=== PATIENT | male | born 1960 | race Caucasian/White ===

== ENCOUNTER 2023-01-23 08:47 | Outpatient (OUT) | payer MEDICARE, SELFPAY ==
--- NOTE | 2023-01-23 09:07 | MR_ITS ---
The [address] [address] Patient Name: VALERIE CRUM MRN: [id number] date: 1960 Sex: M Assigned Patient Location: LAB Current Patient Location: LAB Accession/Order Number: [id number] Exam Date: 01/23/2023 09:37 Report Date: 01/23/2023 18:21 At the request of: NON-STAFF PHYSICIAN Procedure: MR thoracic spine wo/w con MR cervical spine wo/w con, MR thoracic spine wo/w con, 01/23/2023 9:37 AM EDT INDICATION: Multiple Sclerosis G35 COMPARISON: This study was compared to the prior MRI of cervical and thoracic spine dated 01/27/2021 TECHNIQUE: Multiplanar, multisequential MRI images of cervical spine and thoracic were obtained without and with contrast. FINDINGS: There is increased physiologic cervical lordosis. The vertebral heights are preserved. Given technical differences, there is stable T2 prolongation focus within the left hemicord of C4-C5 (image 6 series 6001). No other signal abnormality within the spinal cord is noted. No abnormal enhancing lesion is noted. At the level of C3-C4, there is moderate bilateral neuroforaminal narrowing and no canal stenosis. At the level of C4-C5, there is mild left neuroforaminal narrowing and no canal stenosis. At the level of C5-C6, there is mild left neuroforaminal narrowing and no canal stenosis. At the level of C6-C7, there is mild left neuroforaminal narrowing and no canal stenosis. Thoracic spine: The conus medullaris ends level of L1. No signal abnormality within the spinal cord intraosseous spine is noted. No abnormal enhancing lesion is noted. There is no significant neuroforaminal narrowing or canal stenosis. MR/MR thoracic spine wo/w con IMPRESSION: Stable known MS plaque in the cervical spinal cord in compared to the prior study. No definite new or active lesion is noted. No evidence of demyelinating process in the thoracic spine. Electronically authenticated by: BRANDY MORRISON Date: 01/23/2023 18:21
--- NOTE | 2023-01-23 09:07 | MR_ITS ---
The [address] [address] Patient Name: VALERIE CRUM MRN: [id number] date: 1960 Sex: M Assigned Patient Location: LAB Current Patient Location: LAB Accession/Order Number: [id number] Exam Date: 01/23/2023 09:37 Report Date: 01/23/2023 18:21 At the request of: NON-STAFF PHYSICIAN Procedure: MR cervical spine wo/w con MR cervical spine wo/w con, MR thoracic spine wo/w con, 01/23/2023 9:37 AM EDT INDICATION: Multiple Sclerosis G35 COMPARISON: This study was compared to the prior MRI of cervical and thoracic spine dated 01/27/2021 TECHNIQUE: Multiplanar, multisequential MRI images of cervical spine and thoracic were obtained without and with contrast. FINDINGS: There is increased physiologic cervical lordosis. The vertebral heights are preserved. Given technical differences, there is stable T2 prolongation focus within the left hemicord of C4-C5 (image 6 series 6001). No other signal abnormality within the spinal cord is noted. No abnormal enhancing lesion is noted. At the level of C3-C4, there is moderate bilateral neuroforaminal narrowing and no canal stenosis. At the level of C4-C5, there is mild left neuroforaminal narrowing and no canal stenosis. At the level of C5-C6, there is mild left neuroforaminal narrowing and no canal stenosis. At the level of C6-C7, there is mild left neuroforaminal narrowing and no canal stenosis. Thoracic spine: The conus medullaris ends level of L1. No signal abnormality within the spinal cord intraosseous spine is noted. No abnormal enhancing lesion is noted. There is no significant neuroforaminal narrowing or canal stenosis. MR/MR cervical spine wo/w con IMPRESSION: Stable known MS plaque in the cervical spinal cord in compared to the prior study. No definite new or active lesion is noted. No evidence of demyelinating process in the thoracic spine. Electronically authenticated by: BRANDY MORRISON Date: 01/23/2023 18:21
[2023-01-23 09:12] LABS: Estimated GFR (African America >60 (>=60); Estimated GFR (Non-African Ame >60 (>=60)
== END 2023-01-23 08:48 | disposition home or self-care (01) ==
PROVIDERS: PCP Family Medicine
DX: G35 Multiple sclerosis (principal)
CPT/HCPCS: 36415; 72156; 72157; 82565; 84520; A9575

== ENCOUNTER 2023-04-21 07:45 | Emergency (ER) | payer MEDICARE, MEDICAID, SELFPAY ==
[2023-04-21 07:49] VITALS: BP 140/84; PULSE 109; RESP 20; TEMP 36.6; O2SAT 93; BMI 22.8
--- NOTE | 2023-04-21 08:02 | XR_ITS ---
The [address] [address] Patient Name: VALERIE CRUM MRN: [id number] date: 1960 Sex: M Assigned Patient Location: ER Current Patient Location: ER Accession/Order Number: [id number] Exam Date: 04/21/2023 08:22 Report Date: 04/21/2023 08:52 At the request of: LAZARO HUTCHINSON Procedure: XR knee RT 4V EXAM: XR knee RT 4V HISTORY: right knee pain COMPARISON: None. TECHNIQUE: 4 views of the right knee. FINDINGS: No acute fracture or dislocation. No significant joint effusion. Minimal degenerative change. Soft tissues are grossly unremarkable. XR/XR knee RT 4V IMPRESSION: No acute osseous abnormality. Electronically authenticated by: SIMONE LLAMAS Date: 04/21/2023 08:52
--- NOTE | 2023-04-21 08:03 | ED.GENADUL1 ---
HPI - General Adult General Chief complaint: Extremity Injury, Lower Stated complaint: LOWER EXTREMITY PAIN R SIDE Time Seen by Provider: 04/21/23 07:50 Source: patient Mode of arrival: Wheelchair History of Present Illness HPI narrative: right knee pain without injury. Pain localized to the right knee joint with some pain behind the knee. No systemic symptoms such as fever or vomiting. He told us that the right knee sometimes gives out . Pain is non-radiating and worse when the patient is weight-bearing and ambulating. Nothing taken for the pain, which began a few days ago and has slowly worsened. PMHx - Multiple Sclerosis. Related Data Home Medications Medication Instructions Recorded Confirmed alendronate 70 mg tablet 70 mg PO DAILY 04/21/23 04/21/23 amitriptyline 100 mg tablet 100 mg PO DAILY 04/21/23 04/21/23 aripiprazole 15 mg tablet 15 mg PO DAILY 04/21/23 04/21/23 cyproheptadine 4 mg tablet 4 mg PO Q12H 04/21/23 04/21/23 escitalopram oxalate 10 mg tablet 10 mg PO DAILY 04/21/23 04/21/23 fluticasone fur. 100 mcg-umeclid 1 inh inhalation Q24H 04/21/23 04/21/23 62.5 mcg-vilant 25 mcg inhalat.powder (Trelegy Ellipta) gabapentin 600 mg tablet 600 mg PO Q8H 04/21/23 04/21/23 levothyroxine 200 mcg tablet 200 mcg PO DAILY 04/21/23 04/21/23 mirtazapine 45 mg tablet 45 mg PO DAILY 04/21/23 04/21/23 Previous Rx's Medication Instructions Recorded nabumetone 750 mg tablet 750 mg PO BID PRN pain #14 tabs 04/21/23 Allergies Allergy/AdvReac Type Severity Reaction Status Date / Time glatiramer (copolymer 1) Allergy Severe Verified 04/21/23 07:57 Penicillins Allergy Severe Verified 04/21/23 08:02 Exam Narrative Exam Narrative: Nurses notes and vital signs reviewed and patient is not hypoxic. afebrile General: Well-appearing and in no apparent distress. Skin: Warm, dry, no pallor noted. No rash. Cardiovascular: Tachycardia. Respiratory: No accessory muscle use or respiratory distress. Musculoskeletal: Only area of knee tender to palpation is the infrapatellar tendon. Right knee with normal ROM. Remainder of right LE unremarkable - no calf or popliteal tenderness, no lower extremity edema/swelling. Stable right knee - no laxity. Negative anterior and posterior drawer. No pain with valgus or varus maneuvers. No erythema, warmth or swelling noted to the right knee. Neurological: A&O x4. No cranial nerve dysfunction observed. No truncal ataxia. Moves all extremities. Sensation intact. Psychiatric: Cooperative and interactive. Normal mood and affect. Constitutional Vital Signs, click to edit/add: Last Vital Signs Temp 98 F 04/21/23 07:49 Pulse 109 H 04/21/23 07:49 Resp 20 04/21/23 07:49 BP 140/84 04/21/23 07:49 Pulse Ox 93 L 04/21/23 07:49 O2 Del Method Room Air 04/21/23 07:49 Course Vital Signs Vital signs: Vital Signs Temperature 98 F 04/21/23 07:49 Pulse Rate 109 H 04/21/23 07:49 Respiratory Rate 20 04/21/23 07:49 Blood Pressure 140/84 04/21/23 07:49 Pulse Oximetry 93 L 04/21/23 07:49 Oxygen Delivery Method Room Air 04/21/23 07:49 Temperature 98 F 04/21/23 07:49 Pulse Rate 109 H 04/21/23 07:49 Respiratory Rate 20 04/21/23 07:49 Blood Pressure 140/84 04/21/23 07:49 Pulse Oximetry 93 L 04/21/23 07:49 Oxygen Delivery Method Room Air 04/21/23 07:49 Medical Decision Making [facility] Narrative Medical decision making narrative: xrays right knee obtained. Blood drawn for testing, including d-dimer, esr, crp, uric acid, cbc w diff. Sed rate and CRp were elevated but d-dimer, uric acid and cbc were normal. X-rays did not show any osseous abnormality, just some degenerate changes. Patient informed of results. Given IM Toradol and IM Solumedrol in the ED and discharged home with rpescription for Relafen to take at home. PCP follow up recommended. Lab Data Lab results reviewed: Yes I reviewed the patient's lab results Labs: Lab Results 04/21/23 Range/Units 08:17 WBC 7.7 (4.0-11.0) 10^3/uL RBC 4.77 (4.70-6.10) 10^6/uL Hgb 15.5 (14.0-18.0) g/dL Hct 47.3 (42.0-54.0) % MCV 99.2 H (80.0-94.0) fL MCH 32.5 (25.9-34.0) pg MCHC 32.8 (29.9-35.2) g/dL RDW 13.4 (11.0-15.0) % Plt Count 295 (150-450) 10^3/uL MPV 8.8 L (9.5-13.5) fL Neut % (Auto) 65.7 (43.0-75.0) % Lymph % (Auto) 16.2 L (20.5-60.0) % Cameron % (Auto) 10.6 (1.7-12.0) % Eos % (Auto) 4.4 (0.9-7.0) % Baso % (Auto) 1.8 (0.2-2.0) % Neut # (Auto) 5.0 (1.4-6.5) 10^3/uL Lymph # (Auto) 1.2 (1.2-3.8) 10^3/uL Cameron # (Auto) 0.8 (0.3-0.8) 10^3/uL Eos # (Auto) 0.3 (0.0-0.7) 10^3/uL Baso # (Auto) 0.1 (0.0-0.1) 10^3/uL Abs Immat Gran (auto) 0.10 H (0.00-0.03) 10^3/uL Imm/Tot Granulo (auto) 1.3 H (0.0-0.5) % ESR 45 H (<=20) mm/hr D-Dimer 0.49 (<=0.59) mg/L FEU Uric Acid 3.5 (3.5-7.2) mg/dL C-Reactive Protein 0.88 H (<=0.50) mg/dL Imaging Data xr knee: Radiologist's impression: Patient Name: VALERIE CRUM MRN: [id number] date: 1960 Sex: M Assigned Patient Location: ER Current Patient Location: ER Accession/Order Number: [id number] Exam Date: 04/21/2023 08:22 Report Date: 04/21/2023 08:52 At the request of: LAZARO HUTCHINSON Procedure: XR knee RT 4V EXAM: XR knee RT 4V HISTORY: right knee pain COMPARISON: None. TECHNIQUE: 4 views of the right knee. FINDINGS: No acute fracture or dislocation. No significant joint effusion. Minimal degenerative change. Soft tissues are grossly unremarkable. IMPRESSION: No acute osseous abnormality. Electronically authenticated by: SIMONE LLAMAS Date: 04/21/2023 08:52 Discharge Plan Discharge Chief Complaint: Extremity Injury, Lower Clinical Impression: Acute knee pain Patient Disposition: Home, Self-Care Time of Disposition Decision: 09:00 Prescriptions / Home Meds: New nabumetone 750 mg tablet 750 mg PO BID PRN (Reason: pain) Qty: 14 0RF No Action gabapentin 600 mg tablet 600 mg PO Q8H alendronate 70 mg tablet 70 mg PO DAILY cyproheptadine 4 mg tablet 4 mg PO Q12H mirtazapine 45 mg tablet 45 mg PO DAILY levothyroxine 200 mcg tablet 200 mcg PO DAILY amitriptyline 100 mg tablet 100 mg PO DAILY escitalopram oxalate 10 mg tablet 10 mg PO DAILY aripiprazole 15 mg tablet 15 mg PO DAILY Trelegy Ellipta 100-62.5-25 mcg blister with device 1 inh INHALATION Q24H Instructions: Knee Pain (ED) Stand Alone Forms: Portal Instructions Referrals: ROMÁN CHANG [Primary Care Provider] - 1 week
[2023-04-21 08:25] LABS: Basophils Absolute Auto 0.1 10^3/uL (0.0-0.1); Basophils Percent Auto 1.8 % (0.2-2.0); Eosinophils Absolute Auto 0.3 10^3/uL (0.0-0.7); Eosinophils Percent Auto 4.4 % (0.9-7.0); Hematocrit 47.3 % (42.0-54.0); Hemoglobin 15.5 g/dL (14.0-18.0); Immature Granulocytes Pct Auto 1.3 % (0.0-0.5); Lymphocytes Absolute Auto 1.2 10^3/uL (1.2-3.8); Lymphocytes Percent Auto 16.2 % (20.5-60.0); Mean Corpuscular HGB Conc 32.8 g/dL (29.9-35.2); Mean Corpuscular Hemoglobin 32.5 pg (25.9-34.0); Mean Corpuscular Volume 99.2 fL (80.0-94.0); Mean Platelet Volume 8.8 fL (9.5-13.5); Monocytes Absolute Auto 0.8 10^3/uL (0.3-0.8); Monocytes Percent Auto 10.6 % (1.7-12.0); Neutrophils Percent Auto 65.7 % (43.0-75.0); Platelet Count 295 10^3/uL (150-450); Red Blood Count 4.77 10^6/uL (4.70-6.10); Red Cell Distribution Width 13.4 % (11.0-15.0); White Blood Count 7.7 10^3/uL (4.0-11.0)
[2023-04-21 08:31] LABS: Erythrocyte Sedimentation Rate 45 mm/hr (<=20)
[2023-04-21 08:38] LABS: D Dimer 0.49 mg/L FEU (<=0.59)
[2023-04-21 08:40] LABS: Uric Acid 3.5 mg/dL (3.5-7.2)
[2023-04-21 08:48] LABS: C Reactive Protein 0.88 mg/dL (<=0.50)
[2023-04-21] MEDS: KETOROLAC TROMETHAMINE 60 MG/2 ML VIAL IM (09:13)
[2023-04-21] MEDS: METHYLPREDNISOLONE SOD SUCC PF 125 MG/2 ML VIAL IM (09:13)
== END 2023-04-21 09:24 | disposition home or self-care (01) ==
PROVIDERS: Emergency Provider Emergency Medicine; PCP Family Medicine
DX: M25.561 Pain in right knee (principal); Z79.899 Other long term (current) drug therapy; Z79.890 Hormone replacement therapy
CPT/HCPCS: 36415; 73564; 84550; 85025; 85378; 85652; 86140; 96372; 99284; J2930

== ENCOUNTER 2023-08-01 11:49 | Outpatient (OUT) | payer MEDICARE, MEDICAID, SELFPAY ==
--- OUTSIDE RECORDS SUMMARY | 2023-08-01 11:58 | XMS_ITS | CCD ---
Author Organization [facility] Care Team Providers Care Trim Operator Name Role Phone Fox, Rudolph Davide Unavailable Unavailable Dr, None Unavailable Unavailable FOX, RUDOLPH DAVIDE Unavailable Unavailable YADAV, BEBO SANDADI Unavailable Unavailabl e YADAV, BEBO SANDADI Unavailable Unavailabl e YADAV, BEBO SANDADI Unavailable Unavailabl e LIUDMILA WHITE Unavailable Unavail able YRIS PEREIRA Unavailable Unavailable ARACELY GRAY Unavailable Unavailable TIMHOLMKEISHA VENANCIO Unavailable Unavailable NYHOLM KEISHA VENANCIO Unavailable Unavailable FOX, RUDOLPH DAVIDE Unavailable Unavailable FOX, RUDOLPH DAVIDE Unavailable Unavailable FOX, RUDOLPH DAVIDE Unavailable Unavailable FOX, RUDOLPH DAVIDE Unavailable Unavailable FOX, RUDOLPH DAVIDE Unavailable Unavailable BAYLEE TREJO Unavailable Unavailable FOX, RUDOLPH DAVIDE Unavailable Unavailable MIS JORDAN W Unavailable Unavailable FOX, RUDOLPH DAVIDE Unavailable Unavailable FOX, RUDOLPH DAVIDE Unavailable Unavailable FOX, RUDOLPH DAVIDE Unavailable Unavailable FOX, RUDOLPH DAVIDE Unavailable Unavailable SYSTEM, PROVIDER NOT IN Unavailable Unavaila ble FOX, RUDOLPH DAVIDE Unavailable Unavailable JORDANSEAN CARRIONNDAN W Unavailable Unavailable Fox, Rudolph Davide Primary Care Provider DR SHASTA BERMUDEZ Primary Care Unavailable DR SHASTA BERMUDEZ Consulting Unavailable PERRIE, ALEKS Admitting Unavailable PERRIE, ALEKS Attending Unavailable DR EMMA PICKERING Consulting Unavailable ALEKS DELEON Consulting Unavailable DR SHASTA BERMUDEZ Primary Care Unavailable SUZY WALLACE Consulting Unavailable MARIO FUNG Admitting Unavailable MARIO FUNG Attending Unavailable MARIO FUNG Consulting Unavailable LARA, DR FRANCE Primary Care Unavailable BENEDICT, DR CARTER Admitting Unavailable BENEDICT, DR CARTER Consulting Unavailable BENERIVKACT, DR CARTER Attending Unavailable DR SHASTA BERMUDEZ Primary Care Unavailable BENEDICT, DR CARTER Admitting Unavailable BENEDICT, DR CARTER Consulting Unavailable TIFFANY, DR CARTER Attending Unavailable Lara HERRING, Shasta Jaleel Unavailable Lara HERRING, Shasta Marmolejo Primary Care Provider [phone] Alicia NAVA, Macey Torres Unavailable [phone] JEANNE HE Attending Unavailable LARA, SHASTA F Referring Unavailable BRINK, ESPERANZA Attending Unavailable LARA, SHASTA F Referring Unavailable BRINK, ESPERANZA Attending Unavailable LARA, SHASTA F Referring Unavailable BRINK, ESPERANZA Attending Unavailable LARA, SHASTA F Referring Unavailable BRINK, ESPERANZA Attending Unavailable LARA, SHASTA F Referring Unavailable SOURAV CASTANON Attending Unavailable LARA, SHASTA F Referring Unavailable AGNES ARRINGTON Attending Unavailable MIGUEL, RADHA R Referring Unavailable LARA, SHASTA F Attending Unavailable BRIKE, ESPERANZA Attending Unavailable LARA, SHASTA F Referring Unavailable MIGUEL, RADHA R Attending Unavailable MIGUEL, RADHA R Referring Unavailable Allergies Allergy Classification Reported Allergen(s) Allergy Type Date of Onset Reaction(s) Facility Glatiramer (1 source) Glatiramer Drug Allergy 5 Intolerance [facility] Work Phone: Penicillins (antibiotic) (1 source) Penicillins Drug Allergy 5 Rash [facility] Unclassified (1 source) Marijuana Drug Allergy 5 Vomiting [facility] (5 sources) glatiramer; Translations: [GLATIRAMER (COPOLYMER 1)] Propensity to adverse reactions to drug 5 [facility] Work Phone: (6 sources) Penicillins; Translations: [PENICILLINS] Propensity to adverse reactions to drug 5 [facility] Work Phone: (1 source) Glatiramer Drug Allergy 1 [facility] (1 source) Penicillins Drug allergy (disorder) 3 [facility] (5 sources) Glatiramer Drug Allergy [address] [facility] Work Phone: (5 sources) Glatiramer Drug Allergy 3 [facility] (5 sources) Penicillin G Drug Allergy 3 Unknown [facility] (5 sources) Penicillins Drug Allergy 9 Hives, Rash [facility] (5 sources) Marijuana (Cannabis Sativa) Allergy to substance 5 GI intolerance [facility] Medications Current Medications Medication Drug Class(es) Dates Sig (Normalized) Sig (Original) alendronic acid 70 mg oral tablet (5 sources) Bisphosphonate Start: 01-18-2023 take 1 tablet by mouth in the morning alendronate (Fosamax) 70 MG tablet Indications: Age-related osteoporosis without current pathological fracture (CMS/HCC) Take 1 tablet (70 mg) by mouth every 7 (seven) days. Take in the morning with a full glass of water, on an empty stomach, and do not take anything else by mouth or lie down for the next 30 min. 16 tablet 3 01/18/2023 Active amitriptyline hydrochloride 50 mg oral tablet (12 sources) Tricyclic Antidepressant Start: 07-25-2023 take 50 mg by mouth once daily Amitriptyline Active 50 MG PO Daily July 25, 2023 12:00am Start: 03-31-2017 End: 04-01-2017 take 1 tablet by mouth once amitriptyline (ELAVIL) tab let 50 mg 50 mg, Oral, Nightly, First dose on 03/31/17 at 2100 Given 03/31/2017 20:01 EST 50 mg Start: 06-15-2014 take 1 tablet by mouth once am itriptyline (ELAVIL) 50 MG tablet Take 50 mg by mouth nightly . 06/15/2014 Active amitriptyline (E lavil) 100 MG tablet Take by mouth at bedtime. 0 Active Comment on above: Take 25 mg by mouth once daily. ARIPiprazole 5 mg oral tablet (6 sources) Atypical Antipsychotic Start: 4 take 5 mg by mouth once daily Aripiprazole Active 5 MG PO Daily July 25, 2023 12:00am Start: 02-10-2023 ARIPiprazole ( Abilify) 15 MG tablet Indications: Current moderate episode of major depressive disorder without prior episode (HCC) (CMS/HCC) TAKE 1 TABLET EVERY DAY 90 tablet 10 02/10/2023 Active calcium carbonate 1500 mg / cholecalciferol 200 unt oral tablet (5 sources) Vitamin D Start: 12-31-2020 calcium carbonate-vitamin D 600-200 MG-UNIT tablet 1 tablet with a meal Orally twice daily. Recommended keysha 500mg with vit d 300iu 0 12/31/2020 Active cholecalciferol 2000 unt oral capsule (4 sources) Vitamin D take 1 capsule by mouth once daily cholecalciferol, vitamin D3, 2,000 unit cap Take 1 capsule by mouth daily . Active cyproheptadine hydrochloride 4 mg oral tablet (6 sources) Start: 07-25-2023 take 4 mg by mouth once daily at bedtime Cyproheptadine Active 4 MG PO Daily at bedtime July 25, 2023 12:00am take 1 tablet by mouth at bedtim e cyproheptadine (Periactin) 4 MG tablet Take 4 mg by mouth at bedtime. 0 Active diphenhydrAMINE citrate 38 mg / ibuprofen 200 mg oral tablet (4 sources) Histamine-1 Receptor Antagonist, Nonsteroidal Anti-inflammatory Drug ibuprofen-diphenhydr AMINE (IBUPROFEN PM) 200-38 mg Tab Take by mouth nightly as needed Active docusate sodium 100 mg oral capsule (6 sources) Star t: 01-06 End: 06-07 24 docusate sodium (Colace) 100 MG capsule Indications: Slow transit constipation TAKE 1 CAPSULE EVERY MORNING 90 capsule 3 06/20/2023 Active escitalopram 10 mg oral tablet (5 sources) Serotonin Reuptake Inhibitor take 1 tablet by mouth once daily at bedtime escitalopram (Lexapro) 10 MG tablet Take 10 mg by mouth in the morning. Daily at 6 in the evening and take one tablet by mouth every night at bedtime. 0 Active 30 actuat fluticasone furoate 0.1 mg/actuat / umeclidinium 0.0625 mg/actuat / vilanterol 0.025 mg/actuat dry powder inhaler (5 sources) Anticholinergic, Corticosteroid, beta2-Adrenergic Agonist Star t: 11-23 24 take 1 puff(s) by inhalation once daily in the morning Hjzgamvwcnp-Ueclgtoue-Srqthp (Trelegy Ellipta) 100-62.5-25 MCG/ACT aerosol powder Indications: Chronic obstructive pulmonary disease with acute exacerbation (CMS/HCC) INHALE 1 PUFF EVERY MORNING 3 each 3 05/13/2023 Active Fluticasone-Umeclid in-Vilanter (1 source) Star t: 07-06 Bodimxhtnrc-Zoedjopbc-Txlwkd er (Trelegy Ellipta) 200-62.5-25 mcg blister with device Active 1 INH INHALATION Daily July 25, 2023 12:00am gabapentin 600 mg oral tablet (20 sources) Anti-epileptic Agent Star t: 07-06 take 600 mg by mouth once daily Gabapentin Active 600 MG PO Daily July 25, 2023 12:00am Start: 03-14-2023 gabapentin (Ne urontin) 600 MG tablet Indications: Chronic pain syndrome TAKE 2 TABLETS TWICE A DAY 360 tablet 10 03/14/2023 Active Start: 03-31-2017 End: 04-01-2017 take 1 capsule by mouth once gabapentin (NEURONTIN) ca psule 1,200 mg 1,200 mg, Oral, Nightly, First dose on 03/31/17 at 2100 Given 03/31/2017 20:01 EST 1,200 mg take 1 tablet by viji th four times daily gabapentin (NEURONTIN) 600 mg tablet Take 600 mg by mouth four times daily. 0 Active take 1 tablet by viji th once daily gabapentin (NEURONTIN) 600 MG tablet Take 600 mg by mouth daily Mid afternoon . Active End: 03-31-2017 take 2 tablets by mouth once daily in the morning gabapentin (NEURONTIN) 600 MG tablet Take 1,200 mg by mouth every morning. Active Comment on above: Take 600 mg by mouth four times daily. liothyronine sodium 0.005 mg oral tablet (5 sources) l-Triiodothyroni ne Start: 10-26-2022 take 2 tablets by mouth in the morning liothyronine (Cytomel) 5 MCG tablet Take two (2) tablets by mouth in the morning and two (2) tablets by mouth in the afternoon. 0 10/26/2022 Active mirtazapine 45 mg oral tablet (12 sources) Start: 10-30-2022 End: 10-30-2023 take 45 mg by mouth once daily Mirtazapine Active 45 MG PO Daily July 25, 2023 12:00am Start: 03-31-2017 End: 04-01-2017 take 1 tablet by mouth once mirtazapine (REMERON) tabl et 45 mg 45 mg, Oral, Nightly, First dose on 03/31/17 at 2100 Given 03/31/2017 20:04 EST 45 mg MIRTAZAPINE ORAL Take 15 mg by mouth. 0 Active take 1 tablet by viji th once daily mirtazapine (REMERON) 45 MG tablet Take 45 mg by mouth daily. Active Comment on above: Take 15 mg by mouth. montelukast 10 mg oral tablet (9 sources) Leukotriene Receptor Antagonist Start: 05-31-2023 montelukast (Singulair) 10 MG tablet Indications: Chronic obstructive pulmonary disease with acute exacerbation (CMS/HCC) TAKE 1 TABLET EVERY DAY 90 tablet 3 05/31/2023 Active take 1 tablet by mouth once marlon elukast (SINGULAIR) 10 mg tablet Take 10 mg by mouth nightly. Active Multiple Vitamin (Multi-Vitamin) tablet (5 sources) take 1 tablet by mouth in the morning Multiple Vitamin (Multi-Vitamin) tablet Take 1 tablet by mouth in the morning. 0 Active multivitamin (THERAGRAN) per tablet (3 sources) take 1 tablet by mouth once daily multivitamin (THERAGRAN) per tablet Take 1 tablet by mouth daily. Active Multivitamin Tablet (1 source) take 1 tablet by mouth once daily multivitamin (THERAGRAN) per tablet Take 1 tablet by mouth daily. Active Sod Picosulf-Mag Ox-Citric Ac (1 source) Start: 07-25-2023 take 1 mL by mouth once daily Sod Picosulf-Mag Ox-Citric Ac (Clenpiq) 10 mg-3.5 gram- 12 gram/175 mL solution Active 175 ML PO Daily 350 0 July 25, 2023 12:00am Patient is to follow instructions given at office levothyroxine sodium 0.2 mg oral capsule (13 sources) l-Thyroxin e Start: 07-25-2023 take 50 ug by mouth once daily Levothyroxine Active 50 MCG PO Daily July 25, 2023 12:00am Start: 07-25-2023 take 200 ug by mouth once radha y Levothyroxine Active 200 MCG PO Daily July 25, 2023 12:00am Start: 02-21-2023 levothyroxine (Synthroid, Levoxyl) 200 MCG tablet Start: 03-31-2017 End: 04-01-2017 levothyroxine (SYNTHROID, LEVOTHROID) tablet 150 mcg 150 mcg, Oral, At bedtime, First dose on 03/31/17 at 2100, For patients on continuous tube feed: Hold TF from 1 hr before until 1 hr after each dose. TF rate may need adjustment to meet caloric needs. Given 03/31/2017 20:01 EST 150 mcg take 1 capsule by mo uth twice daily Levothyroxine 150 mcg cap Take 150 mg by mouth twice daily. 0 Active take 1 tablet by viji th once daily levothyroxine (SYNTHROID, LEVOTHROID) 150 MCG tablet Take 150 mcg by mouth daily . Active Comment on above: Take 150 mg by mouth twice daily. vardenafil 20 mg oral tablet (5 sources) Phosphodiesterase 5 Inhibitor va rdenafil (Levitra) 20 MG tablet Take 1 tablet by mouth 0 Active Completed/Discontinued Medications Medication Drug Class(es) Dates Sig (Normalized) Sig (Original) acetaminophen 325 mg oral tablet (2 sources) Start: 04-01-2017 End: 04-01-2017 take 1 tablet by mouth once acetaminophen (TYLENOL) tablet 650 mg 650 mg, Oral, Once, 04/01/17 at 1100, For 1 dose Given 04/01/2017 10:54 EST 650 mg Start: 04-01-2017 End: 04-01-2017 take 1 tablet by mouth once acetaminophen (TYLENOL) ta blet 650 mg 650 mg, Oral, Once, 04/01/17 at 0030, For 1 dose Given 04/01/2017 00:16 EST 650 mg acetaminophen 325 mg / HYDROcodone bitartrate 5 mg oral tablet (1 source) Opioid Agonist Start: 03-31-2017 End: 03-31-2017 take 1 tablet by mouth once, then take 1 tablet by mouth HYDROcodone-acetaminophen (NORCO) 5-325 mg per tablet 1 tablet 1 tablet, Oral, Once, 03/31/17 at 1310, For 1 dose Given 03/31/2017 13:23 EST 1 tablet acetaminophen 325 mg / oxyCODONE hydrochloride 10 mg oral tablet (2 sources) Opioid Agonist End: 03-31-2017 take 1 tablet by mouth every four hours as needed oxyCODONE-acetaminophen (PERCOCET) 10-325 mg tablet Take 1 tablet by mouth every 4 hours as needed. 0 Active Comment on above: Take 1 tablet by mouth every 4 hours as needed. albuterol 0.833 mg/ml / ipratropium bromide 0.167 mg/ml inhalant solution (1 source) Anticholinergic, beta2-Adrenergic Agonist Start: 03-31-2017 End: 04-01-2017 take 3 mL by inhalation every six hours, then take 3 mL by inhalation ipratropium-albuterol (DUO-NEB) 0.5-2.5 mg/3 ml nebulizer solution 3 mL 3 mL, Inhalation, Every 6 hours scheduled (RT), First dose on 03/31/17 at 2000 Given 04/01/2017 01:38 EST 3 mL cefePIMe (MAXIPIME) 2000 mg in sodium chloride (NS) 0.9% 100 mL MBP 2,000 mg, Intravenous, at 200 mL/hr, Once, 03/31/17 at 1110, For 1 dose, Indication: Sepsis of Unknown Origin New Bag 03/31/2017 12:06 EST 2,000 mg 200 mL/hr (1 source) Start: 03-31-2017 End: 03-31-2017 50 ml clindamycin 12 mg/ml injection (1 source) Lincosamide Antibacterial Start: 03-31-2017 End: 04-01-2017 take 600 mg intravenous route every eight hours clindamycin (CLEOCIN) IVPB 600 mg (premix) 600 mg, Intravenous, at 100 mL/hr, Every 8 hours, First dose on 03/31/17 at 2200, Indication: Other: (specify) Rate/Dose Verify 04/01/2017 06:21 EST 100 mL/hr diazePAM 5 mg oral tablet (2 sources) Benzodiazepine take 1 tablet by mouth three times daily diazepam (VALIUM) 5 mg tablet Take 5 mg by mouth three times daily. 0 Active End: 03-31-2017 take 1 tablet by mouth twice daily as needed for anxiety diazePAM (VALIUM) 5 MG tablet Take 5 mg by mouth 2 (two) times a day as needed for anxiety. 03/31/2017 Discontinued Comment on above: Take 5 mg by mouth t hree times daily. dimethyl fumarate 240 mg delayed release oral capsule (7 sources) Start: 03-31-2017 End: 04-01-2017 take 2001 capsules by mouth twice daily dimethyl fumarate (Tecfidera) DR capsule 240 mg 240 mg, Oral, 2 times daily, First dose on 03/31/17 at 2100, Drug Name: Tecfidera delayed release capsule Given 03/31/2017 20:01 EST 240 mg End: 03-31-2017 take 240 mg by mouth twice daily DIMETHYL FUMARATE (TECFIDERA ORAL) Take 240 mg by mouth twice daily. 0 Active Comment on above: Take 240 mg by mouth twice daily. Gadoterate Meglumine 0.5 Mmol/Ml Intravenous Solution (1 source) Start: 07-03-19 18 End: 07-03-19 gadoterate meglumine (DOTAREM) injection 12 mL 1 ml HYDROmorphone hydrochloride 1 mg/ml injection (3 sources) Opioid Agonist Start: 03-31-20 End: 04-01-20 take 3 mg intravenous route every three hours HYDROmorphone (DILAUDID) 1 mg/mL injection 3 mg 3 mg, Intravenous, Every 3 hours PRN, moderate to severe pain, Starting 03/31/17 at 2055, For 19 hours Given 04/01/2017 08:10 EST 3 mg Start: 03-31-2017 End: 03-31-2017 take 2 mg intravenous route every three hours HYDROmorphone (DILAUDID) 1 mg/mL injection 2 mg 2 mg, Intravenous, Every 3 hours PRN, moderate to severe pain, Starting 03/31/17 at 1817, For 22 hours Given 03/31/2017 18:28 EST 2 mg Start: 03-31-2017 End: 03-31-2017 take 1 mg intravenous route every three hours HYDROmorphone (DILAUDID) 1 mg/mL injection 1 mg 1 mg, Intravenous, Every 3 hours PRN, moderate to severe pain, Starting 03/31/17 at 1647, For 24 hours Given 03/31/2017 17:21 EST 1 mg iopamidol (2 sources) Radiographic Contrast Agent Start: 04-01-2017 End: 04-01-2017 iopamidol (ISOVUE-370) 76 % oral solution 6 mL 6 mL, Oral, Every 30 min, First dose on 04/01/17 at 1415, For 3 doses, Dilute each 6mls with 300mls cold water prior to oral administration Contrast Administered 04/01/2017 14:20 EST 6 mL Start: 03-31-2017 End: 03-31-2017 iopamidol (ISOVUE-370) 76 % injection 75 mL 75 mL, Intravenous, Once in imaging, contrast, Starting 03/31/17 at 1115, For 1 dose Contrast Administered 03/31/2017 11:32 EST 75 mL 150 ml levoFLOXacin 5 mg/ml injection (1 source) Quinolone Antimicrobial Start: 03-31-2017 End: 04-01-2017 take 750 mg intravenous route every twenty-four hours levoFLOXacin (LEVAQUIN) IVPB 750 mg (premix) 750 mg, Intravenous, Administer over 90 Minutes, Every 24 hours, First dose on 03/31/17 at 2000, Indication: CAP Rate/Dose Verify 03/31/2017 20:17 EST 100 mL/hr meropenem (MERREM) 1,000 mg in sodium chloride 0.9 % (NS) 50 mL IVPB 1,000 mg, Intravenous, at 100 mL/hr, Every 8 hours, First dose on 04/01/17 at 0300, Indication: Sepsis/Septic Shock (non-anaphylactic PCN allergies) New Bag 04/01/2017 10:56 EST 1,000 mg 100 mL/hr (1 source) Start: 04-01-2017 End: 04-01-2017 take 1000 mg intravenous route every eight hours meropenem (MERREM) 1,000 mg in sodium chloride 0.9 % (NS) 50 mL IVPB 1,000 mg, Intravenous, at 100 mL/hr, Every 8 hours, First dose on 04/01/17 at 0300, Indication: Sepsis/Septic Shock (non-anaphylactic PCN allergies) New Bag 04/01/2017 10:56 EST 1,000 mg 100 mL/hr methylPREDNISolone sod suc (PF) (SOLU-medrol) 1,000 mg in sodium chloride 0.9 % (NS) 100 mL IVPB 1,000 mg, Intravenous, at 100 mL/hr, Once, Lilliana 05/31/17 at 1530, For 1 dose, Infuse over 60 minutes GIVE DAILY X 3 DAYS EVERY 3 MONTHS CBC/D, CMP, ESR, UA DAY 1 EACH TREATMENT New Bag 05/31/2017 15:01 EST 1,000 mg 100 mL/hr (1 source) Start: 05-31-2017 End: 05-31-2017 take 1000 mg intravenous route every hour methylPREDNISolone sod suc (PF) (SOLU-medrol) 1,000 mg in sodium chloride 0.9 % (NS) 100 mL IVPB 1,000 mg, Intravenous, at 100 mL/hr, Once, Lilliana 05/31/17 at 1530, For 1 dose, Infuse over 60 minutes GIVE DAILY X 3 DAYS EVERY 3 MONTHS CBC/D, CMP, ESR, UA DAY 1 EACH TREATMENT New Bag 05/31/2017 15:01 EST 1,000 mg 100 mL/hr methylPREDNISolone sod suc (PF) (SOLU-medrol) 1,000 mg in sodium chloride 0.9 % (NS) 100 mL IVPB 1,000 mg, Intravenous, at 100 mL/hr, Once, Sun05/30/17 at 1530, For 1 dose, Infuse over 60 minutes GIVE DAILY X 3 DAYS EVERY 3 MONTHS CBC/D, CMP, ESR, UA DAY 1 EACH TREATMENT New Bag 05/30/2017 15:00 EST 1,000 mg 100 mL/hr (1 source) Start: 05-30-2017 End: 05-30-2017 take 1000 mg intravenous route every hour methylPREDNISolone sod suc (PF) (SOLU-medrol) 1,000 mg in sodium chloride 0.9 % (NS) 100 mL IVPB 1,000 mg, Intravenous, at 100 mL/hr, Once, Sun05/30/17 at 1530, For 1 dose, Infuse over 60 minutes GIVE DAILY X 3 DAYS EVERY 3 MONTHS CBC/D, CMP, ESR, UA DAY 1 EACH TREATMENT New Bag 05/30/2017 15:00 EST 1,000 mg 100 mL/hr morphine sulfate 15 mg extended release oral tablet (5 sources) Opioid Agonist Start: 03-31-2017 End: 04-01-2017 take 1 tablet by mouth every twelve hours morphine (MS CONTIN) 12 hr tablet 15 mg 15 mg, Oral, Every 12 hours scheduled, First dose on [facility] 03/31/17 at 2100, DO NOT CRUSH OR CHEW. Given 03/31/2017 20:01 EST 15 mg take 1 tablet by viji twice daily as needed for pain, then take 1 tablet by mouth every twelve hours as needed for pain morphine (MS CONTIN) 15 MG 12 hr tablet Take 15 mg by mouth 2 (two) times a day as needed for pain. Active 24 hr nicotine 0.875 mg/hr transdermal system (1 source) Cholinergic Nicotinic Agonist Start: 03-31-2017 End: 04-01-2017 nicotine (NICODERM CQ) 21 mg/24 hr 1 patch 1 patch, Transdermal, Administer over 24 Hours, Daily, First dose on [facility] 03/31/17 at 1700 Patch Applied 03/31/2017 16:35 EST 1 patch Right Arm oxyCODONE hydrochloride 5 mg oral tablet (7 sources) Opioid Agonist Start: 03-31-2017 End: 03-31-2017 take 3 tablets by mouth every four hours oxyCODONE (ROXICODONE) immediate release tablet 15 mg 15 mg, Oral, Every 4 hours PRN, moderate to severe pain, Starting 03/31/17 at 1500 Given 03/31/2017 15:20 EST 15 mg take 30 mg by mouth twice daily OXYCODONE HCL (OXYCODONE ORAL) Take 30 mg by mouth twice daily. 0 Active take 1 tablet by viji th every four hours as needed oxyCODONE (ROXICODONE) 15 MG immediate release tablet Take 15 mg by mouth every 4 (four) hours as needed for pain. Active End: 03-31-2017 take 1 tablet by mouth twice daily OXYCONTIN 40 mg 12 hr tablet Take 40 mg by mouth 2 (two) times a day. 03/31/2017 Discontinued Comment on above: Take 30 mg by mouth twice daily. sildenafil 50 mg oral tablet (1 source) Phosphodiesterase 5 Inhibitor sildenafil (VIAGRA) 50 mg tablet Take 50 mg by mouth as needed. 0 Active Comment on above: Take 50 mg by mouth as needed. 1000 ml sodium chloride 9 mg/ml injection (7 sources) Start: End: take 125 mL intravenous route every hour sodium chloride 0.9% (NS) 125 mL/hr, Intravenous, Continuous, Starting 03/31/17 at 1700 Rate/Dose Verify 03/31/2017 17:54 EST 125 mL/hr 125 mL/hr Start: 03-31-2017 End: 04-01-2017 sodium chloride 0.9% (NS) tiffany belen 1,000 mL 1,000 mL, Intravenous, at 983.6 mL/hr, Once, 04/01/17 at 0030, For 1 dose Rate/Dose Verify 04/01/2017 00:24 EST 983.6 mL/hr vancomycin (VANCOCIN) 1,250 mg in sodium chloride 0.9 % (NS) 250 mL IVPB 1,250 mg, Intravenous, at 250 mL/hr, Every 12 hours, First dose on 04/01/17 at 1600, Indication: Sepsis of Unknown Origin Rate/Dose Change 04/01/2017 17:19 EST 5 mL/hr (1 source) Start: 04-01-2017 End: 04-01-2017 take 1250 mg intravenous route every twelve hours vancomycin (VANCOCIN) 1,250 mg in sodium chloride 0.9 % (NS) 250 mL IVPB 1,250 mg, Intravenous, at 250 mL/hr, Once, 03/31/17 at 1120, For 1 dose, Indication: Sepsis of Unknown Origin New Bag 03/31/2017 12:11 EST 1,250 mg 250 mL/hr (1 source) Start: 03-31-2017 End: 03-31-2017 take 250 mL intravenous route every hour, then take 250 mL intravenous route vitamin b 12 2 mg extended release oral tablet (1 source) Vitamin B12 End: 03-31-2017 take 2500 ug by mouth once daily cyanocobalamin 2000 MCG tablet Take 2,500 mcg by mouth daily 03/31/2017 Discontinued water 1000 mg/ml irrigation solution (1 source) Start: 04-01-2017 End: 04-01-2017 sterile water irrigation solution - ADS Override Pull Starting 04/01/17 at 0315, For 1 dose, Constanza Houser : cabinet override Given 04/01/2017 03:27 EST 1,500 mL Problems Active Problems Problem Classification Problem Date Documented Da te Episodic/Chronic Anxiety disorders (20 sources) Acute stress disorder; Translations: [Acute stress reaction] Onset: 09-19-2022 09-19-2022 Chronic Chronic obstructive pulmonary disease and bronchiectasis (10 sources) Centriacinar emphysema; Translations: [Centrilobular emphysema] Onset: 09-19-2022 09-19-2022 Chronic Coronary atherosclerosis and other heart disease (5 sources) History of myocardial infarction; Translations: [Old myocardial infarction] Onset: 04-03-2017 01-03-2023 Chronic Hyperplasia of prostate (5 sources) Benign prostatic hyperplasia; Translations: [Benign prostatic hyperplasia without lower urinary tract symptoms] Onset: 04-03-2017 01-03-2023 Chronic Mood disorders (15 sources) Depressive disorder; Translations: [Depression] Onset: 09-19-2022 09-19-2022 Chronic Multiple sclerosis (20 sources) Multiple sclerosis; Translations: [Multiple sclerosis] Onset: 10-07-2014 01-06-2015 Chronic Nutritional deficiencies (5 sources) Vitamin D deficiency; Translations: [Vitamin D deficiency, unspecified] Onset: 09-19-2022 09-19-2022 Chronic Osteoporosis (5 sources) Osteoporosis; Translations: [Age-related osteoporosis without current pathological fracture] Onset: 09-19-2022 09-19-2022 Chronic Other gastrointestinal disorders (1 source) Constipation alternates with diarrhea; Translations: [Other specified symptoms and signs involving the digestive system and abdomen] 07-25-2023 Episodic Other gastrointestinal disorders (1 source) Constipation; Translations: [Constipation, unspecified] 07-25-2023 Episodic Other gastrointestinal disorders (1 source) Constipation, unspecified; Translations: [Constipation, unspecified] 07-25-2023 Episodic Other lower respiratory disease (5 sources) Multiple nodules of lung; Translations: [Other nonspecific abnormal finding of lung field] Onset: 04-20-2023 04-20-2023 Episodic Other nervous system disorders (1 source) Chronic pain; Translations: [Other chronic pain] Onset: 10-07-2014 10-07-2014 Chronic Other nervous system disorders (5 sources) Chronic pain syndrome; Translations: [Chronic pain syndrome] Onset: 09-19-2022 09-19-2022 Chronic Other nervous system disorders (5 sources) Neuropathy; Translations: [Polyneuropathy, unspecified] Onset: 09-19-2022 09-19-2022 Chronic Other screening for suspected conditions (not mental disorders or infectious disease) (2 sources) Patient encounter status; Translations: [Encounter for screening for malignant neoplasm of colon] 07-25-2023 Episodic Other upper respiratory disease (5 sources) Allergic rhinitis; Translations: [Other allergic rhinitis] Onset: 09-19-2022 09-19-2022 Chronic Residual codes; unclassified (5 sources) Restlessness and agitation; Translations: [Restlessness and agitation] Onset: 09-19-2022 09-19-2022 Chronic Septicemia (2 sources) Sepsis, unspecified organism; Translations: [Sepsis, unspecified organism] Onset: 04-01-2017 Spondylosis; intervertebral disc disorders; other back problems (6 sources) Degeneration of lumbar intervertebral disc; Translations: [Other intervertebral disc degeneration, lumbar region] Onset: 10-07-2014 10-07-2014 Chronic Substance-related disorders (15 sources) Harmful pattern of use of caffeine; Translations: [Other stimulant abuse, uncomplicated] Onset: 04-25-2017 09-19-2022 Chronic Thyroid disorders (5 sources) Hypothyroidism; Translations: [Hypothyroidism, unspecified] Onset: 09-19-2022 09-19-2022 Chronic Unclassified (2 sources) [facility] Payable Administrator Review Required; Translations: [[facility] Payable Administrator Review Required] Onset: 05-30-2017 Past or Other Problems Problem Classification Problem Date Documented Da te Episodic/Chronic Malaise and fatigue (1 source) Fatigue; Translations: [Other fatigue] Onset: 10-07-2014 10-07-2014 Episodic Mood disorders (5 sources) Mood disorders Onset: 01-03-2023 01-03-2023 Nonspecific chest pain (6 sources) Chest pain; Translations: [Chest pain, unspecified] Onset: 11-10-2016 11-10-2016 Episodic Other ear and sense organ disorders (5 sources) Bilateral tinnitus; Translations: [Tinnitus, bilateral] Onset: 09-19-2022 09-19-2022 Episodic Other gastrointestinal disorders (6 sources) Slow transit constipation; Translations: [Slow transit constipation] Onset: 09-26-2022 09-26-2022 Episodic Other nutritional; endocrine; and metabolic disorders (5 sources) Loss of appetite; Translations: [Anorexia] Onset: 09-19-2022 09-19-2022 Episodic Pleurisy; pneumothorax; pulmonary collapse (5 sources) Empyema of pleura; Translations: [Pyothorax without fistula] Onset: 04-03-2017 01-03-2023 Episodic Pneumonia (3 sources) Infective pneumonia; Translations: [Pneumonia, unspecified organism] Onset: 04-01-2017 Episodic Septicemia (5 sources) Sepsis; Translations: [Sepsis (HCC)] Onset: 08-24-2016 03-31-2017 Episodic Thyroid disorders (1 source) Disorder of thyroid gland; Translations: [Disorder of thyroid, unspecified] Onset: 10-07-2014 10-07-2014 Episodic Results Test Name Value Interpretation Reference Range Facility CT ABDOMEN PELVIS WO IV CONT Miguel 07-16-2023 CT ABDOMEN PELVIS WO IV CONTRAST CT of the Abdomen and Pelvis without intravenous contrast medium History: Abdominal distention. Constipation. Technical Factors: CT imaging of the abdomen and pelvis were obtained and formatted as 5 mm contiguous axial images from the domes of the diaphragm to the symphysis pubis. Sagittal and coronal reconstructions were also obtained. Oral contrast medium: Barium sulfate, 400 mL. Intravenous contrast medium: None Comparison: None. Findings: Lower chest cardiac size normal. No pericardial effusion. No coronary artery calcification. Bibasilar dependent scarring. Liver: Normal in size, shape, and attenuation. Bile Ducts: Normal in caliber. Gallbladder: Surgically absent. Pancreas: Normal without masses, cysts, ductal dilatation or calcification. Spleen: Normal in size without masses or calcifications. No splenules. Kidneys: Normal in size. No hydronephrosis, masses, or stones. Adrenals: Normal. Small bowel: Normal in caliber. Appendix: Not visualized. Colon: Normal in caliber. Copious stool in colon. Peritoneum: No ascites, free air, or fluid collections. Vessels: Aorta normal in course and caliber. Lymph nodes: Retroperitoneal: No enlarged retroperitoneal lymph nodes. Mesenteric: No enlarged mesenteric lymph nodes. Pelvic: No enlarged pelvic lymph nodes. Ureters: Normal in course and caliber. No calcifications. Bladder: No wall thickening. Reproductive organs: No pelvic masses. Abdominal Wall: No hernia identified. No diastasis of rectus musculature. No edema or masses. Bones: No bone lesions. Diffuse disc space narrowing L2-L3 No post operative changes. IMPRESSION: Constipation. Cholecystectomy. All CT scans at this facility use dose modulation, iterative reconstruction, and/or weight based dosing when appropriate to reduce radiation dose to as low as reasonably achievable. ELECTRONICALLY SIGNED BY: Julito Saucedo MD Normal Not Available CBC AUTO DIFFon 09-19-2022 BASO # 0.1 103/ul Normal 0.0-0.1 [facility] Comment on above: Performed By: #### C BC #### [facility] [address] [place] [address] Dr. Edison Guzman Basophils/100 WBC (Bld) 2.0 % Normal 0.2-2.0 [facility] Comment on above: Performed By: #### C BC #### [facility] [address] [place] [address] Dr. Edison Guzman EO # 0.4 103/ul Normal 0.0-0.7 [facility] Comment on above: Performed By: #### C BC #### [facility] [address] [address] [address] Edison Guzman Eosinophils/100 WBC (Bld) 5.9 % Normal 0.9-7.0 [facility] Comment on above: Performed By: #### C BC #### [facility] [address] [place] [address] Dr. dEison Guzman Erythrocyte distribution width (RBC) [Ratio] 14.1 % Normal 11.0-15.0 [facility] Comment on above: Performed By: #### C BC #### [facility] [address] [place] [address] Dr. Edison Guzman Hematocrit (Bld) [Volume fraction] 49.4 % Normal 42.0-54.0 [facility] Comment on above: Performed By: #### C BC #### [facility] [address] [place] [address] Dr. Edison Guzman Hemoglobin (Bld) [Mass/Vol] 16.3 g/dL Normal 14.0-18.0 [facility] Comment on above: Performed By: #### C BC #### [facility] [address] [place] [address] Dr. Edison Guzman IG # 0.04 10e3/ul Critically high 0.00-0.03 [facility] Comment on above: Performed By: #### C BC #### [facility] [address] [place] [address] Dr. Edison Guzman IG % 0.7 % Critically high 0.0-0.5 [facility] Comment on above: Performed By: #### C BC #### [facility] [address] [place] [address] Dr. Edison Guzman LYMPH # 1.1 103/ul Critically low 1.2-3.[address] [facility] Comment on above: Performed By: #### C BC #### [facility] [address] [place] [address] Dr. Edison Guzman Lymphocytes/100 WBC (Bld) 19.1 % Critically low 20.5-60.0 [facility] Comment on above: Performed By: #### C BC #### [facility] [address] [place] [address] Dr. Edison Guzman MANUAL DIFF REQ NO Normal [facility] Comment on above: Performed By: #### C BC #### [facility] [address] [place] [address] Dr. Edison Guzman MCH (RBC) [Entitic mass] 32.1 pg Normal 25.9-34.0 [facility] Comment on above: Performed By: #### C BC #### [facility] [address] [place] [address] Dr. Edison Guzman MCHC (RBC) [Mass/Vol] 33.0 g/dL Normal 29.9-35.2 [facility] Comment on above: Performed By: #### C BC #### [facility] [address] [place] [address] Dr. Edison Guzman MCV (RBC) [Entitic vol] 97.4 fL Critically high 80.0-94.0 [facility] Comment on above: Performed By: #### C BC #### [facility] [address] [place] [address] Dr. Edison Guzman MONO # 0.7 103/ul Normal 0.3-0.8 [facility] Comment on above: Performed By: #### C BC #### [facility] [address] [place] [address] Dr. Edison Guzman Monocytes/100 WBC (Bld) 11.2 % Normal 1.7-12.0 [facility] Comment on above: Performed By: #### C BC #### [facility] [address] [place] [address] Dr. Edison Guzman NEUT # 3.6 103/ul Normal 1.4-6.5 [facility] Comment on above: Performed By: #### C BC #### [facility] [address] [place] [address] Dr. Edison Guzman Neutrophils/100 WBC (Bld) 61.1 % Normal 43.0-75.0 [facility] Comment on above: Performed By: #### C BC #### [facility] [address] [place] [address] Dr. Edison Guzman Platelet mean volume (Bld) [Entitic vol] 8.5 fL Critically low 9.5-13.5 [facility] Comment on above: Performed By: #### C BC #### [facility] [address] [address] [address] Edison Guzman PLT 299 103/ul Normal 150-450 [facility] Comment on above: Performed By: #### C BC #### [facility] [address] [place] [address] Dr. Edison Guzman RBC 5.07 106/ul Normal 4.70-6.10 [facility] Comment on above: Performed By: #### C BC #### [facility] [address] [place] [address] Dr. Edison Guzman WBC 6.0 103/ul Normal 4.0-11.0 [facility] Comment on above: Performed By: #### C BC #### [facility] [address] [place] [address] Dr. Edison Guzman MRI BRAIN WO W CONon 023 MRI BRAIN WO W CON EXAMINATION: MRI BRA IN WO W CON HISTORY: Multiple sclerosis. New blurred vision. COMPARISON: Brain MRI from 01/26/2022 TECHNIQUE: A variety of imaging planes and parameters were utilized for visualization of suspected pathology. Images were performed without and with 13 mL IV Dotarem contrast. FINDINGS: CEREBRUM: Extensive T2/FLAIR hyperintense signal abnormality again seen within the periventricular and subcortical deep white matter with a demyelinating process. No significant change. For example a lesion in the right periventricular white matter on image 17 measuring 9 x 7 mm is unchanged and without enhancement, however it does demonstrate slight low signal abnormality on T1 WI suggesting axonal loss/black hole. Low T1-weighted signal abnormality is also appreciated about the periventricular lesions in the parietal lobes unchanged. No enhancement of these lesions. No edema, hemorrhage, mass, or acute infarct. There is mild cerebral atrophy. CEREBELLUM: No edema, hemorrhage, mass, acute infarction. BRAINSTEM: No edema, hemorrhage, mass, acute infarction. CSF SPACES: Ventricles, cisterns, and sulci are appropriate for age. No hydrocephalus, subarachnoid hemorrhage, or mass. SKULL: No mass or other significant visible lesion. SINUSES: Limited views demonstrate no significant mucosal thickening or fluid. ORBITS: Limited views are unremarkable. No change in enhancement pattern of the optic nerves or acute change. IMPRESSION: No change in size or distribution or acute findings, in this patient with white matter lesions compatible with demyelinating process. Some lesions continue to show low T1 weighted signal, suggesting axonal loss. No abnormal enhancement. Electronically authenticated by: SUZY WALLACE Date: 2022-09-19 15:47 Normal [facility] PROF 14(COMP METB)on 023 Albumin [Mass/Vol] 3.8 g/dL Normal 3.4-5.0 [facility] Comment on above: Performed By: #### C MP #### [facility] [address] [place] [address] Dr. Edison Guzman Albumin/Globulin [Mass ratio] 1.0 {ratio} Normal [facility] Comment on above: Performed By: #### C MP #### [facility] [address] [place] [address] Dr. Edison Guzman ALP [Catalytic activity/Vol] 117 U/L Critically high 46-116 [facility] Comment on above: Performed By: #### C MP #### [facility] [address] [place] [address] Dr. Edison Guzman ALT [Catalytic activity/Vol] 20 U/L Normal 16-63 [facility] Comment on above: Performed By: #### C MP #### [facility] [address] [place] [address] Dr. Edison Guzman Anion gap [Moles/Vol] 10.1 mmol/L Normal [facility] Comment on above: Performed By: #### C MP #### [facility] [address] [place] [address] Dr. Edison Guzman AST [Catalytic activity/Vol] 17 U/L Normal 15-37 [facility] Comment on above: Performed By: #### C MP #### [facility] [address] [place] [address] Dr. Edison Guzman Bilirubin [Mass/Vol] 0.3 mg/dL Normal 0.2-1.0 [facility] Comment on above: Performed By: #### C MP #### [facility] [address] [address] [address] Edison Guzman Calcium [Mass/Vol] 8.6 mg/dL Normal 8.5-10.1 [facility] Comment on above: Performed By: #### C MP #### [facility] [address] [address] [address] Edison Guzman Chloride [Moles/Vol] 104 mmol/L Normal 98-107 [facility] Comment on above: Performed By: #### C MP #### [facility] [address] [address] [address] Edison Guzman CO2 [Moles/Vol] 34.3 mmol/L Critically high 21.0-32.0 [facility] Comment on above: Performed By: #### C MP #### [facility] [address] [place] [address] Dr. Edison Guzman Creatinine [Mass/Vol] 0.78 mg/dL Normal 0.70-1.30 [facility] Comment on above: Performed By: #### C MP #### [facility] [address] [place] [address] Dr. Edison Guzman EGFR-AF SINGAPOREAN >60 Normal >=60 [facility] Comment on above: Performed By: #### C MP #### [facility] [address] [place] [address] Dr. Edison Guzman EGFR-NON AF SING[place]OREAN >60 Normal >=60 [facility] Comment on above: Performed By: #### C MP #### [facility] [address] [place] [address] Dr. Edison Guzman Globulin (S) [Mass/Vol] 3.8 g/dL Normal [facility] Comment on above: Performed By: #### C MP #### [facility] [address] [place] [address] Dr. Edison Guzman Glucose [Mass/Vol] 94 mg/dL Normal 74-106 [facility] Comment on above: Performed By: #### C MP #### [facility] [address] [place] [address] Dr. Edison Guzman Potassium [Moles/Vol] 4.4 mmol/L Normal 3.5-5.1 [facility] Comment on above: Performed By: #### C MP #### [facility] [address] [place] [address] Dr. Edison Guzman Protein [Mass/Vol] 7.6 g/dL Normal 6.4-8.2 [facility] Comment on above: Performed By: #### C MP #### [facility] [address] [address] [address] Edison Guzman Sodium [Moles/Vol] 144 mmol/L Normal 136-145 [facility] Comment on above: Performed By: #### C MP #### [facility] [address] [place] [address] Dr. Edison Guzman Urea nitrogen [Mass/Vol] 11.0 mg/dL Normal 7.0-18.0 [facility] Comment on above: Performed By: #### C MP #### [facility] [address] [place] [address] Dr. Edison Guzman Urea nitrogen/Creatinine [Mass ratio] 14.1 mg/mg Normal [facility] Comment on above: Performed By: #### C MP #### [facility] [address] [place] [address] Dr. Edison Guzman CBC AUTO DIFFon 06-30-2022 BASO # 0.2 103/ul Critically high 0.0-0.1 [facility] Comment on above: Performed By: #### C BC #### [facility] [address] [place] [address] Dr. Edison Guzman Basophils/100 WBC (Bld) 2.6 % Critically high 0.2-2.0 [facility] Comment on above: Performed By: #### C BC #### [facility] [address] [place] [address] Dr. Edison Guzman EO # 0.3 103/ul Normal 0.0-0.7 [facility] Comment on above: Performed By: #### C BC #### [facility] [address] [place] [address] Dr. Edison Guzman Eosinophils/100 WBC (Bld) 3.9 % Normal 0.9-7.0 [facility] Comment on above: Performed By: #### C BC #### [facility] [address] [place] [address] Dr. Edison Guzman Erythrocyte distribution width (RBC) [Ratio] 15.1 % Critically high 11.0-15.0 [facility] Comment on above: Performed By: #### C BC #### [facility] [address] [place] [address] Dr. Edison Guzman Hematocrit (Bld) [Volume fraction] 47.5 % Normal 42.0-54.0 [facility] Comment on above: Performed By: #### C BC #### [facility] [address] [place] [address] Dr. Edison Guzman Hemoglobin (Bld) [Mass/Vol] 15.4 g/dL Normal 14.0-18.0 [facility] Comment on above: Performed By: #### C BC #### [facility] [address] [place] [address] Dr. Edison Guzman IG # 0.10 10e3/ul Critically high 0.00-0.03 [facility] Comment on above: Performed By: #### C BC #### [facility] [address] [place] [address] Dr. Edison Guzman IG % 1.4 % Critically high 0.0-0.5 [facility] Comment on above: Performed By: #### C BC #### [facility] [address] [place] [address] Dr. Edison Guzman LYMPH # 1.4 103/ul Normal 1.2-3.8 [facility] Comment on above: Performed By: #### C BC #### [facility] [address] [place] [address] Dr. Edison Guzman Lymphocytes/100 WBC (Bld) 19.6 % Critically low 20.5-60.0 [facility] Comment on above: Performed By: #### C BC #### [facility] [address] [place] [address] Dr. Edison Guzman MANUAL DIFF REQ NO Normal [facility] Comment on above: Performed By: #### C BC #### [facility] [address] [place] [address] Dr. Edison Guzman MCH (RBC) [Entitic mass] 30.8 pg Normal 25.9-34.0 [facility] Comment on above: Performed By: #### C BC #### [facility] [address] [place] [address] Dr. Edison Guzman MCHC (RBC) [Mass/Vol] 32.4 g/dL Normal 29.9-35.2 [facility] Comment on above: Performed By: #### C BC #### [facility] [address] [place] [address] Dr. Edison Guzman MCV (RBC) [Entitic vol] 95.0 fL Critically high 80.0-94.0 [facility] Comment on above: Performed By: #### C BC #### [facility] [address] [place] [address] Dr. Edison Guzman MONO # 0.7 103/ul Normal 0.3-0.8 [facility] Comment on above: Performed By: #### C BC #### [facility] [address] [place] [address] Dr. Edison Guzman Monocytes/100 WBC (Bld) 9.6 % Normal 1.7-12.0 [facility] Comment on above: Performed By: #### C BC #### [facility] [address] [place] [address] Dr. Edison Guzman NEUT # 4.4 103/ul Normal 1.4-6.5 [facility] Comment on above: Performed By: #### C BC #### [facility] [address] [place] [address] Dr. Edison Guzman Neutrophils/100 WBC (Bld) 62.9 % Normal 43.0-75.0 [facility] Comment on above: Performed By: #### C BC #### [facility] [address] [place] [address] Dr. Edison Guzman Platelet mean volume (Bld) [Entitic vol] 8.6 fL Critically low 9.5-13.5 [facility] Comment on above: Performed By: #### C BC #### [facility] [address] [place] [address] Dr. Edison Guzman PLT 398 103/ul Normal 150-450 [facility] Comment on above: Performed By: #### C BC #### [facility] [address] [place] [address] Dr. Edison Guzman RBC 5.00 106/ul Normal 4.70-6.10 [facility] Comment on above: Performed By: #### C BC #### [facility] [address] [place] [address] Dr. Edison Guzman WBC 7.0 103/ul Normal 4.0-11.0 [facility] Comment on above: Performed By: #### C BC #### [facility] [address] [place] [address] Dr. Edison Guzman CBC AUTO DIFFon 04-21-2022 BASO # 0.2 103/ul Critically high 0.0-0.1 [facility] Comment on above: Performed By: #### C BC #### [facility] [address] [place] [address] Dr. Edison Guzman Basophils/100 WBC (Bld) 2.3 % Critically high 0.2-2.0 [facility] Comment on above: Performed By: #### C BC #### [facility] [address] [place] [address] Dr. Edison Guzman EO # 0.3 103/ul Normal 0.0-0.7 [facility] Comment on above: Performed By: #### C BC #### [facility] [address] [place] [address] Dr. Edison Guzman Eosinophils/100 WBC (Bld) 4.3 % Normal 0.9-7.0 [facility] Comment on above: Performed By: #### C BC #### [facility] [address] [place] [address] Dr. Edison Guzman Erythrocyte distribution width (RBC) [Ratio] 14.4 % Normal 11.0-15.0 [facility] Comment on above: Performed By: #### C BC #### [facility] [address] [place] [address] Dr. Edison Guzman Hematocrit (Bld) [Volume fraction] 46.6 % Normal 42.0-54.0 [facility] Comment on above: Performed By: #### C BC #### [facility] [address] [place] [address] Dr. Edison Guzman Hemoglobin (Bld) [Mass/Vol] 15.1 g/dL Normal 14.0-18.0 [facility] Comment on above: Performed By: #### C BC #### [facility] [address] [place] [address] Dr. Edison Guzman IG # 0.04 10e3/ul Critically high 0.00-0.03 [facility] Comment on above: Performed By: #### C BC #### [facility] [address] [place] [address] Dr. Edison Guzman IG % 0.6 % Critically high 0.0-0.5 [facility] Comment on above: Performed By: #### C BC #### [facility] [address] [place] [address] Dr. Edison Guzman LYMPH # 1.5 103/ul Normal 1.2-3.8 [facility] Comment on above: Performed By: #### C BC #### [facility] [address] [place] [address] Dr. Edison Guzman Lymphocytes/100 WBC (Bld) 23.1 % Normal 20.5-60.0 [facility] Comment on above: Performed By: #### C BC #### [facility] [address] [place] [address] Dr. Edison Guzman MANUAL DIFF REQ NO Normal [facility] Comment on above: Performed By: #### C BC #### [facility] [address] [place] [address] Dr. Edison Guzman MCH (RBC) [Entitic mass] 30.4 pg Normal 25.9-34.0 [facility] Comment on above: Performed By: #### C BC #### [facility] [address] [address] [address] Edison Guzman MCHC (RBC) [Mass/Vol] 32.4 g/dL Normal 29.9-35.2 [facility] Comment on above: Performed By: #### C BC #### [facility] [address] [address] [address] Edison Guzman MCV (RBC) [Entitic vol] 94.0 fL Normal 80.0-94.0 [facility] Comment on above: Performed By: #### C BC #### [facility] [address] [place] [address] Dr. Edison Guzman MONO # 0.8 103/ul Normal 0.3-0.8 [facility] Comment on above: Performed By: #### C BC #### [facility] [address] [place] [address] Dr. Edison Guzman Monocytes/100 WBC (Bld) 12.0 % Normal 1.7-12.0 [facility] Comment on above: Performed By: #### C BC #### [facility] [address] [place] [address] Dr. Edison Guzman NEUT # 3.7 103/ul Normal 1.4-6.5 [facility] Comment on above: Performed By: #### C BC #### [facility] [address] [place] [address] Dr. Edison Guzman Neutrophils/100 WBC (Bld) 57.7 % Normal 43.0-75.0 [facility] Comment on above: Performed By: #### C BC #### [facility] [address] [place] [address] Dr. Edison Guzman Platelet mean volume (Bld) [Entitic vol] 8.3 fL Critically low 9.5-13.5 [facility] Comment on above: Performed By: #### C BC #### [facility] [address] [place] [address] Dr. Edison Guzman PLT 272 103/ul Normal 150-450 [facility] Comment on above: Performed By: #### C BC #### [facility] [address] [place] [address] Dr. Edison Guzman RBC 4.96 106/ul Normal 4.70-6.10 [facility] Comment on above: Performed By: #### C BC #### [facility] [address] [place] [address] Dr. Edison Guzman WBC 6.5 103/ul Normal 4.0-11.0 [facility] Comment on above: Performed By: #### C BC #### [facility] [address] [place] [address] Dr. Edison Guzman BUNon 01-26-2022 Urea nitrogen [Mass/Vol] 12.0 mg/dL Normal 7.0-18.0 [facility] Comment on above: Performed By: #### C CANDIDO, BUN #### [facility] [address] [place] [address] Dr. Edison Guzman CBC AUTO DIFFon 01-26-2022 BASO # 0.2 103/ul Critically high 0.0-0.1 [facility] Comment on above: Performed By: #### C BC #### [facility] [address] [place] [address] Dr. Edison Guzman Basophils/100 WBC (Bld) 1.4 % Normal 0.2-2.0 [facility] Comment on above: Performed By: #### C BC #### [facility] [address] [place] [address] Dr. Edison Guzman EO # 0.3 103/ul Normal 0.0-0.7 [facility] Comment on above: Performed By: #### C BC #### [facility] [address] [place] [address] Dr. Edison Guzman Eosinophils/100 WBC (Bld) 3.1 % Normal 0.9-7.0 [facility] Comment on above: Performed By: #### C BC #### [facility] [address] [place] [address] Dr. Edison Guzman Erythrocyte distribution width (RBC) [Ratio] 12.9 % Normal 11.0-15.0 [facility] Comment on above: Performed By: #### C BC #### [facility] [address] [place] [address] Dr. Edison Guzman Hematocrit (Bld) [Volume fraction] 43.6 % Normal 42.0-54.0 [facility] Comment on above: Performed By: #### C BC #### [facility] [address] [place] [address] Dr. Edison Guzman Hemoglobin (Bld) [Mass/Vol] 14.1 g/dL Normal 14.0-18.0 [facility] Comment on above: Performed By: #### C BC #### [facility] [address] [place] [address] Dr. Edison Guzman IG # 0.11 10e3/ul Critically high 0.00-0.03 [facility] Comment on above: Performed By: #### C BC #### [facility] [address] [place] [address] Dr. Edison Guzman IG % 1.0 % Critically high 0.0-0.5 [facility] Comment on above: Performed By: #### C BC #### [facility] [address] [place] [address] Dr. Edison Guzman LYMPH # 1.2 103/ul Normal 1.2-3.8 [facility] Comment on above: Performed By: #### C BC #### [facility] [address] [place] [address] Dr. Edison Guzman Lymphocytes/100 WBC (Bld) 11.1 % Critically low 20.5-60.0 [facility] Comment on above: Performed By: #### C BC #### [facility] [address] [place] [address] Dr. Edison Guzman MANUAL DIFF REQ NO Normal [facility] Comment on above: Performed By: #### C BC #### [facility] [address] [place] [address] Dr. Edison Guzman MCH (RBC) [Entitic mass] 31.1 pg Normal 25.9-34.0 [facility] Comment on above: Performed By: #### C BC #### [facility] [address] [address] [address] Edison Guzman MCHC (RBC) [Mass/Vol] 32.3 g/dL Normal 29.9-35.2 [facility] Comment on above: Performed By: #### C BC #### [facility] [address] [address] [address] Edison Guzman MCV (RBC) [Entitic vol] 96.2 fL Critically high 80.0-94.0 [facility] Comment on above: Performed By: #### C BC #### [facility] [address] [address] [address] Edison Guzman MONO # 0.9 103/ul Critically high 0.3-0.8 [facility] Comment on above: Performed By: #### C BC #### [facility] [address] [address] [address] Edison Guzman Monocytes/100 WBC (Bld) 8.4 % Normal 1.7-12.0 [facility] Comment on above: Performed By: #### C BC #### [facility] [address] [address] [address] Edison Guzman NEUT # 8.4 103/ul Critically high 1.4-6.5 [facility] Comment on above: Performed By: #### C BC #### [facility] [address] [address] [address] Edison Guzman Neutrophils/100 WBC (Bld) 75.0 % Normal 43.0-75.0 [facility] Comment on above: Performed By: #### C BC #### [facility] [address] [address] [address] Edison Guzman Platelet mean volume (Bld) [Entitic vol] 8.3 fL Critically low 9.5-13.5 [facility] Comment on above: Performed By: #### C BC #### [facility] [address] [address] [address] Edison Guzman PLT 344 103/ul Normal 150-450 [facility] Comment on above: Performed By: #### C BC #### [facility] [address] [address] [address] Edison Guzman RBC 4.53 106/ul Critically low 4.70-6.10 [facility] Comment on above: Performed By: #### C BC #### [facility] [id number] Edison Guzman WBC 11.1 103/ul Critically high 4.0-11.0 [facility] Comment on above: Performed By: #### C BC #### [facility] [address] [address] [address] Edison Guzman CREATININEon 01-26-2022 Creatinine [Mass/Vol] 0.72 mg/dL Normal 0.70-1.30 [facility] Comment on above: Performed By: #### C CANDIDO, BUN #### [facility] [address] [address] [address] Edison Guzman EGFR-AF SINGAPOREAN >60 Normal >=60 [facility] Comment on above: Performed By: #### C CANDIDO, BUN #### [facility] [address] [address] [address] Edison Guzman EGFR-NON AF [place]OREAN >60 Normal >=60 [facility] Comment on above: Performed By: #### C CANDIDO, BUN #### [facility] [address] [address] [address] Edison Guzman MRI BRAIN WO W CONon 022 MRI BRAIN WO W CON EXAMINATION: MRI BRA IN WO W CON HISTORY: Multiple sclerosis COMPARISON: MRI brain 01/27/2021 TECHNIQUE: A variety of imaging planes and parameters were utilized for visualization of suspected pathology. Images were performed without and with Dotarem contrast. FINDINGS: CEREBRUM: Multiple T2 hyperintensities within the periventricular and subcortical deep white matter with a demyelinating process. No enhancement of these lesions. No edema, hemorrhage, mass, acute infarction, or inappropriate atrophy. CEREBELLUM: No edema, hemorrhage, mass, acute infarction, or inappropriate atrophy. BRAINSTEM: No edema, hemorrhage, mass, acute infarction, or inappropriate atrophy. CSF SPACES: Ventricles, cisterns, and sulci are appropriate for age. No hydrocephalus, subarachnoid hemorrhage, or mass. SKULL: No mass or other significant visible lesion. SINUSES: Limited views demonstrate no significant mucosal thickening or fluid. ORBITS: Limited views are unremarkable. OTHER: No abnormal meningeal or parenchymal enhancement. IMPRESSION: 1. Stable deep white matter lesions compatible with a demyelinating process. No enhancing lesions to suggest active demyelination. Electronically authenticated by: [facility] PICKERING Date: 2022-01-26 13:32 Normal [facility] Creatinineon 10-07-2021 Creatinine [Mass/Vol] 0.6 mg/dL Low 0.7-1.4 [facility] Comment on above: Performed By: #### C CANDIDO #### [facility] [address], [place] [id number] eGFRAA 159 mL/min/1.73m2 Normal >60 [facility] Comment on above: Performed By: #### C CANDIDO #### [facility] [address], [place] [id number] eGFRNAA 131 mL/min/1.73m2 Normal >60 [facility] Comment on above: Performed By: #### C CANDIDO #### [facility] [address], [place] [id number] MR BRAIN WITH AND WITHOUT CO NTRASTon 07-03-2017 MR BRAIN WITH AND WITHOUT CONTRAST EXAMINATION:MR BRAIN WITH AND WITHOUT CONTRASTHISTORY:ORDERI NG SYSTEM PROVIDED HISTORY: Multiple sclerosis (HCC), TECHNOLOGIST PROVIDED HISTORY: Reason for exam: off balance for years, MS x9 yearsIllness/OtherEnco unter Type: InitialAdditional signs and symptoms: noneORDERING SYSTEM PROVIDED DIAGNOSIS CODES:G35 Multiple sclerosis (HCC)COMPARISON:Brain MRI 02/17/2011.TECHNIQUE:R outine brain MRI protocol performed with and without contrast. Additional sagittal FLAIR images obtained per MS protocol.CONTRAST:GADO TERATE MEGLUMINE 0.5 MMOL/ML INTRAVENOUS SOLUTION - 12 mL,FINDINGS:ADC map and diffusion-weighted images demonstrate no abnormal intraaxial signal abnormalities to indicate impaired diffusion or recent ischemic event.There are multifocal areas of callosal, pericallosal and periventricular white matter high-signal changes on FLAIR, T2 and ADC map images consistent with patient's multiple sclerosis.The largest area near the occipital horn of right lateral ventricle measures 16 x 18 mm (previously measuring 16 x 18 mm.There is a right periventricular white matter high-signal change measuring 5 x 10 mm (previously measuring 5 x 10 mm.There are other stable scattered white matter changes scattered throughout. Approximately 12 in total are seen.The ventricles and cisternal spaces are stable in size and configuration.Posterio r fossa structures demonstrate cerebellum to appear intact. Brainstem generally intact.Postcontrast images demonstrate no abnormal areas of intra- or extraaxial enhancement.Normal-main earing flow voids seen within central vascular structures.Sagittal images demonstrate pituitary gland, brainstem and cerebellum to appear intact.IMPRESSION:1. Stable multifocal white matter changes consistent with multiple sclerosis. No significant change in size or number of lesions described on prior study 2010.2. No abnormal areas of intra-or extraaxial brain enhancement to indicate metabolically active vascular lesions.3. Unremarkable brain otherwise.ARR/tdeWorks tation ID: [id number] by: YRIS PEREIRA on SunJul 03, 2017 4:01:10 PM ESTTranscribed by: JAC HARRIS on SunJul 03, 2017 4:30:54 PM ESTFinalized by: YRIS PEREIRA on SunJul 03, 2017 4:36:33 PM EST Normal Comment on above: Order Comment: See o rder in epic Ordered by Bindu Serna for exam?:off balance for years, MS x9 yearsInjury/Trauma or Illness?:Illness/OtherHow long have you had these symptoms (acute/chronic)?:ChronicType of Exam?:InitialAdditional signs and symptoms?:none MR Brain With And Without Co ntraston 07-03-2017 MR Brain With And Without Contrast 1. Stable multifocal white matter changes consistent with multiple sclerosis. No significant change in size or number of lesions described on prior study 2010. 2. No abnormal areas of intra-or extraaxial brain enhancement to indicate metabolically active vascular lesions. 3. Unremarkable brain otherwise. ARR/tde Workstation ID: [id number] Invalid Interpretation Code [employer] [facility] MR Brain With And Without Contrast EXAMINATION: MR BRAIN WITH AND WITHOUT CONTRAST HISTORY: ORDERING SYSTEM PROVIDED HISTORY: Multiple sclerosis (HCC), TECHNOLOGIST PROVIDED HISTORY: Reason for exam: off balance for years, MS x9 years Illness/Other Encounter Type: Initial Additional signs and symptoms: none ORDERING SYSTEM PROVIDED DIAGNOSIS CODES: G35 Multiple sclerosis (HCC) COMPARISON: Brain MRI 02/17/2011. TECHNIQUE: Routine brain MRI protocol performed with and without contrast. Additional sagittal FLAIR images obtained per MS protocol. CONTRAST: GADOTERATE MEGLUMINE 0.5 MMOL/ML INTRAVENOUS SOLUTION - 12 mL, FINDINGS: ADC map and diffusion-weighted images demonstrate no abnormal intraaxial signal abnormalities to indicate impaired diffusion or recent ischemic event. There are multifocal areas of callosal, pericallosal and periventricular white matter high-signal changes on FLAIR, T2 and ADC map images consistent with patient's multiple sclerosis. The largest area near the occipital horn of right lateral ventricle measures 16 x 18 mm (previously measuring 16 x 18 mm. There is a right periventricular white matter high-signal change measuring 5 x 10 mm (previously measuring 5 x 10 mm. There are other stable scattered white matter changes scattered throughout. Approximately 12 in total are seen. The ventricles and cisternal spaces are stable in size and configuration. Posterior fossa structures demonstrate cerebellum to appear intact. Brainstem generally intact. Postcontrast images demonstrate no abnormal areas of intra- or extraaxial enhancement. Normal-appearing flow voids seen within central vascular structures. Sagittal images demonstrate pituitary gland, brainstem and cerebellum to appear intact. Invalid Interpretation Code [employer] [facility] MR Brain With And Without Contrast Interface, Rad In Pacs [employer] - 07/03/2017 4:39 PM EST EXAMINATION: MR BRAIN WITH AND WITHOUT CONTRAST HISTORY: ORDERING SYSTEM PROVIDED HISTORY: Multiple sclerosis (HCC), TECHNOLOGIST PROVIDED HISTORY: Reason for exam: off balance for years, MS x9 years Illness/Other Encounter Type: Initial Additional signs and symptoms: none ORDERING SYSTEM PROVIDED DIAGNOSIS CODES: G35 Multiple sclerosis (HCC) COMPARISON: Brain MRI 02/17/2011. TECHNIQUE: Routine brain MRI protocol performed with and without contrast. Additional sagittal FLAIR images obtained per MS protocol. CONTRAST: GADOTERATE MEGLUMINE 0.5 MMOL/ML INTRAVENOUS SOLUTION - 12 mL, FINDINGS: ADC map and diffusion-weighted images demonstrate no abnormal intraaxial signal abnormalities to indicate impaired diffusion or recent ischemic event. There are multifocal areas of callosal, pericallosal and periventricular white matter high-signal changes on FLAIR, T2 and ADC map images consistent with patient's multiple sclerosis. The largest area near the occipital horn of right lateral ventricle measures 16 x 18 mm (previously measuring 16 x 18 mm. There is a right periventricular white matter high-signal change measuring 5 x 10 mm (previously measuring 5 x 10 mm. There are other stable scattered white matter changes scattered throughout. Approximately 12 in total are seen. The ventricles and cisternal spaces are stable in size and configuration. Posterior fossa structures demonstrate cerebellum to appear intact. Brainstem generally intact. Postcontrast images demonstrate no abnormal areas of intra- or extraaxial enhancement. Normal-appearing flow voids seen within central vascular structures. Sagittal images demonstrate pituitary gland, brainstem and cerebellum to appear intact. IMPRESSION: 1. Stable multifocal white matter changes consistent with multiple sclerosis. No significant change in size or number of lesions described on prior study 2010. 2. No abnormal areas of intra-or extraaxial brain enhancement to indicate metabolically active vascular lesions. 3. Unremarkable brain otherwise. ARR/tde Workstation ID: [id number] Invalid Interpretation Code [employer] [facility] Blood Gas, Venouson 04-01-20 17 Base Excess, Roby -2.3 1 Low -2.0 - 2.0 [facility] Bicarbonate (HCO3) 24.7 mmol/L Invalid Interpretation Code 24 - 28 mmol/L [facility] CO2 53.5 mm Hg High 41.0 - 51.0 [facility] Hematocrit (HCT) 42.5 % Invalid Interpretation Code 41 - 53 % [facility] Hemoglobin mass conc (Bld) 13.9 g/dL Invalid Interpretation Code 13.5 - 18 g/dL [facility] O2 saturation 86.8 % Invalid Interpretation Code [facility] pH, Venous 7.29 1 Low 7.32 - 7.42 [facility] pO2, Roby 56 mm Hg High 25 - 40 [facility] CBC Auto Differentialon 03-08 Basophils Auto #/vol (Bld) 0.10 K/mcL Invalid Interpretation Code 0.00 - 0.30 [facility] Basophils/100 WBC Auto (Bld) 0.4 % Invalid Interpretation Code [facility] Eosinophils 0.03 K/mcL Invalid Interpretation Code 0.00 - 0.50 [facility] Eosinophils/100 leukocytes 0.1 % Invalid Interpretation Code [facility] Erythrocyte distribution width Auto Entitic volume (RBC) 14.2 % Invalid Interpretation Code 11.6 - 14.8 % [facility] Erythrocytes (RBC) 3.96 M/mcL Low 4.50 - 5.90 [facility] Hematocrit (HCT) 37.1 % Low 41 - 53 % [facility] Hemoglobin mass conc (Bld) 12.2 g/dL Low 13.5 - 17.5 g/dL [facility] Immature granulocytes #/vol (Bld) 0.17 K/mcL Invalid Interpretation Code 0.00 - 0.30 [facility] Immature granulocytes/100 WBC (Bld) 0.70 % Invalid Interpretation Code [facility] Comment on above: The IG parameter is the percentage of metamyelocytes, myelocytes, and promyelocytes. Lymphocytes 0.51 K/mcL Low 0.90 - 4.00 [facility] Lymphocytes/100 leukocytes 2.2 % Invalid Interpretation Code [facility] MCH 30.8 pg Invalid Interpretation Code 26 - 34 pg [facility] MCHC mass conc (RBC) 32.9 g/dL Invalid Interpretation Code 31 - 37 g/dL [facility] MCV 93.7 fL Invalid Interpretation Code 80 - 100 fL [facility] Monocytes 1.23 K/mcL High 0.30 - 0.90 [facility] Monocytes/100 leukocytes 5.2 % Invalid Interpretation Code [facility] Neutrophils 21.51 K/mcL High 1.70 - 7.00 [facility] Neutrophils/100 WBC Auto (Bld) 91.4 % Invalid Interpretation Code [facility] Nucleated erythrocytes 0.00 K/mcL Invalid Interpretation Code 0.00 - 0.00 [facility] Nucleated erythrocytes/100 erythrocytes 0.0 % Invalid Interpretation Code [facility] Platelet mean volume (PMV) 9.2 fL Invalid Interpretation Code 9 - 15.5 fL [facility] Platelets 292 K/mcL Invalid Interpretation Code 150 - 400 [facility] WBC (Leukocytes) 23.55 K/mcL High 4.50 - 11.00 [facility] Basophils Auto #/vol (Bld) 0.10 K/mcL Invalid Interpretation Code 0.00 - 0.30 [facility] Basophils/100 WBC Auto (Bld) 0.4 % Invalid Interpretation Code [facility] Eosinophils 0.01 K/mcL Invalid Interpretation Code 0.00 - 0.50 [facility] Eosinophils/100 leukocytes 0.0 % Invalid Interpretation Code [facility] Erythrocyte distribution width Auto Entitic volume (RBC) 13.9 % Invalid Interpretation Code 11.6 - 14.8 % [facility] Erythrocytes (RBC) 4.19 M/mcL Low 4.50 - 5.90 [facility] Hematocrit (HCT) 38.8 % Low 41 - 53 % [facility] Hemoglobin mass conc (Bld) 13.1 g/dL Low 13.5 - 17.5 g/dL [facility] Immature granulocytes #/vol (Bld) 0.25 K/mcL Invalid Interpretation Code 0.00 - 0.30 [facility] Immature granulocytes/100 WBC (Bld) 1.00 % Invalid Interpretation Code [facility] Comment on above: The IG parameter is the percentage of metamyelocytes, myelocytes, and promyelocytes. Lymphocytes 0.67 K/mcL Low 0.90 - 4.00 [facility] Lymphocytes/100 leukocytes 2.8 % Invalid Interpretation Code [facility] MCH 31.3 pg Invalid Interpretation Code 26 - 34 pg [facility] MCHC mass conc (RBC) 33.8 g/dL Invalid Interpretation Code 31 - 37 g/dL [facility] MCV 92.6 fL Invalid Interpretation Code 80 - 100 fL [facility] Monocytes 1.07 K/mcL High 0.30 - 0.90 [facility] Monocytes/100 leukocytes 4.5 % Invalid Interpretation Code [facility] Neutrophils 21.84 K/mcL High 1.70 - 7.00 [facility] Neutrophils/100 WBC Auto (Bld) 91.3 % Invalid Interpretation Code [facility] Nucleated erythrocytes 0.00 K/mcL Invalid Interpretation Code 0.00 - 0.00 [facility] Nucleated erythrocytes/100 erythrocytes 0.0 % Invalid Interpretation Code [facility] Platelet mean volume (PMV) 8.8 fL Low 9 - 15.5 fL [facility] Platelets 328 K/mcL Invalid Interpretation Code 150 - 400 [facility] WBC (Leukocytes) 23.94 K/mcL High 4.50 - 11.00 [facility] CBC and Differentialon 04-01 Creatinine The following orders were created for panel order CBC and Differential. Procedure Abnormality Status --------- ------ CBC Auto Differential[[id number] ] Abnormal Final result Please view results for these tests on the individual orders. Invalid Interpretation Code [facility] Work Phone: Creatinine The following orders were created for panel order CBC and Differential. Procedure Abnormality Status --------- ------ CBC Auto Differential[[id number] ] Abnormal Final result Please view results for these tests on the individual orders. Invalid Interpretation Code [facility] Work Phone: Comprehensive Metabolic Pane [facility] 04-01-2017 Alanine aminotransferase (ALT) 12 U/L Low 14 - 65 U/L [facility] Albumin 2.0 g/dL Low 3.2 - 5.2 g/dL [facility] Alkaline phosphatase (ALP) 98 U/L Invalid Interpretation Code 40 - 150 U/L [facility] Anion gap 11 mmol/L Invalid Interpretation Code 10 - 20 mmol/L [facility] Aspartate aminotransferase (AST) 15 U/L Invalid Interpretation Code 0 - 45 U/L [facility] Bicarbonate (HCO3) 22 mmol/L Invalid Interpretation Code 21 - 32 mmol/L [facility] Bilirubin (total) 0.3 mg/dL Invalid Interpretation Code 0 - 1.3 mg/dL [facility] BUN/Creatinine Ratio 12.3 mg/mg Invalid Interpretation Code 10.0 - 20.0 [facility] Calcium 7.6 mg/dL Low 8.4 - 10.2 mg/dL [facility] Chloride 108 mmol/L Invalid Interpretation Code 98 - 108 mmol/L [facility] Creatinine 0.65 mg/dL Invalid Interpretation Code 0.5 - 1.3 mg/dL [facility] eGFR (non-black) The eGFR should be used for monitoring renal function only and not for medication dosing. Invalid Interpretation Code [facility] eGFR (non-black) 107 mL/min/{1.73_m2} Invalid Interpretation Code >=60 [facility] Glucose mass conc 88 mg/dL Invalid Interpretation Code 65 - 99 mg/dL [facility] Interpretation and review of laboratory results Abnormal Invalid Interpretation Code [facility] Potassium molar conc 4.0 mmol/L Invalid Interpretation Code 3.5 - 5.1 mmol/L [facility] Protein 5.9 g/dL Low 6 - 8 g/dL [facility] Sodium 137 mmol/L Invalid Interpretation Code 135 - 145 mmol/L [facility] Urea nitrogen 8 mg/dL Invalid Interpretation Code 8 - 25 mg/dL [facility] Alanine aminotransferase (ALT) 11 U/L Low 14 - 65 U/L [facility] Albumin 2.4 g/dL Low 3.2 - 5.2 g/dL [facility] Alkaline phosphatase (ALP) 100 U/L Invalid Interpretation Code 40 - 150 U/L [facility] Anion gap 13 mmol/L Invalid Interpretation Code 10 - 20 mmol/L [facility] Aspartate aminotransferase (AST) 8 U/L Invalid Interpretation Code 0 - 45 U/L [facility] Bicarbonate (HCO3) 23 mmol/L Invalid Interpretation Code 21 - 32 mmol/L [facility] Bilirubin (total) 0.4 mg/dL Invalid Interpretation Code 0 - 1.3 mg/dL [facility] BUN/Creatinine Ratio 11.3 mg/mg Invalid Interpretation Code 10.0 - 20.0 [facility] Calcium 8.0 mg/dL Low 8.4 - 10.2 mg/dL [facility] Chloride 102 mmol/L Invalid Interpretation Code 98 - 108 mmol/L [facility] Creatinine 0.71 mg/dL Invalid Interpretation Code 0.5 - 1.3 mg/dL [facility] eGFR (non-black) The eGFR should be used for monitoring renal function only and not for medication dosing. Invalid Interpretation Code [facility] eGFR (non-black) 103 mL/min/{1.73_m2} Invalid Interpretation Code >=60 [facility] Glucose mass conc 93 mg/dL Invalid Interpretation Code 65 - 99 mg/dL [facility] Interpretation and review of laboratory results Abnormal Invalid Interpretation Code [facility] Potassium molar conc 4.0 mmol/L Invalid Interpretation Code 3.5 - 5.1 mmol/L [facility] Protein 6.8 g/dL Invalid Interpretation Code 6 - 8 g/dL [facility] Sodium 134 mmol/L Low 135 - 145 mmol/L [facility] Urea nitrogen 8 mg/dL Invalid Interpretation Code 8 - 25 mg/dL [facility] ECG 12 Leadon 04-01-2017 Atrial Rate 143 BPM Invalid Interpretation Code [id number] P [place] 68 degrees Invalid Interpretation Code [id number] P-R Interval 134 ms Invalid Interpretation Code [id number] Q-T Interval 348 ms Invalid Interpretation Code [id number] QRS Duration 102 ms Invalid Interpretation Code [id number] QTC Calculation (Bezet) 537 ms Invalid Interpretation Code [id number] R [place] 96 degrees Invalid Interpretation Code [id number] T [place] 70 degrees Invalid Interpretation Code [id number] Ventricular Rate 143 BPM Invalid Interpretation Code [id number] ECG 12 Lead Sinus tachycardia Rightward axis Borderline ECG When compared with ECG of 31-MAR-2017 23:12, No significant change was found Confirmed by Hans Conte MD ([id number]) on 04/01/2017 11:47:17 AM Invalid Interpretation Code [id number] Influenza A,B Rapid Molecula genaro 04-01-2017 Influenza A Not Detected Invalid Interpretation Code Not Detected [facility] Influenza B Not Detected Invalid Interpretation Code Not Detected [facility] Interpretation and review of laboratory results Normal Invalid Interpretation Code [facility] Influenza A,B Rapid Molecular Test Method: Nucleic Acid Amplification Invalid Interpretation Code [facility] Lactic Acid, Plasmaon 2016 Interpretation and review of laboratory results Abnormal Invalid Interpretation Code [facility] Lactate 3.5 mmol/L High 0.6 - 2 mmol/L [facility] Interpretation and review of laboratory results Abnormal Invalid Interpretation Code [facility] Lactate 3.9 mmol/L High 0.6 - 2 mmol/L [facility] Lactate 2.3 mmol/L High 0.6 - 2 mmol/L [facility] Interpretation and review of laboratory results Abnormal Invalid Interpretation Code [facility] Lactate 2.8 mmol/L High 0.6 - 2 mmol/L [facility] Magnesium Levelon 04-01-2017 Magnesium 1.8 mg/dL Invalid Interpretation Code 1.6 - 2.4 mg/dL [facility] PT/INRon 04-01-2017 INR Coag RelTime (Bld) During the induction phase of oral anticoagulation, the INR may not reflect the anticoagulation status of the patient. Therapeutic ranges for INR's are: Most clinical situations: INR 2.0-3.0 Mechanical Prosthetic Valve: INR 2.5-3.5 Critical: INR >5.0 Invalid Interpretation Code [facility] INR Coag RelTime (PPP) 1.4 {INR} High 0.8 - 1.1 [facility] Prothrombin time (PT) Coag time (PPP) 16.5 s High 11.8 - 14.3 [facility] Prealbuminon 04-01-2017 Prealbumin 9.3 mg/dL Low 20 - 40 mg/dL [facility] T4, Freeon 04-01-2017 Thyroxine (T4) free 0.9 ng/dL Invalid Interpretation Code 0.7 - 1.7 ng/dL [facility] TSH with Reflex Free T4on Thyroid stimulating hormone (TSH) 36.20 mcIU/mL High 0.32 - 5.00 [facility] Troponinon 04-01-2017 Interpretation and review of laboratory results Normal Invalid Interpretation Code [facility] Troponin I.cardiac mass conc ng/mL Invalid Interpretation Code <=45 ng/L [facility] Comment on above: The 2014 AHA/ACC Gu ideline for the Management of Patients With [id number]-GU-[id number] Acute Coronary Syndromes defines myocardial infarction (NC) as follows: 1. For troponin-I value above the 45 ng/L (99th percentile) cut-off, a rise or fall greater than or equal to 20% from the initial value is indicative of NC, in conjunction with the appropriate clinical symptoms. 2. For troponin-I value less than 45ng/L an absolute value change greater than or equal to 8ng/L is indicative of myocardial necrosis. Urinalysison 04-01-2017 Bilirubin Ql (U) Negative Invalid Interpretation Code Negative [facility] Blood, Urine Negative Invalid Interpretation Code Negative [facility] Interpretation and review of laboratory results Abnormal Invalid Interpretation Code [facility] Nitrite, Urine Negative Invalid Interpretation Code Negative [facility] Squamous Epithelial 1 /hpf Invalid Interpretation Code 0 - 4 [facility] Urine, bacteria in sediment Few Abnormal None Seen /hpf [facility] Urine, clarity Clear Invalid Interpretation Code Clear [facility] Urine, color Yellow Invalid Interpretation Code Colorless, Yellow [facility] Urine, erythrocytes 1 /hpf Invalid Interpretation Code 0 - 3 [facility] Urine, glucose presence Negative Invalid Interpretation Code Negative mg/dL [facility] Urine, ketones presence Negative Invalid Interpretation Code Negative mg/dL [facility] Urine, leukocyte esterase presence Negative Invalid Interpretation Code Negative [facility] Urine, pH 6.0 [pH] Invalid Interpretation Code 5.0 - 7.0 [facility] Urine, protein Negative Invalid Interpretation Code Negative mg/dL [facility] Urine, specific gravity 1.015 1 Invalid Interpretation Code 1.005 - 1.025 [facility] Urine, urobilinogen <2.0 Invalid Interpretation Code <2.0 mg/dL [facility] WBCs, Urine 1 /hpf Invalid Interpretation Code 0 - 5 [facility] Urinalysis Microscopic examination is performed on all urinalysis samples and only positive findings are reported. The test for blood on the chemical analytic portion of urinalysis may also be positive due to hemoglobinuria and myoglobinuria and if red blood cells are present they are quantified by microscopic examination. Invalid Interpretation Code [facility] XR CHEST PA/APon 04-01-2017 XR CHEST PA/AP EXAMINATION:XR CHEST PA/APHISTORY:ORDERING SYSTEM PROVIDED HISTORY: change in pt status, TECHNOLOGIST PROVIDED HISTORY: Reason for exam: change in pt statusIllness/OtherCan cer History: nSurgery, RadiationHistory: nEncounter Type: InitialAdditional signs and symptoms: nORDERING SYSTEM PROVIDED DIAGNOSIS CODES:J18.9 Pneumonia due to infectious organism, unspecified laterality, unspecified part of lungA41.9 Sepsis, due to unspecified organism (HCC)COMPARISON:2016 and 11/10/2016.FINDINGS:Si gnificant increase in size of at least partially loculated right pleural effusion with worsening compressive atelectatic change. Left lung remains clear. No pulmonary edema or pneumothorax. The osseous structures are intact.IMPRESSION:Sign ificant interval increase in size of right partially loculated pleural effusion now moderate to large in size. Increasing compressive atelectatic changes within the right lung. Left lung remains clear.Findings conveyed to patient's nurse, Constanza, at 5:48 a.m. on 04/01/2017.[facility] northWork station ID: [id number] by: ALBINO MATHEWS on SunApr 01, 2017 5:49:17 AM ESTTranscribed by: PROSPER FUNG on SunApr 01, 2017 6:46:15 AM ESTFinalized by: ALBINO MATHEWS on SunApr 01, 2017 6:55:00 AM EST Normal Comment on above: Order Comment: Reaso n for exam?:change in pt statusInjury/Trauma or Illness?:Illness/OtherHow long have you had these symptoms (acute/chronic)?:AcuteHistory of cancer?:nSurgeries, chemotherapy, or radiation?:nType of Exam?:InitialAdditional signs and symptoms?:n XR Chest 1 Viewon 04-01-2017 XR Chest 1 View Interface, Rad In Pa cs [employer] - 04/01/2017 6:57 AM EST EXAMINATION: XR CHEST PA/AP HISTORY: ORDERING SYSTEM PROVIDED HISTORY: change in pt status, TECHNOLOGIST PROVIDED HISTORY: Reason for exam: change in pt status Illness/Other Cancer History: n Surgery, RadiationHistory: n Encounter Type: Initial Additional signs and symptoms: n ORDERING SYSTEM PROVIDED DIAGNOSIS CODES: J18.9 Pneumonia due to infectious organism, unspecified laterality, unspecified part of lung A41.9 Sepsis, due to unspecified organism (HCC) COMPARISON: 03/31/2017 and 11/10/2016. FINDINGS: Significant increase in size of at least partially loculated right pleural effusion with worsening compressive atelectatic change. Left lung remains clear. No pulmonary edema or pneumothorax. The osseous structures are intact. IMPRESSION: Significant interval increase in size of right partially loculated pleural effusion now moderate to large in size. Increasing compressive atelectatic changes within the right lung. Left lung remains clear. Findings conveyed to patient's nurse, Constanza, at 5:48 a.m. on 04/01/2017. [employer] Workstation ID: [id number] Invalid Interpretation Code [employer] [facility] XR Chest 1 View EXAMINATION: XR CHES T PA/AP HISTORY: ORDERING SYSTEM PROVIDED HISTORY: change in pt status, TECHNOLOGIST PROVIDED HISTORY: Reason for exam: change in pt status Illness/Other Cancer History: n Surgery, RadiationHistory: n Encounter Type: Initial Additional signs and symptoms: n ORDERING SYSTEM PROVIDED DIAGNOSIS CODES: J18.9 Pneumonia due to infectious organism, unspecified laterality, unspecified part of lung A41.9 Sepsis, due to unspecified organism (HCC) COMPARISON: 03/31/2017 and 11/10/2016. FINDINGS: Significant increase in size of at least partially loculated right pleural effusion with worsening compressive atelectatic change. Left lung remains clear. No pulmonary edema or pneumothorax. The osseous structures are intact. Invalid Interpretation Code [employer] [facility] XR Chest 1 View Significant interval increase in size of right partially loculated pleural effusion now moderate to large in size. Increasing compressive atelectatic changes within the right lung. Left lung remains clear. Findings conveyed to patient's nurse, Constanza, at 5:48 a.m. on 04/01/2017. [employer] Workstation ID: [id number] Invalid Interpretation Code [employer] [facility] Basic Metabolic Panelon 11-2 Anion gap 12 mmol/L Invalid Interpretation Code 10 - 20 mmol/L [facility] Bicarbonate (HCO3) 28 mmol/L Invalid Interpretation Code 21 - 32 mmol/L [facility] BUN/Creatinine Ratio 11.5 mg/mg Invalid Interpretation Code 10.0 - 20.0 [facility] Calcium 8.9 mg/dL Invalid Interpretation Code 8.4 - 10.2 mg/dL [facility] Chloride 98 mmol/L Invalid Interpretation Code 98 - 108 mmol/L [facility] Creatinine 0.96 mg/dL Invalid Interpretation Code 0.5 - 1.3 mg/dL [facility] eGFR (non-black) The eGFR should be used for monitoring renal function only and not for medication dosing. Invalid Interpretation Code [facility] eGFR (non-black) 87 mL/min/{1.73_m2} Invalid Interpretation Code >=60 [facility] Glucose mass conc 145 mg/dL High 65 - 99 mg/dL [facility] Interpretation and review of laboratory results Abnormal Invalid Interpretation Code [facility] Potassium molar conc 4.4 mmol/L Invalid Interpretation Code 3.5 - 5.1 mmol/L [facility] Sodium 134 mmol/L Low 135 - 145 mmol/L [facility] Urea nitrogen 11 mg/dL Invalid Interpretation Code 8 - 25 mg/dL [facility] Blood Gas, Venouson 03-31-20 Base Excess, Royb 3.3 1 High -2.0 - 2.0 [facility] Bicarbonate (HCO3) 30.0 mmol/L High 24 - 28 mmol/L [facility] CO2 57.2 mm Hg High 41.0 - 51.0 [facility] Hematocrit (HCT) 43.1 % Invalid Interpretation Code 41 - 53 % [facility] Hemoglobin mass conc (Bld) 14.0 g/dL Invalid Interpretation Code 13.5 - 18 g/dL [facility] O2 saturation 50.6 % Invalid Interpretation Code [facility] pH, Venous 7.34 1 Invalid Interpretation Code 7.32 - 7.42 [facility] pO2, Roby 28 mm Hg Invalid Interpretation Code 25 - 40 [facility] CBC Auto Differentialon 03-08 Basophils Auto #/vol (Bld) 0.15 K/mcL Invalid Interpretation Code 0.00 - 0.30 [facility] Basophils/100 WBC Auto (Bld) 0.5 % Invalid Interpretation Code [facility] Eosinophils 0.05 K/mcL Invalid Interpretation Code 0.00 - 0.50 [facility] Eosinophils/100 leukocytes 0.2 % Invalid Interpretation Code [facility] Erythrocyte distribution width Auto Entitic volume (RBC) 14.0 % Invalid Interpretation Code 11.6 - 14.8 % [facility] Erythrocytes (RBC) 4.63 M/mcL Invalid Interpretation Code 4.50 - 5.90 [facility] Hematocrit (HCT) 42.2 % Invalid Interpretation Code 41 - 53 % [facility] Hemoglobin mass conc (Bld) 14.4 g/dL Invalid Interpretation Code 13.5 - 17.5 g/dL [facility] Immature granulocytes #/vol (Bld) 0.21 K/mcL Invalid Interpretation Code 0.00 - 0.30 [facility] Immature granulocytes/100 WBC (Bld) 0.70 % Invalid Interpretation Code [facility] Comment on above: The IG parameter is the percentage of metamyelocytes, myelocytes, and promyelocytes. Lymphocytes 0.51 K/mcL Low 0.90 - 4.00 [facility] Lymphocytes/100 leukocytes 1.7 % Invalid Interpretation Code [facility] MCH 31.1 pg Invalid Interpretation Code 26 - 34 pg [facility] MCHC mass conc (RBC) 34.1 g/dL Invalid Interpretation Code 31 - 37 g/dL [facility] MCV 91.1 fL Invalid Interpretation Code 80 - 100 fL [facility] Monocytes 0.97 K/mcL High 0.30 - 0.90 [facility] Monocytes/100 leukocytes 3.3 % Invalid Interpretation Code [facility] Neutrophils 27.27 K/mcL High 1.70 - 7.00 [facility] Neutrophils/100 WBC Auto (Bld) 93.6 % Invalid Interpretation Code [facility] Nucleated erythrocytes 0.00 K/mcL Invalid Interpretation Code 0.00 - 0.00 [facility] Nucleated erythrocytes/100 erythrocytes 0.0 % Invalid Interpretation Code [facility] Platelet mean volume (PMV) 8.5 fL Low 9 - 15.5 fL [facility] Platelets 440 K/mcL High 150 - 400 [facility] WBC (Leukocytes) 29.16 K/mcL High 4.50 - 11.00 [facility] AB CBC and Differentialon 03-31 Creatinine The following orders were created for panel order CBC and Differential. Procedure Abnormality Status --------- ------ CBC Auto Differential[[id number] ] Abnormal Final result Please view results for these tests on the individual orders. Invalid Interpretation Code [facility] Work Phone: CT PULMONARY ARTERIESon 03-08 CT PULMONARY ARTERIES EXAMINATION:CT PULMONARY ARTERIESHISTORY:Chest pain and shortness of breath.TECHNIQUE:CT angiogram of the chest was performed with 2.5 mm collimation from the thoracic inlet to the diaphragm after the uneventful intravenous administration of 75 mL of Isovue-370. Coronal and sagittal MIP images were performed. Additional 3D postprocessing was performed on a separate workstation.Dose reduction techniques were achieved by using automated exposure control and/or adjustment of mA and/or kV according to patient size and/or use of iterative reconstruction technique.COMPARISON:C T of the pulmonary arteries dated 08/24/2016. Chest radiograph dated 03/31/2017.FINDINGS:Th ere is no pulmonary embolism to the level of the segmental pulmonary arteries. The smaller pulmonary arteries are obscured by respiratory motion artifact. The pulmonary arteries are not enlarged. The aorta is normal in course and caliber. There is no aortic dissection. The heart is normal in size. There is no pericardial effusion.There is a moderate-sized right pleural effusion and confluent airspace opacity in the right lower lobe. There is a 2.8 cm focus of decreased enhancement without discernible wall in the medial right lower lobe at the lung base on image 94. There is ground-glass nodularity in the right lower lobe adjacent to the major fissure on image 69. There is a small amount of fluid in the right major fissure on image 53. There is pleuroparenchymal scarring in the lung apices. There is minimal linear atelectasis or scarring in the left lower lobe of the lung base. No pleural effusion on the left. No pneumothorax. There are secretions layering in the right mainstem bronchus.A subcarinal lymph node measures 1.1 cm in short axis. There are borderline enlarged right hilar lymph nodes measuring up to 1 cm in short axis. The visualized upper abdomen is remarkable for cholecystectomy clips. There are multilevel degenerative changes of the spine. No acute osseous abnormality.IMPRESSION :1. No pulmonary embolism to the level of the segmental pulmonary arteries. The smaller pulmonary arteries are obscured by respiratory motion artifact. No aortic aneurysm or dissection.2. Moderate-sized right pleural effusion. Confluent airspace opacity in the right lower lobe is most consistent with pneumonia. A 2.8 cm focus of decreased enhancement without discernible wall in the medial right lower lobe at the lung base is suspicious for a developing lung abscess. There are secretions in the right mainstem bronchus. Follow-up to resolution is recommended.3. Borderline enlarged right hilar and subcarinal lymph nodes are favored to be reactive.SDH/hbWorksta tion ID: [id number] by: MAR JUDGE on Sat Mar 31, 2017 11:56:38 AM ESTTranscribed by: LUDY BENNETT on Sat Mar 31, 2017 12:04:40 PM ESTFinalized by: MAR JUDGE on Sat Mar 31, 2017 5:02:28 PM EST Normal Comment on above: Order Comment: Reaso n for exam?:rt sided chest pain, sob and back pain when swallowingInjury/Trauma or Illness?:Illness/OtherHow long have you had these symptoms (acute/chronic)?:AcuteType of Exam?:InitialAdditional signs and symptoms?:h/o MS CT Pulmonary Arterieson 03-08 CT Pulmonary Arteries EXAMINATION: CT PULMONARY ARTERIES HISTORY: Chest pain and shortness of breath. TECHNIQUE: CT angiogram of the chest was performed with 2.5 mm collimation from the thoracic inlet to the diaphragm after the uneventful intravenous administration of 75 mL of Isovue-370. Coronal and sagittal MIP images were performed. Additional 3D postprocessing was performed on a separate workstation. Dose reduction techniques were achieved by using automated exposure control and/or adjustment of mA and/or kV according to patient size and/or use of iterative reconstruction technique. COMPARISON: CT of the pulmonary arteries dated 08/24/2016. Chest radiograph dated 03/31/2017. FINDINGS: There is no pulmonary embolism to the level of the segmental pulmonary arteries. The smaller pulmonary arteries are obscured by respiratory motion artifact. The pulmonary arteries are not enlarged. The aorta is normal in course and caliber. There is no aortic dissection. The heart is normal in size. There is no pericardial effusion. There is a moderate-sized right pleural effusion and confluent airspace opacity in the right lower lobe. There is a 2.8 cm focus of decreased enhancement without discernible wall in the medial right lower lobe at the lung base on image 94. There is ground-glass nodularity in the right lower lobe adjacent to the major fissure on image 69. There is a small amount of fluid in the right major fissure on image 53. There is pleuroparenchymal scarring in the lung apices. There is minimal linear atelectasis or scarring in the left lower lobe of the lung base. No pleural effusion on the left. No pneumothorax. There are secretions layering in the right mainstem bronchus. A subcarinal lymph node measures 1.1 cm in short axis. There are borderline enlarged right hilar lymph nodes measuring up to 1 cm in short axis. The visualized upper abdomen is remarkable for cholecystectomy clips. There are multilevel degenerative changes of the spine. No acute osseous abnormality. Invalid Interpretation Code [employer] [facility] CT Pulmonary Arteries Interface, Rad In Pacs [employer] - 03/31/2017 5:05 PM EST EXAMINATION: CT PULMONARY ARTERIES HISTORY: Chest pain and shortness of breath. TECHNIQUE: CT angiogram of the chest was performed with 2.5 mm collimation from the thoracic inlet to the diaphragm after the uneventful intravenous administration of 75 mL of Isovue-370. Coronal and sagittal MIP images were performed. Additional 3D postprocessing was performed on a separate workstation. Dose reduction techniques were achieved by using automated exposure control and/or adjustment of mA and/or kV according to patient size and/or use of iterative reconstruction technique. COMPARISON: CT of the pulmonary arteries dated 08/24/2016. Chest radiograph dated 03/31/2017. FINDINGS: There is no pulmonary embolism to the level of the segmental pulmonary arteries. The smaller pulmonary arteries are obscured by respiratory motion artifact. The pulmonary arteries are not enlarged. The aorta is normal in course and caliber. There is no aortic dissection. The heart is normal in size. There is no pericardial effusion. There is a moderate-sized right pleural effusion and confluent airspace opacity in the right lower lobe. There is a 2.8 cm focus of decreased enhancement without discernible wall in the medial right lower lobe at the lung base on image 94. There is ground-glass nodularity in the right lower lobe adjacent to the major fissure on image 69. There is a small amount of fluid in the right major fissure on image 53. There is pleuroparenchymal scarring in the lung apices. There is minimal linear atelectasis or scarring in the left lower lobe of the lung base. No pleural effusion on the left. No pneumothorax. There are secretions layering in the right mainstem bronchus. A subcarinal lymph node measures 1.1 cm in short axis. There are borderline enlarged right hilar lymph nodes measuring up to 1 cm in short axis. The visualized upper abdomen is remarkable for cholecystectomy clips. There are multilevel degenerative changes of the spine. No acute osseous abnormality. IMPRESSION: 1. No pulmonary embolism to the level of the segmental pulmonary arteries. The smaller pulmonary arteries are obscured by respiratory motion artifact. No aortic aneurysm or dissection. 2. Moderate-sized right pleural effusion. Confluent airspace opacity in the right lower lobe is most consistent with pneumonia. A 2.8 cm focus of decreased enhancement without discernible wall in the medial right lower lobe at the lung base is suspicious for a developing lung abscess. There are secretions in the right mainstem bronchus. Follow-up to resolution is recommended. 3. Borderline enlarged right hilar and subcarinal lymph nodes are favored to be reactive. [facility]/ Workstation ID: [id number] Invalid Interpretation Code [employer] [facility] CT Pulmonary Arteries 1. No pulmonary embolism to the level of the segmental pulmonary arteries. The smaller pulmonary arteries are obscured by respiratory motion artifact. No aortic aneurysm or dissection. 2. Moderate-sized right pleural effusion. Confluent airspace opacity in the right lower lobe is most consistent with pneumonia. A 2.8 cm focus of decreased enhancement without discernible wall in the medial right lower lobe at the lung base is suspicious for a developing lung abscess. There are secretions in the right mainstem bronchus. Follow-up to resolution is recommended. 3. Borderline enlarged right hilar and subcarinal lymph nodes are favored to be reactive. [facility]/ Workstation ID: [id number] Invalid Interpretation Code [employer] [facility] ECG 12 Leadon 03-31-2017 Atrial Rate 136 BPM Invalid Interpretation Code [id number] P [place] 74 degrees Invalid Interpretation Code WTG330 P-R Interval 140 ms Invalid Interpretation Code PMV052 Q-T Interval 276 ms Invalid Interpretation Code [id number] QRS Duration 98 ms Invalid Interpretation Code FLN370 QTC Calculation (Bezet) 415 ms Invalid Interpretation Code THX118 R [place] 128 degrees Invalid Interpretation Code ZXN820 T [place] 62 degrees Invalid Interpretation Code [id number] Ventricular Rate 136 BPM Invalid Interpretation Code [id number] ECG 12 Lead Sinus tachycardia Right axis deviation Abnormal ECG When compared with ECG of 10-NOV-2016 17:37, QRS axis shifted right Confirmed by Hans Conte MD ([id number]) on 04/01/2017 11:53:16 AM Invalid Interpretation Code ZLE159 Hepatic Function Panelon Alanine aminotransferase (ALT) 14 U/L Invalid Interpretation Code 14 - 65 U/L [facility] Albumin 3.0 g/dL Low 3.2 - 5.2 g/dL [facility] Alkaline phosphatase (ALP) 122 U/L Invalid Interpretation Code 40 - 150 U/L [facility] Aspartate aminotransferase (AST) 7 U/L Invalid Interpretation Code 0 - 45 U/L [facility] Bilirubin (conjugated) 0.1 mg/dL Invalid Interpretation Code 0 - 0.4 mg/dL [facility] Bilirubin (total) 0.5 mg/dL Invalid Interpretation Code 0 - 1.3 mg/dL [facility] Protein 7.9 g/dL Invalid Interpretation Code 6 - 8 g/dL [facility] Lactic Acid, Plasmaon 2016 Interpretation and review of laboratory results Abnormal Invalid Interpretation Code [facility] Lactate 2.7 mmol/L High 0.6 - 2 mmol/L [facility] Lactic Acid, Whole bloodon 1 05-31-2016 Lactate 2.4 mmol/L High 0.6 - 2 mmol/L [facility] Lipaseon 03-31-2017 Lipase 46 U/L Low 73 - 393 U/L [facility] Magnesium Levelon 03-31-2017 Magnesium 1.7 mg/dL Invalid Interpretation Code 1.6 - 2.4 mg/dL [facility] Troponinon 03-31-2017 Interpretation and review of laboratory results Normal Invalid Interpretation Code [facility] Troponin I.cardiac mass conc ng/mL Invalid Interpretation Code <=45 ng/L [facility] Comment on above: The 2014 AHA/ACC Gu ideline for the Management of Patients With Nsc-NW-Atamyjfcd Acute Coronary Syndromes defines myocardial infarction (NC) as follows: 1. For troponin-I value above the 45 ng/L (99th percentile) cut-off, a rise or fall greater than or equal to 20% from the initial value is indicative of NC, in conjunction with the appropriate clinical symptoms. 2. For troponin-I value less than 45ng/L an absolute value change greater than or equal to 8ng/L is indicative of myocardial necrosis. Interpretation and review of laboratory results Normal Invalid Interpretation Code [facility] Troponin I.cardiac mass conc ng/mL Invalid Interpretation Code <=45 ng/L [facility] Comment on above: The 2014 AHA/ACC Gu ideline for the Management of Patients With Ciz-LU-Ijuthceqw Acute Coronary Syndromes defines myocardial infarction (NC) as follows: 1. For troponin-I value above the 45 ng/L (99th percentile) cut-off, a rise or fall greater than or equal to 20% from the initial value is indicative of NC, in conjunction with the appropriate clinical symptoms. 2. For troponin-I value less than 45ng/L an absolute value change greater than or equal to 8ng/L is indicative of myocardial necrosis. Interpretation and review of laboratory results Normal Invalid Interpretation Code [facility] Troponin I.cardiac mass conc ng/mL Invalid Interpretation Code <=45 ng/L [facility] Comment on above: The 2014 AHA/ACC Gu ideline for the Management of Patients With Aqu-WG-Gfnunihmn Acute Coronary Syndromes defines myocardial infarction (NC) as follows: 1. For troponin-I value above the 45 ng/L (99th percentile) cut-off, a rise or fall greater than or equal to 20% from the initial value is indicative of NC, in conjunction with the appropriate clinical symptoms. 2. For troponin-I value less than 45ng/L an absolute value change greater than or equal to 8ng/L is indicative of myocardial necrosis. Urinalysison 03-31-2017 Bilirubin Ql (U) Negative Invalid Interpretation Code Negative [facility] Blood, Urine Negative Invalid Interpretation Code Negative [facility] Interpretation and review of laboratory results Abnormal Invalid Interpretation Code [facility] Nitrite, Urine Negative Invalid Interpretation Code Negative [facility] Urine, bacteria in sediment None Seen Invalid Interpretation Code None Seen /hpf [facility] Urine, clarity Clear Invalid Interpretation Code Clear [facility] Urine, color Yellow Invalid Interpretation Code Colorless, Yellow [facility] Urine, glucose presence Negative Invalid Interpretation Code Negative mg/dL [facility] Urine, ketones presence Negative Invalid Interpretation Code Negative mg/dL [facility] Urine, leukocyte esterase presence Negative Invalid Interpretation Code Negative [facility] Urine, pH 7.5 [pH] High 5.0 - 7.0 [facility] Urine, protein Negative Invalid Interpretation Code Negative mg/dL [facility] Urine, specific gravity <=1.005 Invalid Interpretation Code 1.005 - 1.025 [facility] Urine, urobilinogen <2.0 Invalid Interpretation Code <2.0 mg/dL [facility] WBCs, Urine 1 /hpf Invalid Interpretation Code 0 - 5 [facility] Urinalysis Microscopic examination is performed on all urinalysis samples and only positive findings are reported. The test for blood on the chemical analytic portion of urinalysis may also be positive due to hemoglobinuria and myoglobinuria and if red blood cells are present they are quantified by microscopic examination. Invalid Interpretation Code [facility] Urine Aerobic Cultureon 03-08 Bacteria aerobode culture No Growth (<1,000 CFU/mL) Invalid Interpretation Code [facility] XR CHEST PA/APon 03-31-2017 XR CHEST PA/AP EXAMINATION:XR CHEST PA/APHISTORY:ORDERING SYSTEM PROVIDED HISTORY: cp, TECHNOLOGIST PROVIDED HISTORY: Reason for exam: chest painIllness/OtherCance r History: nSurgery, RadiationHistory: nEncounter Type: InitialAdditional signs and symptoms: Hx of MS, RUQ pain, pain in back when swallowingORDERING SYSTEM PROVIDED DIAGNOSIS CODES:COMPARISON:November 10, 2016.TECHNIQUE:Single portable AP view.FINDINGS:There is patchy airspace disease in the right lung base associated with a small right pleural effusion. The left lung is clear. Heart size is normal. No pneumothorax. No appreciable pneumomediastinum. No obvious acute osseous abnormality.IMPRESSION :1. Patchy airspace disease in the right lung base with a small right pleural effusion. This could be related to pneumonia/parapneumoni c effusion. Pulmonary infarct would be a differential. No appreciable pneumomediastinum.2. The left lung is clear. No free air collections underneath the hemidiaphragms.[employer] orkstation ID: [id number] by: ANIYAH AVELAR on Sat Mar 31, 2017 11:07:21 AM ESTTranscribed by: EMILIA SHELBY on Sat Mar 31, 2017 11:29:53 AM ESTFinalized by: ANIYAH AVELAR on Sat Mar 31, 2017 12:23:31 PM EST Normal Comment on above: Order Comment: Reaso n for exam?:chest painInjury/Trauma or Illness?:Illness/OtherHow long have you had these symptoms (acute/chronic)?:AcuteHistory of cancer?:nSurgeries, chemotherapy, or radiation?:nType of Exam?:InitialAdditional signs and symptoms?:Hx of MS, RUQ pain, pain in back when swallowing XR Chest 1 Viewon 03-31-2017 XR Chest 1 View 1. Patchy airspace disease in the right lung base with a small right pleural effusion. This could be related to pneumonia/parapneumoni c effusion. Pulmonary infarct would be a differential. No appreciable pneumomediastinum. 2. The left lung is clear. No free air collections underneath the hemidiaphragms. [employer] Workstation ID: [id number] Invalid Interpretation Code [facility] XR Chest 1 View EXAMINATION: XR CHES T PA/AP HISTORY: ORDERING SYSTEM PROVIDED HISTORY: cp, TECHNOLOGIST PROVIDED HISTORY: Reason for exam: chest pain Illness/Other Cancer History: n Surgery, RadiationHistory: n Encounter Type: Initial Additional signs and symptoms: Hx of MS, RUQ pain, pain in back when swallowing ORDERING SYSTEM PROVIDED DIAGNOSIS CODES: COMPARISON: November 10, 2016. TECHNIQUE: Single portable AP view. FINDINGS: There is patchy airspace disease in the right lung base associated with a small right pleural effusion. The left lung is clear. Heart size is normal. No pneumothorax. No appreciable pneumomediastinum. No obvious acute osseous abnormality. Invalid Interpretation Code [facility] XR Chest 1 View Interface, Rad In Pa cs [employer] - 03/31/2017 12:26 PM EST EXAMINATION: XR CHEST PA/AP HISTORY: ORDERING SYSTEM PROVIDED HISTORY: cp, TECHNOLOGIST PROVIDED HISTORY: Reason for exam: chest pain Illness/Other Cancer History: n Surgery, RadiationHistory: n Encounter Type: Initial Additional signs and symptoms: Hx of MS, RUQ pain, pain in back when swallowing ORDERING SYSTEM PROVIDED DIAGNOSIS CODES: COMPARISON: November 10, 2016. TECHNIQUE: Single portable AP view. FINDINGS: There is patchy airspace disease in the right lung base associated with a small right pleural effusion. The left lung is clear. Heart size is normal. No pneumothorax. No appreciable pneumomediastinum. No obvious acute osseous abnormality. IMPRESSION: 1. Patchy airspace disease in the right lung base with a small right pleural effusion. This could be related to pneumonia/parapneumoni c effusion. Pulmonary infarct would be a differential. No appreciable pneumomediastinum. 2. The left lung is clear. No free air collections underneath the hemidiaphragms. [employer]ND[employer]/jw Workstation ID: [id number] Invalid Interpretation Code [facility] XR CHEST PA/APon 11-10-2016 XR CHEST PA/AP EXAMINATION:XR CHEST PA/APHISTORY:ORDERING SYSTEM PROVIDED HISTORY: chest pain, TECHNOLOGIST PROVIDED HISTORY: Reason for exam: cpIllness/OtherCancer History: nSurgery, RadiationHistory: nEncounter Type: InitialAdditional signs and symptoms: sobORDERING SYSTEM PROVIDED DIAGNOSIS CODES:COMPARISON:08/24 CT and x-ray.FINDINGS:Single view. No evidence for pneumothorax or hemothorax with specific attention to the left hemithorax. Lung volumes are symmetric. Heart size normal. No focal infiltrate or mass.IMPRESSION:No acute cardiopulmonary findings.MARYCHUY/Amirah ation ID: [id number] by: LEONCIO BELTRAN on SunNov 10, 2016 6:11:38 PM EDTTranscribed by: RUTH PRADHAN IN [employer] on SunNov 10, 2016 6:49:22 PM EDTFinalized by: LEONCIO BELTRAN on SunNov 10, 2016 6:49:22 PM EDT Normal Comment on above: Order Comment: Reaso n for exam?:cpInjury/Trauma or Illness?:Illness/OtherHow long have you had these symptoms (acute/chronic)?:AcuteHistory of cancer?:nSurgeries, chemotherapy, or radiation?:nType of Exam?:InitialAdditional signs and symptoms?:sob Vital Signs Date Time Vital Sign Value Performing Clinician Facility 07-25-2023 13:57-0400 Body height 180.34 cm [facility] 07-25-2023 13:57-0400 Body mass index (BMI) [Ratio] 23 kg/m2 [facility] 07-25-2023 13:57-0400 Body weight 74.84 kg [facility] 05-31-2017 14:32-0500 Body Temperature 98.2 [degF] Room [facility] Work Phone: 05-31-2017 14:32-0500 BP Diastolic 76 mm[Hg] Room [facility] Work Phone: 05-31-2017 14:32-0500 BP Systolic 122 mm[Hg] Room [facility] Work Phone: 05-31-2017 14:32-0500 Pulse (Heart Rate) 108 /min Room [facility] Work Phone: 04-01-2017 16:32-0500 BP Diastolic 70 mm[Hg] Keisha Oriana [facility] Work Phone: 04-01-2017 16:32-0500 BP Systolic 123 mm[Hg] Keisha Gastelum [facility] Work Phone: 04-01-2017 16:32-0500 Pulse (Heart Rate) 129 /min Keisha Gastelum [facility] Work Phone: 04-01-2017 16:32-0500 Pulse Oximetry 92 % Keisha Gastelum [facility] Work Phone: 04-01-2017 16:32-0500 Respiratory Rate 24 /min Keisha Gastelum [facility] Work Phone: 04-01-2017 16:21-0500 Body Temperature 98.8 [degF] Keisha Gastelum [facility] Work Phone: 04-01-2017 03:46-0500 BMI (Body Mass Index) 18.36 kg/m2 Keisha Gastelum [facility] Work Phone: 04-01-2017 03:46-0500 Weight 61.4 kg Keisha Gastelum [facility] Work Phone: 03-31-2017 10:32-0500 Height 182.9 cm Keisha Gastelum [facility] Work Phone: Encounters Encounter Date Encounter Type Care Provider Facility Start: 07-25-2023 End: 07-25-2023 ambulatory [facility] Work Phone: Start: 07-25-2023 End: 07-25-2023 Patient encounter procedure [facility] Work Phone: Start: 07-16-2023 End: 07-17-2023 ambulatory RADHA MIGUEL Not Available Start: 07-04-2023 End: 07-04-2023 ambulatory RADHA MIGUEL Not Available Start: 06-21-2023 Telephone encounter Esperanza Mckenzie TA [facility] Comment on above: re: Last PT (He call ed noting an unexpected situation came up w/ family and is in need to cx tomorrow. He did say he knows tomorrow was his last and does not feel rs is needed; he is very appreciative of the therapy given.) Start: 06-20-2023 Refill Radha Mckenzie Work Phone: [facility] Comment on above: Slow transit constip ation Start: 06-20-2023 Telephone encounter Shasta rae MD Work Phone: [facility] Start: 06-15-2023 Bamboo flowsheet Esperanza Brink POST PRODUCTION ASSISTANT [facility] Start: 06-15-2023 Bamboo flowsheet Esperanza Brink POST PRODUCTION ASSISTANT [facility] Start: 06-15-2023 End: 06-15-2023 ambulatory ESPERANZA BRINK Not Available Start: 06-13-2023 Bamboo flowsheet Sourav Ruiz nce POST PRODUCTION ASSISTANT [facility] Start: 06-13-2023 Bamboo flowsheet Sourav Ruiz nce POST PRODUCTION ASSISTANT [facility] Start: 06-13-2023 End: 06-13-2023 ambulatory SOURAV CASTANON Not Available Start: 06-11-2023 End: 06-11-2023 ambulatory ESPERANZA BRINK Not Available Start: 06-05-2023 End: 06-05-2023 ambulatory ESPERANZA BRINK Not Available Start: 05-31-2023 End: 05-31-2023 ambulatory ESPERANZA BRINK Not Available Start: 05-29-2023 End: 05-29-2023 ambulatory ESPERANZA BRINK Not Available Start: 05-24-2023 End: 05-24-2023 ambulatory JEANNE HE Not Available Start: 04-25-2023 End: 04-25-2023 ambulatory SHASTA BERMUDEZ Not Available Start: 04-20-2023 End: 04-20-2023 ambulatory AGNES ARRINGTON Not Available Start: 09-19-2022 End: 09-20-[address] SHASTA BERMUDEZ Facility:[facility] Start: 06-30-2022 End: 07-01-[address] SHASTA BERMUDEZ Facility:[facility] Start: 04-21-2022 End: 04-22-[address] SHASTA BERMUDEZ Facility:[facility] Start: 01-26-2022 End: 01-27-[address] SHASTA BERMUDEZ Facility:[facility] Start: 07-03-2017 End: 07-04-2017 Ambulatory PROVIDER NOT IN SYSTEM Start: 07-03-2017 End: 07-03-2017 Ambulatory Provider Not In System MRI Start: 05-31-2017 End: 05-31-2017 Ambulatory RUDOLPH FOX [facility] Start: 05-31-2017 Ambulatory Rudolph Fox Work Phone: Infusion Center Start: 05-30-2017 End: 05-30-2017 Ambulatory MISLESLIE JORDAN [facility] Start: 05-30-2017 End: 05-30-2017 Ambulatory RUDOLPH FOX [facility] Start: 05-30-2017 Ambulatory Rudolph Fox Work Phone: [facility] Start: 04-01-2017 End: 04-01-2017 Evaluation and management of inpatient RUDOLPHZELAYA Start: 03-31-2017 Emergency department patient visit KEISHA GASTELUM Start: 03-31-2017 End: 04-01-2017 Evaluation and management of inpatient Keisha Gastelum Work Phone: ICU Step Down Start: 11-10-2016 End: 11-10-2016 [facility] Start: 10-19-2014 End: 10-19-2014 Telephone encounter Shasta Ramirez MD Work Phone: [facility] Plan of Treatment Date Care Activity Detail Author Start: 01-04-2024 Medicare Annual Wellness (AWV) Medicare Annual Wellness (AWV) [facility] Start: 08-30-2023 Screening for malign ant neoplasm of colon [facility] Start: 07-13-2023 End: 07-13-2023 Patient encounter procedure 07/13/2023 10:00 AM EST Office Visit [facility] [address] [place] [address] Agnes Arrington, DO [address] [place] [address] [facility] Start: 07-04-2023 End: 07-04-2023 Patient encounter procedure 07/04/2023 10:30 AM EST Office Visit [facility] [address] [facility] [place] [id number] Radha Miguel NP [address] [facility] [facility] [place], [place] [id number] [facility] Start: 06-22-2023 End: 06-22-2023 ambulatory 06/22/2023 11:30 AM EST Treatment [facility] [address] [facility] [address] [place] [id number] Esperanza Landaverde, POST PRODUCTION ASSISTANT [facility] Start: 06-15-2023 End: 06-15-2023 ambulatory [facility] Comment on above: Arrived Start: 06-13-2023 End: 06-13-2023 ambulatory 06/13/2023 11:00 AM EST Treatment [facility] [address] [facility] [address] [place] [phone] Sourav Castanon POST PRODUCTION ASSISTANT Arrived [facility] Comment on above: Arrived Start: 01-05-2021 Influenza vaccination INFLUENZ A (Season Ended) [facility] Start: 08-30-2017 Ambulatory 08/30/2017 Infusion/Injection Infusion Therapy Rudolph Fox MD [address] [place] [address] [phone] [facility] Start: 08-29-2017 Ambulatory 08/29/2017 Infusion/Injection Infusion Therapy Rudolph Fox MD [address] [place] [address] [phone] [facility] Center Start: 08-28-2017 Ambulatory 08/28/2017 Infusion/Injection Infusion Therapy Rudolph Fox MD [address] [place] [address] [phone] [facility] Center Start: 06-01-2017 Ambulatory 06/01/2017 Infusion/Injection Infusion Therapy Rudolph Fox MD [address] [place] [address] [phone] [facility] Start: 05-31-2017 Ambulatory 05/31/2017 Infusion/Injection Infusion Therapy Rudolph Fox MD [address] [place] [address] [phone] [facility] Start: 01-05-2017 Influenza vaccination SEQUENTI AL INFLUENZA VACCINE (#1) [facility] Work Phone: Start: 2013 PROSTATE CANCER SCREENING DISCUSSION PROSTATE CANCER SCREENING DISCUSSION [facility] Start: 2008 Screening for malign ant neoplasm of colon [facility] Start: 2008 SHINGRIX VACCINE (1 of 2) SHINGRIX VACCINE (1 of 2) [facility] Start: 12-21-2003 DIABETES SCREEN DIABETES SCREEN [facility] Start: 1993 LIPID SCREEN LIPID SCREEN [facility] Start: 1977 Urine microalbumin profile DTAP,TDAP,TD (1 - Tdap) [facility] Start: 1976 HEPATITIS C SCREENING HEPATITIS C [facility] Start: 1976 HIV SCREENING HIV SCREENING [facility] Start: 1970 Adult depression screening assessment DEPRESSION SCREENING [facility] Start: 1958 Screening for malign ant neoplasm of colon [facility] Start: 1958 HEPATITIS C SCREENING HEPATITIS C [facility] Work Phone: Start: 1958 Low-dose CT Lung Can cer Screen Low-dose CT Lung Cancer Screen [facility] Work Phone: Start: 1958 Screening colonoscopy COLONOSCOPY O [facility] Work Phone: Start: 1958 Tetanus vaccination TETANUS EVERY 10 YR [facility] Work Phone: End: 04-01-2017 Bacteria aerobode culture Urine Aerobic Culture Routine Once for 1 Occurrences starting 04/01/2017 until 04/01/2017 [facility] Work Phone: Bacteria aerobode culture Urine Aerobic Culture Routine 04/01/2017 2:30 AM EST [facility]: Bacteria culture [facility] Work Phone: Bacteria identified in Sputum by Aerobe culture Sputum Aerobic Culture Routine 04/01/2017 11:02 AM EST [facility] Work Phone: Elastase.pancreatic [Mass/mass] in Stool [facility] Immunizations Immunization Date Immunization Notes [facility] Provider [facility] influenza, injectabl e, quadrivalent, preservative free Souarv Castanon [facility] Work Phone: 03-20-2022 Moderna SARS-CoV-2 50mcg/0.5mL Booster Sourav Bob [facility] 12-19-2021 Pneumococcal Conjuga te PCV 20 Sourav Bob [facility] 05-16-2021 influenza, injectabl e, quadrivalent, preservative free Sourav Bob [facility] 02-25-2020 influenza, injectabl e, quadrivalent, preservative free Sourav Bob [facility] 10-20-2019 pneumococcal polysaccharide vaccine, 23 valent Souravcynthia Castanon [facility] Healthcare Payers Date Payer Category Payer Medicaid MEDICAID [facility] [id number] 2023-Present [phone] [address] [place] [address] Medicaid [id number] 2023 Medicaid [id number] 2022 Medicare [employer] MEDICARE ADVANTAGE [employer] MEDICARE [id number] 2022-Present [address] [address] [place] [address] [id number] 2014 Medicare UHC MEDICARE MYC ARE UHC MEDICARE [id number] 2014-Present Medicare [id number] 2011 Medicare [id number] 1959 Medicare [id number] 1958 Unknown [id number] 2.16.840.1.339707.3.579.2.593 1958 Unknown [id number] 2.16.840.1.626471.3.579.2.593 1958 Unknown [id number] 2.16.840.1.336592.3.579.2.593 1958 Unknown [id number] 2.16.840.1.808569.3.579.2.593 1958 Unknown [id number] 2.16.840.1.105421.3.579.2.125 1958 Unknown [id number] 2.16.840.1.143012.3.579.2.1259 1958 Unknown [id number] 2..840.1.953519.3.579.2.125 1958 Unknown [id number] 2..840.1.715998.3.579.2.1259 1958 Unknown [id number] 2..840.1.370075.3.579.2.125 1958 Unknown [id number] 2..840.1.108385.3.579.2.1259 1958 Unknown [id number] 2..840.1.761716.3.579.2.125 1958 Unknown [id number] 2.16.840.1.350833.3.579.2.1259 1958 Unknown [id number] 2.16.840.1.686634.3.579.2.125 1958 Unknown [id number] 2.16.840.1.961033.3.579.2.125 1958 Unknown [id number] 2.16.840.1.909674.3.579.2.1259 Medicare [id number] Medicaid Medicaid [id number] Self-pay Self Pay [id number] Unknown Regular Insurance [id number] Social History Date Type Detail Facility Start: 05-30-2017 End: 10-17-2022 Tobacco smoking status [facility] Current every day smoker [facility] History of tobacco use Cigarette Smoker [facility] [facility] Work Phone: Start: 05-30-2017 End: 09-25-2022 Cigarettes smoked current (pack per day) - Reported [facility] Start: 1960 Sex Assigned At Not on file [facility] Work Phone: Start: 10-07-2014 Tobacco smoking status [facility] Current some day smoker [facility] Start: 10-07-2014 Alcohol intake Current non-drinker of alcohol (finding) [facility] Start: 10-17-2022 Tobacco use and exposure Smokeless tobacco non-user [facility] Start: 04-25-2023 Alcohol intake Lifetime non-drinker (finding) [facility] Start: 09-25-2022 End: 01-03-2023 Humiliation, Afraid, Rape, and Kick questionnaire [HARK] [facility] Within the last year , have you been afraid of your partner or ex-partner? No [facility] Emotionally Abused Not on file [facility] Are you now , , , , never or living with a partner? [facility] (I/We) worried wheth er (my/our) food would run out before (I/we) got money to buy more. Never true [facility] Start: 10-06-2022 Tobacco Comment Smokes 11-20 cigarettes per day. [facility] Start: 10-06-2022 Alcohol Comment Caffeine intake: 4 or more per day. [facility] Start: 07-19-2022 Gender identity Identifies as male gender (finding) [facility] Start: 09-25-2022 Sexual orientation Heterosexual (finding) [facility] Start: 07-25-2023 Tobacco smoking status NHIS Smoker (finding) [facility] Start: 1960 Sex Assigned At Male [facility] Telephone encounter Note 06-20-2023 Telephone Encounter - Annmarie Carr - 06/20/2023 10:11 AM EST Note Date & Type Note Facility 06-20-2023 Telephone encount er Note Patient is seeing Dr. Malone for his thyroid. He is taking his medication- maybe something in his body is not absorbing the medication. Dr. Malone wants him referred to a GI. Can you refer? Thank you. [facility] Note 06-20-2023 Telephone Encounter - Annmarie Carr - 06/20/2023 10:11 AM EST Note Date & Type Note Facility 06-20-2023 Miscellaneous Notes Formattin g of this note might be different from the original. Patient is seeing Dr. Malone for his thyroid. He is taking his medication- maybe something in his body is not absorbing the medication. Dr. Malone wants him referred to a GI. Can you refer? Thank you. documented in this encounter [facility] Clinical Note 10-12-2021 Note Date & Type Note Facility 10-12-2021 Note PROCEDURE: 1o1Media VCT 64. With IV contrast, axial 5 mm slice thickness helical images of the chest performed. 100 cc of Isovue 300 was administered. Comparison is made with the prior outside examination of August 30, 2021. FINDINGS: Improved aeration within both bases, residual pleural based rounded atelectasis (left greater than right). No suspicious lung nodule or mass. No mediastinal or hilar lymphadenopathy. No pulmonary emboli. Mild emphysematous changes. Unremarkable upper abdominal images. IMPRESSION: Residual bibasilar pleural based scarring consistent with post inflammatory sequela. No suspicious underlying mass. Report reported and signed by Arvin Berumen on 10/12/2021 [address] [facility] Set Up Mold Technician Note 10-20-2014 Telephone Encounter - Shasta Ramirez - 10/20/2014 4:14 PM EDTTelephone Encounter - Mary Zamora, Kayla - 10/20/2014 1:31 PM EDTTelephone Encounter - Larryjulio c Zamora, Kayla - 10/19/2014 10:01 AM EDT Note Date & Type Note Facility 10-20-2014 Miscellaneous Notes Patient will remain on Tecfidera He is mainly PPMS He would like to start the Biotrin but has hypothyroid and needs TSH assess regularly He is concerned about relapses , mainly these are related to infections He should have the TSH assessed now and then try the Biotin, he will try for 2 months then work with local lab for testing the TSH as Biotin can change this value. instructions for the Biotin: Biotin has been tested in Primary and secondary progressive MS in 2 small trials. Both trials show that Biotin may help progressive MS with little side effects. The Phase 3 study showed it may help 12% of the patients. It may cause diarrhea. It may confound lab tests that use Biotin like TSH and CKMB. The starting dose is 10 mg tabs and start at 50 mg a day, gradually increase the dose by 50 mg every 4 weeks to a max of 300 mg a day as tolerated. Plan: !. stay on tecfidera 2. Stat Biotin per protocol above 3. stay on IVMP q 3 months per local Neurologist Patient is calling again and needs to speak to you regarding his diagnosis so he knows if you are going to keep him on Tecfidera or not. He needs to reorder. Please call him as soon as you can. Tx. Patient is calling (see note from 10/15) and waiting to speak to you regarding his diagnosis because he is being told two different things and he is on Tecfidera and almost out and needs to know if you are going to switch his meds or not. Please call to discuss further. documented in this encounter [facility] Evaluation note Note Date & Type Note Facility Evaluation note Diagnosis Slow transit constipation documented in this encounter [facility] Evaluation note Note Date & Type Note Facility Evaluation note Diagnosis Onset Date Constipation acute Encounter for screening colonoscopy [facility] Work Phone: Assessments Diagnosis Multiple sclerosis (HCC) Multiple sclerosis Diagnosis Multiple sclerosis (HCC) - P rimary Multiple sclerosis Diagnosis Multiple sclerosis (HCC) - P rimary Multiple sclerosis Diagnosis Pneumonia due to infectious organism, unspecified laterality, unspecified part of lung - Primary Sepsis, due to unspecified o rganism (HCC) Hospital Course * Bebo Yadav MD - 04/01/2017 3:18 PM EST Formatting of this note may be different from the original. DISCHARGE SUMMARY Patient: Dandre Carranza Account: [id number] Admitted: 03/31/2017 Discharge Date/Time: No discharge date for patient encounter. Clinical Summary Perpetual Assessment: Sepsis, community acquired pneumonia, multiloculated complicated pleural effusion 56 year old male with multiple sclerosis, chronic pain, tobacco abuse who presented to [facility] on 03/31/17 with 1 day history of pleuritic chest pain, fevers/chills, dyspnea, cough with brown phlegm. In ED he was tachycardic (HR 130s) and tachypneic without hypotension or hypoxia. Initial workup revealed WBC 29, lactate 2.4, VBG with pH 7.34, serial trops neg. ECG with sinus tachycardia and right axis deviation. CTA chest showed right lower lobe opacity with moderate pleural effusion and possible developing lung abscess. Blood cultures were drawn in ED and he received IV vanc and IV cefepime. Admitted to step down unit where he received aggressive IV fluids and IV clindamycin, IV levaquin and IV meropenem. Overnight he developed fevers up to 103.9F and remained tachycardic with HR in 130-140s. Repeat CXR on 04/01 showed significant interval increase in size of right loculated pleural effusion now moderate to large in size with increasing compressive atelectatic changes within the right lung. Pulmonology was consulted and a chest ultrasound demonstrated multiloculated pleural effusion meshlike appearance. Per Pulm, there is no indication for ultrasound-guided thoracentesis. Pulm recommending pleural debridement and drainage preferably by VATS rather than thoracotomy due to anticipated recovery/wound healing issues (due to malnutrition and multiple sclerosis). Tube thoracostomy drain will not likely provide adequate treatment and will delay definitive treatment in a clinically worsening patient. Discharge Diagnoses and Associated Hospital Course: Service: Internal Medicine 1. Community acquired pneumonia (suspect aspiration) with lung abscess and multiloculated complicated pleural effusion- Seen by Pulm and recommending pleural debridement and drainage as stated above.Thoracic Surg service in not available currently at [facility] and [facility] I discussed the patient with the Dr Arzola, the thoracic surgeon at [facility]. 2. Severe sepsis- Fevers, leukocytosis, lactic acidosis and signs of hypoperfusion persisting. Antibiotics were changed to IV vancomycin and IV meropenem at time of discharge. Vitals at discharge T 100.9F, HR 122, RR 20, BP 128/72, SPO2 92% on room air. Labs at discharge included H/H 12.2/37.1, WBC23 (neutrophil predominant), lactate 3.9, bicarb 22, Bun/Cr 8/0.65, total protein 5.9, albumin 2.0.Blood cultures from 03/31 with no growth. Rapid influenza A/B on 04/01 neg. Transfer to [facility] for surgical treatment of clinical empyema. 3. Multiple sclerosis- On dimethyl fumarate (Tecfidera), follows Dr Jordan 4. Dysphagia- Reports chronic symptoms and will need swallow eval. 5. Malnutrition, hypoalbuminemia 6. Tobacco abuse 7. Chronic pain- on chronic opioids Surgeries No admission procedures for hospital encounter. Procedures No orders of the defined types were placed in this encounter. Consults Procedures Hospitalize Patient To : Inpatient consult to Infectious Diseases Inpatient consult to Pulmonology Inpatient consult to Dietitian Other Tests No orders of the defined types were placed in this encounter. Allergies Copaxone [glatiramer (copolymer 1)] and Penicillins Discharge Diet Discharge Medications Medication List CONTINUE taking these medications amitriptyline 50 MG tablet Commonly known as: ELAVIL cholecalciferol (vitamin D3) 2,000 unit Cap dimethyl fumarate 240 mg Cpdr * gabapentin 600 MG tablet Commonly known as: NEURONTIN * gabapentin 600 MG tablet Commonly known as: NEURONTIN * gabapentin 600 MG tablet Commonly known as: NEURONTIN IBUPROFEN PM 200-38 mg Tab Generic drug: ibuprofen-diphenhydrAMINE levothyroxine 150 MCG tablet Commonly known as: SYNTHROID, LEVOTHROID mirtazapine 45 MG tablet Commonly known as: REMERON montelukast 10 mg tablet Commonly known as: SINGULAIR morphine 15 MG 12 hr tablet Commonly known as: MS CONTIN multivitamin per tablet Commonly known as: THERAGRAN oxyCODONE 15 MG immediate release tablet Commonly known as: ROXICODONE * Notice: This list has 3 medication(s) that are the same as other medications prescribed for you. Read the directions carefully, and ask your doctor or other care provider to review them with you. Physician(s) Primary Care Provider: Rudolph Fox MD, , Address: [address] [place] [address] Follow Up: No follow-up provider specified. Additional Information Patient instructions, including activity, were given to the patient/family at discharge. Please seethe After Visit Summary in the medical record for details. Time spent on discharge: > 30 minutes Completed by: Bebo Yadav on 04/01/17, 4:23 PM in this encounter Summary Purpose Family History No Family History Records FoundNo Family History Records FoundNo Family History Records FoundNo Family History Records Found Advance Directives Advance Directive Response Recorded Date/ Time Advance Directives No July 22, 024 2:32pm Chief Complaint and Reason for Visit Chief Complaint IBS WITH CONSTIPATIO N AND DIARRHEA Reason for Visit Constipation Encounter for screening colonoscopy Additional Source Comments Bebo Yadav MD - 03/31/2017 3:01 PM EST H&P Notes (unrecognized sect ion and content) Formatting of this note may be different from the original. HISTORY AND PHYSICAL Patient Name: Dandre Carranza Admit Date: [id number] MR #: [id number] : 1960 Physicians: Rudolph Fox MD (Family); No ref. provider found (Referring) Chief Complaint/Reason for Visit: Chest pain Assessment and Plan: 1. Sepsis, pneumonia, possible lung abscess- He is tachycardic and tachypneic with stable BPs. Lactate elevated. WBC markedly elevated. CTA chest shows right lower lobe opacity with moderate pleural effusion and possible developing lung abscess (measuring approx 2.8cm). Possible aspiration, he reports chronic dysphagia. Blood cultures in process. Initially started on cefepime and vancomycin. Reports penicillin allergy. Will change atbx to IV levaquin and IV clindamycin for added coverage of anaerobes. Continue aggressive IVF and close monitoring. Repeat chest imaging if no improvement and consider drainage of abscess. 2. Pleuritic chest pain related to right sided pneumonia 3. Dysphagia- Will consult CLAIMS TECHNICIAN for swallow evaluation 4. Tobacco- Current 1.5ppd smoker. Advised cessation. Patient requesting nicotine patch. 5. Multiple sclerosis (follows Dr Jordan), chronic pain (on chronic opioids) History of Present Illness: Dandre Carranza is a 56 y.o. male presenting from home with c/o cough, chest pain, shortness of breath and subjective fever. She reports she started feeling sick yesterday and symptoms have worsened since then. He has had an occasional productive cough. He has pain in the right side of his chest whenever he coughs or breathes deep. This pain sometimes radiates into his upper right abdomen History: Past Medical History: Diagnosis Date Depression Disease of thyroid gland Multiple sclerosis (HCC) Past Surgical History: Procedure Laterality Date CHOLECYSTECTOMY FOOT SURGERY Left heel-steel plate and 8 screws Family History Problem Relation Age of Onset Arthritis Mother Hypertension Mother Alcohol abuse Father Cancer Father Abnormal bleeding disorders Sister Anemia Sister Diabetes Child Drug abuse Child Anesthesia problems Neg Hx Early Neg Hx Iron Overload Neg Hx Miscarriages / Stillbirths Neg Hx Stroke Neg Hx Sickle cell anemia Neg Hx Thalassemia Neg Hx Social History Social History Marital status: Spouse name: N/A Number of children: N/A Years of education: N/A Occupational History Not on file. Social History Main Topics Smoking status: Current Every Day Smoker Packs/day: 1.50 Years: 30.00 Types: Cigarettes Smokeless tobacco: Never Used Alcohol use No Drug use: No Sexual activity: Yes Partners: Female Other Topics Concern Not on file Social History Narrative No narrative on file Living Arrangements: Spouse/significant other Support Systems: Spouse/significant other Functional Status: Independent Allergy Information: I have reviewed the patient's allergies. Copaxone [glatiramer (copolymer 1)] and Penicillins Home Medications: Outpatient Prescriptions as of 03/31/2017 Medication Sig amitriptyline (ELAVIL) 50 MG tablet Take 50 mg by mouth nightly . cholecalciferol, vitamin D3, 2,000 unit cap Take 1 capsule by mouth daily . ibuprofen-diphenhydrAMINE (IBUPROFEN PM) 200-38 mg Tab Take by mouth nightly as needed levothyroxine (SYNTHROID, LEVOTHROID) 150 MCG tablet Take 150 mcg by mouth daily . mirtazapine (REMERON) 45 MG tablet Take 45 mg by mouth daily. Review of Systems: Constitutional:Fatigue, malaise, no fever Eyes:No diplopia ENT:No sinus drainage CV:Right sided pleuritic chest pain under ribcage Resp:SOB, cough with light brown sputum, wheezing GI:No abdominal pain.No abdominal distention. No vomiting :No dysuria Neuro:No headache Integumentary:No skin rash MuscSkel:No arthralgias Endo:No polyuria Heme/lymphatic:No apparent lymphadenopathy Allergic/Immunologic:No hives Psych:Chronic pain, denies IVDA, denies ETOH Physical Examination: Vital Signs: BP 116/75 Pulse (!) 133 Temp 100.1 ?F (37.8 ?C) (Oral) Resp (!) 20 Ht 6' Wt 56.9 kg (125 lb 7.1 oz) SpO2 95% BMI 17.01 kg/m2 General: Alert, cooperative, no distress, thin Head: Normocephalic, without obvious abnormality, atraumatic Eyes: PERRL, conjunctiva/corneas clear, EOM's intact, fundi benign both eyes Throat: Dry mucous membranes Neck: Supple, symmetrical, trachea midline, no adenopathy; thyroid: no enlargement/tenderness/nodules; no carotid bruit or JVD Back: Symmetric, no curvature, ROM normal, no CVA tenderness Lungs: Adequate air entry bilaterally, right sided crackles, no wheezes, respirations unlabored, normal respiratory effort Chest Wall: No tenderness or deformity Cardiovascular: Tachycardic, regular rate and rhythm, S1 and S2 normal,no rub or gallop; Pulses 2+ and symmetric all extremities Abdomen: Soft, non-tender, bowel sounds active all four quadrants,no masses, no organomegaly Extremities: Normal, atraumatic, no cyanosis or edema Skin: Skin color, texture, turgor normal, no rashes or lesions Musculoskeletal: Full range of motion of all extremities; no joint edema Neurologic: CNII-XII intact; normal strength, sensation and reflexes throughout Psych: Mood and affect appropriate Laboratory and Additional Data Reviewed: Laboratory 03/31/17 7:08 PM Microbiology 03/31/17 7:08 PM Radiology 03/31/17 7:08 PM Cardiology 03/31/17 7:08 PM Medications 03/31/17 7:08 PM Transcriptions 03/31/17 7:08 PM in this encounter Archie Stewart MD - 04/01/2017 2:05 PM Clint Martinez, PT - 04/01/2017 10:44 AM Clint Martinez, PT - 04/01/2017 10:44 AM Maggi Tay RN - 03/31/2017 2:59 PM EST Consult Notes (unrecognized section and content) Associated Order(s): IP CONSULT TO PULMONOLOGY Formatting of this note may be different from the original. Consult Note Name: Dandre Ju Carranza Date/Time of Admission: 03/31/2017 10:33 AM CSN: [id number] Attending Provider: Bebo Yadav MD Room/Bed: [facility]/ : 1960 Age: 56 y.o. REASON FOR CONSULT pneumonia HPI I was asked by Dr. Bebo Yadav MD to see Dandre Carranza in consultation. History was obtained from patient patient's family chart review nursing Dr. Dandre Carranza is a 56 y.o. male who presents with few days of fever, chills, several days of cough, recently with brownish phlegm. No hemoptysis. Had some lower anterior and lateral on the right chest pain. Worse with deep breath. Admits then recurrent aspirations. Has a history of multiple sclerosis, has been losing weight over the last several weeks. Chest imaging demonstrated suspected loculated pleural effusion, what appears to be pneumonia with lung abscess on the right side. I perform chest ultrasound which demonstrated multiloculated pleural effusion meshlike appearance. Outside records were carefully reviewed. REVIEW OF SYSTEMS See HPI for further details. The rest of the complete review of systems otherwise negative unobtainable due to mental state or inability to communicate. PAST MEDICAL HISTORY Past Medical History: Diagnosis Date Depression Disease of thyroid gland Multiple sclerosis (HCC) SURGICAL HISTORY Past Surgical History: Procedure Laterality Date CHOLECYSTECTOMY FOOT SURGERY Left heel-steel plate and 8 screws SOCIAL HISTORY Social History Social History Marital status: Spouse name: N/A Number of children: N/A Years of education: N/A Social History Main Topics Smoking status: Current Every Day Smoker Packs/day: 1.50 Years: 30.00 Types: Cigarettes Smokeless tobacco: Never Used Alcohol use No Drug use: No Sexual activity: Yes Partners: Female Other Topics Concern None Social History Narrative None FAMILY HISTORY Family History Problem Relation Age of Onset Arthritis Mother Hypertension Mother Alcohol abuse Father Cancer Father Abnormal bleeding disorders Sister Anemia Sister Diabetes Child Drug abuse Child Anesthesia problems Neg Hx Early Neg Hx Iron Overload Neg Hx Miscarriages / Stillbirths Neg Hx Stroke Neg Hx Sickle cell anemia Neg Hx Thalassemia Neg Hx CURRENT MEDICATIONS @PTAMEDLIST@ amitriptyline 50 mg Oral Nightly clindamycin (CLEOCIN) IV 600 mg Intravenous Q8H dimethyl fumarate 240 mg Oral BID gabapentin 1,200 mg Oral Nightly iopamidol 6 mL Oral Q30 Min ipratropium-albuterol 3 mL Inhalation Q6H [facility] levoFLOXacin 750 mg Intravenous Q24H levothyroxine 150 mcg Oral at bedtime meropenem 1,000 mg Intravenous Q8H mirtazapine 45 mg Oral Nightly morphine 15 mg Oral Q12H [facility] nicotine 1 patch Transdermal Daily ALLERGIES Allergies Allergen Reactions Copaxone [Glatiramer (Copolymer 1)] Penicillins Rash PHYSICAL EXAM VITAL SIGNS: BP (!) 112/92 Pulse (!) 133 Temp 99.1 ?F (37.3 ?C) (Oral) Resp (!) 23 Ht 6' Wt 61.4 kg (135 lb 5.8 oz) SpO2 95% BMI 18.36 kg/m2 Constitutional: Well developed, Well nourished. HENT: Head normocephalic, atraumatic; Bilateral external ears normal; Mucous membranes pink and moist; oropharynx without exudates. Eyes: PERRL, Conjunctiva normal, No discharge. Anicteric sclera. Neck: Supple, No tenderness, Trachea midline, no JVD Lymphatic: No lymphadenopathy noted. Cardiovascular: Normal heart rate, Normal rhythm, No murmurs, No rubs, No gallops. Thorax & Lungs: Clear to auscultation on the left. Essentially absent on the right lower half. No wheezes. No rhonchi. No crackles. Symmetrical chest expansion, no accessory muscle use Abdomen: Bowel sounds normal, Soft, No tenderness, No distension. No organomegaly, No pulsatile masses. Skin: Warm, Dry, No erythema, No rash. Extremities: No edema of lower extremities. No tenderness. No cyanosis. No clubbing. Musculoskeletal: No tenderness to palpation or major deformities noted. Neurologic: Alert & oriented x 3. No gross focal deficits noted. Psychiatric: Affect normal, Judgment normal, Mood normal. INTAKE/OUTPUT: I/O last 3 completed shifts: In: 5065.8 [P.O.:120; I.V.:741.6; IV Piggyback:4204.2] Out: 1850 [Urine:1850] I/O this shift: In: 44.9 [IV Piggyback:44.9] Out: - LABS Hematology Recent Labs 03/31/17 1038 03/31/17233804/01/17 0718 WBC 29.16* -- 23.94* 23.55* HCT 42.2 < > 38.8* 42.5 37.1* PLT 440* -- 328 292 < > = values in this interval not displayed. Recent Labs 04/01/17 1140 PROTIME 16.5* INR 1.4* Chemistries Recent Labs 03/31/17 1038 03/31/17232904/01/17 0718 NA 134* 134* 137 K 4.4 4.0 4.0 CL 98 102 108 BUN 11 8 8 CREATININE 0.96 0.71 0.65 Recent Labs 03/31/17 1038 03/31/17 19503/31/17232904/01/17 0718 CALCIUM 8.9 -- 8.0* 7.6* MG -- 1.7 1.8 -- LFTs Recent Labs 03/31/17 1038 03/31/172330 03/26/17 0718 AST 7 8 15 ALT 14 11* 12* ALKPHOS 122 100 98 No results for input(s): AMYLASE, LIPASE in the last 72 hours. Arterial Blood Gasses No results for input(s): PH in the last 72 hours. Invalid input(s): PCO2, PO2, O1OPIXCVHXRX, INSPIREDO2 Cardiac Enzymes Recent Labs 03/31/17 1541 03/31/17 1959 03/31/17 2330 TROPONINI <15 <15 <15 Microbiology Imaging Chest imaging was personally reviewed. ASSESSMENT 1. Pneumonia, community-acquired, present on admission, likely aspiration. 2. Lung of abscess 3. Empyema clinically, multiloculated complicated pleural effusion. 4. Severe sepsis as judged by lactic acidosis as a sign of hypoperfusion 5. Leukocytosis secondary to above 6. Lactic acidosis 7. Multiple sclerosis 8. Protein calory malnutrition 9. Hypoalbuminemia 10. dysphagia PLAN 1. Ultrasound of the chest was performed as above. 2. Change antibiotics to meropenem which will cover both gram negatives as well as anaerobes and vancomycin due to the risk of MRSA. Discontinue Levaquin and clindamycin. 3. There is no indication for ultrasound-guided thoracentesis. For the treatment ideally would include decortication preferably using VATS as opposed to thoracotomy since recovery. In wound healing will be of huge concern here Given malnutrition and multiple sclerosis. Less preferred approach with the placement of the chest drain and attempt to do TPA and DNase combination. However I suspect this will not be sufficient and the longer definitive treatment is delayed, the more advanced catabolic process will be. 4. Hydration 5. Will need speech eval. May require feeding tube. 6. Needs f/u with neurology 7. F/u LA level. 8. Nutrition consult. Check prealbumin. Needs aggressive nutritional resuscitation. I personally reviewed chart, labs, and imaging, interviewed and examined the patient, formulated assessment and plan. Case reviewed with the patient's nurse, critical care team, patient's family, and Dr. Yadav Thank you very much for the opportunity to participate in care of Dadnre Carranza. Electronically signed: Archie Stewart MD, PhD, [facility] 04/01/2017 2:05 PM Formatting of this note may be different from the original. Physical Therapy Physical Therapy Plan of Care Certification Note Coded Admission Diagnosis Sepsis, due to unspecified organism ([facility]) [A41.9] Pneumonia due to infectious organism, unspecified laterality, unspecified part of lung [J18.9] Sepsis ([facility] [facility]) [A41.9] PT Functional Diagnosis: R26.2 Difficulty in walking, not elsewhere classified PT Goals Multidisciplinary Problems (Active) Problem: Impaired Strength Dates: Start: 04/01/17 Disciplines: PT Goal: PT- strengthening Dates: Start: 04/01/17 Expected End: 04/04/17 Description: PT - Patient will complete ADRIENNE LE strengthening exercise program 1- 2 sets of 10-20 reps independently in preparation for function. Disciplines: PT Intervention: Education, Therapeutic exercise Dates: Start: 04/01/17 Frequency: PRN Problem: Mobility - Impaired Dates: Start: 04/01/17 Disciplines: PT Goal: PT- bed mobility Dates: Start: 04/01/17 Expected End: 04/04/17 Description: PT - Patient will perform bed mobility with modified independence to improve functional mobility and safety in preparation for discharge Disciplines: PT Goal: PT- sit to stand transfer Dates: Start: 04/01/17 Expected End: 04/04/17 Description: PT - Patient will perform sit to/from stand transfer with modified independence to improve functional mobility and safety in preparation for discharge Disciplines: PT Goal: PT- car transfer Dates: Start: 04/01/17 Expected End: 04/04/17 Description: PT - Patient will perform car transfer with modified independence to improve functional mobility and safety in preparation for discharge Disciplines: PT Goal: PT- dynamic balance Dates: Start: 04/01/17 Expected End: 04/08/17 Description: PT - Patient will perform standing dynamic balance activities without device with supervision without loss of balance to improve functional mobility and safety in preparation for discharge Disciplines: PT Goal: PT- ambulation Dates: Start: 04/01/17 Expected End: 04/08/17 Description: PT - Patient will ambulate 250+ feet with device with modified independence to improve functional mobility and safety in preparation for discharge Disciplines: PT Intervention: Education, Assistive device training Dates: Start: 04/01/17 Frequency: PRN Intervention: Education, Bed mobility training Dates: Start: 04/01/17 Frequency: PRN Intervention: Education, Balance training Dates: Start: 04/01/17 Frequency: PRN Description: REMINDER(s): Reinforce education provided by Physical Therapy related to balance training. Intervention: Education, Gait training Dates: Start: 04/01/17 Frequency: PRN Intervention: Education, Therapeutic exercise Dates: Start: 04/01/17 Frequency: PRN Intervention: Education, Transfer training Dates: Start: 04/01/17 Frequency: PRN Frequency of Treatment (times per week): 1-4 times per day, 7 days per week This physical Therapy Plan of Care will be carried out until: 1.) The PT plan has been resolved or 2.) The patient is discharged from the acute [facility] Formatting of this note may be different from the original. Physical Therapy PHYSICAL THERAPY EVALUATION NOTE Physical Therapy Assessment Body Structure and Function: Musculoskeletal impairment, Cardiopulmonary impairment, Neurologic impairment Activities and Participation: Mobility limitation, Balance limitation and fall risk Environmental Factors: Further assessment required to determine Personal Factors: Awareness of own capacity and performance Rehab Potential: Good Activity Tolerance: Tolerates less than 10 min activity, no significant change in vital signs All pt needs met and call light in reach. RN notified of pt's current level of function and assistance. Skilled Therapy Needs After Discharge Anticipate Resolution of Current Assessment Limitations Including: Pain, Mechanical Barriers Are Skilled Therapy Services Needed After Discharge: Yes Intensity of Skilled Therapy: 2-3 days per week Anticipated Duration of Skilled Therapy: Duration 10 - 30 days DME Recommendation: None Outcomes Measures Prior Function - Basic Mobility Raw Score: 24 Points Prior Function - Basic Mobility % Impaired: 0% functionally impaired AM-PAC - Basic Mobility Raw Score: 16 Points AM-PAC - Basic Mobility % Impaired: 47.12% functionally impaired Therapy Precautions Orthotic Devices: No Weight Bearing Status: WFL General Rehab Precautions: Fall risk (No recent falls) Balance Sitting Balance - Static: Sits without support for more than 30 seconds Sitting Balance - Dynamic: Moves / returns trunkal midpoint 1-2 inches in multiple planes Standing Balance - Static: Stands without support for more than 30 seconds Standing Balance - Dynamic: Moves / returns trunkal midpoint 1-2 inches in multiple planes Bed Mobility Rolling: Mod Supine to Sit: Mod Skilled Intervention: Pt requires moderate assistance for bed mobility. Pt educated on sequencing movements during bed mobility. Pt demonstrated understanding Transfers Sit to Stand: Contact guard Insurance Claims Assistant: 1 person, Gait belt, Other (Comment) (IV pole) Gait/Locomotion Gait Assistance: Contact guard Assistive Device: Other (Comment) (IV pole) Distance: 5 Feet Pattern: Step through, R decreased step length, L decreased step length Skilled Intervention: Pt reports that he is currently in a multiple sclerosis flare up which makes it difficult for him to ambulate (Use wheeled walker in future sessions) Home Living Type of Home: Mobile home Home Layout: Ramped entrance Home Equipment: Cane, Wheeled Walker Additional Comments: Pt normally uses cane for ambulation Prior Level of Function Level of [place]: Independent with ADLs and functional transfers, Needs assistance with homemaking Lives With: Spouse ADL Assistance: Independent Homemaking Assistance: Needs assistance Past Medical History: Diagnosis Date Depression Disease of thyroid gland Multiple sclerosis (HCC) Past Surgical History: Procedure Laterality Date CHOLECYSTECTOMY FOOT SURGERY Left heel-steel plate and 8 screws For complete objective data, detailed plan of care and patient education refer to: PT EVALUATION flow sheet, PT TREATMENT flow sheet, patient Plan of Care, Plan of Care progress note, and Patient Education. This note stands as the current Discharge Summary upon patient discharge from the hospital or completion of Physical Therapy Plan of Care. COMPLEX DISCHARGE Date: 03/31/2017 Time: 2:59 PM Patient Name: Dandre Carranza Date of : 1960 Sex: Male Discharge Plan Shared /CC and RN Living Arrangements: Spouse/significant other Support Systems: Spouse/significant other Functional Status: Independent Type of Residence: Private residence Prior to Admission Home Care Services: No Current Home Equipment: Walker, Cane Insurance Coverage for Prescriptions: Yes Discharge Readiness Expected Discharge Date: 04/02/17 [facility] Disposition D/C Disposition: Home Met with patient. No discharge needs identified in this encounter Plan of Chelsea Perez RN - 04/01/2017 1:16 PM ESTPlan of Constanza Wylie RN - 04/01/2017 8:09 AM ESTPlan of Chelsea Perez RN - 03/31/2017 3:17 PM EST Miscellaneous Notes (unrecog nized section and content) Problem: Falls, Risk of Goal: Absence of falls Outcome: Partially Met Patient will be free from falls during hospitalization, by maintaining fall precautions. Patient will wear nonskid footwear, call out for help for ambulation and maintain the bed in lowest position and call light in reach. Falls risk assessment completed. Problem: Pressure Ulcer - Risk of Goal: Absence of pressure ulcer Outcome: Partially Met Patient will be free from pressure injuries while in the hospital. Patient will be repositioned, by self or by staff, every two hours and incontinence care will be completed as needed. Terence skin assessment completed. Problem: Pressure Ulcer - Risk of Goal: Absence of pressure ulcer Outcome: Met No pressure ulcer present. Problem: Falls, Risk of Goal: Absence of falls Outcome: Partially Met Patient will be free from falls during hospitalization, by maintaining fall precautions. Patient will wear nonskid footwear, call out for help for ambulation and maintain the bed in lowest position and call light in reach. Falls risk assessment completed. Called Dr Gris Yaadv for Dr Gastelum. VBG sent at 1200 Report given to: Kayla OROURKE Pt reports right sided chest pain that woke him from his sleep and goes down into his abdomen and wraps around his back. Also reports pain with a deep breath. Right upper abdominal pain that started yesterday evening. Bed: 19 Expected date: Expected time: Means of arrival: Comments: Twp 303 Associated Order(s): ECG 12-LEAD Formatting of this note may be different from the original. [facility] ED Physician Note: NAME: Dandre Carranza 56 y.o. CSN: [id number] PCP: Rudolph Fox MD Clinical Impression: SNOMED CT(R) 1. Pneumonia due to infectious organism, unspecified laterality, unspecified part of lung INFECTIVE PNEUMONIA 2. Sepsis, due to unspecified organism (HCC) SEPSIS ED Course / Medical Decision Making: MDM Number of Diagnoses or Management Options Pneumonia due to infectious organism, unspecified laterality, unspecified part of lung: Sepsis, due to unspecified organism (HCC): Diagnosis management comments: Patient presents to the ED with constitutional symptoms chest pain and shortness of breath. On arrival he is tachycardic and tachypnea with stable blood pressure. Evaluation reveals right-sided pneumonia with associated pleural effusion. Patient has marked leukocytosis. Patient was assessed and treated under sepsis protocol. Cultures were collected and he was given IV fluids and empiric antibiotics. Discussed with on-call physician and will admit for further evaluation and treatment. . . Critical Care Time on this patient was between 30-74 minutes due to concern for sepsis. This was exclusive of separately billable procedures. Disposition: Admit to stepdown Current Discharge Medication List History: Chief Complaint: Chest Pain HPI: The history was obtained from the patient. He is a 56 y.o. male who presents with a chief complaint of Chest Pain. HPI Comments: Patient presents to the ED complaining of cough, chest pain, shortness of breath and subjective fever. She reports she started feeling sick yesterday and symptoms have worsened since then. He has had an occasional productive cough. He has pain in the right side of his chest whenever he coughs or breathes deep. This pain sometimes radiates into his upper right abdomen. PMHx: Past Medical History: Diagnosis Date Depression Disease of thyroid gland Multiple sclerosis (HCC) PMSx: Past Surgical History: Procedure Laterality Date CHOLECYSTECTOMY FOOT SURGERY Left heel-steel plate and 8 screws FAM. Hx: Family History Problem Relation Age of Onset Arthritis Mother Hypertension Mother Alcohol abuse Father Cancer Father Abnormal bleeding disorders Sister Anemia Sister Diabetes Child Drug abuse Child Anesthesia problems Neg Hx Early Neg Hx Iron Overload Neg Hx Miscarriages / Stillbirths Neg Hx Stroke Neg Hx Sickle cell anemia Neg Hx Thalassemia Neg Hx SOC. Hx: Social History Social History Marital status: Spouse name: N/A Number of children: N/A Years of education: N/A Occupational History Not on file. Social History Main Topics Smoking status: Current Every Day Smoker Packs/day: 1.50 Years: 30.00 Types: Cigarettes Smokeless tobacco: Never Used Alcohol use No Drug use: No Sexual activity: Yes Partners: Female Other Topics Concern Not on file Social History Narrative No narrative on file MEDs: Current Discharge Medication List CONTINUE these medications which have NOT CHANGED Details amitriptyline (ELAVIL) 50 MG tablet Take 50 mg by mouth nightly . cholecalciferol, vitamin D3, 2,000 unit cap Take 1 capsule by mouth daily . dimethyl fumarate 240 mg CpDR Take 240 mg by mouth 2 (two) times a day. !! gabapentin (NEURONTIN) 600 MG tablet Take 1,200 mg by mouth every morning. !! gabapentin (NEURONTIN) 600 MG tablet Take 600 mg by mouth daily Mid afternoon . !! gabapentin (NEURONTIN) 600 MG tablet Take 1,200 mg by mouth at bedtime. ibuprofen-diphenhydrAMINE (IBUPROFEN PM) 200-38 mg Tab Take by mouth nightly as needed levothyroxine (SYNTHROID, LEVOTHROID) 150 MCG tablet Take 150 mcg by mouth daily . mirtazapine (REMERON) 45 MG tablet Take 45 mg by mouth daily. montelukast (SINGULAIR) 10 mg tablet Take 10 mg by mouth nightly. morphine (MS CONTIN) 15 MG 12 hr tablet Take 15 mg by mouth 2 (two) times a day as needed for pain. multivitamin (THERAGRAN) per tablet Take 1 tablet by mouth daily. oxyCODONE (ROXICODONE) 15 MG immediate release tablet Take 15 mg by mouth every 4 (four) hours as needed for pain. !! - Potential duplicate medications found. Please discuss with provider. ALL: Allergies Allergen Reactions Copaxone [Glatiramer (Copolymer 1)] Penicillins ROS: Review of Systems Constitutional: Positive for chills, diaphoresis, fatigue and fever. HENT: Negative for congestion and rhinorrhea. Respiratory: Positive for cough and shortness of breath. Negative for wheezing. Cardiovascular: Positive for chest pain. Negative for palpitations. Gastrointestinal: Positive for nausea. Negative for abdominal pain, blood in stool, constipation, diarrhea and vomiting. Genitourinary: Negative for dysuria and frequency. Musculoskeletal: Negative for arthralgias and myalgias. Skin: Negative for rash. Neurological: Negative for dizziness, seizures, syncope and weakness. Positives and pertinent negatives as per HPI. All other systems were reviewed and are negative. Physical Exam: Patient Vitals for the past 24 hrs: BP Temp Temp src Pulse Resp SpO2 Height Weight 03/31/17 1520 - - - - (!) 19 - - - 03/31/17 1512 116/72 98.2 ?F (36.8 ?C) Oral (!) 130 (!) 19 94 % - - 03/31/17 1405 116/75 100.1 ?F (37.8 ?C) Oral (!) 133 (!) 20 95 % - - 03/31/17 1402 - - - - - - - 56.9 kg (125 lb 7.1 oz) 03/31/17 1330 (!) 150/93 - - (!) 135 (!) 21 95 % - - 03/31/17 1315 135/83 - - (!) 134 (!) 22 95 % - - 03/31/17 1245 123/85 - - (!) 138 (!) 35 95 % - - 03/31/17 1230 134/85 - - (!) 136 (!) 26 96 % - - 03/31/17 1215 120/80 - - (!) 137 (!) 22 92 % - - 03/31/17 1200 136/85 - - (!) 134 (!) 26 95 % - - 03/31/17 1058 - - - - - 94 % - - 03/31/17 1055 - - - - - 92 % - - 03/31/17 1034 112/83 - - - - - - - 03/31/17 1032 120/76 98.6 ?F (37 ?C) Oral (!) 135 (!) 24 94 % 6' 65.8 kg (145 lb) Physical Exam Constitutional: He is oriented to person, place, and time. He appears well- developed and well-nourished. HENT: Head: Normocephalic and atraumatic. Eyes: EOM are normal. Pupils are equal, round, and reactive to light. Neck: Normal range of motion. Neck supple. Cardiovascular: Regular rhythm, normal heart sounds and intact distal pulses. Tachycardia present. Exam reveals no gallop and no friction rub. No murmur heard. Pulmonary/Chest: Effort normal. Tachypnea noted. No respiratory distress. He has decreased breath sounds in the right lower field. He has no wheezes. He has no rales. He exhibits no tenderness. Abdominal: Soft. Bowel sounds are normal. He exhibits no distension and no mass. There is no tenderness. There is no rebound and no guarding. Musculoskeletal: Normal range of motion. He exhibits no edema or tenderness. Neurological: He is alert and oriented to person, place, and time. No cranial nerve deficit. He exhibits normal muscle tone. Coordination normal. Skin: Skin is warm and dry. Capillary refill takes less than 3 seconds. No rash noted. He is not diaphoretic. Laboratory & Radiological Imaging (if done): Labs Reviewed BASIC METABOLIC PANEL - Abnormal; Notable for the following: Result Value Sodium 134 (*) Glucose 145 (*) All other components within normal limits Narrative: The eGFR should be used for monitoring renal function only and not for medication dosing. URINALYSIS - Abnormal; Notable for the following: pH, Urine 7.5 (*) All other components within normal limits Narrative: Microscopic examination is performed on all urinalysis samples and only positive findings are reported. The test for blood on the chemical analytic portion of urinalysis may also be positive due to hemoglobinuria and myoglobinuria and if red blood cells are present they are quantified by microscopic examination. LIPASE - Abnormal; Notable for the following: Lipase 46 (*) All other components within normal limits HEPATIC FUNCTION PANEL - Abnormal; Notable for the following: Albumin 3.0 (*) All other components within normal limits BLOOD GAS, VENOUS - Abnormal; Notable for the following: pCO2, Roby 57.2 (*) HCO3, Roby 30.0 (*) Base Excess, Roby 3.3 (*) All other components within normal limits LACTIC ACID, WHOLE BLOOD - Abnormal; Notable for the following: Lactic Acid 2.4 (*) All other components within normal limits CBC WITH AUTO DIFFERENTIAL - Abnormal; Notable for the following: WBC 29.16 (*) Platelets 440 (*) MPV 8.5 (*) Neutrophils Abs 27.27 (*) Lymphocytes Abs 0.51 (*) Monocytes Abs 0.97 (*) All other components within normal limits TROPONIN - Normal BLOOD CULTURE AEROBIC/ANAEROBIC BLOOD CULTURE AEROBIC/ANAEROBIC URINE AEROBIC CULTURE CBC AND DIFFERENTIAL Narrative: The following orders were created for panel order CBC and Differential. Procedure Abnormality Status --------- ------ CBC Auto Differential[[id number]] Abnormal Final result Please view results for these tests on the individual orders. TROPONIN TROPONIN XR Chest 1 View Final Result 1. Patchy airspace disease in the right lung base with a small right pleural effusion. This could be related to pneumonia/parapneumonic effusion. Pulmonary infarct would be a differential. No appreciable pneumomediastinum. 2. The left lung is clear. No free air collections underneath the hemidiaphragms. CYNDY/ Workstation ID: [id number] CT Pulmonary Arteries Preliminary Result 1. No pulmonary embolism to the level of the segmental pulmonary arteries. The smaller pulmonary arteries are obscured by respiratory motion artifact. No aortic aneurysm or dissection. 2. Moderate-sized right pleural effusion. Confluent airspace opacity in the right lower lobe is most consistent with pneumonia. A 2.8 cm focus of decreased enhancement without discernible wall in the medial right lower lobe at the lung base is suspicious for a developing lung abscess. There are secretions in the right mainstem bronchus. Follow-up to resolution is recommended. 3. Borderline enlarged right hilar and subcarinal lymph nodes are favored to be reactive. [facility]/ Workstation ID: [id number] Procedures: ECG 12 Lead Date/Time: 03/31/2017 3:23 PM Performed by: KEISHA GASTELUM Authorized by: KEISHA GASTELUM Rhythm: sinus rhythm and sinus tachycardia BPM: 136 Conduction: conduction normal ST Segments: ST segments normal T Waves: T waves normal normal VT interval normal QRS interval normal QT interval Clinical impression: sinus tachycardia Keisha Gastelum MD [facility] Emergency Department (Please note that portions of this note have been completed with a voice recognition software. Efforts were made to correct any errors, but occasionally words are mis-transcribed.) Keisha Gastelum MD 03/31/17 1525 EMS reports Last night he started having sharp right lung pain that wraps to his back and it hurts when he swallows. He has a h/o MS. VSS he was tachy at 136, his lung sounds were clear and 95% on room air in this encounter (unrecognized sect ion and content) No Status Records FoundNo Status Records FoundNo Status Records FoundNo Status Records Found INFORMATION SOURCE (unrecogn ized section and content) DATE CREATED AUTHOR 10/26/2017 [facility] DATE CREATED AUTHOR AUTHOR'S ORGANIZ ATION 10/13/2021 [facility] dical Specialist DATE CREATED AUTHOR AUTHOR'S ORGANIZ ATION 09/20/2022 [facility] pital DATE CREATED AUTHOR AUTHOR'S ORGANIZ ATION 07/21/2023 [facility] dical Specialists EPIC Source Comments (unrecognize d section and content) In the event this informatio n is protected by the Federal Confidentiality of Alcohol and Drug Abuse Patient Records regulations: The Federal rules restrict any use of the information to criminally investigate or prosecute any alcohol or drug abuse patient.[facility] Care Teams (unrecognized sec tion and content) Trim Operator Relationship Specialty Start Date End Date Shasta Bermudez MD [address] [place] [address] PCP - [employer] 05/07/22 Shasta Bermudez MD [address] [place] [address] PCP - General Family Medicine 09/26/22 Macey Vargas TRAFFIC EXPERT [address] [place] [address] Nurse Practitioner Family Medicine 09/26/22 Trim Operator Relationship Specialty Start Date End Date Shasta Bermudez MD [address] [place] [address] PCP - [employer] 05/07/22 Shasta Bermudez MD [address] [place] [address] PCP - General Family Medicine 09/26/22 Macey Vargas, TRAFFIC EXPERT [address] [place] [address] Nurse Practitioner Family Medicine 09/26/22 Trim Operator Relationship Specialty Start Date End Date Shasta Bermudez MD [address] [place] [address] PCP - [employer] 05/07/22 Shasta Bermudez MD [address] [place] [address] PCP - General Family Medicine 09/26/22 Macey Vargas NP [address] [place] [address] Nurse Practitioner Family Medicine 09/26/22 Team Status: Active Member Role Status Dates Shasta Bermudez MD Primary Care Provider Active Team Status: Inactive Member Role Status Dates Timur Luz MD Attending Provider Active Start: July 25, 2023 End: July 25, 2023 Shasta Bermudez MD Primary Care Provider Active Sta rt: July 25, 2023 End: July 25, 2023 Reason for Visit (unrecogniz ed section and content) Reason Comments Med Refill Reason Onset Date Comments re: Last PT 06/21/2023 He called noting an unexpected situation came up w/ family and is in need to cx tomorrow. He did say he knows tomorrow was his last and does not feel rs is needed; he is very appreciative of the therapy given. Goals (unrecognized section and content) Goals may be documented in a n alternate section FOR RECORDS PERTAINING TO PATIENTS WHO ARE OR HAVE BEEN ENROLLED IN A CHEMICAL DEPENDENCY/SUBSTANCEABUSE PROGRAM, SOME INFORMATION MAY BE OMITTED. This clinical summary was aggregated from multiple sources. Caution should be exercised in using it in the provision of clinical care. This summary normalizes information from multiple sources, and as a consequence, information in this document may materially change the coding, format and clinical context of patient data. In addition, data may be omitted in some cases. CLINICAL DECISIONS SHOULD BE BASED ON THE PRIMARY CLINICAL RECORDS. [employer] [facility]. provides no warranty or guarantee of the accuracy or completeness of information in this document.
[2023-08-01 13:40] LABS: C Reactive Protein 1.42 mg/dL (<=0.50)
[2023-08-02 15:09] LABS: Deamidated Gliadin Abs, IgA 7 units (0-19); Deamidated Gliadin Abs, IgG 6 units (0-19); Endomysial Antibody IgA Negative (Negative); Immunoglobulin A, Qn, Serum 182 mg/dL (61-437); t-Transglutaminase (tTG) IgA <2 U/mL (0-3); t-Transglutaminase (tTG) IgG 3 U/mL (0-5)
[2023-08-05 22:30] LABS: Calprotectin, Fecal 12 ug/g (0-120)
[2023-08-07 00:07] LABS: Pancreatic Elastase, Fecal 282 (>200)
== END 2023-08-01 11:50 | disposition home or self-care (01) ==
LOC: LAB 11:51
PROVIDERS: PCP Family Medicine
DX: K59.00 Constipation, unspecified (principal); Z12.11 Encounter for screening for malignant neoplasm of colon
CPT/HCPCS: 36415; 82656; 82705; 82784; 83993; 86140; 86231; 86258; 86364

== ENCOUNTER 2023-10-03 13:54 | Emergency (ER) | payer MEDICARE, MEDICAID, SELFPAY ==
[2023-10-03] VITALS (7 sets, daily range): BP systolic 131–134; BP diastolic 65–88; PULSE 99–110; TEMP 36.8; O2SAT 86–100; BMI 23.1
--- NOTE | 2023-10-03 14:04 | ECG_ITS ---
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
--- NOTE | 2023-10-03 14:05 | ED.GENADUL1 ---
HPI HPI - General Adult General Chief complaint: Shortness of Breath/Dyspnea Stated complaint: SOB Time Seen by Provider: 10/03/23 13:56 Source: patient Mode of arrival: Wheelchair Limitations: no limitations History of Present Illness HPI narrative: Patient is a 62-year-old male with history of MS and COPD who presents to the emergency department for the evaluation of increasing shortness of breath. He has a history of COPD for which he uses Trelegy. He does not have a rescue inhaler at home. He states he has had worsening of his breathing for a while but in the last week it seems to be much worse and today he felt significantly more short of breath. He has no chest pain, fevers, vomiting. No other medications taken prior to arrival. He denies vomiting or diarrhea. He has had a decent appetite. No peripheral edema. He has had some phlegm/sputum production with coughing, no hemoptysis. No home oxygen. Related Data Home Medications ?Medication ?Instructions ?Recorded ?Confirmed alendronate 70 mg tablet 70 mg PO DAILY 04/21/23 10/03/23 amitriptyline 100 mg tablet 100 mg PO DAILY 04/21/23 10/03/23 aripiprazole 15 mg tablet 15 mg PO DAILY 04/21/23 10/03/23 cyproheptadine 4 mg tablet 4 mg PO Q12H 04/21/23 10/03/23 escitalopram oxalate 10 mg tablet 10 mg PO DAILY 04/21/23 10/03/23 fluticasone fur. 100 mcg-umeclid 1 inh inhalation Q24H 04/21/23 10/03/23 62.5 mcg-vilant 25 mcg inhalat.powder (Trelegy Ellipta) gabapentin 600 mg tablet 600 mg PO Q8H 04/21/23 10/03/23 levothyroxine 200 mcg tablet 200 mcg PO DAILY 04/21/23 10/03/23 mirtazapine 45 mg tablet 45 mg PO DAILY 04/21/23 10/03/23 Previous Rx's ?Medication ?Instructions ?Recorded albuterol sulfate 90 mcg/actuation 2 inh inhalation Q4H PRN shortness 10/03/23 aerosol inhaler of breath or wheezing #8.5 grams levofloxacin 750 mg tablet 750 mg PO DAILY 5 days #5 tabs 10/03/23 methylprednisolone 4 mg tablets in See Rx Instructions .Route 10/03/23 a dose pack (Medrol (Alex)) .COMPLEX #21 ea Allergies Allergy/AdvReac Type Severity Reaction Status Date / Time glatiramer (copolymer 1) Allergy Severe Verified 10/03/23 14:04 Penicillins Allergy Severe Verified 10/03/23 14:04 Opioid HPI Opioid Management Most Recent Opioid Data: No Data to Display Review of Systems ROS Constitutional Denies: fever or chills Ears, nose, mouth, and throat Denies: throat pain or nasal congestion Cardiovascular Denies: chest pain Respiratory Reports: shortness of breath and cough Gastrointestinal Denies: nausea, vomiting or diarrhea Musculoskeletal Denies: back pain or neck pain Integumentary/Breast Denies: rash Neurological Denies: headache Hematologic/Lymphatic Denies: easy bruising or easy bleeding Exam Narrative Exam Narrative: Gen.: Awake, alert, in no distress Head: Normocephalic, atraumatic ENT: Moist mucous membranes Respiratory: No respiratory distress, Diminished lung sounds, no wheezing Cardio: Regular rate and rhythm Gastrointestinal: Abdomen is soft, nondistended and nontender to palpation Extremities: Moves extremities equally, no pedal edema Psych: Normal mood and affect Neuro: No focal neuro deficit Skin: Warm, dry, intact Constitutional Vital Signs, click to edit/add: Last Vital Signs Temp 98.3 F 10/03/23 14:01 Pulse 99 H 10/03/23 15:00 Resp 15 10/03/23 15:00 BP 131/82 10/03/23 15:00 Pulse Ox 100 10/03/23 15:00 O2 Del Method Room Air 10/03/23 14:59 Course Vital Signs Vital signs: Vital Signs Temperature 98.3 F 10/03/23 14:01 Pulse Rate 110 H 10/03/23 14:01 Respiratory Rate 20 10/03/23 14:01 Blood Pressure 133/88 10/03/23 14:01 Pulse Oximetry 86 L 10/03/23 14:01 Oxygen Delivery Method Room Air 10/03/23 14:01 Temperature 98.3 F 10/03/23 14:01 Pulse Rate 99 H 10/03/23 15:00 Respiratory Rate 15 10/03/23 15:00 Blood Pressure 131/82 10/03/23 15:00 Pulse Oximetry 100 10/03/23 15:00 Oxygen Delivery Method Room Air 10/03/23 14:59 Medical Decision Making [facility] Narrative Medical decision making narrative: Lab studies show the patient has no evidence of sepsis, he had no hypoxia In the emergency department. He is awake, alert and oriented with no respiratory distress. Chest x-ray shows a left lower lobe pneumonia and the remainder of the labs show no evidence of acute cardiopulmonary changes with normal troponin, BNP and D-dimer. Patient was treated with breathing treatments, Solu-Medrol and fluids in the ER. He is resting comfortably on reevaluation and eager for discharge. I did recommend to the patient that he be admitted for COPD exacerbation and left lower lobe pneumonia for continued antibiotics, steroids and breathing treatments. He prefers to pursue outpatient treatment. He understands he should return to the emergency department if his symptoms do not improve. Levaquin, Medrol Dosepak and albuterol given for home. Medical Records Medical records reviewed: Yes I reviewed the patient's medical records Lab Data Lab results reviewed: Yes I reviewed the patient's lab results Labs: Lab Results 10/03/23 Range/Units 14:20 WBC 8.3 (4.0-11.0) 10^3/uL RBC 4.96 (4.70-6.10) 10^6/uL Hgb 15.5 (14.0-18.0) g/dL Hct 48.6 (42.0-54.0) % MCV 98.0 H (80.0-94.0) fL MCH 31.3 (25.9-34.0) pg MCHC 31.9 (29.9-35.2) g/dL RDW 13.2 (11.0-15.0) % Plt Count 344 (150-450) 10^3/uL MPV 9.4 L (9.5-13.5) fL Neut % (Auto) 73.9 (43.0-75.0) % Lymph % (Auto) 12.4 L (20.5-60.0) % Gosper % (Auto) 8.5 (1.7-12.0) % Eos % (Auto) 2.8 (0.9-7.0) % Baso % (Auto) 1.8 (0.2-2.0) % Neut # (Auto) 6.2 (1.4-6.5) 10^3/uL Lymph # (Auto) 1.0 L (1.2-3.8) 10^3/uL Gosper # (Auto) 0.7 (0.3-0.8) 10^3/uL Eos # (Auto) 0.2 (0.0-0.7) 10^3/uL Baso # (Auto) 0.2 H (0.0-0.1) 10^3/uL Abs Immat Gran (auto) 0.05 H (0.00-0.03) 10^3/uL Imm/Tot Granulo (auto) 0.6 H (0.0-0.5) % PT 10.3 (9.0-11.6) sec INR 0.97 D-Dimer 0.47 (<=0.59) mg/L FEU VBG pH 7.415 (7.330-7.430) VBG pCO2 48.5 (40.0-52.0) mmHg Sodium 137 (136-145) mmol/L Potassium 3.7 (3.5-5.1) mmol/L Chloride 98 (98-107) mmol/L Carbon Dioxide 32.4 H (21.0-32.0) mmol/L Anion Gap 10.3 BUN 11.0 (7.0-18.0) mg/dL Creatinine 0.79 (0.70-1.30) mg/dL Est GFR ( Amer) >60 (>=60) Est GFR (Non-Af Amer) >60 (>=60) BUN/Creatinine Ratio 13.9 Glucose 110 H (74-106) mg/dL Lactate 1.0 (0.4-2.0) mmol/L Calcium 8.6 (8.5-10.1) mg/dL Total Bilirubin 0.3 (0.2-1.0) mg/dL AST 11 L (15-37) U/L ALT 23 (16-63) U/L Alkaline Phosphatase 140 H (46-116) U/L Troponin I High Sens 8.3 (4.0-76.1) pg/mL NT-Pro-B Natriuret Pep 52.0 (<=900.0) pg/mL Total Protein 7.5 (6.4-8.2) g/dL Albumin 3.5 (3.4-5.0) g/dL Globulin 4.0 g/dL Albumin/Globulin Ratio 0.9 Imaging Data Chest x-ray: Attestation: I have reviewed the pertinent imaging results. Radiologist's impression: ITS Impressions Chest X-Ray 10/03/23 14:58 IMPRESSION: Left lower lobe pneumonia suspected Electronically authenticated by: TIFFANY SACLES Date: 10/03/2023 15:20 ECG Data Attestation: I personally reviewed and interpreted this ECG as follows: (Sinus tachycardia at a rate of 103, incomplete right bundle branch block with no acute ST elevation or ectopy. EKG reviewed by attending physician) Discharge Plan Discharge Stand Alone Forms: Portal Instructions Chief Complaint: Shortness of Breath/Dyspnea Clinical Impression: Shortness of breath, Community acquired pneumonia, COPD (chronic obstructive pulmonary disease) Patient Disposition: Home, Self-Care Time of Disposition Decision: 15:31 Condition: Good Prescriptions / Home Meds: New methylprednisolone [Medrol (Alex)] 4 mg tablets,dose pack See Rx Instructions .ROUTE .COMPLEX Qty: 21 0RF Rx Instructions: Taper as directed albuterol sulfate 90 mcg/actuation HFA aerosol inhaler 2 inh inhalation Q4H PRN (Reason: shortness of breath or wheezing) Qty: 8.5 0RF levofloxacin 750 mg tablet 750 mg PO DAILY 5 Days Qty: 5 0RF No Action gabapentin 600 mg tablet 600 mg PO Q8H alendronate 70 mg tablet 70 mg PO DAILY cyproheptadine 4 mg tablet 4 mg PO Q12H mirtazapine 45 mg tablet 45 mg PO DAILY levothyroxine 200 mcg tablet 200 mcg PO DAILY amitriptyline 100 mg tablet 100 mg PO DAILY escitalopram oxalate 10 mg tablet 10 mg PO DAILY aripiprazole 15 mg tablet 15 mg PO DAILY Trelegy Ellipta 100-62.5-25 mcg blister with device 1 inh INHALATION Q24H Print Language: Tamazight Instructions: COPD (Chronic Obstructive Pulmonary Disease) (ED), Community Acquired Pneumonia (ED) Additional Instructions: Please finish the entire course of your antibiotics and steroids, use the inhaler for shortness of breath and wheezing and please return to the emergency department if your symptoms do not improve in the next 24 to 48 hours. Referrals: ROMÁN CHANG [Primary Care Provider] - 1 week
[2023-10-03 14:31] LABS: Adenovirus NOT DETECTED (NOT DETECTE); Bordetella parapertussis NOT DETECTED (NOT DETECTE); Coronavirus 229E NOT DETECTED (NOT DETECTE); Coronavirus HKU1 NOT DETECTED (NOT DETECTE); Coronavirus NL63 NOT DETECTED (NOT DETECTE); Coronavirus OC43 NOT DETECTED (NOT DETECTE); Human Metapneumovirus NOT DETECTED (NOT DETECTE); Human Rhinovirus/Enterovirus NOT DETECTED (NOT DETECTE); Influenza A NOT DETECTED (NOT DETECTE); Influenza B NOT DETECTED (NOT DETECTE); Mycoplasma pneumoniae NOT DETECTED (NOT DETECTE); Parainfluenza Virus 1 NOT DETECTED (NOT DETECTE); Parainfluenza Virus 2 NOT DETECTED (NOT DETECTE); Parainfluenza Virus 3 NOT DETECTED (NOT DETECTE); Parainfluenza Virus 4 NOT DETECTED (NOT DETECTE); Respiratory Syncytial Virus NOT DETECTED (NOT DETECTE); SARS-CoV-2 NOT DETECTED (NOT DETECTE)
[2023-10-03 14:36] LABS: pH VBG 7.415 (7.330-7.430)
[2023-10-03 14:37] LABS: PCO2 VBG 48.5 mmHg (40.0-52.0)
[2023-10-03 14:43] LABS: Basophils Absolute Auto 0.2 10^3/uL (0.0-0.1); Basophils Percent Auto 1.8 % (0.2-2.0); Eosinophils Absolute Auto 0.2 10^3/uL (0.0-0.7); Eosinophils Percent Auto 2.8 % (0.9-7.0); Hematocrit 48.6 % (42.0-54.0); Hemoglobin 15.5 g/dL (14.0-18.0); Immature Granulocytes Abs Auto 0.05 10^3/uL (0.00-0.03); Immature Granulocytes Pct Auto 0.6 % (0.0-0.5); Lymphocytes Percent Auto 12.4 % (20.5-60.0); Mean Corpuscular HGB Conc 31.9 g/dL (29.9-35.2); Mean Corpuscular Hemoglobin 31.3 pg (25.9-34.0); Mean Platelet Volume 9.4 fL (9.5-13.5); Monocytes Absolute Auto 0.7 10^3/uL (0.3-0.8); Monocytes Percent Auto 8.5 % (1.7-12.0); Neutrophils Absolute Auto 6.2 10^3/uL (1.4-6.5); Neutrophils Percent Auto 73.9 % (43.0-75.0); Platelet Count 344 10^3/uL (150-450); Red Blood Count 4.96 10^6/uL (4.70-6.10); Red Cell Distribution Width 13.2 % (11.0-15.0); White Blood Count 8.3 10^3/uL (4.0-11.0)
[2023-10-03] MEDS: METHYLPREDNISOLONE SOD SUCC PF 125 MG/2 ML VIAL IVP (14:45)
[2023-10-03] MEDS: 0.9 % SODIUM CHLORIDE 1,000 ML 1000 ML IV (14:45)
[2023-10-03 14:55] LABS: D Dimer 0.47 mg/L FEU (<=0.59); INR 0.97; Prothrombin Time 10.3 sec (9.0-11.6)
[2023-10-03] MEDS: ALBUTEROL SULFATE 2.5 MG/3 ML VIAL NEB IH (14:58)
--- NOTE | 2023-10-03 14:58 | XR_ITS ---
The [address] [address] Patient Name: VALERIE CRUM MRN: [id number] date: 1960 Sex: M Assigned Patient Location: ER Current Patient Location: ER Accession/Order Number: [id number] Exam Date: 10/03/2023 15:05 Report Date: 10/03/2023 15:20 At the request of: RADHA RICO Procedure: XR chest 1V EXAMINATION: XR chest 1V HISTORY: Shortness of breath COMPARISON: 03/31/2017 TECHNIQUE: AP portable FINDINGS: LUNGS: The right lung is clear. Left basilar infiltrate VASCULATURE: No increased pulmonary vasculature. PLEURA: No pneumothorax, effusion, or pleural thickening. CARDIAC: No cardiomegaly or cardiac silhouette abnormality. MEDIASTINUM: No visible mass or adenopathy. BONES: No fracture or visible bone lesion. OTHER: Negative. XR/XR chest 1V IMPRESSION: Left lower lobe pneumonia suspected Electronically authenticated by: TIFFANY SCALES Date: 10/03/2023 15:20
[2023-10-03 15:20] LABS: Alanine Aminotransferase 23 U/L (16-63); Albumin Globulin Ratio 0.9; Albumin Level 3.5 g/dL (3.4-5.0); Alkaline Phosphatase 140 U/L (46-116); Anion Gap 10.3; Aspartate Amino Transferase 11 U/L (15-37); BUN Creatinine Ratio 13.9; Bilirubin Total 0.3 mg/dL (0.2-1.0); Calcium 8.6 mg/dL (8.5-10.1); Carbon Dioxide 32.4 mmol/L (21.0-32.0); Chloride 98 mmol/L (98-107); Estimated GFR (African America >60 (>=60); Estimated GFR (Non-African Ame >60 (>=60); Glucose 110 mg/dL (74-106); Potassium 3.7 mmol/L (3.5-5.1); Sodium 137 mmol/L (136-145); Total Protein 7.5 g/dL (6.4-8.2); Troponin I High Sensitivity 8.3 pg/mL (4.0-76.1)
== END 2023-10-03 15:42 | disposition home or self-care (01) ==
PROVIDERS: Physician Assistant; Emergency Provider Emergency Medicine; PCP Family Medicine
DX: J18.9 Pneumonia, unspecified organism (principal); J44.0 Chronic obstructive pulmonary disease with (acute) lower respiratory infection; G35 Multiple sclerosis; R06.02 Shortness of breath; Z20.822 Contact with and (suspected) exposure to COVID-19
CPT/HCPCS: 0202U; 36415; 71045; 80053; 82800; 83605; 83880; 84484; 85025; 85378; 85610; 87040; 93005; 94640; 96374; 99285; J2919

== ENCOUNTER 2023-10-04 11:46 | Outpatient (OUT) | payer MEDICARE, MEDICAID, SELFPAY ==
--- NOTE | 2023-10-04 11:49 | MR_ITS ---
The [address] [address] Patient Name: VALERIE CRUM MRN: [id number] date: 1960 Sex: M Assigned Patient Location: LAB Current Patient Location: LAB Accession/Order Number: [id number] Exam Date: 10/04/2023 12:35 Report Date: 10/04/2023 13:56 At the request of: NON-STAFF PHYSICIAN Procedure: MR head/brain wo/w con MR head/brain wo/w con, 10/04/2023 12:35 PM EDT INDICATION: Multiple Sclerosis G35 COMPARISON: MRI of the brain dated 09/19/2022 TECHNIQUE: Multiplanar, multisequential MRI images of brain were obtained without and with contrast. FINDINGS: The cerebral sulci as well as ventricular system are enlarged consistent with mild ex vacuo cerebral volume loss. There is no restricted diffusion. FLAIR and T2 hyperintensities infratentorial and supratentorially in the rooney radiata and callososeptal interface most likely consistent with known MS plaques. Given the technical differences, these lesions are stable in size and number. No new lesion is noted. There is no intracranial mass, mass effect, midline shift, intra or extra-axial fluid collection. No abnormal enhancing lesion is noted. Normal flow-void in the intracranial vessels is noted. The visualized portions of orbits, mastoid air cells as well as paranasal sinuses are unremarkable. MR/MR head/brain wo/w con IMPRESSION: Stable MS plaques. No new or active lesion is noted. Electronically authenticated by: BRANDY MORRISON Date: 10/04/2023 13:56
[2023-10-04 12:04] LABS: Estimated GFR (African America >60 (>=60); Estimated GFR (Non-African Ame >60 (>=60)
--- OUTSIDE RECORDS SUMMARY | 2023-10-04 12:09 | XMS_ITS ---
Patient Summarization (C-CDA 2.1 CCD) Created on: October 04, 2023 Dandre Carranza : 1960 Sex: Male Author Organization Sample organization Care Team Providers Care Auto Body Estimator Name Role Phone Fox, Rudolph Davide Unavailable Unavailable Dr, None Unavailable Unavailable FOX, RUDOLPH DAVIDE Unavailable Unavailable YADAV, BEBO SANDADI Unavailable Unavailabl e YADAV, BEBO SANDADI Unavailable Unavailabl e YADAV, BEBO SANDADI Unavailable Unavailabl e LIUDMILA WHITE Unavailable Unavail able YRIS PEREIRA Unavailable Unavailable ARACELY GRAY Unavailable Unavailable KEISHA GASTELUM Unavailable Unavailable NYHOLMKEISHA VENANCIO Unavailable Unavailable FOX, RUDOLPH DAVIDE Unavailable Unavailable FOX, RUDOLPH DAVIDE Unavailable Unavailable FOX, RUDOLPH DAVIDE Unavailable Unavailable FOX, RUDOLPH DAVIDE Unavailable Unavailable FOX, RUDOLPH DAVIDE Unavailable Unavailable BAYLEE TREJO Unavailable Unavailable FOX, RUDOLPH DAVIDE Unavailable Unavailable MIS JORDAN Unavailable Unavailable FOX, RUDOLPH DAVIDE Unavailable Unavailable FOX, RUDOLPH DAVIDE Unavailable Unavailable FOX, RUDOLPH DAVIDE Unavailable Unavailable FOX, RUDOLPH DAVIDE Unavailable Unavailable SYSTEM, PROVIDER NOT IN Unavailable Unavaila ble FOX, RUDOLPH DAVIDE Unavailable Unavailable MONICA JORDANAN W Unavailable Unavailable Fox, Rudolph Davide Primary Care Provider [phone] DR SHASTA BERMUDEZ Primary Care Unavailable DR SHASTA BERMUDEZ Consulting Unavailable ALEKS DELEON Admitting Unavailable ALEKS DELEON Attending Unavailable DR EMMA PICKERING Consulting Unavailable ALEKS DELEON Consulting Unavailable DR SHASTA BERMUDEZ Primary Care Unavailable SUZY WALLACE Consulting Unavailable MARIO FUNG Admitting Unavailable MARIO FUNG Attending Unavailable MARIO FUNG Consulting Unavailable DR SHASTA BERMUDEZ Primary Care Unavailable BENERIVKACT, DR CARTER Admitting Unavailable CLARKCT, DR CARTER Consulting Unavailable BENERIVKACT, DR CARTER Attending Unavailable DR SHASTA BERMUDEZ Primary Care Unavailable BENEDICT, DR CARTER Admitting Unavailable BENEDICT, DR CARTER Consulting Unavailable BENEDICT, DR CARTER Attending Unavailable Lara HERRING, Shasta Marmolejo Unavailable Lara HERRING, Shasta Marmolejo Primary Care Provider Alicia NAVA, Macey Torres Unavailable MD Shasta Bermudez Primary Care Provider MD Timur Luz Attending Provider JEANNE HE Attending Unavailable LARA, SHASTA F Referring Unavailable BRINK, ESPERANZA Attending Unavailable LARA, SHASTA F Referring Unavailable BRINK, ESPERANZA Attending Unavailable LARA, SHASTA F Referring Unavailable BRINK, ESPERANZA Attending Unavailable LARA, SHASTA F Referring Unavailable BRINK, ESPERANZA Attending Unavailable LARA, SHASTA F Referring Unavailable LG, SOURAV Attending Unavailable LARA, SHASTA F Referring Unavailable SHARLENEAGNES Attending Unavailable MIGUEL, RADHA R Referring Unavailable LARA, SHASTA F Attending Unavailable BRIKE, ESPERANZA Attending Unavailable LARA, SHASTA F Referring Unavailable MIGUEL, RADHA R Attending Unavailable MIGUEL, RADHA R Referring Unavailable MIGUEL, RADHA R Attending Unavailable MARIO HAHN Attending Unavailable MIGUEL, RADHA R Referring Unavailable Lara, [facility] Care Unavailable Asaad, Imad Admitting Unavailable Asaad, Timur Attending Unavailable Lara, [facility] Care Unavailable Asaad, Imad Admitting Unavailable Asaad, Imad Attending Unavailable Allergies Allergy Classification Reported Allergen(s) Allergy Type Date of Onset Reaction(s) Facility Glatiramer (1 source) Glatiramer Drug Allergy 5 Intolerance [facility] Work Phone: Penicillins (antibiotic) (1 source) Penicillins Drug Allergy 5 Rash [facility] Unclassified (1 source) Marijuana Drug Allergy 5 Vomiting [facility] (7 sources) glatiramer; Translations: [GLATIRAMER (COPOLYMER 1)] Propensity to adverse reactions to drug 5 passed out [facility] Work Phone: (8 sources) Penicillins; Translations: [PENICILLINS] Propensity to adverse reactions to drug 5 Rash [facility] Work Phone: (1 source) Glatiramer Drug Allergy 1 [facility] Repository (1 source) Penicillins Drug allergy (disorder) 3 [facility] (5 sources) Glatiramer Drug Allergy 5 [facility] Work Phone: (5 sources) Glatiramer Drug Allergy 3 [facility] (5 sources) Penicillin G Drug Allergy 3 Unknown [facility] (5 sources) Penicillins Drug Allergy 9 Hives, Rash [facility] (5 sources) Marijuana (Cannabis Sativa) Allergy to substance 5 GI intolerance [facility] (1 source) Glatiramer Drug Allergy 4 [facility] Repository (1 source) Penicillins Drug allergy (disorder) 4 [facility] Repository Encounters Encounter Date Encounter Type Care Provider Facility Start: 09-25-2023 End: 09-25-2023 ambulatory Shasta Bermudez Facility:[facility] Start: 09-25-2023 Non-patient / Non-visit MD Shasta Bermudez Work Phone: [facility] Work Phone: Start: 09-25-2023 End: 09-25-2023 Admission to same day surgery center MD Shasta Bermudez Work Phone: [facility] Work Phone: Start: 09-25-2023 End: 09-25-2023 ambulatory MD Shasta Bermudez Work Phone: [facility] Work Phone: Start: 09-18-2023 End: 09-19-2023 ambulatory RADHA MIGUEL Not Available Start: 09-17-2023 End: 09-17-2023 ambulatory MARIO HAHN Not Available Start: 09-10-2023 End: 09-10-2023 ambulatory RADHA MIGUEL Not Available Start: 08-24-2023 Non-patient / Non-visit MD Shasta Bermudez Work Phone: [facility] Work Phone: Start: 08-24-2023 End: 08-24-2023 ambulatory Shasta Bermudez Facility:[facility] Start: 08-24-2023 End: 08-24-2023 Admission to same day surgery center MD Shasta Bermudez Work Phone: [facility] Work Phone: Start: 08-24-2023 End: 08-24-2023 ambulatory MD Shasta Bermudez Work Phone: [facility] Work Phone: Start: 07-25-2023 End: 07-25-2023 ambulatory [facility] Work Phone: Start: 07-25-2023 End: 07-25-2023 Patient encounter procedure [facility] Work Phone: Start: 07-16-2023 End: [...] the therapy given.) Start: 06-20-2023 Refill Radha Miguel N P Work Phone: [facility] Comment on above: Slow transit constip ation Start: 06-20-2023 Telephone encounter Shasta rae MD Work Phone: [facility] Start: 06-15-2023 Bamboo flowsheet Esperanza Del Valle ENGINEERING MGR [facility] Start: 06-15-2023 Bamboo flowsheet Esperanza Del Valle ENGINEERING MGR [facility] Start: 06-15-2023 End: 06-15-2023 ambulatory ESPERANZA DEL VALLE Not Available Start: 06-13-2023 Bamboo flowsheet Sourav Lawre nce ENGINEERING MGR [facility] Start: 06-13-2023 Bamboo flowsheet Sourav Ruiz nce ENGINEERING MGR [facility] Start: 06-13-2023 End: 06-13-2023 [...] End: 07-04-2017 Ambulatory PROVIDER NOT IN SYSTEM [facility] Start: 07-03-2017 End: 07-03-2017 Ambulatory Provider Not In System [facility] MRI Start: 05-31-2017 End: 05-31-2017 [facility] Start: 05-31-2017 Ambulatory Rudolph Fox Work Phone: [facility] Start: 05-30-2017 End: 05-30-2017 Ambulatory MIS JORDAN [facility] Start: 05-30-2017 End: 05-30-2017 Ambulatory RUDOLPHZELAYA [facility] Start: 05-30-2017 Ambulatory Rudolph Fox Work Phone: [facility] Start: 04-01-2017 End: 04-01-2017 Evaluation and management of inpatient RUDOLPH FOX [facility] Start: 03-31-2017 Emergency department patient visit KEISHA GASTELUM [facility] Start: 03-31-2017 End: 04-01-2017 Evaluation and management of inpatient Keisha Gastelum Work Phone: [facility] ICU Step Down Start: 11-10-2016 End: 11-10-2016 Ambulatory RUDOLPHZELAYA [facility] Start: 10-19-2014 End: 10-19-2014 Telephone encounter Shasta Ramirez MD Work Phone: [facility] Goals Date Patient Goal Desired Activity /State Immunizations Immunization Date Immunization Notes Care Provider Fa [facility] 04-25-2023 influenza, injectabl e, quadrivalent, preservative free Sourav Castanon [facility] Work Phone: 03-20-2022 COVID-19 mRNA Bivale nt Booster (Moderna) MD Shasta Bermudez Work Phone: [facility] 03-20-2022 Moderna SARS-CoV-2 50mcg/0.5mL Booster Sourav Castanon [facility] 12-19-2021 Pneumococcal Conjuga te PCV 20 Sourav Castanon [facility] 05-16-2021 influenza, injectabl e, quadrivalent, preservative free Sourav Castanon [facility] 04-20-2021 COVID-19 mRNA-1273 (Moderna) MD Shasta Bermudez Work Phone: [facility] 08-05-2020 COVID-19 mRNA-1273 (Moderna) MD Shasta Bermudez Work Phone: [facility] 07-08-2020 COVID-19 mRNA-1273 (Moderna) MD Shasta Bermudez Work Phone: [facility] 02-25-2020 influenza, injectabl e, quadrivalent, preservative free Sourav Castanon [facility] 10-20-2019 pneumococcal polysaccharide vaccine, 23 valent Sourav Castanon [facility] Medications Current Medications Medication Drug Class(es) Dates Sig (Normalized) Sig (Original) alendronic acid 70 mg oral tablet (7 sources) Bisphosphonate Start: 08-10-2023 take 70 mg by mouth every week Alendronate Active 70 MG PO every week August 10, 2023 12:00am Start: 01-18-2023 take 1 tablet by viji th in the morning alendronate (Fosamax) 70 MG tablet Indications: Age-related osteoporosis without current pathological fracture (CMS/HCC) Take 1 tablet (70 mg) by mouth every 7 (seven) days. Take in the morning with a full glass of water, on an empty stomach, and do not take anything else by mouth or lie down for the next 30 min. 16 tablet 3 01/18/2023 Active ARIPiprazole 5 mg oral tablet (8 sources) Atypical Antipsychotic Start: 07-25-2023 take 15 mg by mouth once daily Aripiprazole Active 15 MG PO Daily July 25, 2023 12:00am Start: 07-25-2023 take 5 mg by mouth once daily [...] 1 capsule by mouth daily . Active diphenhydrAMINE citrate 38 mg / ibuprofen 200 mg oral tablet (4 sources) Histamine-1 Receptor Antagonist, Nonsteroidal Anti-inflammatory Drug ibuprofen-diphenhydr A MINE (IBUPROFEN PM) 200-38 mg Tab Take by mouth nightly as needed Active docusate sodium 100 mg oral tablet (8 sources) Start: 08-10-2023 take 100 mg by mouth once daily Docusate Sodium Active 100 MG PO Daily August 10, 2023 12:00am Start: 01-31-2023 End: 06-20-2023 docusate sodium (Colace) 100 MG capsule Indications: Slow transit constipation TAKE 1 CAPSULE EVERY MORNING 90 capsule 3 06/20/2023 Active escitalopram 10 mg oral tablet (7 sources) Serotonin Reuptake Inhibitor Start: 08-10-2023 take 10 mg by mouth once daily Escitalopram Oxalate Active 10 MG PO Daily August 10, 2023 12:00am Start: 08-10-2023 take 10 mg by mouth twice radha y Escitalopram Oxalate Active 10 MG PO Twice daily August 10, 2023 12:00am take 1 tablet by viji th once daily at bedtime escitalopram (Lexapro) 10 MG tablet Take 10 mg by mouth in the morning. Daily at 6 in the evening and take one tablet by mouth every night at bedtime. 0 Active Mwgulupmpfh-Xwxblsqmg-Dzdfgi er (7 sources) Anticholinergic, Corticosteroid, beta2-Adrenergic Agonist Start: 08-10-2023 Vyetfunvbug-Mggjvrnmz-Tmzrfd er (Trelegy Ellipta) 100-62.5-25 mcg blister with device Active 1 INH INHALATION Daily August 10, 2023 12:00am Start: 05-13-2023 take 1 puff(s) by inhalation once daily in the morning Dalcxirosox-Ioogtnnvt-Pvbwdb (Trelegy Ellipta) 100-62.5-25 MCG/ACT aerosol powder Indications: Chronic obstructive pulmonary disease with acute exacerbation (CMS/HCC) INHALE 1 PUFF EVERY MORNING 3 each 3 05/13/2023 Active gabapentin 600 mg oral tablet (20 sources) Anti-epileptic Agent Start: 07-25-2023 take 600 mg by mouth twice daily Gabapentin Active 600 MG PO Twice daily July 25, 2023 12:00am Start: 07-25-2023 take 600 mg by mouth once radha y Gabapentin Active 600 MG PO Daily July [...] daily. liothyronine sodium 0.005 mg oral tablet (7 sources) l-Triiodothyroni ne Start: 08-10-2023 take 10 ug by mouth twice daily Liothyronine Active 10 MCG PO Twice daily August 10, 2023 12:00am Start: 10-26-2022 take 2 tablets by mo ut in the morning liothyronine (Cytomel) 5 MCG tablet Take two (2) tablets by mouth in the morning and two (2) tablets by mouth in the afternoon. 0 10/26/2022 Active mirtazapine 45 mg oral tablet (14 sources) Start: 10-30-2022 End: 10-30-2023 take 45 [...] by mouth. montelukast 10 mg oral tablet (11 sources) Leukotriene Receptor Antagonist Start: take 10 mg by mouth once daily Montelukast Active 10 MG PO Daily August 10, 2023 12:00am Start: 05-31-2023 montelukast (S ingulair) 10 MG tablet Indications: Chronic obstructive pulmonary [...] Take 1 tablet by mouth daily. Active Wyomxxliatvr-Alrlkmye-I utein (Multivitamin 50 Plus) tablet (2 sources) Start: 08-10-19 Multivitamin-Minerals- Lutein (Multivitamin 50 Plus) tablet Active 1 TAB PO Daily August 10, 2023 12:00am omeprazole 40 mg delayed release oral capsule (2 sources) Proton Pump Inhibitor Start: 08-24-19 take 40 mg by mouth once daily Omeprazole Active 40 MG PO Daily August 24, 2023 12:00am polyethylene glycol 3350 102611 mg / potassium chloride 2970 mg / sodium bicarbonate 6740 mg / sodium chloride 5860 mg / sodium sulfate 74731 mg powder for oral solution (1 source) Osmotic Laxative Start: 08-29-19 take 1 capsule by mouth once Peg 3350-Electrolytes (Golytely) 236-22.74-6.74 -5.86 gram recon soln Active 240 ML PO Once 4000 1 August 29, 2023 12:00am At 4pm add lukewarm drinking water to the fill azalea on the jug, secure cap on the jug and shake vigorously to mix. Begin drinking until you finish the entire contents. levothyroxine sodium 0.2 mg oral capsule (17 sources) l-Thyroxine Start: 07-25-19 take 50 ug by mouth once daily [...] oral tablet (5 sources) Phosphodiesterase 5 Inhibitor vardenafil (Levitra) 20 MG tablet Take 1 tablet by mouth 0 Active Vitamin D3 (2 sources) Start: take 500 ug by mouth once daily Vitamin D3 Active 500 MCG PO Daily August 10, 2023 12:00am Completed/Discontinued Medications Medication Drug Class(es) Dates Sig [...] 2000 Given 04/01/2017 01:38 EST 3 mL amitriptyline hydrochloride 50 mg oral tablet (14 sources) Tricyclic Antidepressant Start: 07-25-2023 End: 09-11-2023 take 100 mg by mouth once daily Amitriptyline Discontinued 100 MG PO Daily July 25, 2023 12:00am September 11, 2023 11:58am Start: 07-25-2023 take 50 mg by mouth [...] Take 25 mg by mouth once daily. amLODIPine 2.5 mg oral tablet (4 sources) Dihydropyridine Calcium Channel Saulo Start: 4 End: 4 take 2.5 mg by mouth once daily Amlodipine Discontinued 2.5 MG PO Daily August 24, 2023 12:00am September 11, 2023 11:58am Start: 08-10-2023 End: 08-10-2023 take 2.5 mg by mouth once daily Amlodipine Discontinued 2.5 MG PO Daily August 10, 2023 12:00am August 10, 2023 12:31pm cefePIMe (MAXIPIME) 2000 mg in sodium chloride [...] Rate/Dose Verify 04/01/2017 06:21 EST 100 mL/hr cyproheptadine hydrochloride 4 mg oral tablet (8 sources) Start: 07-25-2023 End: 09-11-2023 take 4 mg by mouth once daily at bedtime Cyproheptadine Discontinued 4 MG PO Daily at bedtime July 25, 2023 12:00am September 11, 2023 11:59am take 1 tablet by mouth at bedtim e cyproheptadine (Periactin) 4 MG tablet Take 4 mg by mouth at bedtime. 0 Active diazePAM 5 mg oral tablet (2 sources) [...] Take 240 mg by mouth twice daily. Fluticasone-Umeclidin- Vilanter (3 sources) Start: 07-25-2023 End: 08-10-2023 Qqtvbkwqssr-Jokbgxnwk-Elni nter (Trelegy Ellipta) 200-62.5-25 mcg blister with device Discontinued 1 INH INHALATION Daily July 25, 2023 12:00am August 10, 2023 12:25pm Start: 07-25-2023 Fluticasone-Um eclidin-Vilanter (Trelegy Ellipta) 200-62.5-25 mcg blister with device Active 1 INH INHALATION Daily July 25, 2023 12:00am Gadoterate Meglumine 0.5 Mmol/Ml Intravenous Solution (1 source) Start: 07-03-2017 End: 07-03-2017 gadoterate meglumine (DOTAREM) injection 12 mL 1 ml HYDROmorphone hydrochloride 1 mg/ml injection (3 sources) Opioid Agonist Start: 03-31-2017 End: 04-01-2017 take 3 mg intravenous route every three [...] 1,000 mg, Intravenous, at 100 mL/hr, Once, 05/30/17 at 1530, For 1 dose, Infuse over [...] 1,000 mg, Intravenous, at 100 mL/hr, Once, 05/30/17 at 1530, For 1 dose, Infuse over [...] Every 12 hours scheduled, First dose on 03/31/17 at 2100, DO NOT CRUSH OR CHEW. Given 03/31/2017 20:01 EST 15 mg take 1 tablet by viji th twice daily as needed for pain, then [...] over 24 Hours, Daily, First dose on 03/31/17 at 1700 Patch Applied 03/31/2017 16:35 [...] Take 50 mg by mouth as needed. Sod Picosulf-Mag Ox-Citric Ac (3 sources) Start: 07-25-19 End: 08-24-19 24 take 1 mL by mouth once daily Sod Picosulf-Mag Ox-Citric Ac (Clenpiq) 10 mg-3.5 gram- 12 gram/175 mL solution Discontinued 175 ML PO Daily 350 0 July 25, 2023 12:00am August 24, 2023 10:54am Patient is to follow instructions given at office Start: 07-25-2023 take 1 mL by mouth once daily Sod Picosulf-Mag Ox-Citric Ac (Clenpiq) 10 mg-3.5 gram- 12 gram/175 mL solution Active 175 ML PO Daily 350 0 July 25, 2023 12:00am Patient is to follow instructions given at office 1000 ml sodium chloride 9 mg/ml injection (7 sources) Start: 03-31-2017 End: 04-01-2017 take 125 mL intravenous route every hour [...] override Given 04/01/2017 03:27 EST 1,500 mL Payers Date Payer Category Payer Self-pay [id number] 2023 Medicaid MEDICAID [facility] [id number] 2023-Present [phone] [address] [place] [address] Medicaid [id number] 2023 Medicaid [id number] 2022 Medicare [employer] MEDICARE ADVANTAGE [employer] MEDICARE [id number] 2022-Present [address] [address] [place] [address] [id number] 2014 Medicare UHC MEDICARE MYC ARE [facility] MEDICARE [id number] 2014-Present Medicare [id number] 2011 Medicare [id number] 1959 Medicare [id number] 1958 Unknown [id number] 2.16.840.1.885400.3.579.2.593 1958 Unknown [id number] 2.16.840.1.936433.3.579.2.593 1958 Unknown [id number] 2.16.840.1.040775.3.579.2.593 1958 Unknown [id number] 2.16.840.1.105769.3.579.2.593 1958 Unknown [id number] 2.16.840.1.373611.3.579.2.125 1958 Unknown [id number] 2.16.840.1.633048.3.579.2.125 1958 Unknown [id number] 2.16.840.1.482811.3.579.2.125 1958 Unknown [id number] 2.16.840.1.023560.3.579.2.125 1958 Unknown [id number] 2.16.840.1.528878.3.579.2.125 1958 Unknown [id number] 2..840.1.521626.3.579.2.125 1958 Unknown [id number] 2.16.840.1.413007.3.579.2.1258 1958 Unknown [id number] 2.16.840.1.877700.3.579.2.125 1958 Unknown [id number] 2.16.840.1.301919.3.579.2.125 1958 Unknown [id number] 2.16.840.1.674839.3.579.2.125 1958 Unknown [id number] 2.16.840.1.016143.3.579.2.125 1958 Unknown [id number] 2.16.840.1.806519.3.579.2.125 1958 Unknown [id number] 2.16.840.1.616998.3.579.2.125 1958 Unknown [id number] 2.16.840.1.105196.3.579.2.1259 Medicare [id number] 2.16.840.1.215665.3.249.13 Medicaid Medicaid [id number] Unknown Regular Insurance [id number] Unknown [id number] Unknown [id number] Plan of Treatment Date Care Activity Detail Author Start: 01-04-2024 Medicare Annual Wellness (AWV) Medicare Annual Wellness (AWV) [facility] Start: 09-25-2023 [facility] Start: 08-30-2023 Screening for malign ant neoplasm of colon [facility] Start: 08-24-2023 [facility] Start: 07-13-2023 End: 07-13-2023 Patient encounter procedure 07/13/2023 10:00 AM EST Office Visit [facility] [address] [place] [address] Agnes Arrington, DO [address] [place] [address] [facility] Start: 07-04-2023 End: 07-04-2023 Patient encounter procedure 07/04/2023 10:30 AM EST Office Visit [facility] [address] [place] [address] Radha Miguel NP [address] [place] [address] [facility] Start: 06-22-2023 End: 06-22-2023 ambulatory 06/22/2023 11:30 AM EST Treatment [facility] [address] [place] [id number] Esperanza Del Valle PTA [facility] Start: 06-15-2023 End: 06-15-2023 ambulatory [facility] Comment on above: Arrived Start: 06-13-2023 End: 06-13-2023 ambulatory 06/13/2023 11:00 AM EST Treatment [facility] [address] [place] [id number] Lg Sourav, ENGINEERING MGR Arrived [facility] Comment on above: Arrived Start: 01-05-2021 Influenza vaccination INFLUENZ A (Season Ended) [facility] Start: 08-30-2017 Ambulatory 08/30/2017 Infusion/Injection Infusion Therapy Rudolph Fox MD [address] [place] [address] [phone] [facility] Start: 08-29-2017 Ambulatory 08/29/2017 Infusion/Injection Infusion Therapy Rudolph Fox MD [address] [place] [address] [phone] [facility] Start: 08-28-2017 Ambulatory 08/28/2017 Infusion/Injection Infusion Therapy Rudolph Fox MD [address] [place] [address] [phone] [facility] Start: 06-01-2017 Ambulatory 06/01/2017 Infusion/Injection Infusion Therapy Rudolph Fox MD [address] [place] [address] [phone] [facility] Start: 05-31-2017 Ambulatory 05/31/2017 Infusion/Injection Infusion Therapy Rudolph Fox MD [address] [place] [address] [phone] [facility] Start: 01-05-2017 Influenza vaccination SEQUENTI AL INFLUENZA VACCINE (#1) [facility] Work Phone: Start: 2013 PROSTATE CANCER SCREENING DISCUSSION PROSTATE CANCER SCREENING DISCUSSION [facility] Start: 2008 Screening for malign ant neoplasm of colon [facility] Start: 2008 SHINGRIX VACCINE (1 of 2) SHINGRIX VACCINE (1 of 2) [facility] Start: 12-21-2003 DIABETES SCREEN DIABETES SCREEN [facility] Start: 1993 LIPID SCREEN LIPID SCREEN [facility] Start: 1977 Urine microalbumin profile DTAP,TDAP,TD (1 - Tdap) [facility] Start: 1976 HEPATITIS C SCREENING HEPATITIS C [facility] Start: 1976 HIV SCREENING HIV SCREENING [facility] Start: 1970 Adult depression screening assessment DEPRESSION SCREENING [facility] Start: 1960 Screening for malign ant neoplasm of colon [facility] Start: 1958 HEPATITIS C SCREENING HEPATITIS C [facility] Work Phone: Start: 1958 Low-dose CT Lung Can cer Screen Low-dose CT Lung Cancer Screen [facility] Work Phone: Start: 1960 Screening colonoscopy COLONOSCOPY [facility] Work Phone: Start: 1958 Tetanus vaccination TETANUS EVERY 10 YR [facility] Work Phone: End: 04-01-2017 Bacteria aerobode culture Urine Aerobic Culture Routine Once for 1 Occurrences starting 04/01/2017 until 04/01/2017 [facility] Work Phone: Bacteria aerobode culture Urine Aerobic Culture Routine 04/01/2017 2:30 AM EST [facility] Work Phone: Bacteria culture [facility] Work Phone: Bacteria identified in Sputum by Aerobe culture Sputum Aerobic Culture Routine 04/01/2017 11:02 AM EST [facility] Work Phone: Elastase.pancreatic [Mass/mass] in Stool [facility] Patient Education [facility] Work Phone: [facility] Problems Active Problems Problem Classification Problem Date [...] Onset: 09-19-2022 09-19-2022 Chronic Other gastrointestinal disorders (3 sources) Constipation alternates with diarrhea; Translations: [Other specified symptoms and signs involving the digestive system and abdomen] 07-25-2023 Episodic Other gastrointestinal disorders (3 sources) Constipation; Translations: [Constipation, unspecified] 07-25-2023 Episodic Other gastrointestinal disorders (4 sources) Constipation, unspecified; Translations: [Constipation, unspecified] Onset: 08-24-2023 07-25-2023 Episodic Other lower respiratory disease (5 [...] conditions (not mental disorders or infectious disease) (6 sources) Patient encounter status; Translations: [Encounter for [...] 09-19-2022 Chronic Unclassified (2 sources) [place] [facility] Review Required; Translations: [[place] [facility] [employer] [facility] Review Required] Onset: 05-30-2017 Past or Other [...] of thyroid, unspecified] Onset: 10-07-2014 10-07-2014 Episodic Procedures Date Procedure Procedure Detail Performing Clinician Start: 09-25-2023 Colonoscopy MD Shasta louis Work Phone: Start: 08-24-2023 Esophagogastroduodenoscopy MD Shasta Bermudez Work Phone: Results Test Name Value Interpretation Reference Range Facility [facility] 09-25-2023 L Specimen: [id number] Received: 09/25/23 Status: FRANCIS Shen Num: [id number] Spec Type: Surgical Subm Dr: Timur Luz MD Tissues: A Colon Biopsy (CECAL) B Colon Biopsy (RANDOM COLON BX) Procedures: HE/4, Gross/Micro L4/2 Age/ Patient Sex Location Account Attending Physician Dandre Carranza 62/M [id number] Timur Luz MD SPEC NUM: [id number] RECD: 09/25/23 STATUS: FRANCIS BRANCH NUM: [id number] JESSIE: 09/25/23- SUBM DR: Timur Luz MD ENTERED: 09/25/[address] [facility] [address]: SPEC TYPE: Surgical DEPT: S ORDERED: HE/4, Gross/Micro L4/2 ORDERED: HE/4, Gross/Micro L4/2 Pathological Diagnosis A, cecal polyp biopsy: -Consistent with small low-grade adenomatous polyp B, random colon biopsy: -Colonic mucosa without microscopic colitis, or any other specific or significant histopa thological changes, except at least minor pseudomelanosis coli are noticed Clinical Information Constipation, possible malabsorption. Rule out microscopic colitis Gross Description A. Received in formalin, labeled with the patient's name, date of and cecal polyp is a 0.5 x 0.2 x 0.1 cm badilol polypoid tissue fragment, entirely submitted in A1. B. Received in formalin, labeled with the patient's name, date of and random colon BX is a 0.5 x 0.3 x 0.1 cm badillo mucosal tissue fragment, entirely submitted in B1. TW ---- Specimen: [id number] Received: 09/25/23 Status: FRANCIS Shen Num: [id number] Spec Type: Surgical Subm Dr: Timur Luz MD Tissues: A Colon Biopsy (CECAL) B Colon Biopsy (RANDOM COLON BX) Procedures: HE/Robert, Gross/Micro L4/2 ---- Patient: Dandre Carranza Ju [id number] (Continued) ---- Specimen: [id number] Received: 09/25/23 (Continued) Signed (signature on file) Garo Gumzan MD 09/26/23 1825 ---- Specimen: [id number] Received: 09/25/23 Status: FRANCIS Shen Num: [id number] Spec Type: Surgical Subm Dr: Timur Luz MD Tissues: A Colon Biopsy (CECAL) B Colon Biopsy (RANDOM COLON BX) Procedures: HE/4, Gross/Micro L4/2 ---- Patient: Dandre Carranza [id number] (Continued) ---- Specimen: [id number] Received: 09/25/23 (Continued) CPT Codes 02307M6 ---- ---- Specimen: [id number] Received: 09/25/23 Status: FRANCIS Brancharies Num: [id number] Spec Type: Surgical Subm Dr: Timur Luz MD Tissues: A Colon Biopsy (CECAL) B Colon Biopsy (RANDOM COLON BX) Procedures: DAINA Gross/Micro L4/2 ---- Patient: Dandre Carranza [id number] (Continued) ---- Signed (signature on file) Garo Guzman MD 09/26/231824 [facility] 08-24-2023 L Specimen: [id number] Received: 08/27/23 Status: ARLEYBeck Shen Num: [id number] Spec Type: Surgical Subm Dr: Timur Luz MD Tissues: A Small Intestine - Biopsy/Polyp (SMALL BOWEL R/O CELIAC) B GASTRIC FOR HP (GASTRIC BX R/O H.PYLORI) Procedures: REBEL/Robert, Gross/Micro L4/2, H PYLORI Age/ Patient Sex Location Account Attending Physician Dandre Carranza 62/M [id number] Timur Luz MD SPEC NUM: [id number] RECD: 08/27/23 STATUS: [facility] NUM: [id number] JESSIE: 08/24/23-[address] [facility] [address]: Timur Luz MD ENTERED: 08/27/[address] [facility] [address]: SPEC TYPE: Surgical DEPT: S ORDERED: HE/4, Gross/Micro L4/2, H PYLORI ORDERED: HE/4, Gross/Micro L4/2, H PYLORI Pathological Diagnosis A. Small bowel, biopsy: No significant pathologic abnormality. B. Stomach, biopsy: Mild reactive epithelial changes. Immunostain is Negative For H. Pylori Organisms. Gross Description A. Received in formalin, labeled with the patient's name and small bowel BX are 2 badillo tissue fragments measuring 0.3 x 0.2 x 0.1 cm and 0.2 x 0.2 x 0.1 cm, entirely submitted in A1. B. Received in formalin, labeled with the patient's name and gastric BX are 2 badillo tissue fragments measuring 0.4 x 0.2 x 0.1 cm and 0.2 x 0.2 x 0.1 cm, entirely submitted in B1. Clinical history: Abdominal pain, constipation, rule out celiac, rule out H. pylori. CPT Codes 40846z7, 78932 ---- ---- Specimen: [id number] Received: 08/27/23 Status: [facility] Num: [id number] Spec Type: Surgical Subm Dr: Timur Luz MD Tissues: A Small Intestine - Biopsy/Polyp (SMALL BOWEL R/O CELIAC) B GASTRIC FOR HP (GASTRIC BX R/O H.PYLORI) Procedures: HE/4, Gross/Micro L4/2, H PYLORI ---- Patient: Dandre Carranza [id number] (Continued) ---- Signed (signature on file) Brooke Senoir MD 08/28/23 1552 Normal [facility] CT ABDOMEN PELVIS WO IV CONT [facility] 07-16-2023 CT ABDOMEN PELVIS WO IV CONTRAST [...] 09-19-2022 BASO # 0.1 103/ul Normal 0.0-0.1 [facility] Comment on above: Performed By: #### C BC #### [facility] [address] [place] [address] Dr. Edison Guzman Basophils/100 WBC (Bld) 2.0 % Normal 0.2-2.0 [facility] Comment on above: Performed By: #### C BC #### [facility] [address] [place] [address] Dr. Edison Guzman EO # 0.4 103/ul Normal 0.0-0.7 [facility] Comment on above: Performed By: #### C BC #### [facility] [address] [place] [address] Dr. Edison Guzman Eosinophils/100 WBC (Bld) 5.9 % Normal 0.9-7.0 [facility] Comment on above: Performed By: #### C BC #### [facility] [address] [place] [address] Dr. Edison Guzman Erythrocyte distribution width (RBC) [Ratio] 14.1 % Normal 11.0-15.0 [facility] Comment on above: Performed By: #### C BC #### [facility] [address] [place] [address] Dr. Edison Guzman Hematocrit (Bld) [Volume fraction] 49.4 % Normal 42.0-54.0 [facility] Comment on above: Performed By: #### C BC #### [facility] [address] [place] [address] Dr. Edison Guzman Hemoglobin (Bld) [Mass/Vol] 16.3 g/dL Normal 14.0-18.0 [facility] Comment on above: Performed By: #### C BC #### [facility] [address] [place] [address] Dr. Edison Guzman IG # 0.04 10e3/ul Critically high 0.00-0.03 [facility] Comment on above: Performed By: #### C BC #### [facility] [address] [place] [address] Dr. Edison Guzman IG % 0.7 % Critically high 0.0-0.5 [facility] Comment on above: Performed By: #### C BC #### [facility] [address] [place] [address] Dr. Edison Guzman LYMPH # 1.1 103/ul Critically low 1.2-3.8 [facility] Comment on above: Performed By: #### C BC #### [facility] [address] [place] [address] Dr. Edison Guzman Lymphocytes/100 WBC (Bld) 19.1 % Critically low 20.5-60.0 [facility] Comment on above: Performed By: #### C BC #### [facility] [address] [place] [address] Dr. Edison Guzman MANUAL DIFF REQ NO Normal [facility] Comment on above: Performed By: #### C BC #### [facility] [address] [place] [address] Dr. Edison Guzman MCH (RBC) [Entitic mass] 32.1 pg Normal 25.9-34.0 [facility] Comment on above: Performed By: #### C BC #### [facility] [address] [place] [address] Dr. Edison Guzman MCHC (RBC) [Mass/Vol] 33.0 g/dL Normal 29.9-35.2 [facility] Comment on above: Performed By: #### C BC #### [facility] [address] [address] [address] Edison Guzman MCV (RBC) [Entitic vol] 97.4 fL Critically high 80.0-94.0 [facility] Comment on above: Performed By: #### C BC #### [facility] [address] [address] [address] Edison Guzman MONO # 0.7 103/ul Normal 0.3-0.8 [facility] Comment on above: Performed By: #### C BC #### [facility] [address] [place] [address] Dr. Edison Guzman Monocytes/100 WBC (Bld) 11.2 % Normal 1.7-12.0 [facility] Comment on above: Performed By: #### C BC #### [facility] [address] [place] [address] Dr. Edison Guzman NEUT # 3.6 103/ul Normal 1.4-6.5 [facility] Comment on above: Performed By: #### C BC #### [facility] [address] [place] [address] Dr. Edison Guzman Neutrophils/100 WBC (Bld) 61.1 % Normal 43.0-75.0 [facility] Comment on above: Performed By: #### C BC #### [facility] [address] [place] [address] Dr. Edison Guzman Platelet mean volume (Bld) [Entitic vol] 8.5 fL Critically low 9.5-13.5 [facility] Comment on above: Performed By: #### C BC #### [facility] [address] [place] [address] Dr. Edison Guzman PLT 299 103/ul Normal 150-450 [facility] Comment on above: Performed By: #### C BC #### [facility] [address] [place] [address] Dr. Edison Guzman RBC 5.07 106/ul Normal 4.70-6.10 [facility] Comment on above: Performed By: #### C BC #### [facility] [address] [place], [place] [address] Dr. Edison Guzman WBC 6.0 103/ul Normal 4.0-11.0 [facility] Comment on above: Performed By: #### C BC #### [facility] [address] [place], [place] [address] Dr. Edison Guzman MRI BRAIN WO W [...] SUZY WALLACE Date: 2022-09-19 15:47 Normal [facility] PROF 14(COMP METB)on 023 Albumin [Mass/Vol] 3.8 g/dL Normal 3.4-5.0 [facility] Comment on above: Performed By: #### C MP #### [facility] [address] [place] [address] Dr. Edison Guzman Albumin/Globulin [Mass ratio] 1.0 {ratio} Normal [facility] Comment on above: Performed By: #### C MP #### [facility] [address] [address] [address] Edison Guzman ALP [Catalytic activity/Vol] 117 U/L Critically high 46-116 [facility] Comment on above: Performed By: #### C MP #### [facility] [address] [place] [address] Dr. Edison Guzman ALT [Catalytic activity/Vol] 20 U/L Normal 16-63 [facility] Comment on above: Performed By: #### C MP #### [facility] [address] [place] [address] Dr. Edison Guzman Anion gap [Moles/Vol] 10.1 mmol/L Normal [facility] Comment on above: Performed By: #### C MP #### [facility] [address] [place] [address] Dr. Edison Guzman AST [Catalytic activity/Vol] 17 U/L Normal 15-37 [facility] Comment on above: Performed By: #### C MP #### [facility] [address] [place] [address] Dr. Edison Guzman Bilirubin [Mass/Vol] 0.3 mg/dL Normal 0.2-1.0 [facility] Comment on above: Performed By: #### C MP #### [facility] [address] [place] [address] Dr. Edison Guzman Calcium [Mass/Vol] 8.6 mg/dL Normal 8.5-10.1 [facility] Comment on above: Performed By: #### C MP #### [facility] [address] [place] [address] Dr. Edison Guzman Chloride [Moles/Vol] 104 mmol/L Normal 98-107 [facility] Comment on above: Performed By: #### C MP #### [facility] [address] [place] [address] Dr. Edison Guzman CO2 [Moles/Vol] 34.3 mmol/L Critically high 21.0-32.0 [facility] Comment on above: Performed By: #### C MP #### [facility] [address] [address] [address] Edison Guzman Creatinine [Mass/Vol] 0.78 mg/dL Normal 0.70-1.30 [facility] Comment on above: Performed By: #### C MP #### [facility] [address] [address] [address] Edison Guzman EGFR-AF SOUTH AFRICAN >60 Normal >=60 [facility] Comment on above: Performed By: #### C MP #### [facility] [address] [address] [address] Edison Guzman EGFR-NON AF SOUTH [place]FRICAN >60 Normal >=60 [facility] Comment on above: Performed By: #### C MP #### [facility] [address] [place] [address] Dr. Edison Guzman Globulin (S) [Mass/Vol] 3.8 g/dL Normal [facility] Comment on above: Performed By: #### C MP #### [facility] [address] [place] [address] Dr. Edison Guzman Glucose [Mass/Vol] 94 mg/dL Normal 74-106 [facility] Comment on above: Performed By: #### C MP #### [facility] [address] [place] [address] Dr. Edison Guzman Potassium [Moles/Vol] 4.4 mmol/L Normal 3.5-5.1 [facility] Comment on above: Performed By: #### C MP #### [facility] [address] [address] [address] Edison Guzman Protein [Mass/Vol] 7.6 g/dL Normal 6.4-8.2 [facility] Comment on above: Performed By: #### C MP #### [facility] [address] [place] [address] Dr. Edison Guzman Sodium [Moles/Vol] 144 mmol/L Normal 136-145 [facility] Comment on above: Performed By: #### C MP #### [facility] [address] [address] [address] Edison Guzman Urea nitrogen [Mass/Vol] 11.0 mg/dL Normal 7.0-18.0 [facility] Comment on above: Performed By: #### C MP #### [facility] [address] [address] [address] Edisno Guzman Urea nitrogen/Creatinine [Mass ratio] 14.1 mg/mg Normal [facility] Comment on above: Performed By: #### C MP #### [facility] [address] [place] [address] Dr. Edison Guzman CBC AUTO DIFFon 06-30-2022 BASO # 0.2 103/ul Critically high 0.0-0.1 [facility] Comment on above: Performed By: #### C BC #### [facility] [address] [place] [address] Dr. Edison Guzman Basophils/100 WBC (Bld) 2.6 % Critically high 0.2-2.0 [facility] Comment on above: Performed By: #### C BC #### [facility] [address] [place] [address] Dr. Edison Guzman EO # 0.3 103/ul Normal 0.0-0.7 [facility] Comment on above: Performed By: #### C BC #### [facility] [address] [place] [address] Dr. Edison Guzman Eosinophils/100 WBC (Bld) 3.9 % Normal 0.9-7.0 [facility] Comment on above: Performed By: #### C BC #### [facility] [address] [place] [address] Dr. Edisno Guzman Erythrocyte distribution width (RBC) [Ratio] 15.1 % Critically high 11.0-15.0 [facility] Comment on above: Performed By: #### C BC #### [facility] [address] [place] [address] Dr. Edison Guzman Hematocrit (Bld) [Volume fraction] 47.5 % Normal 42.0-54.0 [facility] Comment on above: Performed By: #### C BC #### [facility] [address] [place] [address] Dr. Edison Guzman Hemoglobin (Bld) [Mass/Vol] 15.4 g/dL Normal 14.0-18.0 [facility] Comment on above: Performed By: #### C BC #### [facility] [address] [place] [address] Dr. Edison Guzman IG # 0.10 10e3/ul Critically high 0.00-0.03 [facility] Comment on above: Performed By: #### C BC #### [facility] [address] [place] [address] Dr. Edison Guzman IG % 1.4 % Critically high 0.0-0.5 [facility] Comment on above: Performed By: #### C BC #### [facility] [address] [place] [address] Dr. Edison Guzman LYMPH # 1.4 103/ul Normal 1.2-3.8 [facility] Comment on above: Performed By: #### C BC #### [facility] [address] [place] [address] Dr. Edison Guzman Lymphocytes/100 WBC (Bld) 19.6 % Critically low 20.5-60.0 [facility] Comment on above: Performed By: #### C BC #### [facility] [address] [place] [address] Dr. Edison Guzman MANUAL DIFF REQ NO Normal [facility] Comment on above: Performed By: #### C BC #### [facility] [address] [place] [address] Dr. Edison Guzman MCH (RBC) [Entitic mass] 30.8 pg Normal 25.9-34.0 [facility] Comment on above: Performed By: #### C BC #### [facility] [address] [place] [address] Dr. Edison Guzman MCHC (RBC) [Mass/Vol] 32.4 g/dL Normal 29.9-35.2 [facility] Comment on above: Performed By: #### C BC #### [facility] [address] [address] [address] Edison Guzman MCV (RBC) [Entitic vol] 95.0 fL Critically high 80.0-94.0 [facility] Comment on above: Performed By: #### C BC #### [facility] [address] [address] [address] Edison Guzman MONO # 0.7 103/ul Normal 0.3-0.8 [facility] Comment on above: Performed By: #### C BC #### [facility] [address] [address] [address] Edison Guzman Monocytes/100 WBC (Bld) 9.6 % Normal 1.7-12.0 [facility] Comment on above: Performed By: #### C BC #### [facility] [address] [address] [address] Edison Guzmna NEUT # 4.4 103/ul Normal 1.4-6.5 [facility] Comment on above: Performed By: #### C BC #### [facility] [address] [address] [address] Edison Guzman Neutrophils/100 WBC (Bld) 62.9 % Normal 43.0-75.0 [facility] Comment on above: Performed By: #### C BC #### [facility] [address] [address] [address] Edison Guzman Platelet mean volume (Bld) [Entitic vol] 8.6 fL Critically low 9.5-13.5 [facility] Comment on above: Performed By: #### C BC #### [facility] [address] [address] [address] Edison Guzman PLT 398 103/ul Normal 150-450 [facility] Comment on above: Performed By: #### C BC #### [facility] [address] [address] [address] Edison Guzman RBC 5.00 106/ul Normal 4.70-6.10 [facility] Comment on above: Performed By: #### C BC #### [facility] [address] [place] [address] Dr. Edison Guzman WBC 7.0 103/ul Normal 4.0-11.0 [facility] Comment on above: Performed By: #### C BC #### [facility] [address] [place] [address] Dr. Edison Guzman CBC AUTO DIFFon 04-21-2022 BASO # 0.2 103/ul Critically high 0.0-0.1 [facility] Comment on above: Performed By: #### C BC #### [facility] [address] [place] [address] Dr. Edison Guzman Basophils/100 WBC (Bld) 2.3 % Critically high 0.2-2.0 [facility] Comment on above: Performed By: #### C BC #### [facility] [address] [place] [address] Dr. Edison Guzman EO # 0.3 103/ul Normal 0.0-0.7 [facility] Comment on above: Performed By: #### C BC #### [facility] [address] [place] [address] Dr. Edison Guzman Eosinophils/100 WBC (Bld) 4.3 % Normal 0.9-7.0 [facility] Comment on above: Performed By: #### C BC #### [facility] [address] [place] [address] Dr. Edison Guzman Erythrocyte distribution width (RBC) [Ratio] 14.4 % Normal 11.0-15.0 [facility] Comment on above: Performed By: #### C BC #### [facility] [address] [place] [address] Dr. Edison Guzman Hematocrit (Bld) [Volume fraction] 46.6 % Normal 42.0-54.0 [facility] Comment on above: Performed By: #### C BC #### [facility] [address] [place] [address] Dr. Edison Guzman Hemoglobin (Bld) [Mass/Vol] 15.1 g/dL Normal 14.0-18.0 [facility] Comment on above: Performed By: #### C BC #### [facility] [address] [place] [address] Dr. Edison Guzman IG # 0.04 10e3/ul Critically high 0.00-0.03 [facility] Comment on above: Performed By: #### C BC #### [facility] [address] [place] [address] Dr. Edison Guzman IG % 0.6 % Critically high 0.0-0.5 [facility] Comment on above: Performed By: #### C BC #### [facility] [address] [place] [address] Dr. Edison Guzman LYMPH # 1.5 103/ul Normal 1.2-3.8 [facility] Comment on above: Performed By: #### C BC #### [facility] [address] [place] [address] Dr. Edison Guzman Lymphocytes/100 WBC (Bld) 23.1 % Normal 20.5-60.0 [facility] Comment on above: Performed By: #### C BC #### [facility] [address] [place] [address] Dr. Edison Guzman MANUAL DIFF REQ NO Normal [facility] Comment on above: Performed By: #### C BC #### [facility] [address] [place] [address] Dr. Edison Guzman MCH (RBC) [Entitic mass] 30.4 pg Normal 25.9-34.0 [facility] Comment on above: Performed By: #### C BC #### [facility] [address] [place] [address] Dr. Edison Guzman MCHC (RBC) [Mass/Vol] 32.4 g/dL Normal 29.9-35.2 [facility] Comment on above: Performed By: #### C BC #### [facility] [facility] [address] [place] [address] Dr. Edison Guzman MCV (RBC) [Entitic vol] 94.0 fL Normal 80.0-94.0 [facility] Comment on above: Performed By: #### C BC #### [facility] [address] [place] [address] Dr. Edison Guzman MONO # 0.8 103/ul Normal 0.3-0.8 [facility] Comment on above: Performed By: #### C BC #### [facility] [address] [place] [address] Dr. Edison Guzman Monocytes/100 WBC (Bld) 12.0 % Normal 1.7-12.0 [facility] Comment on above: Performed By: #### C BC #### [facility] [address] [place] [address] Dr. Edison Guzman NEUT # 3.7 103/ul Normal 1.4-6.5 [facility] Comment on above: Performed By: #### C BC #### [facility] [address] [place] [address] Dr. Edison Guzman Neutrophils/100 WBC (Bld) 57.7 % Normal 43.0-75.0 [facility] Comment on above: Performed By: #### C BC #### [facility] [address] [place] [address] Dr. Edison Guzman Platelet mean volume (Bld) [Entitic vol] 8.3 fL Critically low 9.5-13.5 [facility] Comment on above: Performed By: #### C BC #### [facility] [address] [place] [address] Dr. Edison Guzman PLT 272 103/ul Normal 150-450 [facility] Comment on above: Performed By: #### C BC #### [facility] [address] [place] [address] Dr. Edison Guzman RBC 4.96 106/ul Normal 4.70-6.10 [facility] Comment on above: Performed By: #### C BC #### [facility] [address] [place] [address] Dr. Edison Guzman WBC 6.5 103/ul Normal 4.0-11.0 [facility] Comment on above: Performed By: #### C BC #### [facility] [address] [place] [address] Dr. Edison Guzman BUNon 01-26-2022 Urea nitrogen [Mass/Vol] 12.0 mg/dL Normal 7.0-18.0 [facility] Comment on above: Performed By: #### C CANDIDO, BUN #### [facility] [address] [place] [address] Dr. Edison Guzman CBC AUTO DIFFon 01-26-2022 BASO # 0.2 103/ul Critically high 0.0-0.1 [facility] Comment on above: Performed By: #### C BC #### [facility] [address] [place] [address] Dr. Edison Guzman Basophils/100 WBC (Bld) 1.4 % Normal 0.2-2.0 [facility] Comment on above: Performed By: #### C BC #### [facility] [address] [place] [address] Dr. Edison Guzman EO # 0.3 103/ul Normal 0.0-0.7 [facility] Comment on above: Performed By: #### C BC #### [facility] [address] [place] [address] Dr. Edison Guzman Eosinophils/100 WBC (Bld) 3.1 % Normal 0.9-7.0 [facility] Comment on above: Performed By: #### C BC #### [facility] [address] [place] [address] Dr. Edison Guzman Erythrocyte distribution width (RBC) [Ratio] 12.9 % Normal 11.0-15.0 [facility] Comment on above: Performed By: #### C BC #### [facility] [address] [place] [address] Dr. Edison Guzman Hematocrit (Bld) [Volume fraction] 43.6 % Normal 42.0-54.0 [facility] Comment on above: Performed By: #### C BC #### [facility] [address] [place] [address] Dr. Edison Guzman Hemoglobin (Bld) [Mass/Vol] 14.1 g/dL Normal 14.0-18.0 [facility] Comment on above: Performed By: #### C BC #### [facility] [address] [place] [address] Dr. Edison Guzman IG # 0.11 10e3/ul Critically high 0.00-0.03 [facility] Comment on above: Performed By: #### C BC #### [facility] [address] [place] [address] Dr. Edison Guzman IG % 1.0 % Critically high 0.0-0.5 [facility] Comment on above: Performed By: #### C BC #### [facility] [address] [place] [address] Dr. Edison Guzman LYMPH # 1.2 103/ul Normal 1.2-3.8 [facility] Comment on above: Performed By: #### C BC #### [facility] [address] [place] [address] Dr. Edison Guzman Lymphocytes/100 WBC (Bld) 11.1 % Critically low 20.5-60.0 [facility] Comment on above: Performed By: #### C BC #### [facility] [address] [place] [address] Dr. Edison Guzman MANUAL DIFF REQ NO Normal [facility] Comment on above: Performed By: #### C BC #### [facility] [address] [place] [address] Dr. Edison Guzman MCH (RBC) [Entitic mass] 31.1 pg Normal 25.9-34.0 [facility] Comment on above: Performed By: #### C BC #### [facility] [address] [place] [address] Dr. Edison Guzman MCHC (RBC) [Mass/Vol] 32.3 g/dL Normal 29.9-35.2 [facility] Comment on above: Performed By: #### C BC #### [facility] [address] [place] [address] Dr. Edison Guzman MCV (RBC) [Entitic vol] 96.2 fL Critically high 80.0-94.0 [facility] Comment on above: Performed By: #### C BC #### [facility] [address] [address] [address] Edison Guzman MONO # 0.9 103/ul Critically high 0.3-0.8 [facility] Comment on above: Performed By: #### C BC #### [facility] [address] [address] [address] Edison Guzman Monocytes/100 WBC (Bld) 8.4 % Normal 1.7-12.0 [facility] Comment on above: Performed By: #### C BC #### [facility] [address] [address] [address] Edison Guzman NEUT # 8.4 103/ul Critically high 1.4-6.5 [facility] Comment on above: Performed By: #### C BC #### [facility] [address] [place] [address] Dr. Edison Guzman Neutrophils/100 WBC (Bld) 75.0 % Normal 43.0-75.0 [facility] Comment on above: Performed By: #### C BC #### [facility] [address] [address] [address] Edison Guzman Platelet mean volume (Bld) [Entitic vol] 8.3 fL Critically low 9.5-13.5 [facility] Comment on above: Performed By: #### C BC #### [facility] [address] [place] [address] Dr. Edison Guzman PLT 344 103/ul Normal 150-450 [facility] Comment on above: Performed By: #### C BC #### [facility] [address] [place] [address] Dr. Edison Guzman RBC 4.53 106/ul Critically low 4.70-6.10 [facility] Comment on above: Performed By: #### C BC #### [facility] [address] [place] [address] Dr. Edison Guzman WBC 11.1 103/ul Critically high 4.0-11.0 [facility] Comment on above: Performed By: #### C BC #### [facility] [address] [place] [address] Dr. Edison Guzman CREATININEon 01-26-2022 Creatinine [Mass/Vol] 0.72 mg/dL Normal 0.70-1.30 [facility] Comment on above: Performed By: #### C CANDIDO, BUN #### [facility] [address] [address] [address] Edison Guzman EGFR-AF SOUTH AFRICAN >60 Normal >=60 [facility] Comment on above: Performed By: #### C CANDIDO, BUN #### [facility] [address] [address] [address] Edison Guzman EGFR-NON AF SOUTH AFRICAN >60 Normal >=60 [facility] Comment on above: Performed By: #### C CANDIDO, BUN #### [facility] [address] [address] [address] Edison Guzman MRI BRAIN WO W [...] by: EMMA PICKERING Date: 2022-01-26 13:32 Normal [facility] Creatinineon 10-07-2021 Creatinine [Mass/Vol] 0.6 mg/dL Low 0.7-1.4 [facility] [employer] Comment on above: Performed By: #### C CANDIDO #### [facility] [address] [place], [place] [id number] [id number] 159 mL/min/1.73m2 Normal >60 [facility] [employer] Comment on above: Performed By: #### C CANDIDO #### [facility] [address] [place], [place] [id number] 131 mL/min/1.73m2 Normal >60 [facility] [employer] Comment on above: Performed By: #### C CANDIDO #### [facility] [address] [place], [place] [id number] MR BRAIN WITH AND WITHOUT CO NTRASTon [...] vascular lesions.3. Unremarkable brain otherwise.ARR/tdeWorks tation ID: [id number] by: YRIS PEREIRA on SunJul 03, 2017 4:01:10 PM ESTTranscribed by: JAC HARRIS on SunJul 03, 2017 4:30:54 PM ESTFinalized by: YRIS PEREIRA on SunJul 03, 2017 4:36:33 PM EST Normal [facility] Comment on above: Order Comment: See o [...] 3. Unremarkable brain otherwise. ARR/tde Workstation ID: [id number] Invalid Interpretation Code [facility] MR Brain With And Without Contrast EXAMINATION: [...] cerebellum to appear intact. Invalid Interpretation Code [facility] MR Brain With And Without Contrast Interface, Rad In Pacs Newtopiae - 07/03/2017 4:39 PM EST EXAMINATION: MR [...] 3. Unremarkable brain otherwise. ARR/tde Workstation ID: [id number] Invalid Interpretation Code [facility] Blood Gas, Venouson 04-01-20 17 Base Excess, Roby -2.3 1 Low -2.0 - 2.0 [facility] Bicarbonate (HCO3) 24.7 mmol/L Invalid Interpretation Code 24 - 28 mmol/L [facility] CO2 53.5 mm Hg High 41.0 - 51.0 [facility] Hematocrit (HCT) 42.5 % Invalid Interpretation Code 41 - 53 % [facility] Hemoglobin mass conc (Bld) 13.9 g/dL Invalid Interpretation Code 13.5 - 18 g/dL [facility] O2 saturation 86.8 % Invalid Interpretation Code [facility] pH, Venous 7.29 1 Low 7.32 - 7.42 [facility] pO2, Roby 56 mm Hg High 25 - 40 [facility] CBC Auto Differentialon 03-08 Basophils Auto #/vol (Bld) 0.10 K/mcL Invalid Interpretation Code 0.00 - 0.30 [facility] Basophils Auto #/vol (Bld) 0.10 K/mcL Invalid Interpretation Code 0.00 - 0.30 [facility] Basophils/100 WBC Auto (Bld) 0.4 % Invalid Interpretation Code [facility] Basophils/100 WBC Auto (Bld) 0.4 % Invalid Interpretation Code [facility] Eosinophils 0.01 K/mcL Invalid Interpretation Code 0.00 - 0.50 [facility] Eosinophils 0.03 K/mcL Invalid Interpretation Code 0.00 - 0.50 [facility] Eosinophils/100 leukocytes 0.0 % Invalid Interpretation Code [facility] Eosinophils/100 leukocytes 0.1 % Invalid Interpretation Code [facility] Erythrocyte distribution width Auto Entitic volume (RBC) 13.9 % Invalid Interpretation Code 11.6 - 14.8 % [facility] Erythrocyte distribution width Auto Entitic volume (RBC) 14.2 % Invalid Interpretation Code 11.6 - 14.8 % [facility] Erythrocytes (RBC) 4.19 M/mcL Low 4.50 - 5.90 [facility] Erythrocytes (RBC) 3.96 M/mcL Low 4.50 - 5.90 [facility] Hematocrit (HCT) 38.8 % Low 41 - 53 % [facility] Hematocrit (HCT) 37.1 % Low 41 - 53 % [facility] Hemoglobin mass conc (Bld) 13.1 g/dL Low 13.5 - 17.5 g/dL [facility] Hemoglobin mass conc (Bld) 12.2 g/dL Low 13.5 - 17.5 g/dL [facility] Immature granulocytes #/vol (Bld) 0.25 K/mcL Invalid Interpretation Code 0.00 - 0.30 [facility] Immature granulocytes #/vol (Bld) 0.17 K/mcL Invalid Interpretation Code 0.00 - 0.30 [facility] Immature granulocytes/100 WBC (Bld) 1.00 % Invalid Interpretation Code [facility] Comment on above: The IG parameter is the percentage of metamyelocytes, myelocytes, and promyelocytes. Immature granulocytes/100 WBC (Bld) 0.70 % Invalid Interpretation Code [facility] Comment on above: The IG parameter is the percentage of metamyelocytes, myelocytes, and promyelocytes. Lymphocytes 0.67 K/mcL Low 0.90 - 4.00 [facility] Lymphocytes 0.51 K/mcL Low 0.90 - 4.00 [facility] Lymphocytes/100 leukocytes 2.8 % Invalid Interpretation Code [facility] Lymphocytes/100 leukocytes 2.2 % Invalid Interpretation Code [facility] MCH 31.3 pg Invalid Interpretation Code 26 - 34 pg [facility] MCH 30.8 pg Invalid Interpretation Code 26 - 34 pg [facility] MCHC mass conc (RBC) 33.8 g/dL Invalid Interpretation Code 31 - 37 g/dL [facility] MCHC mass conc (RBC) 32.9 g/dL Invalid Interpretation Code 31 - 37 g/dL [facility] MCV 92.6 fL Invalid Interpretation Code 80 - 100 fL [facility] MCV 93.7 fL Invalid Interpretation Code 80 - 100 fL [facility] Monocytes 1.07 K/mcL High 0.30 - 0.90 [facility] Monocytes 1.23 K/mcL High 0.30 - 0.90 [facility] Monocytes/100 leukocytes 4.5 % Invalid Interpretation Code [facility] Monocytes/100 leukocytes 5.2 % Invalid Interpretation Code [facility] Neutrophils 21.84 K/mcL High 1.70 - 7.00 [facility] Neutrophils 21.51 K/mcL High 1.70 - 7.00 [facility] Neutrophils/100 WBC Auto (Bld) 91.3 % Invalid Interpretation Code [facility] Neutrophils/100 WBC Auto (Bld) 91.4 % Invalid Interpretation Code [facility] Nucleated erythrocytes 0.00 K/mcL Invalid Interpretation Code 0.00 - 0.00 [facility] Nucleated erythrocytes 0.00 K/mcL Invalid Interpretation Code 0.00 - 0.00 [facility] Nucleated erythrocytes/100 erythrocytes 0.0 % Invalid Interpretation Code [facility] Nucleated erythrocytes/100 erythrocytes 0.0 % Invalid Interpretation Code [facility] Platelet mean volume (PMV) 8.8 fL Low 9 - 15.5 fL [facility] Platelet mean volume (PMV) 9.2 fL Invalid Interpretation Code 9 - 15.5 fL [facility] Platelets 328 K/mcL Invalid Interpretation Code 150 - 400 [facility] Platelets 292 K/mcL Invalid Interpretation Code 150 - 400 [facility] WBC (Leukocytes) 23.94 K/mcL High 4.50 - 11.00 [facility] WBC (Leukocytes) 23.55 K/mcL High 4.50 - 11.00 [facility] CBC and Differentialon 04-01 Creatinine The following orders were created for panel order CBC and Differential. Procedure Abnormality Status --------- ------ CBC Auto Differential[[id number] ] Abnormal Final result Please view results for these tests on the individual orders. Invalid Interpretation Code [facility] Work Phone: Creatinine The following orders were created for panel order CBC and Differential. Procedure Abnormality Status --------- ------ CBC Auto Differential[[id number] ] Abnormal Final result Please view results for these tests on the individual orders. Invalid Interpretation Code [facility] Work Phone: Comprehensive Metabolic Pane [facility] 04-01-2017 Alanine aminotransferase (ALT) 11 U/L Low 14 - 65 U/L [facility] Alanine aminotransferase (ALT) 12 U/L Low 14 - 65 U/L [facility] Albumin 2.4 g/dL Low 3.2 - 5.2 g/dL [facility] Albumin 2.0 g/dL Low 3.2 - 5.2 g/dL [facility] Alkaline phosphatase (ALP) 100 U/L Invalid Interpretation Code 40 - 150 U/L [facility] Alkaline phosphatase (ALP) 98 U/L Invalid Interpretation Code 40 - 150 U/L [facility] Anion gap 13 mmol/L Invalid Interpretation Code 10 - 20 mmol/L [facility] Anion gap 11 mmol/L Invalid Interpretation Code 10 - 20 mmol/L [facility] Aspartate aminotransferase (AST) 8 U/L Invalid Interpretation Code 0 - 45 U/L [facility] Aspartate aminotransferase (AST) 15 U/L Invalid Interpretation Code 0 - 45 U/L [facility] Bicarbonate (HCO3) 23 mmol/L Invalid Interpretation Code 21 - 32 mmol/L [facility] Bicarbonate (HCO3) 22 mmol/L Invalid Interpretation Code 21 - 32 mmol/L [facility] Bilirubin (total) 0.4 mg/dL Invalid Interpretation Code 0 - 1.3 mg/dL [facility] Bilirubin (total) 0.3 mg/dL Invalid Interpretation Code 0 - 1.3 mg/dL [facility] BUN/Creatinine Ratio 11.3 mg/mg Invalid Interpretation Code 10.0 - 20.0 [facility] BUN/Creatinine Ratio 12.3 mg/mg Invalid Interpretation Code 10.0 - 20.0 [facility] Calcium 8.0 mg/dL Low 8.4 - 10.2 mg/dL [facility] Calcium 7.6 mg/dL Low 8.4 - 10.2 mg/dL [facility] Chloride 102 mmol/L Invalid Interpretation Code 98 - 108 mmol/L [facility] Chloride 108 mmol/L Invalid Interpretation Code 98 - 108 mmol/L [facility] Creatinine 0.71 mg/dL Invalid Interpretation Code 0.5 - 1.3 mg/dL [facility] Creatinine 0.65 mg/dL Invalid Interpretation Code 0.5 - 1.3 mg/dL [facility] eGFR (non-black) The eGFR should be used for monitoring renal function only and not for medication dosing. Invalid Interpretation Code [facility] eGFR (non-black) 103 mL/min/{1.73_m2} Invalid Interpretation Code >=60 [facility] eGFR (non-black) The eGFR should be used for monitoring renal function only and not for medication dosing. Invalid Interpretation Code [facility] eGFR (non-black) 107 mL/min/{1.73_m2} Invalid Interpretation Code >=60 [facility] Glucose mass conc 93 mg/dL Invalid Interpretation Code 65 - 99 mg/dL [facility] Glucose mass conc 88 mg/dL Invalid Interpretation Code 65 - 99 mg/dL [facility] Interpretation and review of laboratory results Abnormal Invalid Interpretation Code [facility] Potassium molar conc 4.0 mmol/L Invalid Interpretation Code 3.5 - 5.1 mmol/L [facility] Potassium molar conc 4.0 mmol/L Invalid Interpretation Code 3.5 - 5.1 mmol/L [facility] Protein 6.8 g/dL Invalid Interpretation Code 6 - 8 g/dL [facility] Protein 5.9 g/dL Low 6 - 8 g/dL [facility] Sodium 134 mmol/L Low 135 - 145 mmol/L [facility] Sodium 137 mmol/L Invalid Interpretation Code 135 - 145 mmol/L [facility] Urea nitrogen 8 mg/dL Invalid Interpretation Code 8 - 25 mg/dL [facility] Urea nitrogen 8 mg/dL Invalid Interpretation Code 8 - 25 mg/dL [facility] ECG 12 Leadon 04-01-2017 Atrial Rate 143 BPM Invalid Interpretation Code [id number] P [place] 68 degrees Invalid Interpretation Code [id number] P-R Interval 134 ms Invalid Interpretation Code [id number] Q-T Interval 348 ms Invalid Interpretation Code [id number] QRS Duration 102 ms Invalid Interpretation Code [id number] QTC Calculation (Bezet) 537 ms Invalid Interpretation Code [id number] R [place] 96 degrees Invalid Interpretation Code [id number] T [place] 70 degrees Invalid Interpretation Code [id number] Ventricular Rate 143 BPM Invalid Interpretation Code [id number] ECG 12 Lead Sinus tachycardia Rightward axis Borderline ECG When compared with ECG of 31-MAR-2017 23:12, No significant change was found Confirmed by Hans Conte MD [id number]) on 04/01/2017 11:47:17 AM Invalid Interpretation Code [id number] Influenza A,B Rapid Molecula genaro 04-01-2017 Influenza A Not Detected Invalid Interpretation Code Not Detected [facility] Influenza B Not Detected Invalid Interpretation Code Not Detected [facility] Interpretation and review of laboratory results Normal Invalid Interpretation Code [facility] Influenza A,B Rapid Molecular Test Method: Nucleic Acid Amplification Invalid Interpretation Code [facility] Lactic Acid, Plasmaon 2016 Interpretation and review of laboratory results Abnormal Invalid Interpretation Code [facility] Interpretation and review of laboratory results Abnormal Invalid Interpretation Code [facility] Interpretation and review of laboratory results Abnormal Invalid Interpretation Code [facility] Lactate 2.8 mmol/L High 0.6 - 2 mmol/L [facility] Lactate 2.3 mmol/L High 0.6 - 2 mmol/L [facility] Lactate 3.9 mmol/L High 0.6 - 2 mmol/L [facility] Lactate 3.5 mmol/L High 0.6 - 2 mmol/L [facility] Magnesium Levelon 04-01-2017 Magnesium 1.8 mg/dL Invalid Interpretation Code 1.6 - 2.4 mg/dL [facility] PT/INRon 04-01-2017 INR Coag RelTime (Bld) During the induction phase of oral anticoagulation, the INR may not reflect the anticoagulation status of the patient. Therapeutic ranges for INR's are: Most clinical situations: INR 2.0-3.0 Mechanical Prosthetic Valve: INR 2.5-3.5 Critical: INR >5.0 Invalid Interpretation Code [facility] INR Coag RelTime (PPP) 1.4 {INR} High 0.8 - 1.1 [facility] Prothrombin time (PT) Coag time (PPP) 16.5 s High 11.8 - 14.3 [facility] Prealbuminon 04-01-2017 Prealbumin 9.3 mg/dL Low 20 - 40 mg/dL [facility] T4, Freeon 04-01-2017 Thyroxine (T4) free 0.9 ng/dL Invalid Interpretation Code 0.7 - 1.7 ng/dL [facility] TSH with Reflex Free T4on Thyroid stimulating hormone (TSH) 36.20 mcIU/mL High 0.32 - 5.00 [facility] Troponinon 04-01-2017 Troponin I.cardiac mass conc ng/mL Invalid Interpretation Code <=45 ng/L [facility] Comment on above: The 2014 AHA/ACC Gu ideline for the Management of Patients With Mel-CV-Zlfdiufyd Acute Coronary Syndromes defines myocardial infarction (CO) as follows: 1. For troponin-I value above the 45 ng/L (99th percentile) cut-off, a rise or fall greater than or equal to 20% from the initial value is indicative of CO, in conjunction with the appropriate clinical symptoms. 2. For troponin-I value less than 45ng/L an absolute value change greater than or equal to 8ng/L is indicative of myocardial necrosis. Urinalysison 04-01-2017 Bilirubin Ql (U) Negative Invalid Interpretation Code Negative [facility] Blood, Urine Negative Invalid Interpretation Code Negative [facility] Interpretation and review of laboratory results Abnormal Invalid Interpretation Code [facility] Nitrite, Urine Negative Invalid Interpretation Code Negative [facility] Squamous Epithelial 1 /hpf Invalid Interpretation [...] RadiationHistory: nEncounter Type: InitialAdditional signs and symptoms: [facility] SYSTEM PROVIDED DIAGNOSIS CODES:J18.9 Pneumonia due to infectious organism, unspecified laterality, unspecified part of lungA41.9 Sepsis, due to unspecified organism ([facility])COMPARISON:2016 and 11/10/2016.FINDINGS:Si gnificant increase in size of [...] patient's nurse, Constanza, at 5:48 a.m. on 04/01/2017.[facility]LY [facility] centerWork station ID: [id number] by: ALBINO MATHEWS on SunApr 01, 2017 5:49:17 AM ESTTranscribed by: PROSPER FUNG on SunApr 01, 2017 6:46:15 AM ESTFinalized by: ALBINO MATHEWS on SunApr 01, 2017 6:55:00 AM EST Normal [facility] Comment on above: Order Comment: Reaso n [...] nurse, Constanza, at 5:48 a.m. on 04/01/2017. [employer] Workstation ID: [id number] Invalid Interpretation Code [facility] XR Chest 1 View EXAMINATION: XR CHES [...] osseous structures are intact. Invalid Interpretation Code [facility] [facility] XR Chest 1 View Significant interval increase in size of right partially loculated pleural effusion now moderate to large in size. Increasing compressive atelectatic changes within the right lung. Left lung remains clear. Findings conveyed to patient's nurse, Constanza, at 5:48 a.m. on 04/01/2017. [facility]/[employer] Workstation ID: [id number] Invalid Interpretation Code MostLikely [facility] Basic Metabolic Panelon 03-08 Anion gap 12 mmol/L Invalid Interpretation Code 10 - 20 mmol/L [facility] Bicarbonate (HCO3) 28 mmol/L Invalid Interpretation Code 21 - 32 mmol/L [facility] BUN/Creatinine Ratio 11.5 mg/mg Invalid Interpretation Code 10.0 - 20.0 [facility] Calcium 8.9 mg/dL Invalid Interpretation Code 8.4 - 10.2 mg/dL [facility] Chloride 98 mmol/L Invalid Interpretation Code 98 - 108 mmol/L [facility] Creatinine 0.96 mg/dL Invalid Interpretation Code 0.5 - 1.3 mg/dL [facility] eGFR (non-black) The eGFR should be used for monitoring renal function only and not for medication dosing. Invalid Interpretation Code [facility] eGFR (non-black) 87 mL/min/{1.73_m2} Invalid Interpretation Code >=60 [facility] Glucose mass conc 145 mg/dL High 65 - 99 mg/dL [facility] Interpretation and review of laboratory results Abnormal Invalid Interpretation Code [facility] Potassium molar conc 4.4 mmol/L Invalid Interpretation Code 3.5 - 5.1 mmol/L [facility] Sodium 134 mmol/L Low 135 - 145 mmol/L [facility] Urea nitrogen 11 mg/dL Invalid Interpretation Code 8 - 25 mg/dL [facility] Blood Gas, Venouson 11-25-20 17 Base Excess, Roby 3.3 1 High -2.0 - 2.0 [facility] Bicarbonate (HCO3) 30.0 mmol/L High 24 - 28 mmol/L [facility] CO2 57.2 mm Hg High 41.0 - 51.0 [facility] Hematocrit (HCT) 43.1 % Invalid Interpretation Code 41 - 53 % [facility] Hemoglobin mass conc (Bld) 14.0 g/dL Invalid Interpretation Code 13.5 - 18 g/dL [facility] O2 saturation 50.6 % Invalid Interpretation Code [facility] pH, Venous 7.34 1 Invalid Interpretation Code 7.32 - 7.42 [facility] pO2, Roby 28 mm Hg Invalid Interpretation Code 25 - 40 [facility] CBC Auto Differentialon 03-08 Basophils Auto #/vol (Bld) 0.15 K/mcL Invalid Interpretation Code 0.00 - 0.30 [facility] Basophils/100 WBC Auto (Bld) 0.5 % Invalid Interpretation Code [facility] Eosinophils 0.05 K/mcL Invalid Interpretation Code 0.00 - 0.50 [facility] Eosinophils/100 leukocytes 0.2 % Invalid Interpretation Code [facility] Erythrocyte distribution width Auto Entitic volume (RBC) 14.0 % Invalid Interpretation Code 11.6 - 14.8 % [facility] Erythrocytes (RBC) 4.63 M/mcL Invalid Interpretation Code 4.50 - 5.90 [facility] Hematocrit (HCT) 42.2 % Invalid Interpretation Code 41 - 53 % [facility] Hemoglobin mass conc (Bld) 14.4 g/dL Invalid Interpretation Code 13.5 - 17.5 g/dL [facility] Immature granulocytes #/vol (Bld) 0.21 K/mcL Invalid Interpretation Code 0.00 - 0.30 [facility] Immature granulocytes/100 WBC (Bld) 0.70 % Invalid Interpretation Code [facility] Comment on above: The IG parameter is the percentage of metamyelocytes, myelocytes, and promyelocytes. Lymphocytes 0.51 K/mcL Low 0.90 - 4.00 [facility] Lymphocytes/100 leukocytes 1.7 % Invalid Interpretation Code [facility] MCH 31.1 pg Invalid Interpretation Code 26 - 34 pg [facility] MCHC mass conc (RBC) 34.1 g/dL Invalid Interpretation Code 31 - 37 g/dL [facility] MCV 91.1 fL Invalid Interpretation Code 80 - 100 fL [facility] Monocytes 0.97 K/mcL High 0.30 - 0.90 [facility] Monocytes/100 leukocytes 3.3 % Invalid Interpretation Code [facility] Neutrophils 27.27 K/mcL High 1.70 - 7.00 [facility] Neutrophils/100 WBC Auto (Bld) 93.6 % Invalid Interpretation Code [facility] Nucleated erythrocytes 0.00 K/mcL Invalid Interpretation Code 0.00 - 0.00 [facility] Nucleated erythrocytes/100 erythrocytes 0.0 % Invalid Interpretation Code [facility] Platelet mean volume (PMV) 8.5 fL Low 9 - 15.5 fL [facility] Platelets 440 K/mcL High 150 - 400 [facility] WBC (Leukocytes) 29.16 K/mcL High 4.50 - 11.00 [facility] AB CBC and Differentialon 03-31 Creatinine The following orders were created for panel order CBC and Differential. Procedure Abnormality Status --------- ------ CBC Auto Differential[[id number] ] Abnormal Final result Please view results for these tests on the individual orders. Invalid Interpretation Code [facility] Work Phone: CT PULMONARY ARTERIESon 03-08 [...] are favored to be reactive.SDH/hbWorksta tion ID: [id number] by: MAR JUDGE on Sat Mar 31, 2017 11:56:38 AM ESTTranscribed by: LUDY BENNETT on Sat Mar 31, 2017 12:04:40 PM ESTFinalized by: MAR JUDGE on Sat Mar 31, 2017 5:02:28 PM EST Normal [facility] Comment on above: Order Comment: Reaso n for exam?:rt sided chest pain, sob and back pain when swallowingInjury/Trauma or Illness?:Illness/OtherHow long have you had these symptoms (acute/chronic)?:AcuteType of Exam?:InitialAdditional signs and symptoms?:h/o MS CT Pulmonary Arterieson 11- CT Pulmonary Arteries EXAMINATION: CT PULMONARY ARTERIES [...] No acute osseous abnormality. Invalid Interpretation Code [facility] CT Pulmonary Arteries Interface, Rad In Pacs [...] lymph nodes are favored to be reactive. [facility]/ Workstation ID: [id number] Invalid Interpretation Code [employer] [facility] CT Pulmonary Arteries 1. No [...] lymph nodes are favored to be reactive. [facility]/ Workstation ID: [id number] Invalid Interpretation Code [facility] ECG 12 Leadon 03-31-2017 Atrial Rate 136 BPM Invalid Interpretation Code [id number] P [place] 74 degrees Invalid Interpretation Code ACX051 P-R Interval 140 ms Invalid Interpretation Code SPP754 Q-T Interval 276 ms Invalid Interpretation Code [id number] QRS Duration 98 ms Invalid Interpretation Code [id number] QTC Calculation (Bezet) 415 ms Invalid Interpretation Code [id number] R [place] 128 degrees Invalid Interpretation Code GAK009 T [place] 62 degrees Invalid Interpretation Code [id number] Ventricular Rate 136 BPM Invalid Interpretation Code [id number] ECG 12 Lead Sinus tachycardia Right axis deviation Abnormal ECG When compared with ECG of 10-NOV-2016 17:37, QRS axis shifted right Confirmed by Hans Conte MD ([id number]) on 04/01/2017 11:53:16 AM Invalid Interpretation Code [id number] Hepatic Function Panelon Alanine aminotransferase (ALT) 14 U/L Invalid Interpretation Code 14 - 65 U/L [facility] Albumin 3.0 g/dL Low 3.2 - 5.2 g/dL [facility] Alkaline phosphatase (ALP) 122 U/L Invalid Interpretation Code 40 - 150 U/L [facility] Aspartate aminotransferase (AST) 7 U/L Invalid Interpretation Code 0 - 45 U/L [facility] Bilirubin (conjugated) 0.1 mg/dL Invalid Interpretation Code 0 - 0.4 mg/dL [facility] Bilirubin (total) 0.5 mg/dL Invalid Interpretation Code 0 - 1.3 mg/dL [facility] Protein 7.9 g/dL Invalid Interpretation Code 6 - 8 g/dL [facility] Lactic Acid, Plasmaon 2016 Interpretation and review of laboratory results Abnormal Invalid Interpretation Code [facility] Lactate 2.7 mmol/L High 0.6 - 2 mmol/L [facility] Lactic Acid, Whole bloodon 1 05-31-2016 Lactate 2.4 mmol/L High 0.6 - 2 mmol/L [facility] Lipaseon 03-31-2017 Lipase 46 U/L Low 73 - 393 U/L [facility] Magnesium Levelon 03-31-2017 Magnesium 1.7 mg/dL Invalid Interpretation Code 1.6 - 2.4 mg/dL [facility] Troponinon 03-31-2017 Interpretation and review of laboratory results Normal Invalid Interpretation Code [facility] Interpretation and review of laboratory results Normal Invalid Interpretation Code [facility] Interpretation and review of laboratory results Normal Invalid Interpretation Code [facility] Troponin I.cardiac mass conc ng/mL Invalid Interpretation Code <=45 ng/L [facility] Comment on above: The 2014 AHA/ACC Gu ideline for the Management of Patients With Zfz-HG-Obwdhiaxb Acute Coronary Syndromes defines myocardial infarction (CO) as follows: 1. For troponin-I value above the 45 ng/L (99th percentile) cut-off, a rise or fall greater than or equal to 20% from the initial value is indicative of CO, in conjunction with the appropriate clinical symptoms. 2. For troponin-I value less than 45ng/L an absolute value change greater than or equal to 8ng/L is indicative of myocardial necrosis. Troponin I.cardiac mass conc ng/mL Invalid Interpretation Code <=45 ng/L [facility] Comment on above: The 2014 AHA/ACC Gu ideline for the Management of Patients With Hmi-BY-Utzlsigfi Acute Coronary Syndromes defines myocardial infarction (CO) as follows: 1. For troponin-I value above the 45 ng/L (99th percentile) cut-off, a rise or fall greater than or equal to 20% from the initial value is indicative of CO, in conjunction with the appropriate clinical symptoms. 2. For troponin-I value less than 45ng/L an absolute value change greater than or equal to 8ng/L is indicative of myocardial necrosis. Troponin I.cardiac mass conc ng/mL Invalid Interpretation Code <=45 ng/L [facility] Comment on above: The 2014 AHA/ACC Gu ideline for the Management of Patients With Apn-SS-Plbfqozux Acute Coronary Syndromes defines myocardial infarction (CO) as follows: 1. For troponin-I value above the 45 ng/L (99th percentile) cut-off, a rise or fall greater than or equal to 20% from the initial value is indicative of CO, in conjunction with the appropriate clinical symptoms. [...] No Growth (<1,000 CFU/mL) Invalid Interpretation Code [facility] XR CHEST PA/APon 03-31-2017 XR [...] clear. No free air collections underneath the hemidiaphragms.[employer] orkstation ID: [id number] by: NAIYAH AVELAR on Sat Mar 31, 2017 11:07:21 AM ESTTranscribed by: EMILIA SHELBY on Sat Mar 31, 2017 11:29:53 AM ESTFinalized by: ANIYAH AVELAR on Sat Mar 31, 2017 12:23:31 PM EST Normal [facility] Comment on above: Order Comment: Reaso n [...] No free air collections underneath the hemidiaphragms. [employer] Workstation ID: [id number] Invalid Interpretation Code [email or web address] XR Chest 1 View EXAMINATION: XR CHES [...] obvious acute osseous abnormality. Invalid Interpretation Code [email or web address] XR Chest 1 View Interface, Rad In [...] No free air collections underneath the hemidiaphragms. [employer] Workstation ID: [id number] Invalid Interpretation Code [facility] XR CHEST PA/APon 11-10-2016 XR CHEST [...] No focal infiltrate or mass.IMPRESSION:No acute cardiopulmonary findings.PRL/Zandrast ation ID: [id number] by: LEONCIO BELTRAN on SunNov 10, 2016 6:11:38 PM EDTTranscribed by: RUTH PRADHAN IN PACS [employer] CorporationCRIBE on SunNov 10, 2016 6:49:22 PM EDTFinalized by: LEONCIO BELTRAN on SunNov 10, 2016 6:49:22 PM EDT Normal [facility] Comment on above: Order Comment: Reaso n for exam?:cpInjury/Trauma or Illness?:Illness/OtherHow long have you had these symptoms (acute/chronic)?:AcuteHistory of cancer?:nSurgeries, chemotherapy, or radiation?:nType of Exam?:InitialAdditional signs and symptoms?:sob Social History Date Type Detail Facility Start: 07-25-2023 End: 09-25-2023 Tobacco smoking status NYIS Smoker (finding) [facility] Start: 04-25-2023 Alcohol intake Lifetime non-drinker (finding) [facility] Start: 10-17-2022 Tobacco use and exposure Smokeless tobacco non-user [facility] Start: 10-06-2022 Tobacco Comment Smokes 11-20 cigarettes per day. [facility] Start: 10-06-2022 Alcohol Comment Caffeine intake: 4 or more per day. [facility] Start: 09-25-2022 End: 01-03-2023 Humiliation, Afraid, Rape, and Kick questionnaire [HARK] [facility] Start: 09-25-2022 Sexual orientation Heterosexual (finding) [facility] Start: 07-19-2022 Gender identity Identifies as male gender (finding) [facility] Start: 05-30-2017 End: 10-17-2022 Tobacco smoking status [facility] Current every day smoker [facility] Start: 05-30-2017 End: 09-25-2022 Cigarettes smoked current (pack per day) - Reported [facility] Start: 10-07-2014 Tobacco smoking status [facility] Current some day smoker [facility] Start: 10-07-2014 Alcohol intake Current non-drinker of alcohol (finding) [facility] Start: 1960 Sex Assigned At Not on file [facility] Work Phone: Start: 1960 Sex Assigned At Male [facility] History of tobacco use Cigarette Smoker [facility] Work Phone: Within the last year , have you been afraid of your partner or ex-partner? No [facility] Emotionally Abused Not on file [facility] Are you now , , , , never or living with a partner? [facility] (I/We) worried wheth er (my/our) food would run out before (I/we) got money to buy more. Never true [facility] Vital Signs Date Time Vital Sign Value Performing Clinician Facility 09-25-2023 12:30-0400 Diastolic blood pressure 82 mm[Hg] MD Shasta Bermudez Work Phone: [facility] 09-25-2023 12:30-0400 Heart rate 100 /min MD Shasta Bermudez Work Phone: [facility] 09-25-2023 12:30-0400 Respiratory rate 16 /min MD Shasta Bermudez Work Phone: [facility] 09-25-2023 12:30-0400 SaO2% (BldA) [Mass fraction] 98 % MD Shasta Bermudez Work Phone: [facility] 09-25-2023 12:30-0400 Systolic blood pressure 146 mm[Hg] MD Shasta Bermudez Work Phone: [facility] 09-25-2023 10:35-0400 Body height 182.88 cm MD Shasta Bermudez Work Phone: [facility] 09-25-2023 10:35-0400 Body weight 77.11 kg MD Shasta Bermudez Work Phone: [facility] 08-24-2023 13:45-0400 Diastolic blood pressure 74 mm[Hg] MD Shasta Bermudez Work Phone: [facility] 08-24-2023 13:45-0400 Heart rate 100 /min MD Shasta Bermudez Work Phone: [facility] 08-24-2023 13:45-0400 Respiratory rate 20 /min MD Shasta Bermudez Work Phone: [facility] 08-24-2023 13:45-0400 SaO2% (BldA) [Mass fraction] 94 % MD Shasta Bermudez Work Phone: [facility] 08-24-2023 13:45-0400 Systolic blood pressure 124 mm[Hg] MD Shasta Bermudez Work Phone: [facility] 08-24-2023 11:04-0400 Body height 180.34 cm MD Shasta Bermudez Work Phone: [facility] 08-24-2023 11:[id number] Body weight 72.57 kg MD Shasta Bermudez Work Phone: [facility] 07-25-2023 13:57-0400 Body height 180.34 cm [facility] 07-25-2023 13:57-0400 Body mass index (BMI) [Ratio] 23 kg/m2 [facility] 07-25-2023 13:57-0400 Body weight 74.84 kg [facility] 05-31-2017 14:32-0500 Body Temperature 98.2 [degF] Room [facility] Work Phone: 05-31-2017 14:32-0500 BP Diastolic 76 mm[Hg] Room [facility] Work Phone: 05-31-2017 14:32-0500 BP Systolic 122 mm[Hg] Room [facility] Work Phone: 05-31-2017 14:32-0500 Pulse (Heart Rate) 108 /min Room [facility] Work Phone: 04-01-2017 16:32-0500 BP Diastolic 70 mm[Hg] Keihsa Gastelum [facility] Work Phone: 04-01-2017 16:32-0500 BP Systolic 123 mm[Hg] Keisha Gastelum [facility] Work Phone: 04-01-2017 16:32-0500 Pulse (Heart Rate) 129 /min Keisha Gastelum [facility] Work Phone: 04-01-2017 16:32-0500 Pulse Oximetry 92 % Keisha Gastelum [facility] Work Phone: 04-01-2017 16:32-0500 Respiratory Rate 24 /min Keisha Gastelum [facility] Work Phone: 04-01-2017 16:21-0500 Body Temperature 98.8 [degF] Keisha Gastelum [facility] Work Phone: 04-01-2017 03:46-0500 BMI (Body Mass Index) 18.36 kg/m2 Keisha Gastelum [facility] Work Phone: 04-01-2017 03:46-0500 Weight 61.4 kg Keisha Gastelum [facility] Work Phone: 03-31-2017 10:32-0500 Height 182.9 cm Keisha Gastelum [facility] Work Phone: Clinical Notes 10-20-2014 to 09-25-2023 Telephone Encounter - Annmarie Carr - 06/20/2023 10:11 AM ESTTelephone Encounter - Annmarie Carr - 06/20/2023 10:11 AM ESTTelephone Encounter - Shasta Ramirez - 10/20/2014 4:14 PM EDT Note Date & Type Note Facility 09-25-[address] [facility] 09-18-2023 Note PROCEDURE: Without IV contrast, axial helical 5 mm slice thickness images of the chest performed FINDINGS: Comparison made with prior examination of January 15, 2023. Very slight increased volume of left lower lobe pleural-based consolidation (1.5 x 3.0 cm) contiguous with linear density, subpleural band extending along the posterior lateral region of this left lower hemithorax. Stable pleural/parenchymal bands and subcentimeter consolidation right posterior medial CP angle. No new suspicious lung nodule or mass. No significant mediastinal or hilar lymphadenopathy. Low volume mediastinal lymph nodes noted No pleural or pericardial effusion. Unremarkable upper abdominal images. IMPRESSION: Minimal change, bibasilar findings, left sided morphology most consistent with rounded atelectasis. Recommend follow-up chest CT in 6 months TRANSCRIBED BY: ELECTRONICALLY SIGNED BY: Arvin Berumen MD Not Available 08-24-[address] [facility] 06-20-2023 Telephone encounter Note Patient is seeing Dr. Malone for his thyroid. He is taking his medication- maybe something in his body is not absorbing the medication. Dr. Malone wants him referred to a GI. Can you refer? Thank you. [facility] 06-20-2023 Miscellaneous Notes Patient is seeing Dr. Malone for his thyroid. He is taking his medication- maybe something in his body is not absorbing the medication. Dr. Malone wants him referred to a GI. Can you refer? Thank you. documented in this encounter [facility] 10-12-2021 Note PROCEDURE: [employer] VCT 64. With IV contrast, axial 5 [...] signed by Arvin Berumen on 10/12/2021 [id number] [facility] [employer] 10-20-2014 Miscellaneous Notes Patient will remain on [...] discuss further. documented in this encounter [facility] Evaluation note Diagnosis Slow transit constipation [facility] Diagnosis Onset Date Resolution Status Constipation acute Encounter for screening colonoscopy acute [facility] Work Phone: History and physical note Author Timur Luz [facility] August 24, 2023 12:53pm Note Date/Time August 24, 2023 12: 53pm [facility] [address] [place] [address] Gastroenterology H&P Signed Patient: Dandre Carranza MR#: [id number] : 1960 Acct:[id number] Age/Sex: 62 / M Adm Date: 4 Loc: Room: Type: [facility] Attending Dr: Timur Luz MD Copies to: MD Shasta Weiss MD~ Date of Service: 08/24/2023 HISTORY & PHYSICAL: Patient's history with special attention to the cardiovascular, pulmonary systems and the current problem was reviewed with the patient immediately prior to the procedure. Present medications and doses reviewed in the EMR. Allergies and pertinent laboratory tests were also reviewedat this time in the EMR. The physical examination, as below, was then performed. Indication, assessment and HPI: 62-year-old man here for EGD/colonoscopy for evaluation of constipation and possible malabsorption Family history of GI malignancy? No PHYSICAL EXAMINATION General appearance: Pleasant, NAD Skin: No jaundice Head: NC/AT Eyes: Anicteric Neck: Supple Lungs: Normal respiratory effort, no use of accessory muscles Abdomen: Soft, nondistended Neuro: Ox3. REVIEW OF SYSTEMS Constitutional: Denies malaise, fevers Cardiovascular: Denies chest pain, palpitations Respiratory: Denies shortness of breath, wheezing Gastrointestinal: As per HPI Genitourinary: Denies dysuria, polyuria Musculoskeletal: Denies joint swelling, joint stiffness Neurological: Denies confusion, numbness, tingling Endocrine: Denies fatigue Written informed consent obtained from the patient. Risks (including but not limited to perforation, infection, bloating, bleeding, need for emergent surgeryand loss of life), benefits and alternatives explained and questions answered. The patient verbalized understanding. Based on history patient is an appropriate candidate for the procedure. Timur Luz M.D. Documented By: Timur Luz MD 08/24/23 1252 Signed By: <Electronically signed by Timur Luz MD> 08/24/23 1253 [facility] Work Phone: History and physical note Author Timur Luz [facility] September 25, 2023 11:27am Note Date/Time September 25, 2023 11:27 am [facility] [address] [place] [address] Gastroenterology H&P Signed Patient: Dandre Carranza MR#: [id number] : 1960 Acct:[id number] Age/Sex: 62 / M Adm Date: 4 Loc: Room: Type: [facility] Attending Dr: Timur Luz MD Copies to: MD Shasta Weiss MD~ Date of Service: 09/25/2023 HISTORY & PHYSICAL: Patient's history with special attention to the cardiovascular, pulmonary systems and the current problem was reviewed with the patient immediately prior to the procedure. Present medications and doses reviewed in the EMR. Allergies and pertinent laboratory tests were also reviewedat this time in the EMR. The physical examination, as below, was then performed. Indication, assessment and HPI: 62-year-old man here for colonoscopy for evaluation of constipation Family history of GI malignancy? No PHYSICAL EXAMINATION General appearance: NAD Skin: No jaundice Head: NC/AT Eyes: Anicteric Neck: Supple Lungs: Normal respiratory effort, no use of accessory muscles Abdomen: nondistended Neuro: Ox3. REVIEW OF SYSTEMS Constitutional: Denies malaise, fevers Cardiovascular: Denies chest pain, palpitations Respiratory: Denies shortness of breath, wheezing Gastrointestinal: As per HPI Genitourinary: Denies dysuria, polyuria Musculoskeletal: Denies joint swelling, joint stiffness Neurological: Denies confusion, numbness, tingling Endocrine: Denies fatigue Written informed consent obtained from the patient. Risks (including but not limited to perforation, infection, bloating, bleeding, need for emergent surgeryand loss of life), benefits and alternatives explained and questions answered. The patient verbalized understanding. Based on history patient is an appropriate candidate for the procedure. Timur Luz M.D. Documented By: Timur Luz MD 09/25/231126 Signed By: <Electronically signed by Timur Luz MD> 09/25/23 112 [facility] Work Phone: Assessments Diagnosis Multiple sclerosis (HCC) [...] original. DISCHARGE SUMMARY Patient: Dandre Carranza Account: [id number] Admitted: 03/31/2017 Discharge Date/Time: No discharge date for patient encounter. Clinical Summary Perpetual Assessment: Sepsis, community acquired pneumonia, multiloculated complicated pleural effusion 56 year old male with multiple sclerosis, chronic pain, tobacco abuse who presented to [facility] on 03/31/17 with 1 day history of [...] Surg service in not available currently at [facility] and patient is agreeable to transfer to [facility] further mgmt. I discussed the patient with [...] Care Provider: Rudolph Fox MD, , Address: [address] [place] [id number] Follow Up: No follow-up provider specified. Additional Information Patient instructions, including activity, were given to the patient/family at discharge. Please seethe After Visit Summary in the medical record for details. Time spent on discharge: > 30 minutes Completed by: Bebo Yadav on 04/01/17, 4:23 PM in this encounter Summary Purpose Family History Relationship Condition Age at Onset Recorded Date/T floyd natural son Diabetes mellitus Unknown father Congestive heart failure Unknown Not Specified Hypertension Unknown Advance Directives Advance Directive Response Recorded Date/ Time Advance Directives No July 22 024 2:32pm Chief Complaint and Reason for Visit Chief Complaint IBS WITH CONSTIPATIO N AND DIARRHEA Reason for Visit Constipation Encounter for screening colonoscopy Chief Complaint IBS WITH CONSTIPATIO N AND DIARRHEA abd. pain/constipation abd. pain/constipation Reason for Visit Constipation Encounter for screening colonoscopy Chief Complaint IBS WITH CONSTIPATIO N AND DIARRHEA abd. pain/constipation abd. pain/constipation constipation/possible malabsorption constipation/possible malabsorption Reason for Visit Constipation Encounter for screening colonoscopy Additional Source Comments Bebo Yadav MD - 03/31/2017 3:01 PM EST H&P Notes (unrecognized sect ion and content) Formatting of this note may be different from the original. HISTORY AND PHYSICAL Patient Name: Dandre Carranza Admit Date: [id number] MR #: [id number] : 1960 Physicians: Rudolph Fox MD (Family); [...] right sided pneumonia 3. Dysphagia- Will consult IMPLEMENTATION LEAD for swallow evaluation 4. Tobacco- Current 1.5ppd [...] Clint Martinez, PT - 04/01/2017 10:44 AM RavinderbenitaoliviaIvonnt, PT - 04/01/2017 10:44 AM Maggi Tay RN - 03/31/2017 2:59 PM EST Consult Notes (unrecognized section and content) Associated Order(s): IP CONSULT TO PULMONOLOGY Formatting of this note may be different from the original. Consult Note Name: Dandre Carranza Date/Time of Admission: 03/31/2017 10:33 AM CSN: [id number] Attending Provider: Bebo Yadav MD [facility] 1960 Age: 56 y.o. REASON FOR CONSULT pneumonia HPI I was asked by Dr. Bebo Yadav MD to see Dandre Carranza in consultation. History was obtained from patient patient's family chart review nursing Dandre Carranza is a 56 y.o. male [...] Q30 Min ipratropium-albuterol 3 mL Inhalation Q6H ESAU levoFLOXacin 750 mg Intravenous Q24H levothyroxine 150 mcg Oral at bedtime meropenem 1,000 mg Intravenous Q8H mirtazapine 45 mg Oral Nightly morphine 15 mg Oral Q12H ESAU nicotine 1 patch Transdermal Daily ALLERGIES Allergies [...] - LABS Hematology Recent Labs 03/31/17 1038 03/31/17233804/01/1718 WBC 29.16* -- 23.94* 23.55* HCT 42.2 < > 38.8* 42.5 37.1* PLT 440* -- 328 292 < > = values in this interval not displayed. Recent Labs 04/01/17 1140 PROTIME 16.5* INR 1.4* Chemistries Recent Labs 03/31/17103703/31/17232904/01/17717 NA 134* 134* 137 K 4.4 4.0 4.0 CL 98 102 108 BUN 11 8 8 CREATININE 0.96 0.71 0.65 Recent Labs 03/31/17 1038 03/31/17195803/31/17232904/01/17717 CALCIUM 8.9 -- 8.0* 7.6* MG -- 1.7 1.8 -- LFTs Recent Labs 03/31/17 1038 03/31/17232904/01/17 0718 AST 7 8 15 ALT 14 11* 12* ALKPHOS 122 100 98 No results for input(s): AMYLASE, LIPASE in the last 72 hours. Arterial Blood Gasses No results for input(s): PH in the last 72 hours. Invalid input(s): PCO2, PO2, [id number], INSPIREDO2 Cardiac Enzymes Recent Labs 03/31/17 1541 03/31/17195803/31/172329 TROPONINI <15 <15 <15 Microbiology Imaging Chest [...] the opportunity to participate in care of Dandre Carranza. Electronically signed: Archie Stewart MD, PhD, [facility] 04/01/2017 2:05 PM Formatting of this note may be different from the original. Physical Therapy Physical Therapy Plan of Care Certification Note Coded Admission Diagnosis Sepsis, due to unspecified organism (HCC) [A41.9] Pneumonia due to infectious organism, unspecified laterality, unspecified part of lung [J18.9] Sepsis (HCC) [A41.9] PT Functional Diagnosis: R26.2 Difficulty in [...] The patient is discharged from the acute care hospital Formatting of this note may be [...] understanding Transfers Sit to Stand: Contact guard Consulting Software Engineer: 1 person, Gait belt, Other (Comment) (IV [...] ambulation Prior Level of Function Level of [place]: Independent with ADLs and functional transfers, Needs [...] : 1960 Sex: Male Discharge Plan Shared UM/CC and RN Living Arrangements: Spouse/significant other Support Systems: Spouse/significant other Functional Status: Independent Type of Residence: Private residence Prior to Admission Home Care Services: No Current Home Equipment: Walker, Cane Insurance Coverage for Prescriptions: Yes Discharge Readiness Expected Discharge Date: 04/02/[address] [facility] Disposition D/C Disposition: Home Met with patient. [...] Falls risk assessment completed. Called Dr Gris Yadav for Dr Gastelum. VBG sent at 1200 [...] note may be different from the original. [facility] ED Physician Note: NAME: Dandre Carranza 56 y.o. CSN: [id number] PCP: Rudolph Fox MD Clinical Impression: SNOMED [...] Procedure Abnormality Status --------- ------ CBC Auto Differential[[id number]] Abnormal Final result Please view results for [...] No free air collections underneath the hemidiaphragms. [facility]/ Workstation ID: [id number] CT Pulmonary Arteries Preliminary Result 1. No [...] lymph nodes are favored to be reactive. [facility]/ Workstation ID: [id number] Procedures: ECG 12 Lead Date/Time: 03/31/2017 3:23 PM Performed by: KEISHA GASTELUM Authorized by: KEISHA GASTELUM Rhythm: sinus rhythm and sinus tachycardia BPM: 136 Conduction: conduction normal ST Segments: ST segments normal T Waves: T waves normal normal NE interval normal QRS interval normal QT interval Clinical impression: sinus tachycardia Keisha Gastelum MD [facility] Emergency Department (Please note that portions of [...] section and content) DATE CREATED AUTHOR [facility] DATE CREATED AUTHOR AUTHOR'S ORGANIZ ATION 10/13/2021 [facility] dical Specialist DATE CREATED AUTHOR AUTHOR'S ORGANIZ ATION 09/20/2022 [facility] DATE CREATED AUTHOR AUTHOR'S ORGANIZ ATION 09/24/2023 [facility] dical Specialists EPIC DATE CREATED AUTHOR AUTHOR'S ORGANIZ ATION 09/27/[address] [facility] ysician Group Source Comments (unrecognize d section and content) In the event this informatio n is protected by the Federal Confidentiality of Alcohol and Drug Abuse Patient Records regulations: The Federal rules restrict any use of the information to criminally investigate or prosecute any alcohol or drug abuse patient.[facility] Care Teams (unrecognized sec tion and content) Auto Body Estimator Relationship Specialty Start Date End Date Shasta Bermudez MD [address] [facility] [address] [place], [place] [id number] PCP - [employer] 05/07/22 Shasta Bermudez MD [address] [address] PCP - General Family Medicine 09/26/22 Macey Vargas NP [address] [facility] [place] [address] Nurse Practitioner Family Medicine 09/26/22 Auto Body Estimator Relationship Specialty Start Date End Date Shasta Bermudez MD [address] [facility] [place] [address] PCP - [employer] 05/07/22 Shasta Bermudez MD [address] [facility] [place] [address] PCP - General Family Medicine 09/26/22 Macey Vargas NP [address] [facility] [place] [address] Nurse Practitioner Family Medicine 09/26/22 Auto Body Estimator Relationship Specialty Start Date End Date Shasta Bermudez MD [address] [facility] [place] [address] PCP - [employer] 05/07/22 Shasta Bermudez MD [address] [facility] [place] [address] PCP - General Family Medicine 09/26/22 Macey Vargas NP [address] [facility] [place] [address] Nurse Practitioner Family Medicine 09/26/22 Team Status: Active Member Role Status Mariaa Bermudez MD Primary Care Provider Active Team Status: Inactive Member Role Status Mariaa Luz MD Attending Provider Active Start: July 25, 2023 End: July 25, 2023 Shasta Bermudez MD Primary Care Provider Active Sta rt: July 25, 2023 End: July 25, 2023 Team Status: Inactive Member Role Status Mariaa Bermudez MD Primary Care Provider Active Sta rt: August 24, 2023 End: August 24, 2023 Timur Luz MD Attending Provider Active Start: August 24, 2023 End: August 24, 2023 Team Status: Active Member Role Status Mariaa Bermudez MD Primary Care Provider Active Sta rt: August 24, 2023 Timur Luz MD Attending Provider, Other Provider Act chacha Start: August 24, 2023 Team Status: Inactive Member Role Status Dates Shasta Bermudez MD Primary Care Provider Active Sta rt: September 25, 2023 End: September 25, 2023 Timur Luz MD Attending Provider Active Start: September 25, 2023 End: September 25, 2023 Team Status: Active Member Role Status Dates Shasta Bermudez MD Primary Care Provider Active Sta rt: September 25, 2023 Timur Luz MD Attending Provider, Other Provider Act chacha Start: September 25, 2023 Reason for Visit (unrecogniz ed [...] BE BASED ON THE PRIMARY CLINICAL RECORDS. [employer] provides no warranty or guarantee of the accuracy or completeness of information in this document.
== END 2023-10-04 11:47 | disposition home or self-care (01) ==
LOC: LAB 11:46
PROVIDERS: PCP Family Medicine
DX: G35 Multiple sclerosis (principal)
CPT/HCPCS: 36415; 70553; 82565; A9575

== ENCOUNTER 2024-02-19 08:21 | Outpatient (OUT) | payer MEDICARE, MEDICAID, SELFPAY ==
--- NOTE | 2024-02-19 08:23 | MR_ITS ---
The [address] [address] Patient Name: VALERIE CRUM MRN: [id number] date: 1960 Sex: M Assigned Patient Location: MRI Current Patient Location: Accession/Order Number: [id number] Exam Date: 02/19/2024 08:35 Report Date: 02/20/2024 08:09 At the request of: MARIO HAHN Procedure: MR cervical spine wo/w con EXAMINATION: MR thoracic spine wo/w con, MR cervical spine wo/w con HISTORY: Multiple Sclerosis COMPARISON: 01/23/2023 TECHNIQUE: Axial T1 and T2; Sagittal T1, T2, and STIR sequences. Images were performed without and with Dotarem contrast. FINDINGS: CORD: The previously identified area of signal abnormality in the left cervical cord at the C5-C6 level is less evident on the current exam possibly related to technique. No new focal areas of signal abnormality or postcontrast enhancement in the cervical or thoracic spine BONES: Dextrocurvature of the thoracic spine. Mild to moderate diffuse degenerative spondylosis and facet osteoarthropathy throughout the cervical and thoracic spine. There is 50% anterior wedge compression fracture T8 vertebral body. Heterogeneous appearance of the marrow likely age-related change DISCS: Mild to moderate multilevel disc space narrowing with endplate sclerosis most significant in the cervical spine from the C3 to the C7 level PARASPINAL AREA: No visible mass. OTHER: Negative. No abnormal contrast enhancement. MR/MR cervical spine wo/w con IMPRESSION: No new or enhancing lesions identified within the cervical or thoracic spinal cord to suggest acute demyelination Electronically authenticated by: TIFFANY SCALES Date: 02/20/2024 08:09
--- OUTSIDE RECORDS SUMMARY | 2024-02-19 08:24 | XMS_ITS | CCD ---
Author Organization [facility] Care Team Providers Care Advertising Agency Manager Name Role Phone Redmond, Rudolph Davide Unavailable Unavailable Dr, None Unavailable Unavailable REDMOND, RUDOLPH DAVIDE Unavailable Unavailable YADAV, BEBO SANDADI Unavailable Unavailabl e YADAV, BEBO SANDADI Unavailable Unavailabl e YADAV, BEBO SANDADI Unavailable Unavailabl e LIDUMILA WHITE Unavailable Unavail able YRIS PEREIRA Unavailable Unavailable ARACELY GRAY Unavailable Unavailable TIMHOLMKEISHA VENANCIO Unavailable Unavailable NYHOLM KEISHA VENANCIO Unavailable Unavailable REDMOND, RUDOLPH DAVIDE Unavailable Unavailable REDMOND, RUDOLPH DAVIDE Unavailable Unavailable REDMOND, RUDOLPH DAVIDE Unavailable Unavailable REDMOND, RUDOLPH DAVIDE Unavailable Unavailable REDMOND, RUDOLPH DAVIDE Unavailable Unavailable BAYLEE TREJO Unavailable Unavailable REDMOND, RUDOLPH DAVIDE Unavailable Unavailable MIS JORDAN Unavailable Unavailable REDMOND, URDOLPH DAVIDE Unavailable Unavailable REDMOND, RUDOLPH DAVIDE Unavailable Unavailable REDMOND, RUDOLPH DAVIDE Unavailable Unavailable REDMOND, RUDOLPH DAVIDE Unavailable Unavailable SYSTEM, PROVIDER NOT IN Unavailable Unavaila ble REDMOND, RUDOLPH DAVIDE Unavailable Unavailable MIS JORDAN W Unavailable Unavailable Redmond, Rudolph Davide Primary Care Provider DR SHASTA BERMUDEZ Primary Care Unavailable LARA, DR FRANCE Consulting Unavailable ADRIENNE, ALEKS Admitting Unavailable ADRIENNE, ALEKS Attending Unavailable DR EMMA PICKERING Consulting Unavailable ALEKS DELEON Consulting Unavailable DR SHASTA BERMUDEZ Primary Care Unavailable SUZY WALLACE Consulting Unavailable FABIANA FUNG Admitting Unavailable FABIANA FUNG Attending Unavailable FABIANA FUNG Consulting Unavailable LARA, DR FRANCE Primary Care Unavailable BENERIVKACT, DR CARTER Admitting Unavailable BENERIVKACT, DR CARTER Consulting Unavailable CLARKCT, DR CARTER Attending Unavailable LARA, DR FRANCE Primary Care Unavailable BENEDICT, DR CARTER Admitting Unavailable BENEDICT, DR CARTER Consulting Unavailable BENEDICT, DR CARTER Attending Unavailable Lara HERRING, Shasta Marmolejo Unavailable Lara HERRING, Shasta Marmolejo Primary Care Provider [phone] Macey Vargas NP Unavailable MD Shasta Bermudez Primary Care Provider [phone] MD Timur Luz Attending Provider Shasta Bermudez Primary Care Unavailable Asaad, Imad Admitting Unavailable Asaad, Imad Attending Unavailable Lara, Shasta Primary Care Unavailable Asaad, Imad Admitting Unavailable Asaad, Imgreta Attending Unavailable JEANNE HE Attending Unavailable ALRA, SHASTA F Referring Unavailable BRINK, ESPERANZA Attending Unavailable LARA, SHASTA F Referring Unavailable BRINK, ESPERANZA Attending Unavailable LARA, SHASTA F Referring Unavailable BRINK, ESPERANZA Attending Unavailable LARA, SHASTA F Referring Unavailable BRINK, ESPERANZA Attending Unavailable LARA, SHASTA F Referring Unavailable SOURAV CASTANON Attending Unavailable LARA, SHASTA F Referring Unavailable BRINK, ESPERANZA Attending Unavailable LARA, SHASTA F Referring Unavailable EMERY, RADHA R Attending Unavailable EMERY, RADHA R Referring Unavailable EMERY, RADHA R Attending Unavailable SELMA, FABIANA Attending Unavailable EMERY, RADHA R Referring Unavailable EMERY, RADHA R Attending Unavailable EMERY, RADHA R Attending Unavailable SHARLENE, AGNES Leblanc Attending Unavailable EMERY, RADHA R Referring Unavailable LARA, SHASTA F Attending Unavailable HILL, FABIANA Attending Unavailable SHARLENE, AGNES Leblanc Attending Unavailable EMERY, RADHA R Attending Unavailable EMERY, RADHA R Attending Unavailable SELMA, FABIANA Attending Unavailable Alicia NAVA, Macey Torres Unavailable Allergies Allergy Classification Reported Allergen(s) Allergy Type Date of Onset Reaction(s) Facility Glatiramer (1 source) Glatiramer Drug Allergy 5 Intolerance [facility] Work Phone: Penicillins (antibiotic) (1 source) Penicillins Drug Allergy 5 Rash [facility] Unclassified (1 source) Marijuana Drug Allergy 5 Vomiting [facility] (7 sources) glatiramer; Translations: [GLATIRAMER (COPOLYMER 1)] Propensity to adverse reactions to drug 5 passed out [facility] Work Phone: (8 sources) Penicillins; Translations: [PENICILLINS] Propensity to adverse reactions to drug 5 Rash [facility] Work Phone: (1 source) Glatiramer Drug Allergy 1 [facility] (1 source) Penicillins Drug allergy (disorder) 3 [facility] (8 sources) Glatiramer Drug Allergy 5 [facility] Work Phone: (8 sources) Glatiramer Drug Allergy [address] [facility] (8 sources) Penicillin G Drug Allergy 3 Unknown, Hives, Rash [facility] (8 sources) Penicillins Drug Allergy 9 Hives, Rash [facility] (8 sources) Marijuana (Cannabis Sativa) Allergy to substance [address] [facility] (1 source) Glatiramer Drug Allergy 4 [facility] Rep[facility] (1 source) Penicillins Drug allergy (disorder) 4 [facility] Medications Current Medications Medication Drug Class(es) Dates Sig (Normalized) Sig (Original) [id number] 200 actuat albuterol 0.09 mg/actuat metered dose inhaler (3 sources) beta2-Adrenergic Agonist take 2 puff(s) by inhalation every four hours for wheezing albuterol HFA 90 mcg/act inhaler Inhale 2 puffs every 4 (four) hours if needed for wheezing Active alendronic acid 70 mg oral tablet (10 sources) Bisphosphonate Start: 08-10-2023 take 70 mg [...] 30 min. 16 tablet 3 01/18/2023 Active take 1 tablet by viji th once daily alendronate (Fosamax) 70 MG tablet Take 70 mg by mouth Daily 1 tablet 30 minutes before the first food, beverage or medicine of the day with plain water Orally Active ARIPiprazole 5 mg oral tablet (11 sources) Atypical Antipsychotic Start: 07-25-2023 take 15 [...] EVERY DAY 90 tablet 10 02/10/2023 Active 120 actuat budesonide 0.16 mg/actuat / formoterol fumarate 0.0048 mg/actuat / glycopyrrolate 0.009 mg/actuat metered dose inhaler (3 sources) Corticosteroid, beta2-Adrenergic Agonist Start: 12-11-2023 take 2 puff(s) by inhalation in the morning Xwsmeeh-Nauuahbydro-Exqgupcegw (Breztri Aerosphere) 160-9-4.8 MCG/ACT aerosol Indications: Chronic obstructive pulmonary disease with acute exacerbation (CMS/HCC) Inhale 2 puffs in the morning and 2 puffs before bedtime. 32.1 g 3 12/11/2023 Active calcium carbonate 1500 mg / cholecalciferol 200 unt oral tablet (8 sources) Vitamin D Start: 12-31-2020 take 1 tablet by mouth twice daily calcium carbonate-vitamin D 600-200 MG-UNIT tablet 1 tablet with a meal Orally twice daily. Recommended keysha 500mg with vit d 300iu 12/31/2020 Active cholecalciferol 2000 unt oral capsule [...] 06/20/2023 Active escitalopram 10 mg oral tablet (10 sources) Serotonin Reuptake Inhibitor Start: 11-26-2023 escitalopram (Lexapr o) 10 MG tablet Indications: Moderate episode of recurrent major depressive disorder (CMS/HCC) TAKE 1 TABLET EVERY DAY 90 tablet 3 11/26/2023 Active Start: 08-10-2023 take 10 mg by mouth [...] mouth every night at bedtime. 0 Active Bhuvinldiid-Xhwuygnqu-Mvsbdc er (7 sources) Anticholinergic, Corticosteroid, beta2-Adrenergic Agonist Start: 08-10-2023 Jylkzdfrjay-Oemtwlrtp-Wscotu er (Trelegy Ellipta) 100-62.5-25 mcg blister with device Active 1 INH INHALATION Daily August 10, 2023 12:00am Start: 05-13-2023 take 1 puff(s) by inhalation once daily in the morning Tedcbrxuoha-Lirvfoeoj-Bpvoqa (Trelegy Ellipta) 100-62.5-25 MCG/ACT aerosol powder Indications: [...] daily. liothyronine sodium 0.005 mg oral tablet (10 sources) l-Triiodothyroni ne Start: 08-10-2023 take 10 ug by mouth twice daily Liothyronine Active 10 MCG PO Twice daily August 10, 2023 12:00am Start: 10-26-2022 take 2 tablets by mo [facility] in the morning liothyronine (Cytomel) 5 MCG tablet Take two (2) tablets by mouth in the morning and two (2) tablets by mouth in the afternoon. 10/26/2022 Active mirtazapine 45 mg oral tablet [...] by mouth. montelukast 10 mg oral tablet (14 sources) Leukotriene Receptor Antagonist Start: 4 take 10 mg by mouth once daily Montelukast Active 10 MG PO Daily August 10, 2023 12:00am Multiple Vitamin (Multi-Vitamin) tablet (8 sources) take 1 tablet by mouth in the morning Multiple Vitamin (Multi-Vitamin) tablet Take 1 tablet by mouth in the morning. Active take 1 tablet by mouth in the mo rning Multiple Vitamin (Multi-Vitamin) tablet Take 1 tablet by mouth in the morning. 0 Active multivitamin (THERAGRAN) per tablet (3 sources) take 1 tablet by mouth once daily multivitamin (THERAGRAN) per tablet Take 1 tablet by mouth daily. Active Multivitamin Tablet (1 source) take 1 tablet by mouth once daily multivitamin (THERAGRAN) per tablet Take 1 tablet by mouth daily. Active Multivitamin-Minerals- Lutein (Multivitamin 50 Plus) tablet (2 sources) Start: 4 Multivitamin-Minerals -Lutein (Multivitamin 50 Plus) tablet Active 1 TAB PO Daily August 10, 2023 12:00am omeprazole 40 mg delayed release oral capsule (5 sources) Proton Pump Inhibitor Start: 4 take 40 mg by mouth once daily Omeprazole Active 40 MG PO Daily August 24, 2023 12:00am polyethylene glycol 3350 066303 mg / potassium chloride 2970 mg / sodium bicarbonate 6740 mg / sodium chloride 5860 mg / sodium sulfate 51058 mg powder for oral solution (1 source) Osmotic Laxative Start: 4 take 1 capsule by mouth once Peg 3350-Electrolytes (Golytely) 236-22.74-6.74 -5.86 gram recon soln Active 240 ML PO Once 4000 August 29, 2023 12:00am At 4pm add lukewarm drinking water to the fill azalea on the jug, secure cap on the jug and shake vigorously to mix. Begin drinking until you finish the entire contents. levothyroxine sodium 0.2 mg oral capsule (20 sources) l-Thyroxine Start: 4 take 50 ug by mouth once daily Levothyroxine Active 50 MCG PO Daily July 25, 2023 12:00am Start: 07-25-2023 take 200 ug by mouth once radha y Levothyroxine Active 200 MCG PO Daily July 25, 2023 12:00am Start: 02-21-2023 levothyroxine (Synthroid, Levoxyl) 200 MCG tablet 02/21/2023 Active Start: 03-31-2017 End: 04-01-2017 levothyroxine (SYNTHROID, LEVOTHROID) tablet 150 mcg 150 mcg, Oral, At bedtime, First dose on 03/31/17 at 2100, For patients on continuous tube feed: Hold TF from 1 hr before until 1 hr after each dose. TF rate may need adjustment to meet caloric needs. Given 03/31/2017 20:01 EST 150 mcg levothyroxine (S ynthroid, Levoxyl) 50 MCG tablet Take by mouth Daily before meals Active take 1 capsule by mo uth twice [...] Take 1 tablet by mouth 0 Active varenicline 0.5 mg oral tablet (3 sources) Partial Cholinergic Nicotinic Agonist Start: 01-22-20 24 End: 02-19-20 24 take 1 tablet by mouth once daily, then take 1 tablet by mouth twice daily, then take 2 tablets by mouth twice daily Varenicline Tartrate, Starter, (Chantix Starting Month ) 0.5 MG X 11 & 1 MG X 42 tablet therapy pack Indications: Heavy smoker (more than 20 cigarettes per day) Take 0.5 mg by mouth Daily for 3 days, THEN 0.5 mg 2 (two) times a day for 4 days, THEN 1 mg 2 (two) times a day for 21 days. 53 each 01/22/2024 02/19/2024 Active Vitamin D3 (2 sources) Start: 08-10-19 take 500 ug by mouth once daily [...] (4 sources) Dihydropyridine Calcium Channel Saulo Start: End: take 2.5 mg by mouth once daily [...] Vilanter (3 sources) Start: 07-25-2023 End: 08-10-2023 Kdcjpzitfbp-Iwgndklqb-Ahgz nter (Trelegy Ellipta) 200-62.5-25 mcg blister with [...] ESR, UA DAY 1 EACH TREATMENT New 05/31/2017 15:01 EST 1,000 mg 100 mL/hr (1 source) Start: 05-31-2017 End: 05-31-2017 take 1000 mg intravenous route every hour methylPREDNISolone sod suc (PF) (SOLU-medrol) 1,000 mg in sodium chloride 0.9 % (NS) 100 mL IVPB 1,000 mg, Intravenous, at 100 mL/hr, Once, [facility] 05/31/17 at 1530, For 1 dose, Infuse over 60 minutes GIVE DAILY X 3 DAYS EVERY 3 MONTHS CBC/D, CMP, ESR, UA DAY 1 EACH TREATMENT New 05/31/2017 15:01 EST 1,000 mg 100 mL/hr [...] Classification Problem Date Documented Da te Episodic/Chronic Acute cerebrovascular disease (3 sources) Cerebrovascular accident; Translations: [Cerebral infarction, unspecified] Onset: 09-14-2023 09-14-2023 Chronic Anxiety disorders (20 sources) Acute stress disorder; Translations: [Acute stress reaction] Onset: 09-19-2022 09-19-2022 Chronic Chronic obstructive pulmonary disease and bronchiectasis (16 sources) Centriacinar emphysema; Translations: [Centrilobular emphysema] Onset: 09-19-2022 09-19-2022 Chronic Coronary atherosclerosis and other heart disease (8 sources) History of myocardial infarction; Translations: [Old myocardial infarction] Onset: 04-03-2017 01-03-2023 Chronic Hyperplasia of prostate (8 sources) Benign prostatic hyperplasia; Translations: [Benign prostatic hyperplasia without lower urinary tract symptoms] Onset: 04-03-2017 01-03-2023 Chronic Mood disorders (20 sources) Depressive disorder; Translations: [Depression] Onset: 09-19-2022 09-19-2022 Chronic Multiple sclerosis (20 sources) Multiple sclerosis; Translations: [Multiple sclerosis] Onset: 10-07-2014 01-06-2015 Chronic Nutritional deficiencies (8 sources) Vitamin D deficiency; Translations: [Vitamin D deficiency, unspecified] Onset: 09-19-2022 09-19-2022 Chronic Osteoporosis (8 sources) Osteoporosis; Translations: [Age-related osteoporosis without current pathological fracture] Onset: 09-19-2022 09-19-2022 Chronic Other diseases of bladder and urethra (3 sources) Neurogenic bladder; Translations: [Neuromuscular dysfunction of bladder, unspecified] Onset: 09-14-2023 09-14-2023 Chronic Other gastrointestinal disorders (3 sources) Constipation alternates with diarrhea; Translations: [Other specified symptoms and signs involving the digestive system and abdomen] 07-25-2023 Episodic Other gastrointestinal disorders (3 sources) Constipation; Translations: [Constipation, unspecified] 07-25-2023 Episodic Other gastrointestinal disorders (4 sources) Constipation, unspecified; Translations: [Constipation, unspecified] Onset: 08-24-2023 07-25-2023 Episodic Other nervous system disorders (1 source) Chronic pain; Translations: [Other chronic pain] Onset: 10-07-2014 10-07-2014 Chronic Other nervous system disorders (8 sources) Chronic pain syndrome; Translations: [Chronic pain syndrome] Onset: 09-19-2022 09-19-2022 Chronic Other nervous system disorders (8 sources) Neuropathy; Translations: [Polyneuropathy, unspecified] Onset: 09-19-2022 09-19-2022 Chronic Other nervous system disorders (5 sources) Abnormal gait; Translations: [Unspecified abnormalities of gait and mobility] Onset: 09-14-2023 09-14-2023 Episodic Other screening for suspected conditions (not mental disorders or infectious disease) (6 sources) Patient encounter status; Translations: [Encounter for screening for malignant neoplasm of colon] 07-25-2023 Episodic Other upper respiratory disease (8 sources) Allergic rhinitis; Translations: [Other allergic rhinitis] Onset: 09-19-2022 09-19-2022 Chronic Residual codes; unclassified (8 sources) Restlessness and agitation; Translations: [Restlessness and agitation] Onset: 09-19-2022 09-19-2022 Chronic Residual codes; unclassified (5 sources) Amnesia; Translations: [Other amnesia] Onset: 09-14-2023 09-14-2023 Episodic Septicemia (2 sources) Sepsis, unspecified organism; Translations: [Sepsis, unspecified organism] Onset: 04-01-2017 Spondylosis; intervertebral disc disorders; other back problems (9 sources) Degeneration of lumbar intervertebral disc; Translations: [Other intervertebral disc degeneration, lumbar region] Onset: 10-07-2014 10-07-2014 Chronic Substance-related disorders (20 sources) Harmful pattern of use of caffeine; Translations: [Other stimulant abuse, uncomplicated] Onset: 04-25-2017 Resolved: 10-30-2023 09-19-2022 Chronic Thyroid disorders (8 sources) Hypothyroidism; Translations: [Hypothyroidism, unspecified] Onset: 09-19-2022 09-19-2022 Chronic Unclassified (2 sources) [place] [facility] [employer] Review Required; Translations: [[place] [facility] [employer] Review Required] Onset: 05-30-2017 Unclassified (3 sources) Patient on antidepressant monitoring plan Onset: 07-05-2023 07-05-2023 Past or Other Problems Problem Classification Problem Date Documented Da te Episodic/Chronic Conditions associated with dizziness or vertigo (3 sources) Dizziness; Translations: [Dizziness and giddiness] Onset: 09-14-2023 09-14-2023 Episodic Malaise and fatigue (4 sources) Fatigue; Translations: [Other fatigue] Onset: 10-07-2014 10-07-2014 Episodic Mood disorders (8 sources) Mood disorders Onset: 01-03-2023 Resolved: 10-09-2023 01-03-2023 Nonspecific chest pain (6 sources) Chest pain; Translations: [Chest pain, unspecified] Onset: 11-10-2016 11-10-2016 Episodic Other ear and sense organ disorders (8 sources) Bilateral tinnitus; Translations: [Tinnitus, bilateral] Onset: 09-19-2022 09-19-2022 Episodic Other gastrointestinal disorders (9 sources) Slow transit constipation; Translations: [Slow transit constipation] Onset: 09-26-2022 09-26-2022 Episodic Other lower respiratory disease (8 sources) Multiple nodules of lung; Translations: [Other nonspecific abnormal finding of lung field] Onset: 04-20-2023 04-20-2023 Episodic Other nervous system disorders (3 sources) Paresthesia; Translations: [Paresthesia of skin] Onset: 09-14-2023 09-14-2023 Episodic Other nutritional; endocrine; and metabolic disorders (8 sources) Loss of appetite; Translations: [Anorexia] Onset: 09-19-2022 09-19-2022 Episodic Pleurisy; pneumothorax; pulmonary collapse (8 sources) Empyema of pleura; Translations: [Pyothorax without fistula] Onset: 04-03-2017 01-03-2023 Episodic Pneumonia (3 sources) Infective pneumonia; Translations: [Pneumonia, unspecified organism] Onset: 04-01-2017 Episodic Residual codes; unclassified (3 sources) Insomnia; Translations: [Insomnia, unspecified] Onset: 09-14-2023 09-14-2023 Episodic Septicemia (5 sources) Sepsis; Translations: [Sepsis (HCC)] Onset: 08-24-2016 03-31-2017 Episodic Spondylosis; intervertebral disc disorders; other back problems (3 sources) Backache; Translations: [Dorsalgia, unspecified] Onset: 09-14-2023 09-14-2023 Episodic Thyroid disorders (1 source) Disorder of thyroid gland; Translations: [Disorder of thyroid, unspecified] Onset: 10-07-2014 10-07-2014 Episodic Results Test Name Value Interpretation Reference Range [facility] 09-25-2023 L Specimen: [id number] Received: 09/25/23 Status: FRANCIS Sahu Num: [id number] Spec Type: Surgical Subm Dr: Timur Luz MD Tissues: A Colon Biopsy (CECAL) B Colon Biopsy (RANDOM COLON BX) Procedures: HE/4, Gross/Micro L4/2 Age/ Patient Sex Location Account Attending Physician Dandre Carranza 62/M [id number] Timur Luz MD SPEC NUM: [id number] RECD: 09/25/23 STATUS: FRANCIS SAHU NUM: [id number] JESSIE: 09/25/23- SUBM DR: Timur Luz MD ENTERED: 09/25/23-1315 [facility] DR: SPEC TYPE: Surgical DEPT: S [...] a 0.5 x 0.2 x 0.1 cm badillo polypoid tissue fragment, entirely submitted in A1. B. Received in formalin, labeled with the patient's name, date of and random colon BX is a 0.5 x 0.3 x 0.1 cm badillo mucosal tissue fragment, entirely submitted in B1. TW ---- Specimen: [id number] Received: 09/25/23 Status: FRANCIS Ac Num: [id number] Spec Type: Surgical Subm Dr: Timur Luz MD Tissues: A Colon Biopsy (CECAL) B Colon Biopsy (RANDOM COLON BX) Procedures: HE/4, Gross/Micro L4/2 ---- Patient: Dandre Carranza [id number] (Continued) ---- Specimen: [id number] Received: 09/25/23 (Continued) Signed (signature on file) Garo Guzman MD 09/26/23 1825 ---- Specimen: [id number] Received: 09/25/23 Status: FRANCIS Sahu Num: [id number] Spec Type: Surgical Subm Dr: Timur Luz MD Tissues: A Colon Biopsy (CECAL) B Colon Biopsy (RANDOM COLON BX) Procedures: Myranda LAMA/Medhat L4/2 ---- Patient: Dandre Carranza [id number] (Continued) ---- Specimen: [id number] Received: 09/25/23 (Continued) CPT Codes 21487J4 ---- ---- Specimen: [id number] Received: 09/25/23 Status: ARLEYBeck Ac Num: [id number] Spec Type: Surgical Subm Dr: Timur Luz MD Tissues: A Colon Biopsy (CECAL) B Colon Biopsy (RANDOM COLON BX) Procedures: Myranda LAMA/Medhat L4/2 ---- Patient: Dandre Carranza [id number] (Continued) ---- Signed (signature on file) Garo Guzman MD 09/26/[address] [facility] [place] 08-24-2023 L Specimen: [id number] Received: 08/27/23 Status: FRANCIS Sahu Num: [id number] Spec Type: Surgical Subm Dr: Timur Luz MD Tissues: A Small Intestine - Biopsy/Polyp (SMALL BOWEL R/O CELIAC) B GASTRIC FOR HP (GASTRIC BX R/O H.PYLORI) Procedures: HE/4, Gross/Micro L4/2, H PYLORI Age/ Patient Sex Location Account Attending Physician Dandre Carranza 62/M [id number] Timur Luz MD SPEC NUM: [id number] RECD: 08/27/23 STATUS: FRANCIS SAHU NUM: [id number] JESSIE: 08/24/[address]: Timur Luz MD ENTERED: 08/27/23 [facility] DR: SPEC TYPE: Surgical DEPT: S [...] celiac, rule out H. pylori. CPT Codes 97947j9, 41926 ---- ---- Specimen: [id number] Received: 08/27/23 Status: FRANCIS Sahu Num: [id number] Spec Type: Surgical Subm Dr: Timur Luz MD Tissues: A Small Intestine - Biopsy/Polyp (SMALL BOWEL R/O CELIAC) B GASTRIC FOR HP (GASTRIC BX R/O H.PYLORI) Procedures: HE/4, Gross/Micro L4/2, H PYLORI ---- Patient: Dandre Carranza [id number] (Continued) ---- Signed (signature on file) Brooke Senior MD 08/28/23 1552 Normal [facility] CT ABDOMEN PELVIS WO IV CONT RUST 07-16-2023 CT ABDOMEN PELVIS WO IV CONTRAST [...] 09-19-2022 BASO # 0.1 103/ul Normal 0.0-0.1 [facility] Comment on above: Performed By: #### C BC #### [facility] [address], [place] [address] Dr. Edison Guzman Basophils/100 WBC (Bld) 2.0 % Normal 0.2-2.0 [facility] Comment on above: Performed By: #### C BC #### [facility] [address] [place], [place] [address] Dr. Edison Guzman EO # 0.4 103/ul Normal 0.0-0.7 [facility] Comment on above: Performed By: #### C BC #### [facility] [address] [place] [address] [address] Edison Guzman Eosinophils/100 WBC (Bld) 5.9 % Normal 0.9-7.0 [facility] Comment on above: Performed By: #### C BC #### [facility] [address] [place] [address] [address] Edison Guzman Erythrocyte distribution width (RBC) [Ratio] 14.1 % Normal 11.0-15.0 [facility] Comment on above: Performed By: #### C BC #### [facility] [address] [place] [address] [address] Edison Guzman Hematocrit (Bld) [Volume fraction] 49.4 % Normal 42.0-54.0 [facility] Comment on above: Performed By: #### C BC #### [facility] [address] [place] [address] Dr. Edison Guzman Hemoglobin (Bld) [Mass/Vol] 16.3 g/dL Normal 14.0-18.0 [facility] Comment on above: Performed By: #### C BC #### [facility] [address] [place] [address] Dr. Edison Guzman IG # 0.04 10e3/ul Critically high 0.00-0.03 [facility] Comment on above: Performed By: #### C BC #### [facility] [address] [place] [address] Dr. Edison Guzman IG % 0.7 % Critically high 0.0-0.5 [facility] Comment on above: Performed By: #### C BC #### [facility] [address] [place] [address] [address] Edison Guzman LYMPH # 1.1 103/ul Critically low 1.2-3.8 [facility] Comment on above: Performed By: #### C BC #### [facility] [address] [place] [address] Dr. Edison Guzman Lymphocytes/100 WBC (Bld) 19.1 % Critically low 20.5-60.0 [facility] Comment on above: Performed By: #### C BC #### [facility] [address] [place] [address] Dr. Edison Guzman MANUAL DIFF REQ NO Normal [facility] Comment on above: Performed By: #### C BC #### [facility] [address] [place] [address] Dr. Edison Guzman MCH (RBC) [Entitic mass] 32.1 pg Normal 25.9-34.0 [facility] Comment on above: Performed By: #### C BC #### [facility] [address] [place] [address] Dr. Edison Guzman MCHC (RBC) [Mass/Vol] 33.0 g/dL Normal 29.9-35.2 [facility] Comment on above: Performed By: #### C BC #### [facility] [address] [place] [address] Dr. Edison Guzman MCV (RBC) [Entitic vol] 97.4 fL Critically high 80.0-94.0 [facility] Comment on above: Performed By: #### C BC #### [facility] [address] [place] [address] Dr. Edison Guzman MONO # 0.7 103/ul Normal 0.3-0.8 [facility] Comment on above: Performed By: #### C BC #### [facility] [address] [place] [address] Dr. Edison Guzman Monocytes/100 WBC (Bld) 11.2 % Normal 1.7-12.0 [facility] Comment on above: Performed By: #### C BC #### [facility] [address] [place] [address] Dr. Edison Guzman NEUT # 3.6 103/ul Normal 1.4-6.5 [facility] Comment on above: Performed By: #### C BC #### [facility] [address] [place] [address] Dr. Edison Guzman Neutrophils/100 WBC (Bld) 61.1 % Normal 43.0-75.0 [facility] Comment on above: Performed By: #### C BC #### [facility] [address] [address] [address] Edison Guzman Platelet mean volume (Bld) [Entitic vol] 8.5 fL Critically low 9.5-13.5 [facility] Comment on above: Performed By: #### C BC #### [facility] [address] [address] [address] Edison Guzman PLT 299 103/ul Normal 150-450 [facility] Comment on above: Performed By: #### C BC #### [facility] [address] [address] [address] Edison Guzman RBC 5.07 106/ul Normal 4.70-6.10 [facility] Comment on above: Performed By: #### C BC #### [facility] [address] [place] [address] Dr. Edison Guzman WBC 6.0 103/ul Normal 4.0-11.0 [facility] Comment on above: Performed By: #### C BC #### [facility] [address] [place] [address] Dr. Edison Guzman MRI BRAIN WO W CONon 05-16-2 023 MRI BRAIN WO W CON EXAMINATION: [...] SUZY WALLACE Date: 2022-09-19 15:47 Normal [facility] PROF 14(COMP METB)on 023 Albumin [Mass/Vol] 3.8 g/dL Normal 3.4-5.0 [facility] Comment on above: Performed By: #### C MP #### [facility] [address] [place] [address] Dr. Edison Guzman Albumin/Globulin [Mass ratio] 1.0 {ratio} Normal [facility] Comment on above: Performed By: #### C MP #### [facility] [address] [place] [address] Dr. Edison Guzman ALP [Catalytic activity/Vol] 117 U/L Critically high 46-116 [facility] Comment on above: Performed By: #### C MP #### [facility] [address] [place] [address] Dr. Edison Guzman ALT [Catalytic activity/Vol] 20 U/L Normal 16-63 [facility] Comment on above: Performed By: #### C MP #### [facility] [address] [place] [address] Dr. Edison Guzman Anion gap [Moles/Vol] 10.1 mmol/L Normal [facility] Comment on above: Performed By: #### C MP #### [facility] [address] [place] [address] Dr. Edison Guzman AST [Catalytic activity/Vol] 17 U/L Normal 15-37 [facility] Comment on above: Performed By: #### C MP #### [facility] [address] [place] [address] Dr. Edison Guzman Bilirubin [Mass/Vol] 0.3 mg/dL Normal 0.2-1.0 [facility] Comment on above: Performed By: #### C MP #### [facility] [address] [place] [address] Dr. Edison Guzman Calcium [Mass/Vol] 8.6 mg/dL Normal 8.5-10.1 [facility] Comment on above: Performed By: #### C MP #### [facility] [address] [place] [address] Dr. Edison Guzman Chloride [Moles/Vol] 104 mmol/L Normal 98-107 [facility] Comment on above: Performed By: #### C MP #### [facility] [address] [place] [address] Dr. Edison Guzman CO2 [Moles/Vol] 34.3 mmol/L Critically high 21.0-32.0 [facility] Comment on above: Performed By: #### C MP #### [facility] [address] [place] [address] Dr. Edison Guzman Creatinine [Mass/Vol] 0.78 mg/dL Normal 0.70-1.30 [facility] Comment on above: Performed By: #### C MP #### [facility] [address] [place] [address] Dr. Edison Guzman EGFR-AF OMANI >60 Normal >=[address] [facility] Comment on above: Performed By: #### C MP #### [facility] [address] [place] [address] Dr. Edison Guzman EGFR-NON AF OMANI >60 Normal >=60 [facility] Comment on above: Performed By: #### C MP #### [facility] [address] [place] [address] Dr. Edison Guzman Globulin (S) [Mass/Vol] 3.8 g/dL Normal [facility] Comment on above: Performed By: #### C MP #### [facility] [address] [place] [address] Dr. Edison Guzman Glucose [Mass/Vol] 94 mg/dL Normal 74-106 [facility] Comment on above: Performed By: #### C MP #### [facility] [address] [address] [address] Edison Guzman Potassium [Moles/Vol] 4.4 mmol/L Normal 3.5-5.1 [facility] Comment on above: Performed By: #### C MP #### [facility] [address] [address] [address] Edison Guzman Protein [Mass/Vol] 7.6 g/dL Normal 6.4-8.2 [facility] Comment on above: Performed By: #### C MP #### [facility] [address] [address] [address] Edison Guzman Sodium [Moles/Vol] 144 mmol/L Normal 136-145 [facility] Comment on above: Performed By: #### C MP #### [facility] [address] [address] [address] Edison Guzman Urea nitrogen [Mass/Vol] 11.0 mg/dL Normal 7.0-18.0 [facility] Comment on above: Performed By: #### C MP #### [facility] [address] [address] [address] Edison Guzman Urea nitrogen/Creatinine [Mass ratio] 14.1 mg/mg Normal [facility] Comment on above: Performed By: #### C MP #### [facility] [address] [address] [address] Edison Guzman CBC AUTO DIFFon 06-30-2022 BASO # 0.2 103/ul Critically high 0.0-0.1 [facility] Comment on above: Performed By: #### C BC #### [facility] [address] [address] [address] Edison Guzman Basophils/100 WBC (Bld) 2.6 % Critically high 0.2-2.0 [facility] Comment on above: Performed By: #### C BC #### [facility] [address] [address] [address] Edison Guzman EO # 0.3 103/ul Normal 0.0-0.7 [facility] Comment on above: Performed By: #### C BC #### [facility] [address] [address] [address] Edison Guzman Eosinophils/100 WBC (Bld) 3.9 % Normal 0.9-7.0 [facility] Comment on above: Performed By: #### C BC #### [facility] [address] [place] [address] Dr. Edison Guzman Erythrocyte distribution width (RBC) [Ratio] 15.1 % Critically high 11.0-15.0 [facility] Comment on above: Performed By: #### C BC #### [facility] [address] [place] [address] Dr. Edison Guzman Hematocrit (Bld) [Volume fraction] 47.5 % Normal 42.0-54.0 [facility] Comment on above: Performed By: #### C BC #### [facility] [address] [place] [address] Dr. Edisno Guzman Hemoglobin (Bld) [Mass/Vol] 15.4 g/dL Normal 14.0-18.0 [facility] Comment on above: Performed By: #### C BC #### [facility] [address] [place] [address] Dr. Edison Guzman IG # 0.10 10e3/ul Critically high 0.00-0.03 [facility] Comment on above: Performed By: #### C BC #### [facility] [address] [place] [address] Dr. Edison Guzman IG % 1.4 % Critically high 0.0-0.5 [facility] Comment on above: Performed By: #### C BC #### [facility] [address] [place] [address] Dr. Edison Guzman LYMPH # 1.4 103/ul Normal 1.2-3.8 [facility] Comment on above: Performed By: #### C BC #### [facility] [address] [place] [address] Dr. Edison Guzman Lymphocytes/100 WBC (Bld) 19.6 % Critically low 20.5-60.0 [facility] Comment on above: Performed By: #### C BC #### [facility] [address] [place] [address] Dr. Edison Guzman MANUAL DIFF REQ NO Normal [facility] Comment on above: Performed By: #### C BC #### [facility] [address] [place] [address] Dr. Edison Guzman MCH (RBC) [Entitic mass] 30.8 pg Normal 25.9-34.0 [facility] Comment on above: Performed By: #### C BC #### [facility] [address] [place] [address] Dr. Edison Guzman MCHC (RBC) [Mass/Vol] 32.4 g/dL Normal 29.9-35.2 [facility] Comment on above: Performed By: #### C BC #### [facility] [address] [place] [address] Dr. Edison Guzman MCV (RBC) [Entitic vol] 95.0 fL Critically high 80.0-94.0 [facility] Comment on above: Performed By: #### C BC #### [facility] [address] [place] [address] Dr. Edison Guzman MONO # 0.7 103/ul Normal 0.3-0.8 [facility] Comment on above: Performed By: #### C BC #### [facility] [address] [place] [address] Dr. Edison Guzman Monocytes/100 WBC (Bld) 9.6 % Normal 1.7-12.0 [facility] Comment on above: Performed By: #### C BC #### [facility] [address] [place] [address] Dr. Edison Guzman NEUT # 4.4 103/ul Normal 1.4-6.5 [facility] Comment on above: Performed By: #### C BC #### [facility] [address] [place] [address] Dr. Edison Guzman Neutrophils/100 WBC (Bld) 62.9 % Normal 43.0-75.0 [facility] Comment on above: Performed By: #### C BC #### [facility] [address] [place] [address] Dr. Edison Guzman Platelet mean volume (Bld) [Entitic vol] 8.6 fL Critically low 9.5-13.5 [facility] Comment on above: Performed By: #### C BC #### [facility] [address] [place] [address] Dr. Edison Guzman PLT 398 103/ul Normal 150-450 [facility] Comment on above: Performed By: #### C BC #### [facility] [address] [place] [address] Dr. Edison Guzman RBC 5.00 106/ul Normal 4.70-6.10 [facility] Comment on above: Performed By: #### C BC #### [facility] [address] [place] [address] Dr. Edison Guzman WBC 7.0 103/ul Normal 4.0-11.0 [facility] Comment on above: Performed By: #### C BC #### [facility] [address] [place] [address] Dr. Edison Guzman CBC AUTO DIFFon 04-21-2022 BASO # 0.2 103/ul Critically high 0.0-0.1 [facility] Comment on above: Performed By: #### C BC #### [facility] [address] [place] [address] Dr. Edison Guzman Basophils/100 WBC (Bld) 2.3 % Critically high 0.2-2.0 [facility] Comment on above: Performed By: #### C BC #### [facility] [address] [place] [address] Dr. Edison Guzman EO # 0.3 103/ul Normal 0.0-0.7 [facility] Comment on above: Performed By: #### C BC #### [facility] [address] [place] [address] Dr. Edison Guzman Eosinophils/100 WBC (Bld) 4.3 % Normal 0.9-7.0 [facility] Comment on above: Performed By: #### C BC #### [facility] [address] [place] [address] Dr. Edison Guzman Erythrocyte distribution width (RBC) [Ratio] 14.4 % Normal 11.0-15.0 [facility] Comment on above: Performed By: #### C BC #### [facility] [address] [place] [address] Dr. Edison Guzman Hematocrit (Bld) [Volume fraction] 46.6 % Normal 42.0-54.0 [facility] Comment on above: Performed By: #### C BC #### [facility] [address] [place] [address] Dr. Edison Guzman Hemoglobin (Bld) [Mass/Vol] 15.1 g/dL Normal 14.0-18.0 [facility] Comment on above: Performed By: #### C BC #### [facility] [address] [place] [address] Dr. Edison Guzman IG # 0.04 10e3/ul Critically high 0.00-0.03 [facility] Comment on above: Performed By: #### C BC #### [facility] [address] [place] [address] Dr. Edison Guzman IG % 0.6 % Critically high 0.0-0.5 [facility] Comment on above: Performed By: #### C BC #### [facility] [address] [place] [address] Dr. Edison Guzman LYMPH # 1.5 103/ul Normal 1.2-3.8 [facility] Comment on above: Performed By: #### C BC #### [facility] [address] [place] [address] Dr. Edison Guzman Lymphocytes/100 WBC (Bld) 23.1 % Normal 20.5-60.0 [facility] Comment on above: Performed By: #### C BC #### [facility] [address] [place] [address] Dr. Edison Guzman MANUAL DIFF REQ NO Normal [facility] Comment on above: Performed By: #### C BC #### [facility] [address] [place] [address] Dr. Edison Guzman MCH (RBC) [Entitic mass] 30.4 pg Normal 25.9-34.0 [facility] Comment on above: Performed By: #### C BC #### [facility] [address] [place] [address] Dr. Edison Guzman MCHC (RBC) [Mass/Vol] 32.4 g/dL Normal 29.9-35.2 [facility] Comment on above: Performed By: #### C BC #### [facility] [address] [place] [address] Dr. Edison Guzman MCV (RBC) [Entitic vol] 94.0 fL Normal 80.0-94.0 [facility] Comment on above: Performed By: #### C BC #### [facility] [address] [place] [address] Dr. Edison Guzman MONO # 0.8 103/ul Normal 0.3-0.8 [facility] Comment on above: Performed By: #### C BC #### [facility] [address] [place] [address] Dr. Edison Guzman Monocytes/100 WBC (Bld) 12.0 % Normal 1.7-12.0 [facility] Comment on above: Performed By: #### C BC #### [facility] [address] [place] [address] Dr. Edison Guzman NEUT # 3.7 103/ul Normal 1.4-6.5 [facility] Comment on above: Performed By: #### C BC #### [facility] [address] [place] [address] Dr. Edison Guzman Neutrophils/100 WBC (Bld) 57.7 % Normal 43.0-75.0 [facility] Comment on above: Performed By: #### C BC #### [facility] [address] [place] [address] Dr. Edison Guzman Platelet mean volume (Bld) [Entitic vol] 8.3 fL Critically low 9.5-13.5 [facility] Comment on above: Performed By: #### C BC #### [facility] [address] [place] [address] Dr. Edison Guzman PLT 272 103/ul Normal 150-450 [facility] Comment on above: Performed By: #### C BC #### [facility] [address] [place] [address] Dr. Edison Guzman RBC 4.96 106/ul Normal 4.70-6.10 [facility] Comment on above: Performed By: #### C BC #### [facility] [address] [place] [address] Dr. Edison Guzman WBC 6.5 103/ul Normal 4.0-11.0 [facility] Comment on above: Performed By: #### C BC #### [facility] [address] [place] [address] Dr. Edison Guzman BUNon 01-26-2022 Urea nitrogen [Mass/Vol] 12.0 mg/dL Normal 7.0-18.0 [facility] Comment on above: Performed By: #### C CANDIDO, BUN #### [facility] [address] [place] [address] Dr. Edison Guzman CBC AUTO DIFFon 01-26-2022 BASO # 0.2 103/ul Critically high 0.0-0.1 [facility] Comment on above: Performed By: #### C BC #### [facility] [address] [place] [address] Dr. Edison Guzman Basophils/100 WBC (Bld) 1.4 % Normal 0.2-2.0 [facility] Comment on above: Performed By: #### C BC #### [facility] [address] [place] [address] Dr. Edison Guzman EO # 0.3 103/ul Normal 0.0-0.7 [facility] Comment on above: Performed By: #### C BC #### [facility] [address] [place] [address] Dr. Edison Guzman Eosinophils/100 WBC (Bld) 3.1 % Normal 0.9-7.0 [facility] Comment on above: Performed By: #### C BC #### [facility] [address] [place] [address] Dr. Edison Guzman Erythrocyte distribution width (RBC) [Ratio] 12.9 % Normal 11.0-15.0 [facility] Comment on above: Performed By: #### C BC #### [facility] [address] [place] [address] Dr. Edison Guzman Hematocrit (Bld) [Volume fraction] 43.6 % Normal 42.0-54.0 [facility] Comment on above: Performed By: #### C BC #### [facility] [address] [place] [address] Dr. Edison Guzman Hemoglobin (Bld) [Mass/Vol] 14.1 g/dL Normal 14.0-18.0 [facility] Comment on above: Performed By: #### C BC #### [facility] [address] [place] [address] Dr. Edison Guzman IG # 0.11 10e3/ul Critically high 0.00-0.03 [facility] Comment on above: Performed By: #### C BC #### [facility] [address] [place] [address] Dr. Edison Guzman IG % 1.0 % Critically high 0.0-0.5 [facility] Comment on above: Performed By: #### C BC #### [facility] [address] [place] [address] Dr. Edison Guzman LYMPH # 1.2 103/ul Normal 1.2-3.8 [facility] Comment on above: Performed By: #### C BC #### [facility] [address] [place] [address] Dr. Edison Guzman Lymphocytes/100 WBC (Bld) 11.1 % Critically low 20.5-60.0 [facility] Comment on above: Performed By: #### C BC #### [facility] [address] [place] [address] Dr. Edison Guzman MANUAL DIFF REQ NO Normal [facility] Comment on above: Performed By: #### C BC #### [facility] [address] [place] [address] Dr. Edison Guzman MCH (RBC) [Entitic mass] 31.1 pg Normal 25.9-34.0 [facility] Comment on above: Performed By: #### C BC #### [facility] [address] [address] [address] Edison Guzman MCHC (RBC) [Mass/Vol] 32.3 g/dL Normal 29.9-35.2 [facility] Comment on above: Performed By: #### C BC #### [facility] [address] [address] [address] Edison Guzman MCV (RBC) [Entitic vol] 96.2 fL Critically high 80.0-94.0 [facility] Comment on above: Performed By: #### C BC #### [facility] [address] [place] [address] Dr. Edison Guzman MONO # 0.9 103/ul Critically high 0.3-0.8 [facility] Comment on above: Performed By: #### C BC #### [facility] [address] [place] [address] Dr. Edison Guzman Monocytes/100 WBC (Bld) 8.4 % Normal 1.7-12.0 [facility] Comment on above: Performed By: #### C BC #### [facility] [address] [place] [address] Dr. Edison Guzman NEUT # 8.4 103/ul Critically high 1.4-6.5 [facility] Comment on above: Performed By: #### C BC #### [facility] [address] [place] [address] Dr. Edison Guzman Neutrophils/100 WBC (Bld) 75.0 % Normal 43.0-75.0 [facility] Comment on above: Performed By: #### C BC #### [facility] [address] [place] [address] Dr. Edison Guzman Platelet mean volume (Bld) [Entitic vol] 8.3 fL Critically low 9.5-13.5 [facility] Comment on above: Performed By: #### C BC #### [facility] [address] [place] [address] Dr. Edison Guzman PLT 344 103/ul Normal 150-450 [facility] Comment on above: Performed By: #### C BC #### [facility] [address] [place] [address] Dr. Edison Guzman RBC 4.53 106/ul Critically low 4.70-6.10 [facility] Comment on above: Performed By: #### C BC #### [facility] [address] [address] [address] Edison Guzman WBC 11.1 103/ul Critically high 4.0-11.0 [facility] Comment on above: Performed By: #### C BC #### [facility] [address] [place] [address] Dr. Edison Guzman CREATININEon 01-26-2022 Creatinine [Mass/Vol] 0.72 mg/dL Normal 0.70-1.30 [facility] Comment on above: Performed By: #### C CANDIDO, BUN #### [facility] [address] [place] [address] Dr. Edison Guzman EGFR-AF OMANI >60 Normal >=[address] [facility] Comment on above: Performed By: #### C CANDIDO BUN #### [facility] [address] [place] [address] Dr. Edison Guzman EGFR-NON AF OMANI >60 Normal >=60 [facility] Comment on above: Performed By: #### C CANDIDO BUN #### [facility] [address] [place] [address] Dr. Edison Guzman MRI BRAIN WO W [...] by: EMMA PICKERING Date: 2022-01-26 13:32 Normal [facility] Creatinineon 10-07-2021 Creatinine [Mass/Vol] 0.6 mg/dL Low 0.7-1.4 [facility] Comment on above: Performed By: #### C CANDIDO #### [facility] [address], [place] [id number] eGFRAA 159 mL/min/1.73m2 Normal >60 [facility] Comment on above: Performed By: #### C CANDIDO #### [facility] [address], [place] [id number] eGFRNAA 131 mL/min/1.73m2 Normal >60 [facility] Comment on above: Performed By: #### C CANDIDO #### [facility] [address], [place] [id number] MR BRAIN WITH AND WITHOUT CO NTRASTon 07-03-2017 MR BRAIN WITH AND WITHOUT CONTRAST EXAMINATION:MR BRAIN WITH AND WITHOUT CONTRASTHISTORY:ORDERI NG SYSTEM PROVIDED HISTORY: Multiple sclerosis (HCC), TECHNOLOGIST PROVIDED HISTORY: Reason for exam: off balance for years, MS x9 yearsIllness/OtherEnco unter Type: InitialAdditional signs and symptoms: noneORDERING SYSTEM PROVIDED DIAGNOSIS CODES:G35 Multiple sclerosis (HCC)COMPARISON:Brain MRI 02/17/2011.TECHNIQUE:[facility] brain MRI protocol performed with and without [...] vascular lesions.3. Unremarkable brain otherwise.ARR/tdeWorks tation ID: [id number] by: YRIS PEREIRA on SunJul 03, 2017 4:01:10 PM ESTTranscribed by: JAC HARRIS on SunJul 03, 2017 4:30:54 PM ESTFinalized by: YRIS PEREIRA on SunJul 03, 2017 4:36:33 PM EST Normal [facility] Comment on above: Order Comment: See [...] 3. Unremarkable brain otherwise. ARR/tde Workstation ID: [id number] Invalid Interpretation Code [facility] MR Brain With And Without Contrast [...] cerebellum to appear intact. Invalid Interpretation Code [facility] MR Brain With And Without Contrast [...] 3. Unremarkable brain otherwise. ARR/tde Workstation ID: [id number] Invalid Interpretation Code [facility] Blood Gas, Venouson 04-01-20 17 Base Excess, Roby -2.3 1 Low -2.0 - 2.0 [facility] Bicarbonate (HCO3) 24.7 mmol/L Invalid Interpretation Code 24 - 28 mmol/L [facility] CO2 53.5 mm Hg High 41.0 - 51.0 [facility] Hematocrit (HCT) 42.5 % Invalid Interpretation Code 41 - 53 % [facility] Hemoglobin mass conc (Bld) 13.9 g/dL Invalid Interpretation Code 13.5 - 18 g/dL [facility] O2 saturation 86.8 % Invalid Interpretation Code [facility] pH, Venous 7.29 1 Low 7.32 - 7.42 [facility] pO2, Roby 56 mm Hg High 25 - 40 [facility] CBC Auto Differentialon 03-08 Basophils Auto #/vol (Bld) 0.10 K/mcL Invalid Interpretation Code 0.00 - 0.30 [facility] Basophils/100 WBC Auto (Bld) 0.4 % Invalid Interpretation Code [facility] Eosinophils 0.03 K/mcL Invalid Interpretation Code 0.00 - 0.50 [facility] Eosinophils/100 leukocytes 0.1 % Invalid Interpretation Code [facility] Erythrocyte distribution width Auto Entitic volume (RBC) 14.2 % Invalid Interpretation Code 11.6 - 14.8 % [facility] Erythrocytes (RBC) 3.96 M/mcL Low 4.50 - 5.90 [facility] Hematocrit (HCT) 37.1 % Low 41 - 53 % [facility] Hemoglobin mass conc (Bld) 12.2 g/dL Low 13.5 - 17.5 g/dL [facility] Immature granulocytes #/vol (Bld) 0.17 K/mcL Invalid Interpretation Code 0.00 - 0.30 [facility] Immature granulocytes/100 WBC (Bld) 0.70 % Invalid Interpretation Code [facility] Comment on above: The IG parameter is the percentage of metamyelocytes, myelocytes, and promyelocytes. Lymphocytes 0.51 K/mcL Low 0.90 - 4.00 [facility] Lymphocytes/100 leukocytes 2.2 % Invalid Interpretation Code [facility] MCH 30.8 pg Invalid Interpretation Code 26 - 34 pg [facility] MCHC mass conc (RBC) 32.9 g/dL Invalid Interpretation Code 31 - 37 g/dL [facility] MCV 93.7 fL Invalid Interpretation Code 80 - 100 fL [facility] Monocytes 1.23 K/mcL High 0.30 - 0.90 [facility] Monocytes/100 leukocytes 5.2 % Invalid Interpretation Code [facility] Neutrophils 21.51 K/mcL High 1.70 - 7.00 [facility] Neutrophils/100 WBC Auto (Bld) 91.4 % Invalid Interpretation Code [facility] Nucleated erythrocytes 0.00 K/mcL Invalid Interpretation Code 0.00 - 0.00 [facility] Nucleated erythrocytes/100 erythrocytes 0.0 % Invalid Interpretation Code [facility] Platelet mean volume (PMV) 9.2 fL Invalid Interpretation Code 9 - 15.5 fL [facility] Platelets 292 K/mcL Invalid Interpretation Code 150 - 400 [facility] WBC (Leukocytes) 23.55 K/mcL High 4.50 - 11.00 [facility] Basophils Auto #/vol (Bld) 0.10 K/mcL Invalid Interpretation Code 0.00 - 0.30 [facility] Basophils/100 WBC Auto (Bld) 0.4 % Invalid Interpretation Code [facility] Eosinophils 0.01 K/mcL Invalid Interpretation Code 0.00 - 0.50 [facility] Eosinophils/100 leukocytes 0.0 % Invalid Interpretation Code [facility] Erythrocyte distribution width Auto Entitic volume (RBC) 13.9 % Invalid Interpretation Code 11.6 - 14.8 % [facility] Erythrocytes (RBC) 4.19 M/mcL Low 4.50 - 5.90 [facility] Hematocrit (HCT) 38.8 % Low 41 - 53 % [facility] Hemoglobin mass conc (Bld) 13.1 g/dL Low 13.5 - 17.5 g/dL [facility] Immature granulocytes #/vol (Bld) 0.25 K/mcL Invalid Interpretation Code 0.00 - 0.30 [facility] Immature granulocytes/100 WBC (Bld) 1.00 % Invalid Interpretation Code [facility] Comment on above: The IG parameter is the percentage of metamyelocytes, myelocytes, and promyelocytes. Lymphocytes 0.67 K/mcL Low 0.90 - 4.00 [facility] Lymphocytes/100 leukocytes 2.8 % Invalid Interpretation Code [facility] MCH 31.3 pg Invalid Interpretation Code 26 - 34 pg [facility] MCHC mass conc (RBC) 33.8 g/dL Invalid Interpretation Code 31 - 37 g/dL [facility] MCV 92.6 fL Invalid Interpretation Code 80 - 100 fL [facility] Monocytes 1.07 K/mcL High 0.30 - 0.90 [facility] Monocytes/100 leukocytes 4.5 % Invalid Interpretation Code [facility] Neutrophils 21.84 K/mcL High 1.70 - 7.00 [facility] Neutrophils/100 WBC Auto (Bld) 91.3 % Invalid Interpretation Code [facility] Nucleated erythrocytes 0.00 K/mcL Invalid Interpretation Code 0.00 - 0.00 [facility] Nucleated erythrocytes/100 erythrocytes 0.0 % Invalid Interpretation Code [facility] Platelet mean volume (PMV) 8.8 fL Low 9 - 15.5 fL [facility] Platelets 328 K/mcL Invalid Interpretation Code 150 - 400 [facility] WBC (Leukocytes) 23.94 K/mcL High 4.50 - 11.00 [facility] CBC and Differentialon 04-01 Creatinine The following orders were created for panel order CBC and Differential. Procedure Abnormality Status --------- ------ CBC Auto Differential[[id number] ] Abnormal Final result Please view results for these tests on the individual orders. Invalid Interpretation Code [facility] Work Phone: Creatinine The following orders were created for panel order CBC and Differential. Procedure Abnormality Status --------- ------ CBC Auto Differential[[id number] ] Abnormal Final result Please view results for these tests on the individual orders. Invalid Interpretation Code [facility] Work Phone: Comprehensive Metabolic Pane [facility] 04-01-2017 Alanine aminotransferase (ALT) 12 U/L [...] Invalid Interpretation Code 98 - 108 mmol/L [facility] Creatinine 0.65 mg/dL Invalid Interpretation Code 0.5 - 1.3 mg/dL [facility] eGFR (non-black) The eGFR should be used for monitoring renal function only and not for medication dosing. Invalid Interpretation Code [facility] eGFR (non-black) 107 mL/min/{1.73_m2} Invalid Interpretation Code >=60 [facility] Glucose mass conc 88 mg/dL Invalid Interpretation Code 65 - 99 mg/dL [facility] Interpretation and review of laboratory results Abnormal Invalid Interpretation Code [facility] Potassium molar conc 4.0 mmol/L Invalid [...] Invalid Interpretation Code 40 - 150 U/L [facility] Anion gap 13 mmol/L Invalid Interpretation Code 10 - 20 mmol/L [facility] Aspartate aminotransferase (AST) 8 U/L Invalid Interpretation Code 0 - 45 U/L [facility] Bicarbonate (HCO3) 23 mmol/L Invalid Interpretation Code 21 - 32 mmol/L [facility] Bilirubin (total) 0.4 mg/dL Invalid Interpretation Code 0 - 1.3 mg/dL [facility] BUN/Creatinine Ratio 11.3 mg/mg Invalid Interpretation Code 10.0 - 20.0 [facility] Calcium 8.0 mg/dL Low 8.4 - 10.2 mg/dL [facility] Chloride 102 mmol/L Invalid Interpretation Code 98 - 108 mmol/L [facility] Creatinine 0.71 mg/dL Invalid Interpretation Code 0.5 - 1.3 mg/dL [facility] eGFR (non-black) The eGFR should be used for monitoring renal function only and not for medication dosing. Invalid Interpretation Code [facility] eGFR (non-black) 103 mL/min/{1.73_m2} Invalid Interpretation Code >=60 [facility] Glucose mass conc 93 mg/dL Invalid Interpretation Code 65 - 99 mg/dL [facility] Interpretation and review of laboratory results Abnormal Invalid Interpretation Code [facility] Potassium molar conc 4.0 mmol/L Invalid Interpretation Code 3.5 - 5.1 mmol/L [facility] Protein 6.8 g/dL Invalid Interpretation Code 6 - 8 g/dL [facility] Sodium 134 mmol/L Low 135 - 145 mmol/L [facility] Urea nitrogen 8 mg/dL Invalid Interpretation Code 8 - 25 mg/dL [facility] ECG 12 Leadon 04-01-2017 Atrial Rate 143 BPM Invalid Interpretation Code [id number] P [place] 68 degrees Invalid Interpretation Code [id number] P-R Interval 134 ms Invalid Interpretation Code [id number] Q-T Interval 348 ms Invalid Interpretation Code [id number] QRS Duration 102 ms Invalid Interpretation Code [id number] QTC Calculation (Bezet) 537 ms Invalid Interpretation Code [id number] R [place] 96 degrees Invalid Interpretation Code [id number] [place] 70 degrees Invalid Interpretation Code [id number] Ventricular Rate 143 BPM Invalid Interpretation Code [id number] ECG 12 Lead Sinus tachycardia Rightward axis Borderline ECG When compared with ECG of 31-MAR-2017 23:12, No significant change was found Confirmed by Hans Conte MD ([id number]) on 04/01/2017 11:47:17 AM Invalid Interpretation Code [id number] Influenza A,B Rapid Molecula genaro 04-01-2017 Influenza A Not Detected Invalid Interpretation Code Not Detected [facility] Influenza B Not Detected Invalid Interpretation Code Not Detected [facility] Interpretation and review of laboratory results Normal Invalid Interpretation Code [facility] Influenza A,B Rapid Molecular Test Method: Nucleic Acid Amplification Invalid Interpretation Code [facility] Lactic Acid, Plasmaon 2016 Interpretation and review of laboratory results Abnormal Invalid Interpretation Code [facility] Lactate 3.5 mmol/L High 0.6 - 2 mmol/L [facility] Interpretation and review of laboratory results Abnormal Invalid Interpretation Code [facility] Lactate 3.9 mmol/L High 0.6 - 2 mmol/L [facility] Lactate 2.3 mmol/L High 0.6 - 2 mmol/L [facility] Interpretation and review of laboratory results Abnormal Invalid Interpretation Code [facility] Lactate 2.8 mmol/L High 0.6 - 2 mmol/L [facility] Magnesium Levelon 04-01-2017 Magnesium 1.8 mg/dL Invalid Interpretation Code 1.6 - 2.4 mg/dL [facility] PT/INRon 04-01-2017 INR Coag RelTime (Bld) During the induction phase of oral anticoagulation, the INR may not reflect the anticoagulation status of the patient. Therapeutic ranges for INR's are: Most clinical situations: INR 2.0-3.0 Mechanical Prosthetic Valve: INR 2.5-3.5 Critical: INR >5.0 Invalid Interpretation Code [facility] INR Coag RelTime (PPP) 1.4 {INR} High 0.8 - 1.1 [facility] Prothrombin time (PT) Coag time (PPP) 16.5 s High 11.8 - 14.3 [facility] Prealbuminon 04-01-2017 Prealbumin 9.3 mg/dL Low 20 - 40 mg/dL [facility] T4, Freeon 04-01-2017 Thyroxine (T4) free 0.9 ng/dL Invalid Interpretation Code 0.7 - 1.7 ng/dL [facility] TSH with Reflex Free T4on Thyroid stimulating hormone (TSH) 36.20 mcIU/mL High 0.32 - 5.00 [facility] Troponinon 04-01-2017 Interpretation and review of laboratory results Normal Invalid Interpretation Code [facility] Troponin I.cardiac mass conc ng/mL Invalid Interpretation Code <=45 ng/L [facility] Comment on above: The 2014 AHA/ACC Gu ideline for the Management of Patients With Dil-SA-Kefuarbnj Acute Coronary Syndromes defines myocardial infarction (HI) as follows: 1. For troponin-I value above the 45 ng/L (99th percentile) cut-off, a rise or fall greater than or equal to 20% from the initial value is indicative of HI, in conjunction with the appropriate clinical symptoms. [...] patient's nurse, Constanza, at 5:48 a.m. on 04/01/2017.[facility] homeWork station ID: [id number] by: ALBINO MATHEWS on SunApr 01, 2017 5:49:17 AM ESTTranscribed by: PROSPER FUNG on SunApr 01, 2017 6:46:15 AM ESTFinalized by: ALBINO MATHEWS on SunApr 01, 2017 6:55:00 AM EST Normal [facility] Comment on above: Order Comment: Reaso [...] nurse, Constanza, at 5:48 a.m. on 04/01/2017. [employer] Workstation ID: [id number] Invalid Interpretation Code [employer] [place] XR Chest 1 View EXAMINATION: XR CHES [...] osseous structures are intact. Invalid Interpretation Code [employer] [facility] XR Chest 1 View Significant interval increase in size of right partially loculated pleural effusion now moderate to large in size. Increasing compressive atelectatic changes within the right lung. Left lung remains clear. Findings conveyed to patient's nurse, Constanza, at 5:48 a.m. on 04/01/2017. [employer] Workstation ID: [id number] Invalid Interpretation Code [employer] [place] Basic Metabolic Panelon 11-2 Anion gap 12 [...] Invalid Interpretation Code 98 - 108 mmol/L [facility] Creatinine 0.96 mg/dL Invalid Interpretation Code 0.5 - 1.3 mg/dL [facility] eGFR (non-black) The eGFR should be used for monitoring renal function only and not for medication dosing. Invalid Interpretation Code [facility] eGFR (non-black) 87 mL/min/{1.73_m2} Invalid Interpretation Code >=60 [facility] Glucose mass conc 145 mg/dL High 65 - 99 mg/dL [facility] Interpretation and review of laboratory results Abnormal Invalid Interpretation Code [facility] Potassium molar conc 4.4 mmol/L Invalid Interpretation Code 3.5 - 5.1 mmol/L [facility] Sodium 134 mmol/L Low 135 - 145 mmol/L [facility] Urea nitrogen 11 mg/dL Invalid Interpretation Code 8 - 25 mg/dL [facility] Blood Gas, Venouson 03-31-20 17 Base Excess, Roby 3.3 1 High -2.0 - 2.0 [facility] Bicarbonate (HCO3) 30.0 mmol/L High 24 - 28 mmol/L [facility] CO2 57.2 mm Hg High 41.0 - 51.0 [facility] Hematocrit (HCT) 43.1 % Invalid Interpretation Code 41 - 53 % [facility] Hemoglobin mass conc (Bld) 14.0 g/dL Invalid Interpretation Code 13.5 - 18 g/dL [facility] O2 saturation 50.6 % Invalid Interpretation Code [facility] pH, Venous 7.34 1 Invalid Interpretation Code 7.32 - 7.42 [facility] pO2, Roby 28 mm Hg Invalid Interpretation Code 25 - 40 [facility] CBC Auto Differentialon 03-08 Basophils Auto #/vol (Bld) 0.15 K/mcL Invalid Interpretation Code 0.00 - 0.30 [facility] Basophils/100 WBC Auto (Bld) 0.5 % Invalid Interpretation Code [facility] Eosinophils 0.05 K/mcL Invalid Interpretation Code 0.00 - 0.50 [facility] Eosinophils/100 leukocytes 0.2 % Invalid Interpretation Code [facility] Erythrocyte distribution width Auto Entitic volume (RBC) 14.0 % Invalid Interpretation Code 11.6 - 14.8 % [facility] Erythrocytes (RBC) 4.63 M/mcL Invalid Interpretation Code 4.50 - 5.90 [facility] Hematocrit (HCT) 42.2 % Invalid Interpretation Code 41 - 53 % [facility] Hemoglobin mass conc (Bld) 14.4 g/dL Invalid Interpretation Code 13.5 - 17.5 g/dL [facility] Immature granulocytes #/vol (Bld) 0.21 K/mcL Invalid Interpretation Code 0.00 - 0.30 [facility] Immature granulocytes/100 WBC (Bld) 0.70 % Invalid Interpretation Code [facility] Comment on above: The IG parameter is the percentage of metamyelocytes, myelocytes, and promyelocytes. Lymphocytes 0.51 K/mcL Low 0.90 - 4.00 [facility] Lymphocytes/100 leukocytes 1.7 % Invalid Interpretation Code [facility] MCH 31.1 pg Invalid Interpretation Code 26 - 34 pg [facility] MCHC mass conc (RBC) 34.1 g/dL Invalid Interpretation Code 31 - 37 g/dL [facility] MCV 91.1 fL Invalid Interpretation Code 80 - 100 fL [facility] Monocytes 0.97 K/mcL High 0.30 - 0.90 [facility] Monocytes/100 leukocytes 3.3 % Invalid Interpretation Code [facility] Neutrophils 27.27 K/mcL High 1.70 - 7.00 [facility] Neutrophils/100 WBC Auto (Bld) 93.6 % Invalid Interpretation Code [facility] Nucleated erythrocytes 0.00 K/mcL Invalid Interpretation Code 0.00 - 0.00 [facility] Nucleated erythrocytes/100 erythrocytes 0.0 % Invalid Interpretation Code [facility] Platelet mean volume (PMV) 8.5 fL Low 9 - 15.5 fL [facility] Platelets 440 K/mcL High 150 - 400 [facility] WBC (Leukocytes) 29.16 K/mcL High 4.50 - 11.00 [facility] CBC and Differentialon 03-31 [facility] The following orders were created for panel order CBC and Differential. Procedure Abnormality Status --------- ------ CBC Auto Differential[[id number] ] Abnormal Final result Please view results for these tests on the individual orders. Invalid Interpretation Code [facility] Work Phone: CT PULMONARY ARTERIESon 03-08 [...] are favored to be reactive.SDH/hbWorksta tion ID: [id number] by: MAR JUDGE on Sat Mar 31, 2017 11:56:38 AM ESTTranscribed by: LUDY BENNETT on Sat Mar 31, 2017 12:04:40 PM ESTFinalized by: ALFIE LDCHELSEA on Sat Mar 31, 2017 5:02:28 PM EST Normal [facility] Comment on above: Order Comment: Reaso [...] No acute osseous abnormality. Invalid Interpretation Code [employer] [facility] CT Pulmonary Arteries Interface, Rad In [...] favored to be reactive. [facility]/[employer] Workstation ID: [id number] Invalid Interpretation Code [employer] [facility] CT Pulmonary Arteries 1. No pulmonary embolism [...] favored to be reactive. [facility]/[employer] Workstation ID: [id number] Invalid Interpretation Code [employer] [facility] ECG 12 Leadon 03-31-2017 Atrial Rate 136 BPM Invalid Interpretation Code [id number] P [place] 74 degrees Invalid Interpretation Code [id number] P-R Interval 140 ms Invalid Interpretation Code VRN519 Q-T Interval 276 ms Invalid Interpretation Code [id number] QRS Duration 98 ms Invalid Interpretation Code STS116 QTC Calculation (Bezet) 415 ms Invalid Interpretation Code [id number] R [place] 128 degrees Invalid Interpretation Code [id number] T [place] 62 degrees Invalid Interpretation Code [id number] Ventricular Rate 136 BPM Invalid Interpretation Code [id number] ECG 12 Lead Sinus tachycardia Right axis deviation Abnormal ECG When compared with ECG of 10-NOV-2016 17:37, QRS axis shifted right Confirmed by Hans Conte MD ([id number]) on 04/01/2017 11:53:16 AM Invalid Interpretation Code [id number] Hepatic Function Panelon Alanine aminotransferase (ALT) 14 U/L Invalid Interpretation Code 14 - 65 U/L [facility] Albumin 3.0 g/dL Low 3.2 - [...] mmol/L [facility] Lactic Acid, Whole bloodon 05-31-2016 Lactate 2.4 mmol/L High 0.6 - 2 mmol/L [facility] Lipaseon 03-31-2017 Lipase 46 U/L Low 73 - 393 U/L [facility] Magnesium Levelon 03-31-2017 Magnesium 1.7 mg/dL Invalid Interpretation Code 1.6 - 2.4 mg/dL [facility] Troponinon 03-31-2017 Interpretation and review of laboratory results Normal Invalid Interpretation Code [facility] Troponin I.cardiac mass conc ng/mL Invalid Interpretation Code <=45 ng/L [facility] Comment on above: The 2014 AHA/ACC Gu ideline for the Management of Patients With Qhh-FO-Iyvnyxqzx Acute Coronary Syndromes defines myocardial infarction (HI) as follows: 1. For troponin-I value above the 45 ng/L (99th percentile) cut-off, a rise or fall greater than or equal to 20% from the initial value is indicative of HI, in conjunction with the appropriate clinical symptoms. 2. For troponin-I value less than 45ng/L an absolute value change greater than or equal to 8ng/L is indicative of myocardial necrosis. Interpretation and review of laboratory results Normal Invalid Interpretation Code [facility] Troponin I.cardiac mass conc ng/mL Invalid Interpretation Code <=45 ng/L [facility] Comment on above: The 2014 AHA/ACC Gu ideline for the Management of Patients With Vkk-SL-Fqnzusxiw Acute Coronary Syndromes defines myocardial infarction (HI) as follows: 1. For troponin-I value above the 45 ng/L (99th percentile) cut-off, a rise or fall greater than or equal to 20% from the initial value is indicative of HI, in conjunction with the appropriate clinical symptoms. [...] ideline for the Management of Patients With Acn-ZG-Owkddjcoh Acute Coronary Syndromes defines myocardial infarction (HI) as follows: 1. For troponin-I value above the 45 ng/L (99th percentile) cut-off, a rise or fall greater than or equal to 20% from the initial value is indicative of HI, in conjunction with the appropriate clinical symptoms. [...] No Growth (<1,000 CFU/mL) Invalid Interpretation Code [facility] XR CHEST PA/APon 03-31-2017 XR CHEST [...] clear. No free air collections underneath the hemidiaphragms.[employer] orkstation ID: [id number] by: ANIYAH AVELAR on Sat Mar 31, 2017 11:07:21 AM ESTTranscribed by: EMILIA SHELBY on Sat Mar 31, 2017 11:29:53 AM ESTFinalized by: ANIYAH AVELAR on Sat Mar 31, 2017 12:23:31 PM EST Normal [facility] Comment on above: Order Comment: Reaso [...] No free air collections underneath the hemidiaphragms. [employer] Workstation ID: [id number] Invalid Interpretation Code [facility] XR Chest 1 View EXAMINATION: [...] obvious acute osseous abnormality. Invalid Interpretation Code [facility] XR Chest 1 View Interface, Rad In [...] No free air collections underneath the hemidiaphragms. [employer] Workstation ID: [id number] Invalid Interpretation Code [facility] Phoodeez [facility] XR CHEST PA/APon 11-10-2016 XR CHEST [...] No focal infiltrate or mass.IMPRESSION:No acute cardiopulmonary findings.PRL/ashleyOchoaphyllis ation ID: [id number] by: LEONCIO BELTRAN on SunNov 10, 2016 6:11:38 PM EDTTranscribed by: RUTH PRADHAN IN [employer] on SunNov 10, 2016 6:49:22 PM EDTFinalized by: LEONCIO BELTRAN on SunNov 10, 2016 6:49:22 PM EDT Normal [facility] Comment on above: Order Comment: Reaso n for exam?:cpInjury/Trauma or Illness?:Illness/OtherHow long have you had these symptoms (acute/chronic)?:AcuteHistory of cancer?:nSurgeries, chemotherapy, or radiation?:nType of Exam?:InitialAdditional signs and symptoms?:sob Vital Signs Date Time Vital Sign Value Performing Clinician Facility 02-06-2024 10:35-0400 Body height 180.3 cm Fabiana HURST Work Phone: [facility] 02-06-2024 10:35-0400 Body mass index (BMI) [Ratio] 20.92 kg/m2 Fabiana HURST Work Phone: [facility] 02-06-2024 10:35-0400 Body weight 68.04 kg Fabiana HURST Work Phone: [facility] 02-06-2024 10:35-0400 Diastolic blood pressure 72 mm[Hg] Fabiana HURST Work Phone: [facility] 02-06-2024 10:35-0400 Heart rate 102 /min Fabiana HURST Work Phone: [facility] 02-06-2024 10:35-0400 Respiratory rate 16 /min Fabiana HURST Work Phone: [facility] 02-06-2024 10:35-0400 SaO2% (BldA) [Mass fraction] 93 % Fabiana HURST Work Phone: [facility] 02-06-2024 10:35-0400 Systolic blood pressure 112 mm[Hg] Fabiana HURST Work Phone: [facility] 09-25-2023 12:30-0400 Diastolic blood pressure 82 mm[Hg] MD Shasta Bermudez Work Phone: [facility] 09-25-2023 12:30-0400 Heart rate 100 /min MD Shasta Bermudez Work Phone: [facility] 09-25-2023 12:30-0400 Respiratory rate 16 /min MD Shasta Bermudez Work Phone: [facility] 09-25-2023 12:30-0400 SaO2% (BldA) [Mass fraction] 98 % MD Shasta Bermudez Work Phone: [facility] 09-25-2023 12:30-0400 Systolic blood pressure 146 mm[Hg] MD Shasta Bermudez Work Phone: [facility] 09-25-2023 10:35-0400 Body height 182.88 cm MD Shasta Bermudez Work Phone: [facility] 09-25-2023 10:35-0400 Body weight 77.11 kg MD Shasta Bermudez Work Phone: [facility] 08-24-2023 13:45-0400 Diastolic blood pressure 74 mm[Hg] MD Shasta Bermudez Work Phone: [facility] 08-24-2023 13:45-0400 Heart rate 100 /min MD Shasta Bermudez Work Phone: [facility] 08-24-2023 13:45-0400 Respiratory rate 20 /min MD Shasta Bermudez Work Phone: [facility] 08-24-2023 13:45-0400 SaO2% (BldA) [Mass fraction] 94 % MD Shasta Bermudez Work Phone: [facility] 08-24-2023 13:45-0400 Systolic blood pressure 124 mm[Hg] MD Shasta Bermudez Work Phone: [facility] 08-24-2023 11:04-0400 Body height 180.34 cm MD Shasta Bermudez Work Phone: [facility] 08-24-2023 11:04-0400 Body weight 72.57 kg MD Shasta Bermudez Work Phone: [facility] 07-25-2023 13:57-0400 Body height 180.34 cm [facility] 07-25-2023 13:57-0400 Body mass index (BMI) [Ratio] 23 kg/m2 [facility] 07-25-2023 13:57-0400 Body weight 74.84 kg [facility] 05-31-2017 14:32-0500 Body Temperature 98.2 [degF] Room [facility] Work Phone: 05-31-2017 14:32-0500 BP Diastolic 76 mm[Hg] Room [facility] Work Phone: 05-31-2017 14:32-0500 BP Systolic 122 mm[Hg] Room [facility] Work Phone: 05-31-2017 14:32-0500 Pulse (Heart Rate) 108 /min Room [facility] Work Phone: 04-01-2017 16:32-0500 BP Diastolic 70 mm[Hg] Keisha Gastelum [facility] Work Phone: 04-01-2017 16:32-0500 BP Systolic 123 mm[Hg] Keisha Deeadriana [facility] Work Phone: 04-01-2017 16:32-0500 Pulse (Heart Rate) 129 /min Keisha Gastelum [facility] Work Phone: 04-01-2017 16:32-0500 Pulse Oximetry 92 % Keisha Gastelum [facility] Work Phone: 04-01-2017 16:32-0500 Respiratory Rate 24 /min Keisha Gastelum [facility] Work Phone: 04-01-2017 16:21-0500 Body Temperature 98.8 [degF] Keisha Gastelum [facility] Work Phone: 04-01-2017 03:46-0500 BMI (Body Mass Index) 18.36 kg/m2 Keisha Gastelum [facility] Work Phone: 04-01-2017 03:46-0500 Weight 61.4 kg Keisha Gastelum [facility] Work Phone: 03-31-2017 10:32-0500 Height 182.9 cm Keisha Gastelum [facility] Work Phone: Encounters Encounter Date Encounter Type Care Provider Facility Start: 02-06-2024 End: 02-06-2024 Stephon[employer]one Power Technologiesbret Aereostefan HURST Work Phone: [facility] Start: 02-06-2024 End: 02-06-2024 Danielle Aereostefan HURST Work Phone: [facility] Start: 02-06-2024 End: 02-06-2024 Office outpatient visit 25 minutes Fabiana HURST Work Phone: [facility] Comment on above: Multiple sclerosis ( CMS/HCC) (Primary Dx); Gait abnormality; Depression, unspecified depression type (CMS/HCC); Memory loss Start: 02-06-2024 End: 02-06-2024 ambulatory FABIANA GARCIA Not Available Start: 01-10-2024 End: 01-10-2024 ambulatory RADHA EMERY Not Available Start: 11-29-2023 End: 11-29-2023 ambulatory RADHA R LAMONT Not Available Start: 11-28-2023 End: 11-28-2023 ambulatory AGNES ARRINGTON Not Available Start: 11-15-2023 End: 11-15-2023 ambulatory FABIANA GARCIA Not Available Start: 10-30-2023 End: 10-30-2023 ambulatory RADHA R LAMONT Not Available Start: 10-09-2023 End: 10-09-2023 ambulatory RADHA R EMERY Not Available Start: 09-25-2023 End: 09-25-2023 ambulatory Shasta Bermudez Facility:[facility] Start: 09-25-2023 Non-patient / Non-visit MD Shasta Bermudez Work Phone: [facility] Work Phone: Start: 09-25-2023 End: 09-25-2023 Admission to same day surgery center MD hSasta Bermudez Work Phone: [facility] Work Phone: Start: 09-25-2023 End: 09-25-2023 ambulatory MD Shasta Bermudez Work Phone: [facility] Work Phone: Start: 09-18-2023 End: 09-18-2023 ambulatory RADHASANFORD EMERY Not Available Start: 09-17-2023 End: 09-17-2023 ambulatory FABIANA SELMA Not Available Start: 09-10-2023 End: 09-10-2023 ambulatory RADHASANFORD EMERY Not Available Start: 08-24-2023 Non-patient / Non-visit MD Shasta Bermudez Work Phone: [facility] Work Phone: Start: 08-24-2023 End: 08-24-2023 ambulatory Shasta Millarder Facility:[facility] Start: 08-24-2023 End: 08-24-2023 Admission to same day surgery center MD Shasta Bermudez Work Phone: [facility] Work Phone: Start: 08-24-2023 End: 08-24-2023 ambulatory MD Shasta Bermudez Work Phone: [facility] Work Phone: Start: 07-25-2023 End: 07-25-2023 ambulatory [facility] Work Phone: Start: 07-25-2023 End: 07-25-2023 Patient encounter procedure [facility] Work Phone: Start: 07-16-2023 End: 07-16-2023 ambulatory RADHA EMERY Not Available Start: 07-04-2023 End: 07-04-2023 ambulatory RADHA EMERY Not Available Start: 06-21-2023 Telephone encounter Esperanza Landaverde P TA [facility] Comment on above: re: Last PT (He call ed noting an unexpected situation came up w/ family and is in need to cx tomorrow. He did say he knows tomorrow was his last and does not feel rs is needed; he is very appreciative of the therapy given.) Start: 06-20-2023 Refill Radha Nghia Emery N P Work Phone: [facility] Comment on above: Slow transit constip ation Start: 06-20-2023 Telephone encounter Shasta rae MD Work Phone: [facility] Start: 06-15-2023 Bamboo flowsheet Esperanza Brink [employer]IC[employer] [facility] Start: 06-15-2023 Bamboo flowsheet Esperanza Brink [employer]ER [employer] CREATIVE OFFICER [facility] Start: 06-15-2023 End: 06-15-2023 ambulatory ESPERANZA BRINK Not Available Start: 06-13-2023 Bamboo flowsheet Sourav Merinozoe nce [employer]OUNDER [employer] CREATIVE OFFICER [facility] Start: 06-13-2023 Bamboo flowsheet Sourav Sara nce [employer]ER [employer]IE[employer] CREATIVE OFFICER [facility] Start: 06-13-2023 End: 06-13-2023 ambulatory SOURAVALFA CASTANON Not Available Start: 06-11-2023 End: 06-11-2023 [...] End: 07-04-2017 Ambulatory PROVIDER NOT IN SYSTEM [facility] Start: 07-03-2017 End: 07-03-2017 Ambulatory Provider Not In System [facility] MRI Start: 05-31-2017 End: 05-31-2017 [facility] [facility] Start: 05-31-2017 Ambulatory Rudolph Augustine Redmond Work Phone: [facility] Start: 05-30-2017 End: 05-30-2017 Ambulatory MIS JORDAN [facility] Start: 05-30-2017 End: 05-30-2017 Ambulatory RUDOLPH REDMOND [facility] Start: 05-30-2017 Ambulatory Rudolph Redmond Work Phone: [facility] Start: 04-01-2017 End: 04-01-2017 Evaluation and management of inpatient RUDOLPH BOB [facility] Start: 03-31-2017 Emergency department patient visit KEISHA GASTELUM [facility] Start: 03-31-2017 End: 04-01-2017 Evaluation and management of inpatient Keisha Gastelum Work Phone: [facility] ICU Step Down Start: 11-10-2016 End: 11-10-2016 Ambulatory RUDOLPH AUGUSTINE REDMOND [facility] Start: 10-19-2014 End: 10-19-2014 Telephone encounter Shasta Ramirez MD Work Phone: [facility] Procedures Date Procedure Procedure Detail Performing Clinician Start: 09-25-2023 End: 09-25-2023 Colonoscopy MD Shasta Bermudez Work Phone: Start: 08-24-2023 Esophagogastroduodenoscopy MD Shasta Bermudez Work Phone: Plan of Treatment Date Care Activity Detail Author Start: 09-24-2033 Screening for malignant neoplasm of colon [facility] Start: 09-09-2024 Medicare Annual Wellness (AWV) Medicare Annual Wellness (AWV) [facility] Start: 05-20-2024 End: 05-20-2024 Patient encounter procedure 05/20/2024 11:30 AM EST Office Visit [facility] [address] [place] [phone] Radha Emery NP [address] [place], [place] [phone] [facility] Start: 05-12-2024 End: 05-12-2024 Patient encounter procedure 05/12/2024 10:20 AM EST Office Visit [facility] [address] [place] [address] Olive Nice MD [address] [place] [address] [facility] Start: 03-21-2024 End: 03-21-2024 Patient encounter procedure 03/21/2024 11:00 AM EST Office Visit [facility] [address] [place] [address] Agnes Arrington, DO [address] [place] [address] [facility] Start: 03-04-2024 End: 03-04-2024 Patient encounter procedure 03/04/2024 11:20 AM EDT Office Visit [facility] [place] [facility] [address] [place] [address] Fabiana Garcia PA [address] [place] [address] [facility] [facility] Start: 02-06-2024 End: 02-05-2025 Creatinine [Mass/volume] in Serum or Plasma Creatinine, Serum Lab Routine Multiple sclerosis (CMS/HCC) Expected: 02/06/2024 (Approximate), Expires: 02/05/2025 [facility] Comment on above: Expected: 02/06/2024 (Approximate), Expires: 02/05/2025 Start: 02-06-2024 End: 02-05-2025 MR Cervical spine WO and W contrast IV MR cervical spine w and wo contrast Imaging Routine Multiple sclerosis (CMS/HCC) Expected: 02/06/2024 (Approximate), Expires: 02/05/2025 [facility] Work Phone: Comment on above: Expected: 02/06/2024 (Approximate), Expires: 02/05/2025 Start: 02-06-2024 End: 02-05-2025 MR Thoracic spine WO and W contrast IV MR thoracic spine w and wo contrast Imaging Routine Multiple sclerosis ([facility]/HCC) Expected: 02/06/2024 (Approximate), Expires: 02/05/2025 [facility] Comment on above: Expected: 02/06/2024 (Approximate), Expires: 02/05/2025 Start: 02-06-2024 End: 02-06-2024 Patient encounter procedure 02/06/2024 11:00 AM EDT [facility] [address] [facility] [address] [place] [phone] Fabiana Garcia PA [address] [place] [address] [facility] Comment on above: Arrived Start: 01-06-2024 Influenza vaccination Influenza Vacc ine (#1) [facility] Start: 01-04-2024 Medicare Annual Wellness (AWV) Medicare Annual Wellness (AWV) [facility] Start: 09-25-2023 [facility] Start: 08-30-2023 Screening for malignant neoplasm of colon [facility] Start: 08-24-2023 [facility] Start: 07-13-2023 End: 07-13-2023 Patient encounter procedure 07/13/2023 10:00 AM EST Office Visit [facility] [address] [place] [phone] Agnes Arrington, [address] [place] [address] [facility] Start: 07-04-2023 End: 07-04-2023 Patient encounter procedure 07/04/2023 10:30 AM EST Office Visit [facility] [address] [place] [phone] Radha Eemry, CHEMICAL LABORATORY TESTER [address] [place], [place] [phone] [facility] Start: 06-22-2023 End: 06-22-2023 ambulatory 06/22/2023 11:30 AM EST Treatment [facility] [address] [facility] [address] [place] [phone] Esperanza Landaverde PTA [facility] Start: 06-15-2023 End: 06-15-2023 ambulatory [facility] Comment on above: Arrived Start: 06-13-2023 End: 06-13-2023 ambulatory 06/13/2023 11:00 AM EST Treatment [facility] [address] [facility] [address] [place] [phone] Sourav Castanon PTA Arrived [facility] Comment on above: Arrived Start: 01-05-2021 Influenza vaccination INFLUENZ A (Season Ended) [facility] Start: 08-30-2017 Ambulatory 08/30/2017 Infusion/Injection Infusion Therapy Rudolph Redmond MD [address] [place] [address] [phone] [facility] Start: 08-29-2017 Ambulatory 08/29/2017 Infusion/Injection Infusion Therapy Rudolph Redmond MD [address] [place] [address] [phone] [facility] Start: 08-28-2017 Ambulatory 08/28/2017 Infusion/Injection Infusion Therapy Rudolph Redmond MD [address] [place] [address] [phone] [facility] Start: 06-01-2017 Ambulatory 06/01/2017 Infusion/Injection Infusion Therapy Rudolph Redmond MD [address] [place] [address] [phone] [facility] Start: 05-31-2017 Ambulatory 05/31/2017 Infusion/Injection Infusion Therapy Rudolph Redmond MD [address] [place] [address] [phone] [facility] Start: 01-05-2017 Influenza vaccination SEQUENTI AL INFLUENZA VACCINE (#1) [facility] Work Phone: Start: 2013 PROSTATE CANCER SCREENING DISCUSSION PROSTATE CANCER SCREENING DISCUSSION [facility] Start: 2008 Screening for malignant neoplasm of colon [facility] Start: 2008 SHINGRIX VACCINE (1 of 2) SHINGRIX VACCINE (1 of 2) [facility] Start: 12-21-2003 DIABETES SCREEN DIABETES SCREEN [facility] Start: 1993 LIPID SCREEN LIPID SCREEN [facility] Start: 1977 Urine microalbumin profile DTAP,TDAP,TD (1 - Tdap) [facility] Start: 1976 HEPATITIS C SCREENING HEPATITIS C [facility] Start: 1976 HIV SCREENING HIV SCREENING [facility] Start: 1970 Adult depression screening assessment DEPRESSION SCREENING [facility] Start: 1958 Screening for malignant neoplasm of colon [facility] Start: 1958 HEPATITIS C SCREENING HEPATITIS C SC [facility] Work Phone: Start: 1958 Low-dose CT Lung Cancer Screen Low-dose CT Lung Cancer Screen [facility] Work Phone: Start: 1958 Screening colonoscopy COLONOSCOPY O [facility] Work Phone: Start: 1958 Tetanus vaccination TETANUS EVERY 10 YR [facility] Work Phone: End: 04-01-2017 Bacteria aerobode culture Urine Aerobic Culture Routine Once for 1 Occurrences starting 04/01/2017 until 04/01/2017 [facility] Work Phone: Bacteria aerobode culture Urine Aerobic Culture Routine 04/01/2017 2:30 AM EST [facility] Work Phone: Bacteria culture [facility] Work Phone: Bacteria identified in Sputum by Aerobe culture Sputum Aerobic Culture Routine 04/01/2017 11:02 AM EST [facility] Work Phone: Elastase.pancreatic [Mass/mass] in Stool [facility] Patient Education [facility] Work Phone: [facility] Immunizations Immunization Date Immunization Notes Care Provider [facility] 04-25-2023 influenza, injectabl e, quadrivalent, preservative free Sourav Castanon [facility] Work Phone: 04-25-2023 influenza virus vacc ine, unspecified formulation Fabiana HURST Work Phone: [facility] 03-20-2022 COVID-19 mRNA Bivale nt Booster (Moderna) MD Shasta Bermudez Work Phone: [facility] 03-20-2022 Moderna SARS-CoV-2 50mcg/0.5mL Booster Sourav Castanon [facility] 12-19-2021 Pneumococcal Conjuga te PCV 20 Sourav Castanon [facility] 05-16-2021 influenza, injectabl e, quadrivalent, preservative free Sourav Castanon [facility] 04-20-2021 COVID-19 mRNA-1273 (Moderna) MD Shasta Bermudez Work Phone: [facility] 08-05-2020 COVID-19 mRNA-1273 (Moderna) MD Shasta Bermudez Work Phone: [facility] 07-08-2020 COVID-19 mRNA-1273 (Moderna) MD Shasta Bermudez Work Phone: [facility] 02-25-2020 influenza, injectabl e, quadrivalent, preservative free Sourav Bob [employer] OFFIC[employer] [facility] 10-20-2019 pneumococcal polysaccharide vaccine, 23 valent Sourav Bob [employer]ATIVE OFFIC[employer] [facility] Payers Date Payer Category Payer Self-pay [id number] 2023 Medicaid [place]ICAID [place] [id number] 2023-Present [phone] [address] [place] [address] Medicaid [id number] 2023 Medicaid [id number] 2022 Medicare HU[employer]NA MEDICARE ADVANTAGE [employer] MEDICARE [id number] 2022-Present [address] [address] [place] [address] [id number] 2014 Medicare UHC MEDICARE [facility] MEDICARE [id number] 2014-Present Medicare [id number] 2011 Medicare [id number] [id number] 1959 Medicare [id number] 1958 Unknown [id number] 2.16.840.1.978633.3.579.2.593 1958 Unknown [id number] 2.16.840.1.297015.3.579.2.593 1958 Unknown [id number] 2.16.840.1.037463.3.579.2.593 1958 Unknown [id number] 2.16.840.1.943748.3.579.2.593 1958 Unknown [id number] 2..840.1.860218.3.579.2.1258 1958 Unknown [id number] 2..840.1.266434.3.579.2.1258 1958 Unknown [id number] 2.16.840.1.145558.3.579.2.1258 1958 Unknown [id number] 2..840.1.152596.3.579.2.1258 1958 Unknown [id number] 2..840.1.148735.3.579.2.1258 1958 Unknown [id number] 2..840.1.339718.3.579.2.1258 1958 Unknown [id number] 2.840.1.195815.3.579.2.1258 1958 Unknown [id number] 2..840.1.202832.3.579.2.1258 1958 Unknown [id number] 2..840.1.663751.3.579.2.1258 1958 Unknown [id number] 2..840.1.259641.3.579.2.1258 1958 Unknown [id number] 2.840.1.952077.3.579.2.1258 1958 Unknown [id number] 2..840.1.962034.3.579.2.1258 1958 Unknown [id number] 2..840.1.048337.3.579.2.1258 1958 Unknown [id number] 2.16.840.1.604096.3.579.2.1258 1958 Unknown [id number] 2..840.1.525120.3.579.2.1258 1958 Unknown [id number] 2..840.1.762057.3.579.2.1259 1958 Unknown [id number] 2.16.840.1.081263.3.579.2.1259 1958 Unknown [id number] 2.16.840.1.135933.3.579.2.1259 1958 Unknown [id number] 2.16.840.1.793258.3.579.2.1259 1958 Unknown [id number] 2.16.840.1.688151.3.579.2.1259 1958 Unknown [id number] 2.16.840.1.101210.3.579.2.1259 Medicare [id number] 2.16.840.1.981583.3.249.13 Medicaid Medicaid [id number] Unknown Regular Insurance [id number] Unknown [id number] 2.16.840.1.187138.3.579.2.531 Unknown [id number] 2.16.840.1.889346.3.579.2.531 Social History Date Type Detail Facility Start: 05-30-2017 End: 11-15-2023 Tobacco smoking status [facility] Current every day smoker [facility] History of tobacco use Cigarette Smoker O [facility] Work Phone: Start: 05-30-2017 End: 11-22-2023 Cigarettes smoked current (pack per day) - Reported [facility] Start: 1960 Sex Assigned At Not on file [facility] Work Phone: Start: 10-07-2014 Tobacco smoking status ILIS Current some day smoker [facility] Start: 10-07-2014 Alcohol intake Current non-drinker of alcohol (finding) [facility] Start: 10-17-2022 End: 11-15-2023 Tobacco use and exposure Smokeless tobacco non-user [facility] Start: 04-25-2023 Alcohol intake Lifetime non-drinker (finding) [facility] Start: 09-25-2022 End: 11-22-2023 Humiliation, Afraid, Rape, and Kick questionnaire [HARK] [...] Healthcare Start: 09-25-2022 Sexual orientation Heterosexual (finding) [facility] Start: 07-25-2023 End: 09-25-2023 Tobacco smoking status NHIS Smoker (finding) [facility] Start: 1960 Sex Assigned At Male [facility] Start: 01-10-2024 End: 02-06-2024 Alcoholic beverage intake Ex-drinker (finding) [facility] How often to you hav e a drink containing alcohol? Never [facility] Do you feel stress - tense, restless, nervous, or anxious, or unable to sleep at night because your mind is troubled all the time - these days [OSQ] Not at all [facility] Start: 07-04-2023 Alcohol Comment no Alcohol use at all now, only when i was younger [facility] Goals Date Patient Goal Desired Activity /State Personal health goal Clinical Notes 10-20-2014 to 02-06-2024 NATALI Child - 02/06/2024 11:00 AM EDTTelephone Encounter - Annmarie Carr - 06/20/2023 10:11 AM ESTTelephone Encounter - Annmarie Carr - 06/20/2023 10:11 AM EST Note Date & Type Note Facility 02-06-2024 History of Presen t illness Narrative Subjective Dandre Carranza is a 63 y.o. year old male Chief Complaint Patient presents with Multiple Sclerosis Headache Past Medical History: Diagnosis Date Anxiety Arthritis DDD (degenerative disc disease), lumbar Depression (CMS/HCC) History of being hospitalized 2018 Pneumonia Hypothyroidism (CMS/HCC) Marijuana use Multiple sclerosis (CMS/HCC) Restless leg syndrome Stroke (CMS/HCC) Past Surgical History: Procedure Laterality Date CHOLECYSTECTOMY COLONOSCOPY CT ANGIOGRAM CHEST 06/28/[address] ANGIOGRAM HEART CORONARY 08/30/2021 CT ANGIOGRAM TAVR 08/30/2021 FRACTURE SURGERY OTHER SURGICAL HISTORY Left Compound fracture left heel TONSILLECTOMY Family History Problem Relation Name Age of Onset Heart disease Father Rony Hdz Alcohol abuse Father Rony Hdz Drug abuse Father Rony Hdz Hypertension Other Heart disease Other Social History Tobacco Use Smoking status: Every Day Current packs/day: 1.50 Average packs/day: 1.5 packs/day for 40.0 years (60.0 ttl pk-yrs) Types: Cigarettes Smokeless tobacco: Never Tobacco comments: Smokes 11-20 cigarettes per day. Substance Use Topics Alcohol use: Not Currently Comment: no Alcohol use at all now, only when i was younger HPI MS -labs to review -he is asking if we are currently monitoring his MS in his spine or just in the brain -currently not on MS medication -depression is still there but no worsening -fatigue is a little worse, tired all the time -denies any visual changes -constant numbness and tingling in hands, arms, legs and feet, no worsening -more on the right side of body -reports weakness in both legs, continues to get worse -shuffling of the feet continues -nose continues to run constantly, thinks it could be allergies -balance is terrible -ambulates with a cane, occasionally a walker in the morning -denies any recent falls -he reports RLS and takes gabapentin and this helps -he admits some incontinence -continues to have morning nausea -admits to some short term memory trouble -MOCA today 25/30 MCKEON -MCKEON's have been ok -reports 1 a week -lasting most of the day -located in temporal area and radiates to top of head -denies any light or sound sensitivity -denies any nausea or vomiting -does not sleep well at night -averages 4-5 hours a night -trouble staying asleep -reports frequent waking to use the bathroom -trouble with falling back asleep -does not wake feeling rested ROS Review of Systems Constitutional: Positive for fatigue. Negative for activity change, appetite change, chills, diaphoresis, fever and unexpected weight change. Respiratory: Negative for apnea, cough, choking, chest tightness, shortness of breath, wheezing and stridor. Cardiovascular: Negative for chest pain, palpitations and leg swelling. Gastrointestinal: Negative for abdominal distention, abdominal pain, anal bleeding, blood in stool, constipation, diarrhea, nausea, rectal pain and vomiting. Musculoskeletal: Positive for gait problem. Negative for arthralgias, back pain, joint swelling, myalgias, neck pain and neck stiffness. Neurological: Positive for weakness, numbness and headaches. Negative for dizziness, tremors, seizures, syncope, facial asymmetry, speech difficulty and light-headedness. Objective Visit Vitals BP 112/72 Pulse 102 Resp 16 Ht 5' 11 Wt 150 lb SpO2 93% BMI 20.92 kg/m Smoking Status Every Day BSA 1.85 m Neurological Exam Mental Status Awake, alert and oriented to person, place and time. Recent and remote memory are intact. Speech is normal. Language is fluent with no aphasia. Attention and concentration are normal. Fund of knowledge is appropriate for level of education. Cranial Nerves CN II: Visual acuity is normal. Visual joshi full to confrontation. CN III, IV, : Extraocular movements intact bilaterally. Normal lids and orbits bilaterally. Pupils equal round and reactive to light bilaterally. CN V: Facial sensation is normal. CN VII: Full and symmetric facial movement. CN VIII: Hearing is normal. CN XI: Shoulder shrug strength is normal. Motor Normal muscle bulk throughout. Normal muscle tone. No abnormal involuntary movements. Sensory Light touch is normal in upper and lower extremities. Temperature is normal in upper and lower extremities. Gait Ataxic with a cane. Motor Examination RUE Strength deltoid, biceps, triceps, wrist extensors, wrist extensors, wrist flexor, high school physical education teacher strength 5/5. LUE Strength deltoid, biceps, triceps, wrist extensors, wrist extensors, wrist flexor, high school physical education teacher strength 5/5. RLE Strength illopsoas, quadriceps, tibialis anterior, and gastrocnemius strength 4/5. LLE Strength illopsoas, quadriceps, tibialis anterior, and gastrocnemius strength 4/5. Tone Normal tone x4 extremities. Reflexes: RUE biceps reflex 2, brachioradialis reflex 2 LUE biceps reflex 2, brachioradialis reflex 2 RLE knee reflex 2, ankle reflex 2 LLE knee reflex 2, ankle reflex 2 Upper extremity reflexes brisk Assessment and Plan Diagnoses and all orders for this visit: Multiple sclerosis ([facility]) Gait abnormality Paresthesia Dizziness Neurogenic bladder Insomnia, unspecified type Weakness Depression, unspecified depression type ([facility]) Patient with history of MS diagnosed with MS in 2007. He has trialed Gilenya, Copaxone, Avonex, Tecfidera and Tysabri in the past but had continued exacerbations. He has done well with decrease in exacerbations with Vumerity but developed potential side effects and was switched to Aubagio on 08/15/2022. He took Aubagio for about a week and developed potential side effect and stopped taking the medication. He has chronic symptoms of continued memory loss. Dizziness continues but is not worse. He has affected gait and neurogenic bladder. He ambulates with a cane and denies recent falls. He has weakness and depression. He has been experiencing some intermittent tinnitus. Overall, MRIs have remained stable since 2020 and he has been off of DMT since 09/2022 due to stable disease. He has not experienced any new symptoms but has noticed worsening depression. He continues with weakness in his lower extremities, right greater than left. He notes he has thyroid disease as well that hasn't been stable. His updated brain MRI from 09/2023 was stable. Memory loss Longstanding history of memory difficulty occurring for the past few years likely worsened by history of MS and anxiety/depression. He has not been evaluated by neuropsychology. MOCA today is . Blood work 11/28/2023: CBC revealed wbc 7.3, hemoglobin 16.0, hematocrit 47.6, platelets 318, CMP revealed creatinine 0.61 and carbon dioxide 34, Vitamin D 25-OH 100, UA no infection MOCA: 02/06/2024: 03/09/2021: Brain MRI with and without contrast 10/04/2023: revealed no new lesions, stable MS plaques, and no active lesions. Brain MRI 09/19/2022: revealed no change in size or distribution or acute findings with white matter lesions compatible with demyelinating process. Cervical and Thoracic spine MRI 01/23/2023: revealed stable known MS plaque in the cervical spinal cord, no definite new or active lesion noted. MRI of the brain 01/26/22: stable. MRI brain 01/2021: revealed moderate stable lesions with nothing active. Cervical and thoracic spine MRI 01/2021: revealed stable lesions. MRI brain 07/2019: revealed an increase in number of white matter lesions when compared to 2018 without evidence of active demyelination. PLAN Blood work reviewed I will obtain an MRI of the cervical spine to assess for MS disease progression. I will obtain an MRI of the thoracic spine to assess for MS disease progression. Patient can continue Singulair Patient is no longer on cyproheptadine or amitriptyline MOCA today and reviewed Patient to follow up with this clinic in 4-6 weeks or sooner for new or worsening symptoms documented in this encounter [facility] 09-25-2023 Procedure note [facility] 09-18-2023 Note PROCEDURE: Without IV contrast, axial [...] Berumen MD Not Available 08-24-2023 Procedure note [facility] 06-20-2023 Telephone encounter Note Patient is seeing Dr. Malone for his thyroid. He is taking his medication- maybe something in his body is not absorbing the medication. Dr. Malone wants him referred to a GI. Can you refer? Thank you. [facility] 06-20-2023 Miscellaneous Notes Patient is seeing Dr. Malone for his thyroid. He is taking his medication- maybe something in his body is not absorbing the medication. Dr. Malone wants him referred to a GI. Can you refer? Thank you. documented in this encounter [facility] 10-12-2021 Note PROCEDURE: [employer] VCT 64. With IV contrast, axial 5 [...] signed by Arvin Berumen on 10/12/2021 1107 [facility] Business Services Coordinator 10-20-2014 Miscellaneous Notes Patient will remain on [...] to discuss further. documented in this encounter [facility] Evaluation note Diagnosis Slow transit constipation [facility] this [facility] Diagnosis Onset Date Resolution Status Constipation acute Encounter for screening colonoscopy acute [facility] Work Phone: Evaluation note* Diagnosis Multiple sclerosis (CMS/HCC)- Primary Multiple sclerosis Gait abnormality Abnormality of gait Depression, unspecified depression type (CMS/HCC) Memory loss documented in this encounter [facility] Author Timur Luz [facility] August 24, 2023 12:53pm Note Date/Time August 24, 2023 12: 53pm [facility] [address] [place] [address] Gastroenterology H&P Signed Patient: Dandre Carranza MR#: [id number] : 1960 Acct:[id number] Age/Sex: 62 / M Adm Date: 4 Loc: Room: Type: [facility] Attending Dr: Timur Luz MD Copies to: [...] signed by Timur Luz MD> 08/24/23 1253 [facility] Work Phone: History and physical note Author Timur Luz [facility] September 25, 2023 11:27am Note Date/Time September 25, 2023 11:27 am [facility] [address] [place] [address] Gastroenterology H&P Signed Patient: Dandre Carranza MR#: [id number] : 1960 Acct:[id number] Age/Sex: 62 / M Adm Date: 4 Loc: Room: Type: [facility] Attending Dr: Timur Luz MD Copies to: [...] signed by Timur Luz MD> 09/25/23 112 [facility] Work Phone: Assessments Diagnosis Multiple sclerosis [...] original. DISCHARGE SUMMARY Patient: Dandre Carranza Account: [id number] Admitted: 03/31/2017 Discharge Date/Time: No discharge date for patient encounter. Clinical Summary Perpetual Assessment: Sepsis, community acquired pneumonia, multiloculated complicated pleural effusion 56 year old male with multiple sclerosis, chronic pain, tobacco abuse who presented to [facility] on 03/31/17 with 1 day history of [...] Surg service in not available currently at [facility] and patient is agreeable to transfer to [facility] further mgmt. I discussed the patient with [...] with you. Physician(s) Primary Care Provider: Rudolph Redmond MD, , Address: [address] [place] [id number] Follow Up: No follow-up provider specified. Additional [...] for Visit Constipation Encounter for screening colonoscopy Reason for Referral Specialty Diagnoses / Procedures Referred By Azra carl Referred To Contact Diagnoses Multiple sclerosis (CMS/HCC) Procedures MR thoracic spine w and wo Fabiana Bustamante PA [address] [place] [address] Referral ID Status Reason Start Date Expiration Date V isits Requested Visits Authorized [id number] Pending Review 02/06/2024 08/04/2024 1 1 Specialty Diagnoses / Procedures Referred By Azra carl Referred To Contact Diagnoses Multiple sclerosis (CMS/HCC) Procedures MR cervical spine w and wo Fabiana Bustamante PA [address] [place] [address] Referral ID Status Reason Start Date Expiration Date V isits Requested Visits Authorized [id number] Pending Review 02/06/2024 08/04/2024 1 1 Additional Source Comments Bebo Yadav MD - 03/31/2017 3:01 PM EST H&P Notes (unrecognized sect ion and content) Formatting of this note may be different from the original. HISTORY AND PHYSICAL Patient Name: Dandre Carranza Admit Date: [id number] MR #: [id number] : 1960 Physicians: Rudolph Redmond MD (Family); No ref. provider found (Referring) [...] right sided pneumonia 3. Dysphagia- Will consult LIBRARY DIRECTOR for swallow evaluation 4. Tobacco- Current 1.5ppd [...] Martinez, PT - 04/01/2017 10:44 AM Clint Martinez PT - 04/01/2017 10:44 AM Maggi Tay RN - 03/31/2017 2:59 PM EST Consult Notes (unrecognized section and content) Associated Order(s): IP CONSULT TO PULMONOLOGY Formatting of this note may be different from the original. Consult Note Name: Dandre Carranza Date/Time of Admission: 03/31/2017 10:33 AM CSN: [id number] Attending Provider: Bebo Yadav MD Room/Bed: S279/A : 1960 Age: 56 y.o. REASON FOR CONSULT pneumonia HPI I was asked by Dr. Bebo Yadav MD to see Dandre Carranza in consultation. History was obtained from patient patient's family chart review nursing Dr. Dandre Dodd Dillon is a 56 y.o. male who presents [...] - LABS Hematology Recent Labs 03/31/17 1038 03/31/17 2339 04/01/17 0718 WBC 29.16* -- 23.94* 23.55* HCT 42.2 < > 38.8* 42.5 37.1* PLT 440* -- 328 292 < > = values in this interval not displayed. Recent Labs 04/01/17 1140 PROTIME 16.5* INR 1.4* Chemistries Recent Labs 03/31/17 1038 03/31/17 2330 04/01/17 0718 NA 134* 134* 137 K 4.4 4.0 4.0 CL 98 102 108 BUN 11 8 8 CREATININE 0.96 0.71 0.65 Recent Labs 03/31/17 1038 03/31/17195803/31/17232904/01/17 0718 CALCIUM 8.9 -- 8.0* 7.6* MG -- 1.7 1.8 -- LFTs Recent Labs 03/31/17 1038 03/31/17232904/01/17 0718 AST 7 8 15 ALT 14 11* 12* ALKPHOS 122 100 98 No results for input(s): AMYLASE, LIPASE in the last 72 hours. Arterial Blood Gasses No results for input(s): PH in the last 72 hours. Invalid input(s): PCO2, PO2, [id number], INSPIREDO2 Cardiac Enzymes Recent Labs 03/31/17 1541 03/31/17195803/31/170 TROPONINI <15 <15 <15 Microbiology Imaging Chest [...] Carranza. Electronically signed: Archie Stewart MD, PhD, [facility] 04/01/2017 2:05 PM Formatting of this [...] understanding Transfers Sit to Stand: Contact guard Clerical Assigner: 1 person, Gait belt, Other (Comment) (IV [...] ambulation Prior Level of Function Level of [place]: Independent with ADLs and functional transfers, Needs [...] Yes Discharge Readiness Expected Discharge Date: 04/02/[address] [facility] Disposition D/C Disposition: Home Met with [...] note may be different from the original. [facility] ED Physician Note: NAME: Dandre Carranza 56 y.o. CSN: [id number] PCP: Rudolph Redmond MD Clinical Impression: SNOMED CT(R) 1. Pneumonia [...] Procedure Abnormality Status --------- ------ CBC Auto Differential[[id number]] Abnormal Final result Please view results for [...] No free air collections underneath the hemidiaphragms. CYNDY/kian Workstation ID: [id number] CT Pulmonary Arteries Preliminary Result 1. No [...] reactive. [facility]/ Workstation ID: [id number] Procedures: ECG 12 Lead Date/Time: 03/31/2017 3:23 PM Performed by: KEISHA GASTELUM Authorized by: KEISHA GASTELUM Rhythm: sinus rhythm and sinus tachycardia BPM: 136 Conduction: conduction normal ST Segments: ST segments normal T Waves: T waves normal normal MO interval normal QRS interval normal QT interval Clinical impression: sinus tachycardia Keisha Gastelum MD [facility] Emergency Department (Please note that portions of [...] section and content) DATE CREATED AUTHOR 10/26/2017 [facility] DATE CREATED AUTHOR AUTHOR'S ORGANIZ ATION 10/13/2021 [facility] dical Specialist DATE CREATED AUTHOR AUTHOR'S ORGANIZ ATION 09/20/2022 [facility] pital DATE CREATED AUTHOR AUTHOR'S ORGANIZ ATION 09/27/2023 [facility] y[facility] DATE CREATED AUTHOR AUTHOR'S ORGANIZ ATION 02/08/2024 [facility] dical Specialists EPIC Source Comments (unrecognize d section and content) In the event this informatio n is protected by the Federal Confidentiality of Alcohol and Drug Abuse Patient Records regulations: The Federal rules restrict any use of the information to criminally investigate or prosecute any alcohol or drug abuse patient.[facility] Care Teams (unrecognized sec tion and content) Advertising Agency Manager Relationship Specialty Start Date End Date Shasta Bermudez MD [address] [place] [address] PCP - [employer] 05/07/22 Shasta Bermudez MD [address] [place] [address] PCP - General Family Medicine 09/26/22 Macey Vargas CHEMICAL LABORATORY TESTER [address] [place] [address] Nurse Practitioner Family Medicine 09/26/22 Advertising Agency Manager Relationship Specialty Start Date End Date Shasta Bermudez MD [address] [place] [address] PCP - [employer] 05/07/22 Shasta Bermudez MD [address] [place] [address] PCP - General Family Medicine 09/26/22 Macey Vargas NP [address] [place] [address] Nurse Practitioner Family Medicine 09/26/22 Advertising Agency Manager Relationship Specialty Start Date End Date Shasta Bermudez MD [address] [facility] [place] [address] PCP - [employer] 05/07/22 Shasta Bemrudez MD [address] [facility] [place] [address] PCP - General Family Medicine 09/26/22 Macey Vargas NP [address] [facility] [place] [address] Nurse Practitioner Family Medicine 09/26/22 Team Status: [...] 2023 Team Status: Inactive Member Role Status aMriaa Bermudez MD Primary Care Provider Active Sta rt: September 25, 2023 End: September 25, 2023 Timur Luz MD Attending Provider Active Start: September 25, 2023 End: September 25, 2023 Team Status: Active Member Role Status Mariaa Bermudez MD Primary Care Provider Active Sta rt: September 25, 2023 Timur Luz MD Attending Provider, Other Provider Act chacha Start: September 25, 2023 Advertising Agency Manager Relationship Specialty Start Date End Date Shasta Bermudez MD [address] [facility] [place] [address] PCP - [employer] 05/07/22 Shasta Bermudez MD [address] [facility] [place] [address] PCP - General Family Medicine 09/26/22 Macey Vargas NP [address] [facility] [place] [address] Nurse Practitioner Family Medicine 09/26/22 Advertising Agency Manager Relationship Specialty Start Date End Date Shasta Bermudez MD [address] [facility] [place] [address] PCP - [facility] 05/07/22 Shasta Bermudez MD [address] [facility] [place] [address] PCP - General Family Medicine 09/26/22 Macey Vargas NP [address] [facility] [place] [address] Nurse Practitioner Family Medicine 09/26/22 Reason for Visit (unrecogniz ed section and content) Reason Comments Med Refill Reason Onset Date Comments re: Last PT 06/21/2023 He called noting an unexpected situation came up w/ family and is in need to cx tomorrow. He did say he knows tomorrow was his last and does not feel rs is needed; he is very appreciative of the therapy given. Reason Comments Multiple Sclerosis Headache Goals (unrecognized section and content) Goals may [...] BE BASED ON THE PRIMARY CLINICAL RECORDS. [facility]. provides no warranty or guarantee of the accuracy or completeness of information in this document.
--- NOTE | 2024-02-19 08:25 | MR_ITS ---
The [address] [address] Patient Name: VALERIE CRUM MRN: [id number] date: 1960 Sex: M Assigned Patient Location: MRI Current Patient Location: Accession/Order Number: [id number] Exam Date: 02/19/2024 08:35 Report Date: 02/20/2024 08:09 At the request of: MARIO HAHN Procedure: MR thoracic spine wo/w con EXAMINATION: MR thoracic spine wo/w con, MR cervical spine wo/w con HISTORY: Multiple Sclerosis COMPARISON: 01/23/2023 TECHNIQUE: Axial T1 and T2; Sagittal T1, T2, and STIR sequences. Images were performed without and with Dotarem contrast. FINDINGS: CORD: The previously identified area of signal abnormality in the left cervical cord at the C5-C6 level is less evident on the current exam possibly related to technique. No new focal areas of signal abnormality or postcontrast enhancement in the cervical or thoracic spine BONES: Dextrocurvature of the thoracic spine. Mild to moderate diffuse degenerative spondylosis and facet osteoarthropathy throughout the cervical and thoracic spine. There is 50% anterior wedge compression fracture T8 vertebral body. Heterogeneous appearance of the marrow likely age-related change DISCS: Mild to moderate multilevel disc space narrowing with endplate sclerosis most significant in the cervical spine from the C3 to the C7 level PARASPINAL AREA: No visible mass. OTHER: Negative. No abnormal contrast enhancement. MR/MR thoracic spine wo/w con IMPRESSION: No new or enhancing lesions identified within the cervical or thoracic spinal cord to suggest acute demyelination Electronically authenticated by: TIFFANY SCALES Date: 02/20/2024 08:09
[2024-02-19 09:31] LABS: Estimated GFR (African America >60 (>=60 mL/min/1.73m^2); Estimated GFR (Non-African Ame >60 (>=60 mL/min/1.73m^2)
== END 2024-02-19 08:22 | disposition home or self-care (01) ==
PROVIDERS: PCP Family Medicine; Visit Provider Physician Assistant
DX: G35 Multiple sclerosis (principal)
CPT/HCPCS: 36415; 72156; 72157; 82565; A9575

== ENCOUNTER 2025-01-27 14:18 | Emergency (ER) | payer MEDICARE, MEDICAID, SELFPAY ==
[2025-01-27 14:22] VITALS: BP 144/78; PULSE 97; TEMP 37.2; O2SAT 92; BMI 26.6
--- OUTSIDE RECORDS SUMMARY | 2025-01-28 08:43 | XMS_ITS | CCD ---
Author Organization [facility] Care Team Providers Care Tree Loader Meat Name Role Phone Redmond, Rudolph Davide Unavailable Unavailable Dr, None Unavailable Unavailable REDMOND, RUDOLPH DAVIDE Unavailable Unavailable YADAV, BEBO SANDADI Unavailable Unavailabl e YADAV, BEBO SANDADI Unavailable Unavailabl e YADAV, BEBO SANDADI Unavailable Unavailabl e LIUDMILA WHITE Unavailable Unavail able YRIS PEREIRA Unavailable Unavailable ARACELY GRAY Unavailable Unavailable NYHOLM, KEISHA VENANCIO Unavailable Unavailable NYHOLM, KEISHA VENANCIO Unavailable Unavailable REDMOND, RUDOLPH DAVIDE Unavailable Unavailable REDMOND, RUDOLPH DAVIDE Unavailable Unavailable REDMOND, RUDOLPH DAVIDE Unavailable Unavailable REDMOND, RUDOLPH DAVIDE Unavailable Unavailable REDMOND, RUDOLPH DAVIDE Unavailable Unavailable BAYLEE TREJO Unavailable Unavailable REDMOND, RUDOLPH DAVIDE Unavailable Unavailable MIS JORDAN Unavailable Unavailable REDMOND, RUDOLPH DAVIDE Unavailable Unavailable REDMOND, RUDOLPH DAVIDE Unavailable Unavailable REDMOND, RUDOLPH DAVIDE Unavailable Unavailable REDMOND, RUDOLPH DAVIDE Unavailable Unavailable SYSTEM, PROVIDER NOT IN Unavailable Unavaila ble REDMOND, RUDOLPH DAVIDE Unavailable Unavailable MIS JORDAN Unavailable Unavailable Redmond, Rudolph Davide Primary Care Provider DR KATRINA BERMUDEZ Primary Care Unavailable DR KATRINA BERMUDEZ Consulting Unavailable AMI BLACK Admitting Unavailable AMI BLACK Attending Unavailable LADAN, DR EMMA Agrawal Consulting Unavailable AMI BLACK Consulting Unavailable DR KATRINA BERMUDEZ Primary Care Unavailable SUZY WALLACE Consulting Unavailable FABIANA FUNG Admitting Unavailable FABIANA FUNG Attending Unavailable FABIANA FUNG Consulting Unavailable LARA, DR FRANCE Primary Care Unavailable BENEDICT, DR CARTER Admitting Unavailable BENEDICT, DR CARTER Consulting Unavailable BENERIVKACT, DR CARTER Attending Unavailable LARA, DR FRANCE Primary Care Unavailable BENEDICT, DR CARTER Admitting Unavailable BENEDISAUL, DR CARTER Consulting Unavailable TIFFANY, DR CARTER Attending Unavailable Lara HERRING Katrina Jaleel Unavailable Katrina Bermudez MD Primary Care Provider [phone] Alicia NAVAMacey Unavailable [phone] MD Katrina Bermudez Primary Care Provider MD Timur Luz Attending Provider [phone] Alicia NAVA, Macey M Unavailable Emma Arreaga MD Unavailable KATRINA BERMUDEZ Primary Care Physician ALEXANDRA MOSLEY Attending Unavailable MELANY ALEXANDRA Nohemy Admitting Unavailable MELANY, ALEXANDRA Nohemy Attending Unavailable MELANY, ALEXANDRA E Attending Unavailable MELANY, ALEXANDRA E Attending Unavailable MELANY, ALEXANDRA E Attending Unavailable MELANY, ALEXANDRA Slater Admitting Unavailable MELANY, ALEXANDRA Slater Attending Unavailable Emma Arreaga MD Unavailable Unavailable Asaad, Imad Admitting Unavailable Timur Luz Attending Unavailable Katrina Bermudez Primary Care Unavailable Emma Arreaga MD Unavailable [phone] Lara HERRING Katrina Jaleel Unavailable AMI BLACK Attending Unavailable KATRINA BERMUDEZ Referring Unavailable KATRINA BERMUDEZ Attending Unavailable KATRINA BERMUDEZ Attending Unavailable GAVIN FREITAS Attending Unavailable OLIVE NICE F Attending Unavailable GAVIN FREITAS Referring Unavailable BELEM GRANADOS Attending Unavailable KATRINA BERMUDEZ Attending Unavailable BELEM GRANADOS Referring Unavailable FABIANA HAHN Attending Unavailable FABIANA HAHN Attending Unavailable AGNES ARRINGTON Referring Unavailable AGNES ARRINGTON Attending Unavailable NANCY, OLIVE F Attending Unavailable KATRINA BERMUDEZ Attending Unavailable KATRINA BERMUDEZ Referring Unavailable Allergies Allergy Classification Reported Allergen(s) Allergy Type Date of Onset Reaction(s) Facility Glatiramer (1 source) Glatiramer Drug Allergy 5 Intolerance [facility] Work Phone: Penicillins (antibiotic) (1 source) Penicillins Drug Allergy 5 Rash [facility] Unclassified (1 source) Marijuana Drug Allergy 5 Vomiting [facility] (9 sources) glatiramer; Translations: [GLATIRAMER (COPOLYMER 1)] Propensity to adverse reactions to drug 5 Syncope (disorder) [facility] Work Phone: (8 sources) Penicillins; Translations: [PENICILLINS] Propensity to adverse reactions to drug 5 Rash [facility] Work Phone: (1 source) Glatiramer Drug Allergy 1 [facility] Repository (1 source) Penicillins Drug allergy (disorder) 3 [facility] Repository (20 sources) Glatiramer; Translations: [glatiramer] Drug Allergy 5 [facility] Work Phone: (20 sources) Glatiramer Drug Allergy 3 Dizziness [facility] (20 sources) Penicillin G; Translations: [penicillin G benzathine] Drug Allergy 3 Unknown, Hives, Rash, Eruption of skin (disorder) [facility] (20 sources) Penicillins Drug Allergy 9 Hives, Rash [facility] (20 sources) Marijuana (Cannabis Sativa) Allergy to substance 5 GI intolerance [facility] (15 sources) Penicillin G Benzathine; Translations: [penicillin G benzathine] Propensity to adverse reactions (disorder) 5 Rash [facility] Repository (1 source) Glatiramer Drug Allergy 4 [facility] Repository (1 source) Penicillins Drug allergy (disorder) 4 [facility] Repository Medications Current Medications Medication Drug Class(es) Dates Sig (Normalized) Sig (Original) alendronic acid 70 mg oral tablet (20 sources) Bisphosphonate Start: 01-12-2025 End: 01-12-2026 take 1 tablet by mouth in the morning alendronate (Fosamax) 70 MG tablet Indications: Age-related osteoporosis without current pathological fracture Take 1 tablet (70 mg) by mouth every 7 (seven) days Take in the morning with a full glass of water, on an empty stomach, and do not take anything else by mouth or lie down for the next 30 min. 4 tablet 11 01/12/2025 01/12/2026 Active Start: 03-03-2024 take 1 tablet by viji th once daily, then take 1 tablet by mouth once daily alendronate (Fosamax) 35 MG tablet Indications: Age-related osteoporosis with current pathological fracture, initial encounter Take 1 tablet (35 mg) by mouth Daily 1 tablet 30 minutes before the first food, beverage or medicine of the day with plain water Orally 90 tablet 3 03/03/2024 Active Start: 08-10-2023 take 70 mg by mouth [...] 30 min. 16 tablet 3 01/18/2023 Active End: 03-03-2024 take 1 tablet by mouth once daily alendronate (Fosamax) 70 MG tablet Take 70 mg by mouth Daily 1 tablet 30 minutes before the first food, beverage or medicine of the day with plain water Orally 03/03/2024 Discontinued (Reorder) sensor ARIPiprazole 15 mg oral tablet (20 sources) Atypical Antipsychotic Start: 06-30-2024 ARIPipr azole 15 mg oral tablet with sensor Oral, Refills(s) 0 Start Date: 06/30/24 Status: Ordered Start: 04-20-2024 ARIPiprazole ( Abilify) 15 MG tablet Indications: Current moderate episode of major depressive disorder without prior episode (HCC) TAKE 1 TABLET EVERY DAY 90 tablet 11 04/20/2024 Active Start: 07-25-2023 take 15 mg by mouth [...] EVERY DAY 90 tablet 10 02/10/2023 Active Breztri Aerosphere (2 sources) Start: 06-30-2024 Breztri Aerosphere See Instructions, Refill(s) 0 Start Date: 06/30/24 Status: Ordered 120 actuat budesonide 0.16 mg/actuat / formoterol fumarate 0.0048 mg/actuat / glycopyrrolate 0.009 mg/actuat metered dose inhaler (20 sources) Corticosteroi d, beta2-Adrener gic Agonist Start: 12-11-2023 End: 09-30-2024 take 2 puff(s) by inhalation in the morning Budeson-Glycopyrrol- Formoterol (Breztri Aerosphere) 160-9-4.8 MCG/ACT aerosol Indications: Chronic obstructive pulmonary disease with acute exacerbation (HCC) INHALE 2 PUFFS IN THE MORNING AND 2 PUFFS BEFORE BEDTIME. 32.1 g 3 09/30/2024 Active calcium carbonate 1500 mg / cholecalciferol 200 unt oral tablet (20 sources) Vitamin D Start: 12-31-2020 End: 04-18-2024 take 1 tablet by mouth twice daily calcium carbonate-vitamin D 600-200 MG-UNIT tablet 1 tablet with a meal Orally twice daily. Recommended keysha 500mg with vit d 300iu 12/31/2020 04/18/2024 Discontinued (Med list cleanup) cholecalciferol 0.025 mg oral capsule (20 sources) Vitamin D take 1 capsule by mouth once daily cholecalciferol (Vitamin D-3) 25 MCG (1000 UT) capsule Take 1 capsule by mouth Daily Active End: 01-10-2024 cholecalciferol (Vitamin D-3 ) 250 MCG (61471 UT) capsule Take by mouth 01/10/2024 Discontinued (Therapy completed) take 1 capsule by mo uth once daily cholecalciferol, vitamin D3, 2,000 unit cap Take 1 capsule by mouth daily . Active ciprofloxacin 500 mg oral tablet (9 sources) Quinolone Antimicrobial Start: 10-22-2024 End: 01-21-2025 take 1 tablet by mouth once daily in the morning, then take 1 tablet by mouth once daily at bedtime ciprofloxacin (Cipro) 500 MG tablet Indications: Acute cystitis without hematuria TAKE 1 TABLET BY MOUTH EVERY MORNING AND 1 TABLET EVERY NIGHT AT BEDTIME FOR 3 DAYS 6 tablet 10/22/2024 01/21/2025 Discontinued (Therapy completed) Start: 06-08-2024 End: 06-11-2024 take 1 tablet by mouth in the morning ciprofloxacin (Cipro) 500 MG tablet Indications: Acute cystitis without hematuria Take 1 tablet (500 mg) by mouth in the morning and 1 tablet (500 mg) before bedtime. Do all this for 3 days. 6 tablet 06/08/2024 06/11/2024 Active cyproheptadine hydrochloride 4 mg oral tablet (20 sources) Start: 12-28-2023 cyproheptadine (Periactin) 4 MG tablet 12/28/2023 Active Start: 07-25-2023 End: 09-11-2023 take 4 mg by mouth once daily at bedtime Cyproheptadine Discontinued 4 MG PO Daily at bedtime July 25, 2023 12:00am September 11, 2023 11:59am End: 01-10-2024 take 0.5-1 tablets by mouth at bedtime CYPROHEPTADINE HCL PO Take 4 mg by mouth at bedtime TAKE 1/2 TO 1 TABLET AT BEDTIME 01/10/2024 Discontinued (Therapy completed) take 0.5-1 tablets b y mouth at bedtime CYPROHEPTADINE HCL PO Take 4 mg by mouth at bedtime TAKE 1/2 TO 1 TABLET AT BEDTIME Active take 1 tablet by viji th at bedtime cyproheptadine (Periactin) 4 MG tablet Take 4 mg by mouth at bedtime. 0 Active 12 hr dalfampridine 10 mg extended release oral tablet (20 sources) Potassium Channel Saulo Start: 10-01-2024 End: 12-30-2024 take 1 tablet by mouth in the morning, then take 1 tablet by mouth every twelve hours at bedtime Dalfampridine ER (Ampyra) 10 MG tablet sustained-release 12 hour Indications: Multiple sclerosis (HCC) Take 10 mg by mouth in the morning and 10 mg before bedtime. 180 tablet 2 10/01/2024 Active Start: 04-09-2024 End: 08-27-2024 take 1 tablet by mouth in the morning, then take 1 tablet by mouth every twelve hours at bedtime Dalfampridine ER (Ampyra) 10 MG tablet sustained-release 12 hour Indications: Multiple sclerosis (CMS/HCC) Take 10 mg by mouth in the morning and 10 mg before bedtime. 180 tablet 2 05/29/2024 08/27/2024 Active Start: 03-05-2024 take 1 tablet by viji th once daily, then take 1 tablet by mouth twice daily Dalfampridine ER (Ampyra) 10 MG tablet sustained-release 12 hour Indications: Multiple sclerosis (CMS/HCC) Take 1 tab (10mg) PO once daily for 7 days, then increase to 1 tab (10mg) PO twice daily thereafter 60 tablet 2 03/05/2024 Active diphenhydrAMINE citrate 38 mg / ibuprofen 200 mg oral tablet (4 sources) Histamine-1 Receptor Antagonist, Nonsteroidal Anti-inflammatory Drug ibuprofen-diphenh ydrAMINE (IBUPROFEN PM) 200-38 mg Tab Take by mouth nightly as needed Active Docusate (20 sources) Start: 2024 docusate 100 mg, Refills(s) 0 Start Date: 06/30/24 Status: Ordered Start: 08-10-2023 take 100 mg by mouth once daily Docusate Sodium Active 100 MG PO Daily August 10, 2023 12:00am Start: 01-31-2023 End: 01-10-2024 docusate sodium (Colace) 100 MG capsule Indications: Slow transit constipation TAKE 1 CAPSULE EVERY MORNING 90 capsule 3 06/20/2023 01/10/2024 Discontinued (Ineffective) escitalopram 20 mg oral tablet (20 sources) Serotonin Reuptake Inhibitor Start: 07-15-2024 End: 07-15-2025 take 1 tablet by mouth once daily, then take 1 tablet by mouth once daily escitalopram (Lexapro) 20 MG tablet Indications: Moderate episode of recurrent major depressive disorder (HCC) Take 1 tablet (20 mg) by mouth Daily TAKE 1 TABLET EVERY DAY 90 tablet 3 07/15/2024 07/15/2025 Active Start: 11-26-2023 End: 07-15-2024 escitalopram (Lexapro) 10 MG tablet Indications: Moderate episode of recurrent major depressive disorder (CMS/HCC) TAKE 1 TABLET EVERY DAY 90 tablet 3 11/26/2023 07/15/2024 Discontinued (Reorder) Start: 08-10-2023 take 10 mg by mouth [...] mouth every night at bedtime. 0 Active fluticasone propionate 0.05 mg/actuat metered dose nasal spray (20 sources) Corticosteroid Start: 05-20-2024 End: 05-20-2025 take 1-2 spray(s) nasal route once daily fluticasone (Flonase) 50 MCG/ACT nasal spray Indications: Chronic sinusitis of both maxillary sinuses , Deviated septum USE 1-2 SPRAYS IN EACH NOSTRIL DAILY. SHAKE GENTLY. BEFORE 1ST USE, PRIME PUMP. AFTER USE, CLEAN TIP AND REPLACE CAP 48 g 3 08/04/2024 Active Fluticasone-Umecl idin-Vilanter (7 sources) Anticholinergic, Corticosteroid, beta2-Adrenergic Agonist Start: 08-10-2023 Fluticasone-Umecli din-Vilanter (Trelegy Ellipta) 100-62.5-25 mcg blister with device Active 1 INH INHALATION Daily August 10, 2023 12:00am Start: 05-13-2023 take 1 puff(s) by inhalation once daily in the morning Fesvynwiyfw-Hraidrrrn-Sgrpoy (Trelegy Ellipta) 100-62.5-25 MCG/ACT aerosol powder Indications: Chronic obstructive pulmonary disease with acute exacerbation (CMS/HCC) INHALE 1 PUFF EVERY MORNING 3 each 3 05/13/2023 Active gabapentin enacarbil 600 mg extended release oral tablet (20 sources) Anti-epileptic Agent Start: 06-30-2024 gabapenti n 600 mg oral tablet, extended release Oral, Refills(s) 0 Start Date: 06/30/24 Status: Ordered Start: 05-19-2024 gabapentin (Ne urontin) 600 MG tablet Indications: Chronic pain syndrome TAKE 2 TABLETS TWICE A DAY 360 tablet 1 05/19/2024 Active Start: 07-25-2023 take 600 mg by mouth [...] daily. liothyronine sodium 0.005 mg oral tablet (20 sources) l-Triiodothyronine Start: 07-03-2024 liothyronine (Cytomel) 5 MCG tablet Indications: Jessica's disease TAKE 2 TABLETS IN THE MORNING AND TAKE 2 TABLETS IN THE EVENING 360 tablet 3 07/03/2024 Active Start: 06-30-2024 liothyronine 5 mcg, Refills(s) 0 Start Date: 06/30/24 Status: Ordered Start: 08-10-2023 take 10 ug by mouth twice radha y Liothyronine Active 10 MCG PO Twice daily August 10, 2023 12:00am Start: 10-26-2022 take 2 tablets by mo uth in the morning liothyronine (Cytomel) 5 MCG tablet Take two (2) tablets by mouth in the morning and two (2) tablets by mouth in the afternoon. 10/26/2022 Active lubiprostone 0.024 mg oral capsule (20 sources) Chloride Channel Activator Start: 06-30-2024 lubiprostone 24 mcg Cap Oral, Refills(s) 0 Start Date: 06/30/24 Status: Ordered Start: 06-06-2024 End: 08-25-2024 take 1 capsule by mouth in the morning lubiprostone (Amitiza) 24 MCG capsule Indications: Slow transit constipation , Multiple sclerosis (HCC) TAKE 1 CAPSULE BY MOUTH IN THE MORNING AND 1 CAPSULE IN THE EVENING. TAKE WITH MEALS 60 capsule 11 08/25/2024 Active Magnesium Oxide (2 sources) Start: 06-30-2024 magnesium oxid e 400 mg, Refills(s) 0 Start Date: 06/30/24 Status: Ordered mirtazapine 45 mg oral table t (17 sources) Start: 10-30-2022 End: 10-22-2024 mirtazapine (Remeron) 45 MG tablet Indications: Current mild episode of major depressive disorder, unspecified whether recurrent (HCC) (CMS/HCC) TAKE 1 TABLET AT BEDTIME 90 tablet 3 10/23/2023 01/10/2024 Discontinued (Therapy completed) Start: 03-31-2017 End: 04-01-2017 take 1 tablet [...] by mouth. montelukast 10 mg oral tablet (20 sources) Leukotriene Receptor Antagonist Start: take 1 tablet by mouth at bedtime montelukast (Singulair) 10 MG tablet Indications: Chronic obstructive pulmonary disease with acute exacerbation (HCC) Take 1 tablet (10 mg) by mouth at bedtime 30 tablet 5 10/14/2024 Active Start: 08-19-2024 take 1 tablet by viji th at bedtime montelukast (Singulair) 10 MG tablet Indications: Chronic obstructive pulmonary disease with acute exacerbation (CMS/HCC) Take 1 tablet (10 mg) by mouth at bedtime 30 tablet 5 08/19/2024 Active Start: 06-30-2024 montelukast 10 mg, Refills(s) 0 Start Date: 06/30/24 Status: Ordered Start: 05-31-2023 take 10 mg by mouth once daily Montelukast Active 10 MG PO Daily August 10, 2023 12:00am Multiple Vitamin (Multi-Vitamin) tablet (20 sources) take 1 tablet by viji th in the morning Multiple Vitamin (Multi-Vitamin) tablet [...] Take 1 tablet by mouth daily. Active Multivitamin-Mineral s-Lutein (Multivitamin 50 Plus) tablet (2 sources) Start: Multivitamin-Mineral s-Lutein (Multivitamin 50 Plus) tablet Active 1 TAB PO Daily August 10, 2023 12:00am omeprazole 40 mg delayed release oral capsule (20 sources) Proton Pump Inhibitor Start: End: take 40 mg by mouth once daily Omeprazole Active 40 MG PO Daily August 24, 2023 12:00am polyethylene glycol 3350 84055 mg powder for oral solution (4 sources) Osmotic Laxative Start: End: polyethylene glycol, PEG, 3350 (MiraLax) 17 GM/SCOOP powder Indications: Slow transit constipation Take 17 g by mouth Daily 527 g 2 10/30/2023 01/31/2024 Active polyethylene glycol 3350 137033 mg / potassium chloride 2970 mg / sodium bicarbonate 6740 mg / sodium chloride 5860 mg / sodium sulfate 24528 mg powder for oral solution (1 source) Osmotic Laxative Start: take 1 capsule by mouth once Peg 3350-Electrolytes (Golytely) 236-22.74-6.74 -5.86 gram recon soln Active 240 ML PO Once 4000 August 29, 2023 12:00am At 4pm add lukewarm drinking water to the fill azalea on the jug, secure cap on the jug and shake vigorously to mix. Begin drinking until you finish the entire contents. sildenafil 50 mg oral tablet (20 sources) Phosphodiesterase 5 Inhibitor take 1 tablet by mouth every twenty-four hours as needed sildenafil (Viagra) 50 MG tablet Take 1 tablet by mouth Daily as needed for erectile dysfunction Active Comment on above: Take 50 mg by mouth as needed. levothyroxine sodium 0.175 mg oral tablet (20 sources) l-Thyroxine Start: levothyroxine 175 mcg (0.175 mg) oral capsule Oral, Refills(s) 0 Start Date: 06/30/24 Status: Ordered Start: 06-09-2024 End: 01-17-2025 levothyroxine (Synthroid, Le voxyl) 175 MCG tablet Indications: Jessica's disease TAKE 1 TABLET EVERY DAY 90 tablet 3 01/12/2025 Active Start: 03-23-2024 End: 05-20-2024 levothyroxine (Synthroid, Le voxyl) 50 MCG tablet Indications: Acquired hypothyroidism (CMS/HCC) TAKE 1 TABLET EVERY MORNING ON AN EMPTY STOMACH 90 tablet 3 03/23/2024 05/20/2024 Discontinued (Therapy completed) Start: 07-25-2023 take 50 ug by mouth once daily Levothyroxine Active 50 MCG PO Daily July 25, 2023 12:00am Start: 07-25-2023 take 200 ug by mouth once daily Levothyroxine Active 200 MCG PO Daily July 25, 2023 12:00am Start: 02-21-2023 End: 06-09-2024 levothyroxine (Synthroid, Le voxyl) 200 MCG tablet 02/21/2023 06/09/2024 Discontinued (Dose adjustment) Start: 03-31-2017 End: 04-01-2017 levothyroxine (SYNTHROID, LE VOTHROID) tablet 150 mcg 150 mcg, Oral, At [...] Take 150 mg by mouth twice daily. tiZANidine 4 mg oral tablet (8 sources) Central alpha-2 Adrenergic Agonist Start: 10-23-19 End: 01-22-20 take 0.5 tablet by mouth every six hours for muscle spasms tiZANidine (Zanaflex) 4 MG tablet Indications: Upper back pain on left side , Neck pain on left side Take 0.5 tablets (2 mg) by mouth every 6 (six) hours if needed for muscle spasms for up to 15 days 30 tablet 10/22/2024 01/21/2025 Discontinued (Therapy completed) vardenafil 20 mg oral tablet (5 sources) Phosphodiesterase 5 Inhibitor vardenafil (Levitra) 20 MG tablet Take 1 tablet by mouth 0 Active Vitamin D3 (2 sources) Start: 08-10-19 [...] by mouth every 4 hours as needed. [id number] 200 actuat albuterol 0.09 mg/actuat metered dose inhaler (20 sources) beta2-Adrenergic Agonist End: 10-22-2024 take 2 puff(s) by inhalation every four hours for wheezing albuterol HFA 90 mcg/act inhaler Inhale 2 puffs every 4 (four) hours if needed for wheezing 10/22/2024 Discontinued albuterol 0.833 mg/ml / ipratropium bromide 0.167 [...] Oral, 2 times daily, First dose on 11/25/17 at 2100, Drug Name: Tecfidera delayed release capsule Given 03/31/2017 20:01 EST 240 mg End: 03-31-2017 take 240 mg by mouth twice daily DIMETHYL FUMARATE (TECFIDERA ORAL) Take 240 mg by mouth twice daily. 0 Active Comment on above: Take 240 mg by mouth twice daily. Fluticasone-Umeclidin- Vilanter (3 sources) Start: 07-25-2023 End: 08-10-2023 Jbqzmbmysgt-Ioestubke-Simf nter (Trelegy Ellipta) 200-62.5-25 mcg blister with [...] ESR, UA DAY 1 EACH TREATMENT [facility] 05/31/2017 15:01 EST 1,000 mg 100 mL/hr [...] ESR, UA DAY 1 EACH TREATMENT [facility] 05/31/2017 15:01 EST 1,000 mg 100 mL/hr methylPREDNISolone sod suc (PF) (SOLU-medrol) 1,000 mg in sodium chloride 0.9 % (NS) 100 mL IVPB 1,000 mg, Intravenous, at 100 mL/hr, Once, 05/30/17 at 1530, For 1 dose, Infuse over 60 minutes GIVE DAILY X 3 DAYS EVERY 3 MONTHS CBC/D, CMP, ESR, UA DAY 1 EACH TREATMENT [facility] 05/30/2017 15:00 EST 1,000 mg 100 mL/hr [...] ESR, UA DAY 1 EACH TREATMENT [facility] 05/30/2017 15:00 EST 1,000 mg 100 mL/hr [...] needed for pain. Active 24 hr nicotine 0.583 mg/hr transdermal system (12 sources) Cholinergic Nicotinic Agonist Start: 07-15-2024 End: 08-14-2024 apply 1 dose transdermal route once daily nicotine (Nicoderm CQ) 21 MG/24HR patch Indications: Incontinence of feces, unspecified fecal incontinence type Place 1 patch on the skin 1 (one) time each day at the same time 21 mcg patch every day x 30 days then 14 mcg patch x 1 month then 7 mcg patch x 30 days 30 patch 07/15/2024 Active Start: 07-15-2024 End: 08-14-2024 nicotine (Nicoderm CQ) 7 MG/ 24HR patch Indications: Incontinence of feces, unspecified fecal incontinence type Place 1 patch over 24 hours on the skin 1 (one) time each day at the same time 30 patch 07/15/2024 Active Start: 07-15-2024 End: 10-22-2024 apply 1 dose transdermal route every twenty-four hours nicotine (Nicoderm CQ) 14 MG/24HR patch Indications: Incontinence of feces, unspecified fecal incontinence type Place 1 patch over 24 hours on the skin 1 (one) time each day at the same time 30 patch 07/15/2024 10/22/2024 Discontinued (Therapy completed) Start: 03-31-2017 End: 04-01-2017 nicotine (NICODERM CQ) 21 mg /24 hr 1 patch 1 patch, Transdermal, Administer [...] Take 30 mg by mouth twice daily. Sod Picosulf-Mag Ox-Citric Ac (3 sources) Start: 07-25-2023 End: 08-24-2023 take 1 mL by mouth once daily [...] hour, then take 250 mL intravenous route varenicline 1 mg oral tablet (20 sources) Partial Cholinergic Nicotinic Agonist Start: 03-29-2024 End: 11-21-2024 take 1 tablet by mouth in the morning varenicline (Chantix) 1 MG tablet Indications: Tobacco abuse Take 1 tablet (1 mg) by mouth in the morning and 1 tablet (1 mg) before bedtime. Take with full glass of water.. 336 tablet 06/06/2024 10/22/2024 Discontinued (Therapy completed) Start: 01-22-2024 End: 10-22-2024 take 1 tablet by mouth once daily, then take 1 tablet by mouth twice daily, then take 2 tablets by mouth twice daily Varenicline Tartrate, Starter, (Chantix Starting ) 0.5 MG X 11 & 1 MG X 42 tablet therapy pack Indications: Heavy smoker (more than 20 cigarettes per day) Take 0.5 mg by mouth Daily for 3 days, THEN 0.5 mg 2 (two) times a day for 4 days, THEN 1 mg 2 (two) times a day for 21 days. 53 each 01/22/2024 10/22/2024 Discontinued (Therapy completed) Start: 01-10-2024 Varenicline Ta rtrate, Starter, (Chantix Starting ) 0.5 MG X 11 & 1 MG X 42 tablet therapy pack Indications: Heavy smoker (more than 20 cigarettes per day) Take 0.5 mg by mouth in the morning and 0.5 mg before bedtime. 1 each 01/10/2024 Active Start: 01-10-2024 take 1 tablet by viji th once daily in the morning varenicline (Chantix) 1 MG tablet Indications: Heavy smoker (more than 20 cigarettes per day) Take 1 tablet (1 mg) by mouth in the morning and 1 tablet (1 mg) before bedtime. Take with full glass of water.. 180 tablet 1 01/10/2024 Active vitamin b 12 2 mg extended release [...] Chronic Chronic obstructive pulmonary disease and bronchiectasis (20 sources) Centriacinar emphysema; Translations: [Centrilobular emphysema] Onset: 09-19-2022 Resolved: 10-20-2024 09-19-2022 Chronic Coronary atherosclerosis and other heart disease (20 sources) History of myocardial infarction; Translations: [Old myocardial infarction] Onset: 04-03-2017 01-03-2023 Chronic Genitourinary symptoms and ill-defined conditions (2 sources) Delay when starting to pass urine; Translations: [Hesitancy of micturition] 06-23-2024 Episodic Hyperplasia of prostate (20 sources) Benign prostatic hyperplasia; Translations: [Benign prostatic hyperplasia without lower urinary tract symptoms] Onset: 04-03-2017 Resolved: 10-20-2024 01-03-2023 Chronic Mood disorders (20 sources) Depressive disorder; Translations: [Depression] Onset: 09-19-2022 09-19-2022 Chronic Multiple sclerosis (20 sources) Multiple sclerosis; Translations: [Multiple sclerosis] Onset: 10-07-2014 01-06-2015 Chronic Nutritional deficiencies (20 sources) Vitamin D deficiency; Translations: [Vitamin D deficiency, unspecified] Onset: 09-19-2022 09-19-2022 Chronic Osteoporosis (20 sources) Osteoporosis; Translations: [Age-related osteoporosis without current pathological fracture] Onset: 09-19-2022 09-19-2022 Chronic Other diseases of bladder and urethra (20 sources) Neurogenic bladder; Translations: [Neuromuscular dysfunction of bladder, unspecified] Onset: 09-14-2023 09-14-2023 Chronic Other diseases of kidney and ureters (2 sources) Urinary tract obstruction; Translations: [Other obstructive and reflux uropathy] Onset: 06-30-2024 Episodic Other gastrointestinal disorders (20 sources) Slow transit constipation; Translations: [Slow transit constipation] Onset: 09-26-2022 09-26-2022 Episodic Other gastrointestinal disorders (3 sources) Constipation alternates with diarrhea; Translations: [Other specified symptoms and signs involving the digestive system and abdomen] 07-25-2023 Episodic Other gastrointestinal disorders (3 sources) Constipation; Translations: [Constipation, unspecified] 07-25-2023 Episodic Other gastrointestinal disorders (4 sources) Abdominal bloating; Translations: [Abdominal distension (gaseous)] 05-20-2024 Episodic Other gastrointestinal disorders (2 sources) Incontinence of feces; Translations: [Full incontinence of feces] 07-15-2024 Episodic Other lower respiratory disease (2 sources) Wheezing; Translations: [Wheezing] 05-20-2024 Episodic Other nervous system disorders (1 source) Chronic pain; Translations: [Other chronic pain] Onset: 10-07-2014 10-07-2014 Chronic Other nervous system disorders (20 sources) Chronic pain syndrome; Translations: [Chronic pain syndrome] Onset: 09-19-2022 09-19-2022 Chronic Other nervous system disorders (20 sources) Neuropathy; Translations: [Polyneuropathy, unspecified] Onset: 09-19-2022 09-19-2022 Chronic Other screening for suspected conditions (not mental disorders or infectious disease) (20 sources) Patient encounter status; Translations: [Encounter for screening for malignant neoplasm of colon] Onset: 06-30-2024 Resolved: 10-20-2024 07-25-2023 Episodic Other upper respiratory disease (20 sources) Allergic rhinitis; Translations: [Other allergic rhinitis] Onset: 09-19-2022 09-19-2022 Chronic Other upper respiratory disease (4 sources) Deviated nasal septum; Translations: [Deviated nasal septum] 05-20-2024 Episodic Other upper respiratory infections (4 sources) Chronic bilateral maxillary sinusitis; Translations: [Chronic maxillary sinusitis] 05-20-2024 Chronic Pathological fracture (1 source) Pathological fracture due to osteoporosis; Translations: [Age-related osteoporosis with current pathological fracture, unspecified site, initial encounter for fracture] 03-03-2024 Episodic Residual codes; unclassified (20 sources) Restlessness and agitation; Translations: [Restlessness and agitation] Onset: 09-19-2022 09-19-2022 Chronic Septicemia (2 sources) Sepsis, unspecified organism; Translations: [Sepsis, unspecified organism] Onset: 04-01-2017 Spondylosis; intervertebral disc disorders; other back problems (20 sources) Degeneration of lumbar intervertebral disc; Translations: [Other intervertebral disc degeneration, lumbar region] Onset: 10-07-2014 10-07-2014 Chronic Substance-related disorders (20 sources) Harmful pattern of use of caffeine; Translations: [Other stimulant abuse, uncomplicated] Onset: 04-25-2017 Resolved: 10-30-2023 09-19-2022 Chronic Substance-related disorders (2 sources) Psychoactive substance-induced withdrawal syndrome; Translations: [Other psychoactive substance use, unspecified with withdrawal, unspecified] 05-21-2024 Episodic Thyroid disorders (20 sources) Hypothyroidism; Translations: [Hypothyroidism, unspecified] Onset: 09-19-2022 09-19-2022 Chronic Unclassified (2 sources) [place] [facility] Review Required; Translations: [[place] [facility] Review Required] Onset: 05-30-2017 Unclassified (20 sources) Patient on antidepressant monitoring plan Onset: 07-05-2023 07-05-2023 Unclassified (2 sources) Patient encounter status 06-30-2024 Urinary tract infections (1 source) Acute cystitis; Translations: [Acute cystitis without hematuria] 06-08-2024 Episodic Past or Other Problems Problem Classification Problem Date Documented Da te Episodic/Chronic Acute cerebrovascular disease (20 sources) Cerebrovascular accident; Translations: [Cerebral infarction, unspecified] Onset: 09-14-2023 Resolved: 03-20-2024 09-14-2023 Chronic Conditions associated with dizziness or vertigo (20 sources) Dizziness; Translations: [Dizziness and giddiness] Onset: 09-14-2023 09-14-2023 Episodic Malaise and fatigue (20 sources) Fatigue; Translations: [Other fatigue] Onset: 10-07-2014 10-07-2014 Episodic Mood disorders (20 sources) Mood disorders Onset: 01-03-2023 Resolved: 10-09-2023 01-03-2023 Nonspecific chest pain (6 sources) Chest pain; Translations: [Chest pain, unspecified] Onset: 11-10-2016 11-10-2016 Episodic Osteoarthritis (15 sources) Arthritis; Translations: [Unspecified osteoarthritis, unspecified site] Onset: 10-20-2024 Resolved: 10-20-2024 06-30-2024 Chronic Other ear and sense organ disorders (20 sources) Bilateral tinnitus; Translations: [Tinnitus, bilateral] Onset: 09-19-2022 09-19-2022 Episodic Other gastrointestinal disorders (4 sources) Constipation, unspecified; Translations: [Constipation, unspecified] Onset: 09-25-2023 07-25-2023 Episodic Other lower respiratory disease (20 sources) Multiple nodules of lung; Translations: [Other nonspecific abnormal finding of lung field] Onset: 04-20-2023 04-20-2023 Episodic Other nervous system disorders (20 sources) Abnormal gait; Translations: [Unspecified abnormalities of gait and mobility] Onset: 09-14-2023 09-14-2023 Episodic Other nervous system disorders (20 sources) Paresthesia; Translations: [Paresthesia of skin] Onset: 09-14-2023 09-14-2023 Episodic Other nutritional; endocrine; and metabolic disorders (20 sources) Loss of appetite; Translations: [Anorexia] Onset: 09-19-2022 09-19-2022 Episodic Peripheral and visceral atherosclerosis (15 sources) Peripheral vascular disease; Translations: [Peripheral vascular disease, unspecified] Onset: 10-20-2024 Resolved: 10-20-2024 10-20-2024 Chronic Pleurisy; pneumothorax; pulmonary collapse (20 sources) Empyema of pleura; Translations: [Pyothorax without fistula] Onset: 04-03-2017 01-03-2023 Episodic Pneumonia (3 sources) Infective pneumonia; Translations: [Pneumonia, unspecified organism] Onset: 04-01-2017 Episodic Residual codes; unclassified (20 sources) Amnesia; Translations: [Other amnesia] Onset: 09-14-2023 09-14-2023 Episodic Residual codes; unclassified (20 sources) Insomnia; Translations: [Insomnia, unspecified] Onset: 09-14-2023 09-14-2023 Episodic Residual codes; unclassified (20 sources) Tobacco user; Translations: [Tobacco use] Onset: 06-30-2024 Resolved: 10-20-2024 05-20-2024 Episodic Septicemia (5 sources) Sepsis; Translations: [Sepsis (HCC)] Onset: 08-24-2016 03-31-2017 Episodic Spondylosis; intervertebral disc disorders; other back problems (20 sources) Backache; Translations: [Dorsalgia, unspecified] Onset: 09-14-2023 09-14-2023 Episodic Thyroid disorders (1 source) Disorder of thyroid gland; Translations: [Disorder of thyroid, unspecified] Onset: 10-07-2014 10-07-2014 Episodic Results Test Name Value Interpretation Reference Range Facility XR KNEE 1-2 VIEWS RIGHTon XR KNEE 1-2 VIEWS RIGHT EXAMINATION/TECHNIQUE: XR KNEE 1-2 VIEWS RIGHT HISTORY: Chronic right knee pain. COMPARISON: None RESULT: No acute fracture. No dislocation. No significant joint effusion. Underlying decreased bone mineral density. Small osteophytes with mild to moderate medial compartment narrowing. Mild soft tissue edema. IMPRESSION: No acute osseous findings. ELECTRONICALLY SIGNED BY: Dev Santamaria MD Normal Not Available Creatinineon 01-21-2025 Creatinine [Mass/Vol] 0.87 mg/dL 0.76 - 1.27 mg/dL [facility] Creatinine [Mass/Vol]on 01-05 GFR/1.73 sq M.predicted among non-blacks MDRD (S/P/Bld) [Vol rate/Area] 95 mL/min/{1.73_m2} 59 - PINF mL/min/1.73 [facility] Performed at: - [facility] [address], [address], [place], [place] [id number] Oil Expert: Mirian Almeida MD, Phone: [phone] [facility] DEXA BONE DENSITYon 01-13-20 25 DEXA BONE DENSITY Examination: DEXA TIFFANY NE DENSITY Clinical History: osteoporosis, on fosamax. Last Dexa january 2023. Technique: Bone density study was performed. T score values for the lumbar spine, right femoral neck and left femoral neck were obtained. Comparison: 01/15/2023. Findings: Value for the lumbar spine from L1-L4 is -1.9. Value for the right femoral neck is -3.3. Value for the left femoral neck is -3.1. Findings are compatible with osteoporosis with high increased fracture risk. Study was compared to the prior exam dated 01/15/2023 which demonstrates similar findings. IMPRESSION: Impression: Findings compatible with osteoporosis with high increased fracture risk. Findings are similar to the prior exam. ELECTRONICALLY SIGNED BY: Daryl Talamantes M.D. Normal Not Available Ambulatory Visit Summaryon 0 06-30-2024 Ambulatory Visit Summary Ambulatory Visit Summary MAXIMILIANO CARRANZA :1960 Visit Date:06/30/2024 Ambulatory Visit Instructions Your Diagnosis BPH with obstruction/lower urinary tract symptoms Multiple sclerosis Prostate cancer screening Tobacco use Other obstructive and reflux uropathy Your Care Team Attending Physician - ALEXANDRA MOSLEY PA-C Primary Care Physician - KATRINA BERMUDEZ MD This Is Your Medications List alendronate (alendronate 35 mg Tab) aripiprazole (ARIPiprazole 15 mg oral tablet with sensor) budesonide/formoterol/ glycopyrrolate (Breztri Aerosphere) dalfampridine (dalfampridine 10 mg oral tablet, extended release) docusate escitalopram (escitalopram 10 mg Tab) gabapentin (gabapentin 600 mg oral tablet, extended release) levothyroxine (levothyroxine 175 mcg (0.175 mg) oral capsule) liothyronine lubiprostone (lubiprostone 24 mcg Cap) magnesium oxide montelukast Procedures Performed Cholecystectomy, Tooth extraction, complete mouth. Discharge Vitals Heart Rate (Peripheral) 75 Respiratory Rate 18 Blood Pressure 139/77 Height 180 cm Height 71 in Weight 64.5 kg Weight 142.198 lb BMI 19.91 What to do next Scheduled Follow-Up Appointments Sunday 10:00 AM EDT With: Where: [facility] [address] [place] [address] 2024 9:40 AM EDT With: ALEXANDRA MOSLEY PA-C Where: [facility] [address] [place] [address] [place] [address]- You Need to Schedule the Following Appointments Follow Up with [facility] When: Comments: For procedure as scheduled. Where: Medications What How Much When Instructions Unchanged alendronate (alendronate 35 mg Tab) By Mouth Unchanged aripiprazole (ARIPiprazole 15 mg oral tablet with sensor) By Mouth Unchanged budesonide/ formoterol/ glycopyrrolate (Breztri Aerosphere) See instructions Unchanged dalfampridine (dalfampridine 10 mg oral tablet, extended release) By Mouth Unchanged docusate 100 Milligram Unchanged escitalopram (escitalopram 10 mg Tab) By Mouth Unchanged gabapentin (gabapentin 600 mg oral tablet, extended release) By Mouth Unchanged levothyroxine (levothyroxine 175 mcg (0.175 mg) oral capsule) By Mouth Unchanged liothyronine 5 Microgram Unchanged lubiprostone (lubiprostone 24 mcg Cap) By Mouth Unchanged magnesium oxide 400 Milligram Unchanged montelukast 10 Milligram Medications and Immunizations Administered Given SARS-CoV-2 mRNA-1273 (6m-5y) vaccine, SARS-CoV-2 mRNA-1273 (6m-5y) vaccine, SARS-CoV-2 mRNA-1273 (6m-5y) vaccine, Allergies glatiramer (Syncope) penicillin G benzathine (Eruption) Problems Ongoing - Any problem that you are currently receiving treatment for. 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 Please share your experience with us by completing your survey. We appreciate your feedback and thank you for choosing us for your care. Education Materials Steps to Quit Smoking Smoking tobacco is the leading cause of preventable . It can affect almost every organ in the body. Smoking puts you and those around you at risk for developing many serious chronic diseases. Quitting smoking can be very challenging. Do not get discouraged if you are not successful the first time. Some people need to make many attempts to quit before they achieve long-term success. Do your best to stick to your quit plan, and talk with your health care provider if you have any questions or concerns. How do I get ready to quit? When you decide to quit smoking, create a plan to help you succeed. Before you quit: ??? Pick a date to quit. Set a date within the next 2 weeks to give you time to prepare. ??? Write down the reasons why you are quitting. Keep this list in places where you will see it often. ??? Tell your family, friends, and co-workers that you are quitting. Support from people you are close to can make quitting easier. ??? Talk with your health care provider about your options for quitting smoking. ??? Find out what treatment options are covered by your health insurance. ??? Identify people, places, things, and activities that make you want to smoke (triggers). Avoid them. What first steps can I take to quit smoking? Throw away all cigarettes at home, at work, and in your car. ??? Throw away smoking accessories, such as ashtrays and lighters. ??? Clean your car. Make sure to empty the ashtray. ??? Clean your ho (more content not included)... Normal [facility] BUNon 06-30-2024 Urea nitrogen [Mass/Vol] 13 mg/dL Normal 5-21 [facility] Comment on above: Performed By: #### [id number] #### [facility] [address] [place] [address] CHEMISTRYOrdered By: SYSTEM SYSTEM on 06-30-2024 Creatinine [Mass/Vol] 0.7 mg/dL Normal 0.5 - 1.3 mg/dL [facility] eGFR 102 mL/min/1.73 m2 Normal >=59mL/mi n/1 .73 m2 [facility] Prostate specific Ag [Mass/Vol] 0.7 ng/mL Normal 0.1 - 3.5 ng/mL [facility] Comment on above: Interpretive Data: T he concentration of PSA determined by different manufacturers can vary due to differences in assay methods and reagent specificity. Values obtained from different assay methods cannot be used interchangeably. The methodology used for this result was chemiluminescence using [employer]'s Access Hybritech PSA reagent. Urea nitrogen [Mass/Vol] 13 mg/dL Normal 5 - 21 mg/dL [facility] Creatinineon 06-30-2024 Creatinine [Mass/Vol] 0.7 mg/dL Normal 0.5-1.3 [facility] Comment on above: Performed By: #### [id number] #### [facility] [address] [place] [address] PSA Totalon 06-30-2024 Prostate specific Ag [Mass/Vol] 0.7 ng/mL Normal 0.1-3.5 [facility] Comment on above: Result Comment: The concentration of PSA determined by different manufacturers can vary due to differences in assay methods and reagent specificity. Values obtained from different assay methods cannot be used interchangeably. The methodology used for this result was chemiluminescence using [employer]'s Access Hybritech PSA reagent. Performed By: #### 1 [id number] #### [facility] [address] [place] [address] eGFRon 06-30-2024 eGFR 102 mL/min/1.73 m2 Normal >=59 [facility] Comment on above: Performed By: #### 1 [id number] #### [facility] [address] [place] [address] Urinalysis macro (dipstick) panel (U)on 06-24-2024 Bilirubin, UA Negative Negative - 4(70) +++ mg/dL [facility] Blood, UA Negative Negative - 50 Dennis/mcL [facility] Clarity, UA Clear [facility] Color, UA Yellow [facility] Glucose, UA Negative Negative - 2000(110) ++++ mg/dL [facility] Ketones, UA Positive Negative - 160(16) ++++ mg/dL [facility] Leukocytes, UA Negative Negative - 500+++ Arabella/mcL [facility] Nitrite, UA Negative Negative - Positive [facility] pH, UA 7.5 5 - 9 [facility] Protein, UA Positive Negative - 2000(20) ++++ mg/dL [facility] Spec Grav, UA 1.015 1 - 1.03 [facility] Urobilinogen, UA 0.2 0.2 - 12 mg/dL [facility] CT ABDOMEN PELVIS WO IV CONT Miguel 06-03-2024 CT ABDOMEN PELVIS WO IV CONTRAST TITLE OF EXAM: CT ABDOMEN PELVIS WO IV CONTRAST REASON FOR EXAM: Chronic constipation, lower abdominal bloating, inintentional weight loss TECHNIQUE: Axial CT of the abdomen and pelvis COMPARISON: CT abdomen/pelvis 07/16/2023 FINDINGS: Lung bases: Streaky bibasilar scarring. No consolidation. No effusion. Heart: No acute abnormality of the visualized cardiac structures. Liver: The liver appears normal in size, shape, and attenuation. No focal hepatic lesion. Bile ducts: No intra- or extra-hepatic dilation. Gallbladder: Surgically absent. Pancreas: Normal. Spleen: No splenomegaly. Adrenals: Normal adrenal glands. Kidneys/Ureters/Urinar y Bladder: Kidneys and ureters appear normal. No hydroureteronephrosis. No nephroureterolithiasis . Urinary bladder is thin walled and distended. Reproductive organs: The prostate is normal in size. GI tract/Mesentery: There is no dilation, focal stenosis, or wall thickening. No evidence of obstruction. Moderately greater than typical burden colorectal stool. Appendix not identified. No pericecal inflammation. Peritoneum: No ascites. No pneumoperitoneum. Retroperitoneum: There is no significant retroperitoneal lymphadenopathy in the abdomen. Vasculature: No AAA or focal stenosis. Mild nonconcentric calcific arteriosclerosis of the abdominal aorta and iliac arteries. Bones and soft tissues: No concerning focal osseous lesion. No acute osseous abnormality or dislocation. No focal soft tissue abnormality. Suggested diffuse osseous demineralization. Moderate to severe L2-3 degenerative disc disease. L3-4 predominant facet osteoarthrosis. IMPRESSION: 1. Moderately greater than typical burden colorectal stool. 2. Additional chronic/degenerative findings as detailed. DICTATED ON: 06/03/2024 9:22 AM This report has been electronically signed in approved by the interpreting radiologist. Normal Not Available CT SINUS WOon 06-03-2024 CT SINUS WO TITLE OF EXAM: CT SINUS WO IV CONTRAST REASON FOR EXAM: Persistent rhinorrhea TECHNIQUE: Axial CT of the sinuses/face. COMPARISON: None. FINDINGS: Post-surgical changes: None. Paranasal sinuses: Minimal mucus and/or soft tissue fills a single right anterior ethmoid air cell. Otherwise, the maxillary, frontal, and sphenoid sinuses and anterior and posterior ethmoid air cells are clear. No fluid level, osteitis, or osseous erosions. Drainage pathways: The combined anterior drainage pathways are patent from the frontal and maxillary sinuses and anterior ethmoid air cells to the middle meati. Physiologic angles of the uncinate processes. The combined posterior drainage pathways of the sphenoid sinuses and posterior ethmoid air cells are patent to the superior meati. Nasal cavity (nasopharynx, turbinates, and septum): Rightward osseous nasal septal bowing projecting up to approximately 0.8 cm from midline. No septal perforation. Diminutive and somewhat aberrant origin of the right middle jennifer, though not contributing to drainage pathway compromise. Mastoid air cells: No mastoid effusion. Mandible, teeth, and facial soft tissues: Mild bilateral temporomandibular joint osteoarthrosis. Skull, skull base, and orbits: No skull base mass or osseous erosion. The anterior ethmoid canals are located in the skull base. The fovea ethmoidalis are symmetric and nondescended. The cribriform plate is intact. Normal orbits. Intracranial contents (included portions): The ventricles and extra-axial spaces are normal in size and configuration for age. No appreciable mass lesion or hemorrhage. IMPRESSION: No evidence of acute or chronic sinusitis. DICTATED ON: 06/03/2024 9:26 AM This report has been electronically signed in approved by the interpreting radiologist. Normal Not Available XR CHEST 2 VIEWSon XR CHEST 2 VIEWS EXAM: XR Chest, Two Views. REASON FOR EXAM: Wheezing. COMPARISON: None FINDINGS: Lungs are substantially hyperinflated. Subtle asymmetric opacification in the left lower lobe is noted. This may correlate with the broad band of coarse fibrosis demonstrated on the prior CT. No additional consolidation is apparent. Slight blunting of the left costophrenic angle is similar to the prior CT. Heart and mediastinum are unremarkable. There is a broad scoliosis convex to the right in the thoracic spine. IMPRESSION: 1. No acute abnormality apparent. 2. Broad band of fibrosis in the posterior left lower lobe. Appearance is similar to the prior CT dated 03/27/2024. 3. Advanced obstructive pulmonary change. 4. Left pleural thickening, unchanged. *This report is generated using voice recognition reporting (aka-[employer]). On occasion [employer] erroneously drops words from the report or replaces the spoken word with similar sounding words. Please call with any questions/concerns regarding this report.* Dictated and transcribed 05/20/24dpd This report has been electronically signed and approved by the interpreting radiologist. . Normal Not Available XR Chest 2 Viewson EXAM: XR Chest, Two Views. REASON FOR EXAM: Wheezing. COMPARISON: None FINDINGS: Lungs are substantially hyperinflated. Subtle asymmetric opacification in the left lower lobe is noted. This may correlate with the broad band of coarse fibrosis demonstrated on the prior CT. No additional consolidation is apparent. Slight blunting of the left costophrenic angle is similar to the prior CT. Heart and mediastinum are unremarkable. There is a broad scoliosis convex to the right in the thoracic spine. IMPRESSION: 1. No acute abnormality apparent. 2. Broad band of fibrosis in the posterior left lower lobe. Appearance is similar to the prior CT dated 03/27/2024. 3. Advanced obstructive pulmonary change. 4. Left pleural thickening, unchanged. *This report is generated using voice recognition reporting ([employer]). On occasion [employer] erroneously drops words from the report or replaces the spoken word with similar sounding words. Please call with any questions/concerns regarding this report.* Dictated and transcribed 05/20/24dpd This report has been electronically signed and approved by the interpreting radiologist. . Aron Gomez MD - 05/20/2024 EXAM: XR Chest, Two Views. REASON FOR EXAM: Wheezing. COMPARISON: None FINDINGS: Lungs are substantially hyperinflated. Subtle asymmetric opacification in the left lower lobe is noted. This may correlate with the broad band of coarse fibrosis demonstrated on the prior CT. No additional consolidation is apparent. Slight blunting of the left costophrenic angle is similar to the prior CT. Heart and mediastinum are unremarkable. There is a broad scoliosis convex to the right in the thoracic spine. IMPRESSION: 1. No acute abnormality apparent. 2. Broad band of fibrosis in the posterior left lower lobe. Appearance is similar to the prior CT dated 03/27/2024. 3. Advanced obstructive pulmonary change. 4. Left pleural thickening, unchanged. *This report is generated using voice recognition reporting (aka-[employer]). On occasion [employer] erroneously drops words from the report or replaces the spoken word with similar sounding words. Please call with any questions/concerns regarding this report.* Dictated and transcribed 05/20/24/dpd This report has been electronically signed and approved by the interpreting radiologist. . [facility] Radiology Study observation (narrative) [facility] XR Chest 2 ViewsOrdered By: Aron Banks on 05-20-2024 [facility] Work Phone: CT CHEST WO IV CONTRASTon CT CHEST WO IV CONTRAST CT CHEST WO IV CONTRAST; HISTORY: History of lung nodules COMPARISON: CT chest September 18, 2023 TECHNIQUE: Helical scanning was obtained of the chest and reviewed in soft tissue and lung algorithm. Coronal reformations were reconstructed. CONTRAST: None FINDINGS: LUNGS: There is marked centrilobular emphysema in the bilateral lungs. There is left greater than right linear scarring in the lung bases. No pulmonary infiltrates. AIRWAYS: There is mild thickening of the lower lobe bronchial carlisle. PLEURA: No pneumothorax or pleural effusion. MEDIASTINUM: There are tiny lymph nodes. GREAT VESSELS: Visualized portions of the aorta and main pulmonary artery are within normal limits for age. HEART: Heart size is within normal limits for age. CORONARY ARTERY Calcifications: absent AXILLA: Tiny nonspecific axillary lymph nodes are noted. OSSEOUS STRUCTURES: There is a dextroconvex rotoscoliosis of the upper thoracic spine. There is a compression fracture of T8, chronic in appearance and stable. UPPER ABDOMEN: Visualized portions of the abdomen show no specific abnormalities. IMPRESSION: Stable emphysema and bibasilar scarring in the lungs. Dictated on: 03/27/2024 10:46 AM This report has been electronically signed and approved by the interpreting Radiologist. Normal Not Available Comment on above: Order Comment: HX JALEEL NG NODULES TBH CREATININEon 02-19-2024 Creatinine [Mass/Vol] 0.82 mg/dL 0.70 - 1.30 mg/dL [facility] GFR/1.73 sq M.predicted CKD-EPI (S/P/Bld) [Vol rate/Area] >60 >=60 mL/min/1.73m 2 [facility] TB EGFR-NON AF ALGERIAN >60 >=60 mL/min/1.73m 2 [facility] CBC AUTO DIFFon 09-19-2022 BASO # 0.1 103/ul Normal 0.0-0.1 [facility] Comment on above: Performed By: #### C BC #### [facility] [address] [place] [address] Dr. Edison Guzman Basophils/100 WBC (Bld) 2.0 % Normal 0.2-2.0 [facility] Comment on above: Performed By: #### C BC #### [facility] [address] [place] [address] Dr. Edison Guzman EO # 0.4 103/ul Normal 0.0-0.7 [facility] Comment on above: Performed By: #### C BC #### [facility] [address] [place] [address] Dr. Edison Guzman Eosinophils/100 WBC (Bld) 5.9 % Normal 0.9-7.0 [facility] Comment on above: Performed By: #### C BC #### [facility] [address] [place] [address] Dr. Edison Guzman Erythrocyte distribution width (RBC) [Ratio] 14.1 % Normal 11.0-15.0 [facility] Comment on above: Performed By: #### C BC #### [facility] [address] [place] [address] Dr. Edison Guzman Hematocrit (Bld) [Volume fraction] 49.4 % Normal 42.0-54.0 [facility] Comment on above: Performed By: #### C BC #### [facility] [address] [place] [address] Dr. Edison Guzman Hemoglobin (Bld) [Mass/Vol] 16.3 g/dL Normal 14.0-18.0 [facility] Comment on above: Performed By: #### C BC #### [facility] [address] [place] [address] Dr. Edison Guzman IG # 0.04 10e3/ul Critically high 0.00-0.03 [facility] Comment on above: Performed By: #### C BC #### [facility] [address] [place] [address] Dr. Edison Guzman IG % 0.7 % Critically high 0.0-0.5 [facility] Comment on above: Performed By: #### C BC #### [facility] [address] [place] [address] Dr. Edison Guzman LYMPH # 1.1 103/ul Critically low 1.2-3.8 [facility] Comment on above: Performed By: #### C BC #### [facility] [address] [place] [address] Dr. Edison Guzman Lymphocytes/100 WBC (Bld) 19.1 % Critically low 20.5-60.0 [facility] Comment on above: Performed By: #### C BC #### [facility] [address] [place] [address] Dr. Edison Guzman MANUAL DIFF REQ NO Normal [facility] Comment on above: Performed By: #### C BC #### [facility] [address] [place] [address] Dr. Edison Guzman MCH (RBC) [Entitic mass] 32.1 pg Normal 25.9-34.0 [facility] Comment on above: Performed By: #### C BC #### [facility] [address] [place] [address] Dr. Edison Guzman MCHC (RBC) [Mass/Vol] 33.0 g/dL Normal 29.9-35.2 [facility] Comment on above: Performed By: #### C BC #### [facility] [address] [place] [address] Dr. Edison Guzman MCV (RBC) [Entitic vol] 97.4 fL Critically high 80.0-94.0 [facility] Comment on above: Performed By: #### C BC #### [facility] [address] [place] [address] Dr. Edison Guzman MONO # 0.7 103/ul Normal 0.3-0.8 [facility] Comment on above: Performed By: #### C BC #### [facility] [address] [place] [address] Dr. Edison Guzman Monocytes/100 WBC (Bld) 11.2 % Normal 1.7-12.0 [facility] Comment on above: Performed By: #### C BC #### [facility] [address] [place] [address] Dr. Edison Guzman NEUT # 3.6 103/ul Normal 1.4-6.5 [facility] Comment on above: Performed By: #### C BC #### [facility] [address] [place] [address] Dr. Edison Guzman Neutrophils/100 WBC (Bld) 61.1 % Normal 43.0-75.0 [facility] Comment on above: Performed By: #### C BC #### [facility] [address] [place] [address] Dr. Edison Guzman Platelet mean volume (Bld) [Entitic vol] 8.5 fL Critically low 9.5-13.5 [facility] Comment on above: Performed By: #### C BC #### [facility] [address] [place] [address] Dr. Edison Guzman PLT 299 103/ul Normal 150-450 [facility] Comment on above: Performed By: #### C BC #### [facility] [address] [place] [address] Dr. Edison Guzman RBC 5.07 106/ul Normal 4.70-6.10 [facility] Comment on above: Performed By: #### C BC #### [facility] [address] [place] [address] Dr. Edison Guzman WBC 6.0 103/ul Normal 4.0-11.0 [facility] Comment on above: Performed By: #### C BC #### [facility] [address] [place] [address] Dr. Edison Guzman MRI BRAIN WO W [...] SUZY WALLACE Date: 2022-09-19 15:47 Normal [facility] PROF 14(COMP METB)on 023 Albumin [Mass/Vol] 3.8 g/dL Normal 3.4-5.0 [facility] Comment on above: Performed By: #### C MP #### [facility] [address] [address] [address] Edison Guzman Albumin/Globulin [Mass ratio] 1.0 {ratio} Normal [facility] Comment on above: Performed By: #### C MP #### [facility] [address] [place], [place] [address] Dr. Edison Guzman ALP [Catalytic activity/Vol] 117 U/L Critically high 46-116 [facility] Comment on above: Performed By: #### C MP #### [facility] [address] [place], [place] [address] Dr. Edison Guzman ALT [Catalytic activity/Vol] 20 U/L Normal 16-63 [facility] Comment on above: Performed By: #### C MP #### [facility] [address] [address] [address] Edison Guzman Anion gap [Moles/Vol] 10.1 mmol/L Normal [facility] Comment on above: Performed By: #### C MP #### [facility] [address] [address] [address] Edison Guzman AST [Catalytic activity/Vol] 17 U/L Normal 15-37 [facility] Comment on above: Performed By: #### C MP #### [facility] [address] [address] [address] Edison Guzman Bilirubin [Mass/Vol] 0.3 mg/dL Normal 0.2-1.0 [facility] Comment on above: Performed By: #### C MP #### [facility] [address] [address] [address] Edison Guzman Calcium [Mass/Vol] 8.6 mg/dL Normal 8.5-10.1 [facility] Comment on above: Performed By: #### C MP #### [facility] [address] [address] [address] Edison Guzman Chloride [Moles/Vol] 104 mmol/L Normal 98-107 [facility] Comment on above: Performed By: #### C MP #### [facility] [address] [address] [address] Edison Guzman CO2 [Moles/Vol] 34.3 mmol/L Critically high 21.0-32.0 [facility] Comment on above: Performed By: #### C MP #### [facility] [address] [address] [address] Edison Guzman Creatinine [Mass/Vol] 0.78 mg/dL Normal 0.70-1.30 [facility] Comment on above: Performed By: #### C MP #### [facility] [address] [address] [address] Edison Guzman EGFR-AF ALGERIAN >60 Normal >=60 [facility] Comment on above: Performed By: #### C MP #### [facility] [address] [place] [address] Dr. Edison Guzman EGFR-NON AF ALGERIAN >60 Normal >=60 [facility] Comment on above: Performed By: #### C MP #### [facility] [address] [place] [address] Dr. Edison Guzman Globulin (S) [Mass/Vol] 3.8 g/dL Normal [facility] Comment on above: Performed By: #### C MP #### [facility] [address] [address] [address] Edison Guzman Glucose [Mass/Vol] 94 mg/dL Normal 74-106 [facility] Comment on above: Performed By: #### C MP #### [facility] [address] [place] [address] Dr. Edison Guzman Potassium [Moles/Vol] 4.4 mmol/L Normal 3.5-5.1 [facility] Comment on above: Performed By: #### C MP #### [facility] [address] [place] [address] Dr. Edison Guzman Protein [Mass/Vol] 7.6 g/dL Normal 6.4-8.2 [facility] Comment on above: Performed By: #### C MP #### [facility] [address] [place] [address] Dr. Edison Guzman Sodium [Moles/Vol] 144 mmol/L Normal 136-145 [facility] Comment on above: Performed By: #### C MP #### [facility] [address] [place] [address] Dr. Edison Gumzan Urea nitrogen [Mass/Vol] 11.0 mg/dL Normal 7.0-18.0 [facility] Comment on above: Performed By: #### C MP #### [facility] [address] [place] [address] Dr. Edison Guzman Urea nitrogen/Creatinine [Mass ratio] 14.1 mg/mg Normal [facility] Comment on above: Performed By: #### C MP #### [facility] [address] [place] [address] Dr. Edison Guzman CBC AUTO DIFFon 02-24-2023 BASO # 0.2 103/ul Critically high 0.0-0.1 [facility] Comment on above: Performed By: #### C BC #### [facility] [address] [address] [address] Edison Guzman Basophils/100 WBC (Bld) 2.6 % Critically high 0.2-2.0 [facility] Comment on above: Performed By: #### C BC #### [facility] [address] [address] [address] Edison Guzman EO # 0.3 103/ul Normal 0.0-0.7 [facility] Comment on above: Performed By: #### C BC #### [facility] [address] [address] [address] Edison Guzman Eosinophils/100 WBC (Bld) 3.9 % Normal 0.9-7.0 [facility] Comment on above: Performed By: #### C BC #### [facility] [address] [place] [address] Dr. Edison Guzman Erythrocyte distribution width (RBC) [Ratio] 15.1 % Critically high 11.0-15.0 [facility] Comment on above: Performed By: #### C BC #### [facility] [address] [place] [address] Dr. Edison Guzman Hematocrit (Bld) [Volume fraction] 47.5 % Normal 42.0-54.0 [facility] Comment on above: Performed By: #### C BC #### [facility] [address] [place] [address] Dr. Edison Guzman Hemoglobin (Bld) [Mass/Vol] 15.4 g/dL Normal 14.0-18.0 [facility] Comment on above: Performed By: #### C BC #### [facility] [address] [place] [address] Dr. Edison Guzman IG # 0.10 10e3/ul Critically high 0.00-0.03 [facility] Comment on above: Performed By: #### C BC #### [facility] [address] [place] [address] Dr. Edison Guzman IG % 1.4 % Critically high 0.0-0.5 [facility] Comment on above: Performed By: #### C BC #### [facility] [address] [place] [address] Dr. Edison Guzman LYMPH # 1.4 103/ul Normal 1.2-3.8 [facility] Comment on above: Performed By: #### C BC #### [facility] [address] [place] [address] Dr. Edison Guzman Lymphocytes/100 WBC (Bld) 19.6 % Critically low 20.5-60.0 [facility] Comment on above: Performed By: #### C BC #### [facility] [address] [place] [address] Dr. Edison Guzman MANUAL DIFF REQ NO Normal [facility] Comment on above: Performed By: #### C BC #### [facility] [address] [place] [address] Dr. Edison Guzman MCH (RBC) [Entitic mass] 30.8 pg Normal 25.9-34.0 [facility] Comment on above: Performed By: #### C BC #### [facility] [address] [place] [address] Dr. Edison Guzman MCHC (RBC) [Mass/Vol] 32.4 g/dL Normal 29.9-35.2 [facility] Comment on above: Performed By: #### C BC #### [facility] [address] [place] [address] Dr. Edison Guzman MCV (RBC) [Entitic vol] 95.0 fL Critically high 80.0-94.0 [facility] Comment on above: Performed By: #### C BC #### [facility] [address] [place] [address] Dr. Edison Guzman MONO # 0.7 103/ul Normal 0.3-0.8 [facility] Comment on above: Performed By: #### C BC #### [facility] [address] [place] [address] Dr. Edison Guzman Monocytes/100 WBC (Bld) 9.6 % Normal 1.7-12.0 [facility] Comment on above: Performed By: #### C BC #### [facility] [address] [place] [address] Dr. Edison Guzman NEUT # 4.4 103/ul Normal 1.4-6.5 [facility] Comment on above: Performed By: #### C BC #### [facility] [address] [place] [address] Dr. Edison Guzman Neutrophils/100 WBC (Bld) 62.9 % Normal 43.0-75.0 [facility] Comment on above: Performed By: #### C BC #### [facility] [address] [place] [address] Dr. Edison Guzman Platelet mean volume (Bld) [Entitic vol] 8.6 fL Critically low 9.5-13.5 [facility] Comment on above: Performed By: #### C BC #### [facility] [address] [place] [address] Dr. Edison Guzman PLT 398 103/ul Normal 150-450 [facility] Comment on above: Performed By: #### C BC #### [facility] [address] [place] [address] Dr. Edison Guzman RBC 5.00 106/ul Normal 4.70-6.10 [facility] Comment on above: Performed By: #### C BC #### [facility] [address] [place] [address] Dr. Edison Guzman WBC 7.0 103/ul Normal 4.0-11.0 [facility] Comment on above: Performed By: #### C BC #### [facility] [address] [place] [address] Dr. Edison Guzman CBC AUTO DIFFon 04-21-2022 BASO # 0.2 103/ul Critically high 0.0-0.1 [facility] Comment on above: Performed By: #### C BC #### [facility] [address] [place] [address] Dr. Edison Guzman Basophils/100 WBC (Bld) 2.3 % Critically high 0.2-2.0 [facility] Comment on above: Performed By: #### C BC #### [facility] [address] [place] [address] Dr. Edison Guzman EO # 0.3 103/ul Normal 0.0-0.7 [facility] Comment on above: Performed By: #### C BC #### [facility] [address] [place] [address] Dr. Edison Guzman Eosinophils/100 WBC (Bld) 4.3 % Normal 0.9-7.0 [facility] Comment on above: Performed By: #### C BC #### [facility] [address] [place] [address] Dr. Edison Guzman Erythrocyte distribution width (RBC) [Ratio] 14.4 % Normal 11.0-15.0 [facility] Comment on above: Performed By: #### C BC #### [facility] [address] [place] [address] Dr. Edison Gumzan Hematocrit (Bld) [Volume fraction] 46.6 % Normal 42.0-54.0 [facility] Comment on above: Performed By: #### C BC #### [facility] [address] [place] [address] Dr. Edison Guzman Hemoglobin (Bld) [Mass/Vol] 15.1 g/dL Normal 14.0-18.0 [facility] Comment on above: Performed By: #### C BC #### [facility] [address] [place] [address] Dr. Edison Guzman IG # 0.04 10e3/ul Critically high 0.00-0.03 [facility] Comment on above: Performed By: #### C BC #### [facility] [address] [place] [address] Dr. Edison Guzman IG % 0.6 % Critically high 0.0-0.5 [facility] Comment on above: Performed By: #### C BC #### [facility] [address] [place] [address] Dr. Edison Guzman LYMPH # 1.5 103/ul Normal 1.2-3.8 [facility] Comment on above: Performed By: #### C BC #### [facility] [address] [place] [address] Dr. Edison Guzman Lymphocytes/100 WBC (Bld) 23.1 % Normal 20.5-60.0 [facility] Comment on above: Performed By: #### C BC #### [facility] [address] [place] [address] Dr. Edison Guzman MANUAL DIFF REQ NO Normal [facility] Comment on above: Performed By: #### C BC #### [facility] [address] [place] [address] Dr. Edison Guzman MCH (RBC) [Entitic mass] 30.4 pg Normal 25.9-34.0 [facility] Comment on above: Performed By: #### C BC #### [facility] [address] [place] [address] Dr. Edison Guzman MCHC (RBC) [Mass/Vol] 32.4 g/dL Normal 29.9-35.2 [facility] Comment on above: Performed By: #### C BC #### [facility] [address] [place] [address] Dr. Edison Guzman MCV (RBC) [Entitic vol] 94.0 fL Normal 80.0-94.0 [facility] Comment on above: Performed By: #### C BC #### [facility] [address] [place] [address] Dr. Edison Guzman MONO # 0.8 103/ul Normal 0.3-0.8 [facility] Comment on above: Performed By: #### C BC #### [facility] [address] [place] [address] Dr. Edison Guzman Monocytes/100 WBC (Bld) 12.0 % Normal 1.7-12.0 [facility] Comment on above: Performed By: #### C BC #### [facility] [address] [place] [address] Dr. Edison Guzman NEUT # 3.7 103/ul Normal 1.4-6.5 [facility] Comment on above: Performed By: #### C BC #### [facility] [address] [address] [address] Edison Guzman Neutrophils/100 WBC (Bld) 57.7 % Normal 43.0-75.0 [facility] Comment on above: Performed By: #### C BC #### [facility] [address] [address] [address] Edison Guzman Platelet mean volume (Bld) [Entitic vol] 8.3 fL Critically low 9.5-13.5 [facility] Comment on above: Performed By: #### C BC #### [facility] [address] [place] [address] Dr. Edison Guzman PLT 272 103/ul Normal 150-450 [facility] Comment on above: Performed By: #### C BC #### [facility] [address] [place] [address] Dr. Edison Guzman RBC 4.96 106/ul Normal 4.70-6.10 [facility] Comment on above: Performed By: #### C BC #### [facility] [address] [address] [address] Edison Guzman WBC 6.5 103/ul Normal 4.0-11.0 [facility] Comment on above: Performed By: #### C BC #### [facility] [address] [place] [address] Dr. Edison Guzman BUNon 01-26-2022 Urea nitrogen [Mass/Vol] 12.0 mg/dL Normal 7.0-18.0 [facility] Comment on above: Performed By: #### C CANDIDO, BUN #### [facility] [address] [place] [address] Dr. Edison Guzman CBC AUTO DIFFon 01-26-2022 BASO # 0.2 103/ul Critically high 0.0-0.1 [facility] Comment on above: Performed By: #### C BC #### [facility] [address] [place] [address] Dr. Edison Guzman Basophils/100 WBC (Bld) 1.4 % Normal 0.2-2.0 [facility] Comment on above: Performed By: #### C BC #### [facility] [address] [place] [address] Dr. Edison Guzman EO # 0.3 103/ul Normal 0.0-0.7 [facility] Comment on above: Performed By: #### C BC #### [facility] [address] [place] [address] Dr. Edison Guzman Eosinophils/100 WBC (Bld) 3.1 % Normal 0.9-7.0 [facility] Comment on above: Performed By: #### C BC #### [facility] [address] [place] [address] Dr. Edison Guzman Erythrocyte distribution width (RBC) [Ratio] 12.9 % Normal 11.0-15.0 [facility] Comment on above: Performed By: #### C BC #### [facility] [address] [place] [address] Dr. Edison Guzman Hematocrit (Bld) [Volume fraction] 43.6 % Normal 42.0-54.0 [facility] Comment on above: Performed By: #### C BC #### [facility] [address] [place] [address] Dr. Edison Guzman Hemoglobin (Bld) [Mass/Vol] 14.1 g/dL Normal 14.0-18.0 [facility] Comment on above: Performed By: #### C BC #### [facility] [address] [place] [address] Dr. Edison Guzman IG # 0.11 10e3/ul Critically high 0.00-0.03 [facility] Comment on above: Performed By: #### C BC #### [facility] [address] [place] [address] Dr. Edison Guzman IG % 1.0 % Critically high 0.0-0.5 [facility] Comment on above: Performed By: #### C BC #### [facility] [address] [place] [address] Dr. Edison Guzman LYMPH # 1.2 103/ul Normal 1.2-3.8 [facility] Comment on above: Performed By: #### C BC #### [facility] [address] [address] [address] Edison Guzman Lymphocytes/100 WBC (Bld) 11.1 % Critically low 20.5-60.0 [facility] Comment on above: Performed By: #### C BC #### [facility] [address] [place] [address] Dr. Edison Guzman MANUAL DIFF REQ NO Normal [facility] Comment on above: Performed By: #### C BC #### [facility] [address] [place] [address] Dr. Edison Guzman MCH (RBC) [Entitic mass] 31.1 pg Normal 25.9-34.0 [facility] Comment on above: Performed By: #### C BC #### [facility] [address] [place] [address] Dr. Edison Guzman MCHC (RBC) [Mass/Vol] 32.3 g/dL Normal 29.9-35.2 [facility] Comment on above: Performed By: #### C BC #### [facility] [address] [place] [address] Dr. Edison Guzman MCV (RBC) [Entitic vol] 96.2 fL Critically high 80.0-94.0 [facility] Comment on above: Performed By: #### C BC #### [facility] [address] [place] [address] Dr. Edison Guzman MONO # 0.9 103/ul Critically high 0.3-0.8 [facility] Comment on above: Performed By: #### C BC #### [facility] [address] [place] [address] Dr. Edison Guzman Monocytes/100 WBC (Bld) 8.4 % Normal 1.7-12.0 [facility] Comment on above: Performed By: #### C BC #### [facility] [address] [place] [address] Dr. Edison Guzman NEUT # 8.4 103/ul Critically high 1.4-6.5 [facility] Comment on above: Performed By: #### C BC #### [facility] [address] [address] [address] Edison Guzman Neutrophils/100 WBC (Bld) 75.0 % Normal 43.0-75.0 [facility] Comment on above: Performed By: #### C BC #### [facility] [address] [address] [address] Edison Guzman Platelet mean volume (Bld) [Entitic vol] 8.3 fL Critically low 9.5-13.5 [facility] Comment on above: Performed By: #### C BC #### [facility] [address] [address] [address] Edison Guzman PLT 344 103/ul Normal 150-450 [facility] Comment on above: Performed By: #### C BC #### [facility] [address] [address] [address] Edison Guzman RBC 4.53 106/ul Critically low 4.70-6.10 [facility] Comment on above: Performed By: #### C BC #### [facility] [address] [address] [address] Edison Guzman WBC 11.1 103/ul Critically high 4.0-11.0 [facility] Comment on above: Performed By: #### C BC #### [facility] [address] [address] [address] Edison Guzman CREATININEon 01-26-2022 Creatinine [Mass/Vol] 0.72 mg/dL Normal 0.70-1.30 [facility] Comment on above: Performed By: #### C CANDIDO, BUN #### [facility] [address] [address] [address] Edison Guzman EGFR-AF ALGERIAN >60 Normal >=60 [facility] Comment on above: Performed By: #### C CANDIDO, BUN #### [facility] [address] [address] [address] Edison Guzman EGFR-NON AF ALGERIAN >60 Normal >=60 [facility] Comment on above: Performed By: #### C CANDIDO, BUN #### [facility] [address] [place], [place] [address] Dr. Edison Guzman MRI BRAIN WO W CONon 022 MRI BRAIN W CON EXAMINATION: MRI BRA IN WO [...] by: EMMA PICKERING Date: 2022-01-26 13:32 Normal [facility] Creatinineon 10-07-2021 Creatinine [Mass/Vol] 0.6 mg/dL Low 0.7-1.4 [facility] Comment on above: Performed By: #### C CANDIDO #### [facility] [address], [place] [id number] eGFRAA 159 mL/min/1.73m2 Normal >60 [facility] Special[facility] Comment on above: Performed By: #### C CANDIDO #### [facility] [address] [place], [place] [id number] eGFRNAA 131 mL/min/1.73m2 Normal >60 [facility] Comment on above: Performed By: #### C CANDIDO #### [facility] [address] [place], [place] [id number] MR BRAIN WITH AND WITHOUT CO NTRASTon [...] vascular lesions.3. Unremarkable brain otherwise.ARR/tdeWorks tation ID: [id number] by: YRIS PEREIRA on SunJul 03, 2017 4:01:10 PM ESTTranscribed by: JAC HARRIS on SunJul 03, 2017 4:30:54 PM ESTFinalized by: YRIS PEREIRA on SunJul 03, 2017 4:36:33 PM EST Normal [facility] Comment on above: Order Comment: See [...] 3. Unremarkable brain otherwise. ARR/tde Workstation ID: [id number] Invalid Interpretation Code [employer] [facility] MR Brain With And Without Contrast EXAMINATION: [...] cerebellum to appear intact. Invalid Interpretation Code [employer] [facility] MR Brain With And Without Contrast Interface, [...] 3. Unremarkable brain otherwise. ARR/tde Workstation ID: [id number] Invalid Interpretation Code [employer] [facility] Blood Gas, Venouson 04-01-20 17 Base Excess, Roby -2.3 1 Low -2.0 - 2.0 [facility] Bicarbonate (HCO3) 24.7 mmol/L Invalid Interpretation Code 24 - 28 mmol/L [facility] CO2 53.5 mm Hg High 41.0 - 51.0 [facility] Hematocrit (HCT) 42.5 % Invalid Interpretation Code 41 - 53 % [facility] Hemoglobin mass conc (Bld) 13.9 g/dL Invalid Interpretation Code 13.5 - 18 g/dL [facility] O2 saturation 86.8 % Invalid Interpretation Code [facility] pH, Venous 7.29 1 Low 7.32 - 7.42 [facility] pO2, Roby 56 mm Hg High 25 - 40 [facility] CBC Auto Differentialon 03-08 Basophils Auto #/vol (Bld) 0.10 K/mcL Invalid Interpretation Code 0.00 - 0.30 [facility] Basophils/100 WBC Auto (Bld) 0.4 % Invalid Interpretation Code [facility] Eosinophils 0.03 K/mcL Invalid Interpretation Code 0.00 - 0.50 [facility] Eosinophils/100 leukocytes 0.1 % Invalid Interpretation Code [facility] Erythrocyte distribution width Auto Entitic volume (RBC) 14.2 % Invalid Interpretation Code 11.6 - 14.8 % [facility] Erythrocytes (RBC) 3.96 M/mcL Low 4.50 - 5.90 [facility] Hematocrit (HCT) 37.1 % Low 41 - 53 % [facility] Hemoglobin mass conc (Bld) 12.2 g/dL Low 13.5 - 17.5 g/dL [facility] Immature granulocytes #/vol (Bld) 0.17 K/mcL Invalid Interpretation Code 0.00 - 0.30 [facility] Immature granulocytes/100 WBC (Bld) 0.70 % Invalid Interpretation Code [facility] Comment on above: The IG parameter is the percentage of metamyelocytes, myelocytes, and promyelocytes. Lymphocytes 0.51 K/mcL Low 0.90 - 4.00 [facility] Lymphocytes/100 leukocytes 2.2 % Invalid Interpretation Code [facility] MCH 30.8 pg Invalid Interpretation Code 26 - 34 pg [facility] MCHC mass conc (RBC) 32.9 g/dL Invalid Interpretation Code 31 - 37 g/dL [facility] MCV 93.7 fL Invalid Interpretation Code 80 - 100 fL [facility] Monocytes 1.23 K/mcL High 0.30 - 0.90 [facility] Monocytes/100 leukocytes 5.2 % Invalid Interpretation Code [facility] Neutrophils 21.51 K/mcL High 1.70 - 7.00 [facility] Neutrophils/100 WBC Auto (Bld) 91.4 % Invalid Interpretation Code [facility] Nucleated erythrocytes 0.00 K/mcL Invalid Interpretation Code 0.00 - 0.00 [facility] Nucleated erythrocytes/100 erythrocytes 0.0 % Invalid Interpretation Code [facility] Platelet mean volume (PMV) 9.2 fL Invalid Interpretation Code 9 - 15.5 fL [facility] Platelets 292 K/mcL Invalid Interpretation Code 150 - 400 [facility] WBC (Leukocytes) 23.55 K/mcL High 4.50 - 11.00 [facility] Basophils Auto #/vol (Bld) 0.10 K/mcL Invalid Interpretation Code 0.00 - 0.30 [facility] Basophils/100 WBC Auto (Bld) 0.4 % Invalid Interpretation Code [facility] Eosinophils 0.01 K/mcL Invalid Interpretation Code 0.00 - 0.50 [facility] Eosinophils/100 leukocytes 0.0 % Invalid Interpretation Code [facility] Erythrocyte distribution width Auto Entitic volume (RBC) 13.9 % Invalid Interpretation Code 11.6 - 14.8 % [facility] Erythrocytes (RBC) 4.19 M/mcL Low 4.50 - 5.90 [facility] Hematocrit (HCT) 38.8 % Low 41 - 53 % [facility] Hemoglobin mass conc (Bld) 13.1 g/dL Low 13.5 - 17.5 g/dL [facility] Immature granulocytes #/vol (Bld) 0.25 K/mcL Invalid Interpretation Code 0.00 - 0.30 [facility] Immature granulocytes/100 WBC (Bld) 1.00 % Invalid Interpretation Code [facility] Comment on above: The IG parameter is the percentage of metamyelocytes, myelocytes, and promyelocytes. Lymphocytes 0.67 K/mcL Low 0.90 - 4.00 [facility] Lymphocytes/100 leukocytes 2.8 % Invalid Interpretation Code [facility] MCH 31.3 pg Invalid Interpretation Code 26 - 34 pg [facility] MCHC mass conc (RBC) 33.8 g/dL Invalid Interpretation Code 31 - 37 g/dL [facility] MCV 92.6 fL Invalid Interpretation Code 80 - 100 fL [facility] Monocytes 1.07 K/mcL High 0.30 - 0.90 [facility] Monocytes/100 leukocytes 4.5 % Invalid Interpretation Code [facility] Neutrophils 21.84 K/mcL High 1.70 - 7.00 [facility] Neutrophils/100 WBC Auto (Bld) 91.3 % Invalid Interpretation Code [facility] Nucleated erythrocytes 0.00 K/mcL Invalid Interpretation Code 0.00 - 0.00 [facility] Nucleated erythrocytes/100 erythrocytes 0.0 % Invalid Interpretation Code [facility] Platelet mean volume (PMV) 8.8 fL Low 9 - 15.5 fL [facility] Platelets 328 K/mcL Invalid Interpretation Code 150 - 400 [facility] WBC (Leukocytes) 23.94 K/mcL High 4.50 - 11.00 [facility] CBC and Differentialon 04-01 Creatinine The following orders were created for panel order CBC and Differential. Procedure Abnormality Status --------- ------ CBC Auto Differential[[id number] ] Abnormal Final result Please view results for these tests on the individual orders. Invalid Interpretation Code [facility] Work Phone: Creatinine The following orders were created for panel order CBC and Differential. Procedure Abnormality Status --------- ------ CBC Auto Differential[[id number] ] Abnormal Final result Please view results for these tests on the individual orders. Invalid Interpretation Code [facility] Work Phone: Comprehensive Metabolic Pane [facility] 04-01-2017 Alanine aminotransferase (ALT) 12 U/L Low 14 - 65 U/L [facility] Albumin 2.0 g/dL Low 3.2 - 5.2 g/dL [facility] Alkaline phosphatase (ALP) 98 U/L Invalid Interpretation Code 40 - 150 U/L [facility] Anion gap 11 mmol/L Invalid Interpretation Code 10 - 20 mmol/L [facility] Aspartate aminotransferase (AST) 15 U/L Invalid Interpretation Code 0 - 45 U/L [facility] Bicarbonate (HCO3) 22 mmol/L Invalid Interpretation Code 21 - 32 mmol/L [facility] Bilirubin (total) 0.3 mg/dL Invalid Interpretation Code 0 - 1.3 mg/dL [facility] BUN/Creatinine Ratio 12.3 mg/mg Invalid Interpretation Code 10.0 - 20.0 [facility] Calcium 7.6 mg/dL Low 8.4 - 10.2 mg/dL [facility] Chloride 108 mmol/L Invalid Interpretation Code 98 - 108 mmol/L [facility] Creatinine 0.65 mg/dL Invalid Interpretation Code 0.5 - 1.3 mg/dL [facility] eGFR (non-black) The eGFR should be used for monitoring renal function only and not for medication dosing. Invalid Interpretation Code [facility] eGFR (non-black) 107 mL/min/{1.73_m2} Invalid Interpretation Code >=60 [facility] Glucose mass conc 88 mg/dL Invalid Interpretation Code 65 - 99 mg/dL [facility] Interpretation and review of laboratory results Abnormal Invalid Interpretation Code [facility] Potassium molar conc 4.0 mmol/L Invalid Interpretation Code 3.5 - 5.1 mmol/L [facility] Protein 5.9 g/dL Low 6 - 8 g/dL [facility] Sodium 137 mmol/L Invalid Interpretation Code 135 - 145 mmol/L [facility] Urea nitrogen 8 mg/dL Invalid Interpretation Code 8 - 25 mg/dL [facility] Alanine aminotransferase (ALT) 11 U/L Low 14 - 65 U/L [facility] Albumin 2.4 g/dL Low 3.2 - 5.2 g/dL [facility] Alkaline phosphatase (ALP) 100 U/L Invalid Interpretation Code 40 - 150 U/L [facility] Anion gap 13 mmol/L Invalid Interpretation Code 10 - 20 mmol/L [facility] Aspartate aminotransferase (AST) 8 U/L Invalid Interpretation Code 0 - 45 U/L [facility] Bicarbonate (HCO3) 23 mmol/L Invalid Interpretation Code 21 - 32 mmol/L [facility] Bilirubin (total) 0.4 mg/dL Invalid Interpretation Code 0 - 1.3 mg/dL [facility] BUN/Creatinine Ratio 11.3 mg/mg Invalid Interpretation Code 10.0 - 20.0 [facility] Calcium 8.0 mg/dL Low 8.4 - 10.2 mg/dL [facility] Chloride 102 mmol/L Invalid Interpretation Code 98 - 108 mmol/L [facility] Creatinine 0.71 mg/dL Invalid Interpretation Code 0.5 - 1.3 mg/dL [facility] eGFR (non-black) The eGFR should be used for monitoring renal function only and not for medication dosing. Invalid Interpretation Code [facility] eGFR (non-black) 103 mL/min/{1.73_m2} Invalid Interpretation Code >=60 [facility] Glucose mass conc 93 mg/dL Invalid Interpretation Code 65 - 99 mg/dL [facility] Interpretation and review of laboratory results Abnormal Invalid Interpretation Code [facility] Potassium molar conc 4.0 mmol/L Invalid Interpretation Code 3.5 - 5.1 mmol/L [facility] Protein 6.8 g/dL Invalid Interpretation Code 6 - 8 g/dL [facility] Sodium 134 mmol/L Low 135 - 145 mmol/L [facility] Urea nitrogen 8 mg/dL Invalid Interpretation Code 8 - 25 mg/dL [facility] ECG 12 Leadon 04-01-2017 Atrial Rate 143 BPM Invalid Interpretation Code [id number] P [place] 68 degrees Invalid Interpretation Code [id number] P-R Interval 134 ms Invalid Interpretation Code [id number] Q-T Interval 348 ms Invalid Interpretation Code [id number] QRS Duration 102 ms Invalid Interpretation Code [id number] QTC Calculation (Bezet) 537 ms Invalid Interpretation Code [id number] R [place] 96 degrees Invalid Interpretation Code [id number] T [place] 70 degrees Invalid Interpretation Code [id number] Ventricular Rate 143 BPM Invalid Interpretation Code [id number] ECG 12 Lead Sinus tachycardia Rightward axis Borderline ECG When compared with ECG of 31-MAR-2017 23:12, No significant change was found Confirmed by Hans Conte MD ([id number]) on 04/01/2017 11:47:17 AM Invalid Interpretation Code [id number] Influenza A,B Rapid Molecula genaro 04-01-2017 Influenza A Not Detected Invalid Interpretation Code Not Detected [facility] Influenza B Not Detected Invalid Interpretation Code Not Detected [facility] Interpretation and review of laboratory results Normal Invalid Interpretation Code [facility] Influenza A,B Rapid Molecular Test Method: Nucleic Acid Amplification Invalid Interpretation Code [facility] Lactic Acid, Plasmaon 2016 Interpretation and review of laboratory results Abnormal Invalid Interpretation Code [facility] Lactate 3.5 mmol/L High 0.6 - 2 mmol/L [facility] Interpretation and review of laboratory results Abnormal Invalid Interpretation Code [facility] Lactate 3.9 mmol/L High 0.6 - 2 mmol/L [facility] Lactate 2.3 mmol/L High 0.6 - 2 mmol/L [facility] Interpretation and review of laboratory results Abnormal Invalid Interpretation Code [facility] Lactate 2.8 mmol/L High 0.6 - 2 mmol/L [facility] Magnesium Levelon 04-01-2017 Magnesium 1.8 mg/dL Invalid Interpretation Code 1.6 - 2.4 mg/dL [facility] PT/INRon 04-01-2017 INR Coag RelTime (Bld) During the induction phase of oral anticoagulation, the INR may not reflect the anticoagulation status of the patient. Therapeutic ranges for INR's are: Most clinical situations: INR 2.0-3.0 Mechanical Prosthetic Valve: INR 2.5-3.5 Critical: INR >5.0 Invalid Interpretation Code [facility] INR Coag RelTime (PPP) 1.4 {INR} High 0.8 - 1.1 [facility] Prothrombin time (PT) Coag time (PPP) 16.5 s High 11.8 - 14.3 [facility] Prealbuminon 04-01-2017 Prealbumin 9.3 mg/dL Low 20 - 40 mg/dL [facility] T4, Freeon 04-01-2017 Thyroxine (T4) free 0.9 ng/dL Invalid Interpretation Code 0.7 - 1.7 ng/dL [facility] TSH with Reflex Free T4on Thyroid stimulating hormone (TSH) 36.20 mcIU/mL High 0.32 - 5.00 [facility] Troponinon 04-01-2017 Interpretation and review of laboratory results Normal Invalid Interpretation Code [facility] Troponin I.cardiac mass conc ng/mL Invalid Interpretation Code <=45 ng/L [facility] Comment on above: The 2014 AHA/ACC Gu ideline for the Management of Patients With Rzb-YW-Ndqcdgnfc Acute Coronary Syndromes defines myocardial infarction (SD) as follows: 1. For troponin-I value above the 45 ng/L (99th percentile) cut-off, a rise or fall greater than or equal to 20% from the initial value is indicative of SD, in conjunction with the appropriate clinical symptoms. 2. For troponin-I value less than 45ng/L an absolute value change greater than or equal to 8ng/L is indicative of myocardial necrosis. Urinalysison 04-01-2017 Bilirubin Ql (U) Negative Invalid Interpretation Code Negative [facility] Blood, Urine Negative Invalid Interpretation Code Negative [facility] Interpretation and review of laboratory [...] RadiationHistory: nEncounter Type: InitialAdditional signs and symptoms: [facility] DIAGNOSIS CODES:J18.9 Pneumonia due to infectious organism, unspecified laterality, unspecified part of lungA41.9 Sepsis, due to unspecified organism ([facility])COMPARISON:2016 and 11/10/2016.FINDINGS:Si gnificant increase in size [...] patient's nurse, Constanza, at 5:48 a.m. on 04/01/2017.[facility]Work [facility] ID: [id number] by: ALBINO MATHEWS on SunApr 01, 2017 5:49:17 AM ESTTranscribed by: PROSPER FUNG on SunApr 01, 2017 6:46:15 AM ESTFinalized by: ALBINO MATHEWS on SunApr 01, 2017 6:55:00 AM EST [facility] Comment on above: Order Comment: Reaso [...] nurse, Constanza, at 5:48 a.m. on 04/01/2017. [facility] Workstation ID: [id number] Invalid Interpretation Code [employer] [facility] XR Chest 1 View EXAMINATION: XR CHES [...] osseous structures are intact. Invalid Interpretation Code [employer] [facility] XR Chest 1 View Significant interval increase in size of right partially loculated pleural effusion now moderate to large in size. Increasing compressive atelectatic changes within the right lung. Left lung remains clear. Findings conveyed to patient's nurse, Constanza, at 5:48 a.m. on 04/01/2017. [facility] Workstation ID: [id number] Invalid Interpretation Code [facility]ONN[facility] Basic Metabolic Panelon 11-2 Anion gap 12 mmol/L Invalid Interpretation Code 10 - 20 mmol/L [facility] Bicarbonate (HCO3) 28 mmol/L Invalid Interpretation [...] not for medication dosing. Invalid Interpretation Code [facility] eGFR (non-black) 87 mL/min/{1.73_m2} Invalid Interpretation Code >=60 [facility] Glucose mass conc 145 mg/dL High 65 - 99 mg/dL [facility] Interpretation and review of laboratory results Abnormal Invalid Interpretation Code [facility] Potassium molar conc 4.4 mmol/L Invalid Interpretation Code 3.5 - 5.1 mmol/L [facility] Sodium 134 mmol/L Low 135 - 145 mmol/L [facility] Urea nitrogen 11 mg/dL Invalid Interpretation Code 8 - 25 mg/dL [facility] Blood Gas, Venouson 03-31-20 17 Base Excess, Roby 3.3 1 High -2.0 - 2.0 [facility] Bicarbonate (HCO3) 30.0 mmol/L High 24 - 28 mmol/L [facility] CO2 57.2 mm Hg High 41.0 - 51.0 [facility] Hematocrit (HCT) 43.1 % Invalid Interpretation Code 41 - 53 % [facility] Hemoglobin mass conc (Bld) 14.0 g/dL Invalid Interpretation Code 13.5 - 18 g/dL [facility] O2 saturation 50.6 % Invalid Interpretation Code [facility] pH, Venous 7.34 1 Invalid Interpretation Code 7.32 - 7.42 [facility] pO2, Roby 28 mm Hg Invalid Interpretation Code 25 - 40 [facility] CBC Auto Differentialon 03-08 Basophils Auto #/vol (Bld) 0.15 K/mcL Invalid Interpretation Code 0.00 - 0.30 [facility] Basophils/100 WBC Auto (Bld) 0.5 % Invalid Interpretation Code [facility] Eosinophils 0.05 K/mcL Invalid Interpretation Code 0.00 - 0.50 [facility] Eosinophils/100 leukocytes 0.2 % Invalid Interpretation Code [facility] Erythrocyte distribution width Auto Entitic volume (RBC) 14.0 % Invalid Interpretation Code 11.6 - 14.8 % [facility] Erythrocytes (RBC) 4.63 M/mcL Invalid Interpretation Code 4.50 - 5.90 [facility] Hematocrit (HCT) 42.2 % Invalid Interpretation Code 41 - 53 % [facility] Hemoglobin mass conc (Bld) 14.4 g/dL Invalid Interpretation Code 13.5 - 17.5 g/dL [facility] Immature granulocytes #/vol (Bld) 0.21 K/mcL Invalid Interpretation Code 0.00 - 0.30 [facility] Immature granulocytes/100 WBC (Bld) 0.70 % Invalid Interpretation Code [facility] Comment on above: The IG parameter is the percentage of metamyelocytes, myelocytes, and promyelocytes. Lymphocytes 0.51 K/mcL Low 0.90 - 4.00 [facility] Lymphocytes/100 leukocytes 1.7 % Invalid Interpretation Code [facility] MCH 31.1 pg Invalid Interpretation Code 26 - 34 pg [facility] MCHC mass conc (RBC) 34.1 g/dL Invalid Interpretation Code 31 - 37 g/dL [facility] MCV 91.1 fL Invalid Interpretation Code 80 - 100 fL [facility] Monocytes 0.97 K/mcL High 0.30 - 0.90 [facility] Monocytes/100 leukocytes 3.3 % Invalid Interpretation Code [facility] Neutrophils 27.27 K/mcL High 1.70 - 7.00 [facility] Neutrophils/100 WBC Auto (Bld) 93.6 % Invalid Interpretation Code [facility] Nucleated erythrocytes 0.00 K/mcL Invalid Interpretation Code 0.00 - 0.00 [facility] Nucleated erythrocytes/100 erythrocytes 0.0 % Invalid Interpretation Code [facility] Platelet mean volume (PMV) 8.5 fL Low 9 - 15.5 fL [facility] Platelets 440 K/mcL High 150 - 400 [facility] WBC (Leukocytes) 29.16 K/mcL High 4.50 - 11.00 [facility] AB CBC and Differentialon 03-31 Creatinine The following orders were created for panel order CBC and Differential. Procedure Abnormality Status --------- ------ CBC Auto Differential[[id number] ] Abnormal Final result Please view results for these tests on the individual orders. Invalid Interpretation Code [facility] Work Phone: CT PULMONARY ARTERIESon 03-08 CT [...] are favored to be reactive.SDH/hbWorksta tion ID: [id number] by: MAR JUDGE on Sat Mar 31, 2017 11:56:38 AM ESTTranscribed by: LUDY BENNETT on Sat Mar 31, 2017 12:04:40 PM ESTFinalized by: MAR JUDGE on Sat Mar 31, 2017 5:02:28 PM EST [facility] Comment on above: Order Comment: Reaso [...] No acute osseous abnormality. Invalid Interpretation Code [employer] [facility] CT Pulmonary Arteries Interface, Rad In Pacs [employer] - 03/31/2017 5:05 PM EST EXAMINATION: CT [...] lymph nodes are favored to be reactive. Somewhere/[employer] Workstation ID: [id number] Invalid Interpretation Code [employer] [facility] CT Pulmonary Arteries 1. No pulmonary embolism [...] lymph nodes are favored to be reactive. Somewhere/[employer] Workstation ID: [id number] Invalid Interpretation Code [facility] [place] ECG 12 Leadon 03-31-2017 Atrial Rate 136 BPM Invalid Interpretation Code [id number] P [place] 74 degrees Invalid Interpretation Code [id number] P-R Interval 140 ms Invalid Interpretation Code [id number] Q-T Interval 276 ms Invalid Interpretation Code QPC071 QRS Duration 98 ms Invalid Interpretation Code [id number] QTC Calculation (Bezet) 415 ms Invalid Interpretation Code [id number] R [place] 128 degrees Invalid Interpretation Code [id number] T [place] 62 degrees Invalid Interpretation Code [id number] Ventricular Rate 136 BPM Invalid Interpretation Code [id number] ECG 12 Lead Sinus tachycardia Right axis deviation Abnormal ECG When compared with ECG of 10-NOV-2016 17:37, QRS axis shifted right Confirmed by Hans Conte MD ([id number]) on 04/01/2017 11:53:16 AM Invalid Interpretation Code [id number] Hepatic Function Panelon Alanine aminotransferase (ALT) 14 [...] results Abnormal Invalid Interpretation Code [facility] Lactate 2.7 mmol/L High 0.6 - 2 mmol/L [facility] Lactic Acid, Whole bloodon 1 05-31-2016 Lactate 2.4 mmol/L High 0.6 - 2 mmol/L [facility] Lipaseon 03-31-2017 Lipase 46 U/L Low 73 - 393 U/L [facility] Magnesium Levelon 03-31-2017 Magnesium 1.7 mg/dL Invalid Interpretation Code 1.6 - 2.4 mg/dL [facility] Troponinon 03-31-2017 Interpretation and review of laboratory results Normal Invalid Interpretation Code [facility] Troponin I.cardiac mass conc ng/mL Invalid Interpretation Code <=45 ng/L [facility] Comment on above: The 2014 AHA/ACC Gu ideline for the Management of Patients With Wax-KD-Ccmyajqag Acute Coronary Syndromes defines myocardial infarction (SD) as follows: 1. For troponin-I value above the 45 ng/L (99th percentile) cut-off, a rise or fall greater than or equal to 20% from the initial value is indicative of SD, in conjunction with the appropriate clinical symptoms. [...] ideline for the Management of Patients With Kwx-WU-Llhverdxt Acute Coronary Syndromes defines myocardial infarction (SD) as follows: 1. For troponin-I value above the 45 ng/L (99th percentile) cut-off, a rise or fall greater than or equal to 20% from the initial value is indicative of SD, in conjunction with the appropriate clinical symptoms. [...] ideline for the Management of Patients With Dfz-YW-Bvgfposel Acute Coronary Syndromes defines myocardial infarction (SD) as follows: 1. For troponin-I value above the 45 ng/L (99th percentile) cut-off, a rise or fall greater than or equal to 20% from the initial value is indicative of SD, in conjunction with the appropriate clinical symptoms. 2. For troponin-I value less than 45ng/L an absolute value change greater than or equal to 8ng/L is indicative of myocardial necrosis. Urinalysison 03-31-2017 Bilirubin Ql (U) Negative Invalid Interpretation Code Negative [facility] Blood, Urine Negative Invalid Interpretation Code Negative [facility] Interpretation and review of laboratory [...] No Growth (<1,000 CFU/mL) Invalid Interpretation Code [facility] XR CHEST PA/APon 03-31-2017 XR [...] clear. No free air collections underneath the hemidiaphragms.CYNDY/[employer] orkstation ID: [id number] by: ANIYAH AVELAR on Sat Mar 31, 2017 11:07:21 AM ESTTranscribed by: EMILIA SHELBY on Sat Mar 31, 2017 11:29:53 AM ESTFinalized by: ANIYAH AVELAR on Sat Mar 31, 2017 12:23:31 PM EST [facility] Comment on above: Order Comment: Reaso [...] collections underneath the hemidiaphragms. CYNDY/[employer]ian Workstation ID: [id number] Invalid Interpretation Code [facility] [place] XR Chest 1 View EXAMINATION: XR CHES [...] obvious acute osseous abnormality. Invalid Interpretation Code [employer] [facility] XR Chest 1 View Interface, Rad In [...] collections underneath the hemidiaphragms. CYNDY/[employer]ian Workstation ID: [id number] Invalid Interpretation Code [employer] [facility] XR CHEST PA/APon 11-10-2016 XR CHEST PA/AP [...] No focal infiltrate or mass.IMPRESSION:No acute cardiopulmonary findings.[facility] ation ID: [id number] by: LEONCIO BELTRAN on SunNov 10, 2016 6:11:38 PM EDTTranscribed by: RUTH PRADHAN IN [employer] on SunNov 10, 2016 6:49:22 PM EDTFinalized by: LEONCIO BELTRAN on SunNov 10, 2016 6:49:22 PM EDT [facility] Comment on above: Order Comment: Reaso n for exam?:cpInjury/Trauma or Illness?:Illness/OtherHow long have you had these symptoms (acute/chronic)?:AcuteHistory of cancer?:nSurgeries, chemotherapy, or radiation?:nType of Exam?:InitialAdditional signs and symptoms?:sob Vital Signs Date Time Vital Sign Value Performing Clinician Facility 01-22-2025 10: Body height 174 cm Katrina Bermudez MD Work Phone: [facility] 01-22-2025 10: Body mass index (BMI) [Ratio] 26.34 kg/m2 Katrina Bermudez MD Work Phone: [facility] 01-22-2025 10:19-0400 Body weight 79.74 kg Katrina Bermudez MD Work Phone: [facility] 01-22-2025 10:19-0400 Diastolic blood pressure 68 mm[Hg] Katrina Bermudez MD Work Phone: [facility] 01-22-2025 10:19-0400 Heart rate 68 /min Katrina Bermudez MD Work Phone: [facility] 01-22-2025 10:19-0400 Respiratory rate 18 /min Katrina Bermudez MD Work Phone: [facility] 01-22-2025 10:19-0400 SaO2% (BldA) [Mass fraction] 91 % Katrina Bermudez MD Work Phone: [facility] 01-22-2025 10:19-0400 Systolic blood pressure 124 mm[Hg] Katrina Bermudez MD Work Phone: [facility] 01-21-2025 09:42-0400 Body mass index (BMI) [Ratio] 26.07 kg/m2 [employer] Work Phone: [facility] 01-21-2025 09:42-0400 Body weight 78.93 kg [employer] Work Phone: [facility] 01-21-2025 09:42-0400 Diastolic blood pressure 86 mm[Hg] [employer]ESTHESIA ASSOC[employer]ATE[employer] Work Phone: [facility] 01-21-2025 09:42-0400 Respiratory rate 18 /min [employer] Work Phone: [facility] 01-21-2025 09:42-0400 SaO2% (BldA) [Mass fraction] 98 % [employer] Work Phone: [facility] 01-21-2025 09:42-0400 Systolic blood pressure 128 mm[Hg] [employer] Work Phone: [facility] 12-17-2024 11:28-0400 Body height 174 cm Olive Nice MD Work Phone: [facility] 12-17-2024 11:28-0400 Body mass index (BMI) [Ratio] 26.07 kg/m2 Olive Nice MD Work Phone: [facility] 12-17-2024 11:28-0400 Body weight 78.93 kg Olive Nice MD Work Phone: [facility] 12-17-2024 11:28-0400 Heart rate 95 /min Olive Nice MD Work Phone: [facility] 12-17-2024 11:28-0400 Respiratory rate 18 /min Olive Nice MD Work Phone: [facility] 12-17-2024 11:28-0400 SaO2% (BldA) [Mass fraction] 89 % Olive Nice MD Work Phone: [facility] 10-22-2024 10:10-0400 Diastolic blood pressure 80 mm[Hg] Gavin Majors PERCOLATOR OPERATOR Work Phone: [facility] 10-22-2024 10:10-0400 Systolic blood pressure 130 mm[Hg] Gavin Majors PERCOLATOR OPERATOR Work Phone: [facility] 10-22-2024 09:56-0400 Body height 180.3 cm Gavin Majors PERCOLATOR OPERATOR Work Phone: [facility] 10-22-2024 09:56-0400 Body mass index (BMI) [Ratio] 23.51 kg/m2 Gavin Majors PERCOLATOR OPERATOR Work Phone: [facility] 10-22-2024 09:56-0400 Body temperature 97 [degF] Gavin Majors PERCOLATOR OPERATOR Work Phone: [facility] 10-22-2024 09:56-0400 Body weight 76.48 kg Gavin Majors PERCOLATOR OPERATOR Work Phone: [facility] 10-22-2024 09:56-0400 Heart rate 88 /min Gavin Majors PERCOLATOR OPERATOR Work Phone: [facility] 10-22-2024 09:56-0400 SaO2% (BldA) [Mass fraction] 94 % Gavin Freitas NP Work Phone: [facility] 07-15-2024 10:11-0400 Body height 180.3 cm Katrina Bermudez MD Work Phone: [facility] 07-15-2024 10:11-0400 Body mass index (BMI) [Ratio] 21 kg/m2 Katrina Bermudez MD Work Phone: [facility] 07-15-2024 10:11-0400 Body weight 68.31 kg Katrina Bermudez MD Work Phone: [facility] 07-15-2024 10:11-0400 Diastolic blood pressure 72 mm[Hg] Katrina Bermudez MD Work Phone: [facility] 07-15-2024 10:11-0400 Heart rate 69 /min Katrina Bermudez MD Work Phone: [facility] 07-15-2024 10:11-0400 Respiratory rate 18 /min Katrina Bermudez MD Work Phone: [facility] 07-15-2024 10:11-0400 SaO2% (BldA) [Mass fraction] 94 % Katrina Bermudez MD Work Phone: [facility] 07-15-2024 10:11-0400 Systolic blood pressure 126 mm[Hg] Katrina Bermudez MD Work Phone: [facility] 06-30-2024 10:30-0500 Blood Pressure Location ALEXANDRA MOSLEY [facility] 06-30-2024 10:30-0500 Diastolic blood pressure 77 mm[Hg] ALEXANDRA MOSLEY [facility] 06-30-2024 10:30-0500 Heart rate 75 /min ALEXANDRA MOSLEY [facility] 06-30-2024 10:30-0500 Respiratory rate 18 /min ALEXANDRA MOSLEY [facility] 06-30-2024 10:30-0500 Systolic blood pressure 139 mm[Hg] ALEXANDRA MOSLEY [facility] 06-06-2024 10:29-0500 Body height 180.3 cm Katrina Bermudez MD Work Phone: [facility] 06-06-2024 10:29-0500 Body mass index (BMI) [Ratio] 20.45 kg/m2 Katrina Bermudez MD Work Phone: [facility] 06-06-2024 10:29-0500 Body weight 66.5 kg Katrina Bermudez MD Work Phone: [facility] 06-06-2024 10:29-0500 Diastolic blood pressure 78 mm[Hg] Katrina Bermudez MD Work Phone: [facility] 06-06-2024 10:29-0500 Heart rate 97 /min Katrina Bermudez MD Work Phone: [facility] 06-06-2024 10:29-0500 Respiratory rate 16 /min Katrina Bermudez MD Work Phone: [facility] 06-06-2024 10:29-0500 SaO2% (BldA) [Mass fraction] 93 % Katrina Bermudez MD Work Phone: [facility] 06-06-2024 10:29-0500 Systolic blood pressure 122 mm[Hg] Katrina Bermudez MD Work Phone: [facility] 05-29-2024 11:15-0500 Body height 180.3 cm Ami Lowe PA Work Phone: [facility] 05-29-2024 11:15-0500 Body mass index (BMI) [Ratio] 20.22 kg/m2 Ami Lowe PA Work Phone: [facility] 05-29-2024 11:15-0500 Body weight 65.77 kg Ami Lowe PA Work Phone: [facility] 05-29-2024 11:15-0500 Diastolic blood pressure 82 mm[Hg] Ami Black PA Work Phone: [facility] 05-29-2024 11:15-0500 Systolic blood pressure 128 mm[Hg] Ami Chisholme PA Work Phone: [facility] 05-20-2024 11:24-0500 Body height 180.3 cm Katrina Bermudez MD Work Phone: [facility] 05-20-2024 11:24-0500 Body mass index (BMI) [Ratio] 20.45 kg/m2 Katrina Bermudez MD Work Phone: [facility] 05-20-2024 11:24-0500 Body weight 66.5 kg Katrina Bermudez MD Work Phone: [facility] 05-20-2024 11:24-0500 Diastolic blood pressure 66 mm[Hg] Katrina Bermudez MD Work Phone: [facility] 05-20-2024 11:24-0500 Heart rate 89 /min Katrina Bermudez MD Work Phone: [facility] 05-20-2024 11:24-0500 Respiratory rate 18 /min Katrina Bermudez MD Work Phone: [facility] 05-20-2024 11:24-0500 SaO2% (BldA) [Mass fraction] 93 % Katrina Bermudez MD Work Phone: [facility] 05-20-2024 11:24-0500 Systolic blood pressure 116 mm[Hg] Katrina Bermudez MD Work Phone: [facility] 05-12-2024 10:30-0500 Body height 180.3 cm Olive Nice MD Work Phone: [facility] 05-12-2024 10:30-0500 Body mass index (BMI) [Ratio] 20.5 kg/m2 Olive Nice MD Work Phone: [facility] 05-12-2024 10:30-0500 Body weight 66.68 kg Olive Nice MD Work Phone: [facility] 05-12-2024 10:30-0500 Diastolic blood pressure 66 mm[Hg] Olive Nice MD Work Phone: [facility] 05-12-2024 10:30-0500 Heart rate 101 /min Olive Nice MD Work Phone: [facility] 05-12-2024 10:30-0500 Respiratory rate 20 /min Olive Nice MD Work Phone: [facility] 05-12-2024 10:30-0500 Systolic blood pressure 130 mm[Hg] Olive Nice MD Work Phone: [facility] 04-18-2024 10:35-0500 Body height 180.3 cm Agnes Murphy DO Work Phone: [facility] 04-18-2024 10:35-0500 Body mass index (BMI) [Ratio] 20.39 kg/m2 Agnes Murphy DO Work Phone: [facility] 04-18-2024 10:35-0500 Body weight 66.32 kg Agnes Murphy DO Work Phone: [facility] 04-18-2024 10:35-0500 Diastolic blood pressure 84 mm[Hg] Agnes Murphy DO Work Phone: [facility] 04-18-2024 10:35-0500 Heart rate 103 /min Agnes Murphy DO Work Phone: [facility] 04-18-2024 10:35-0500 SaO2% (BldA) [Mass fraction] 91 % Agnes Murphy DO Work Phone: [facility] 04-18-2024 10:35-0500 Systolic blood pressure 132 mm[Hg] Agnes Murphy DO Work Phone: [facility] 03-04-2024 11:14-0400 Body height 180.3 cm Fabiana HURST Work Phone: [facility] 03-04-2024 11:14-0400 Body mass index (BMI) [Ratio] 21.34 kg/m2 Fabiana Hahn PA Work Phone: [facility] 03-04-2024 11:14-0400 Body weight 69.4 kg Fabiana Hill PA Work Phone: [facility] 03-04-2024 11:14-0400 Diastolic blood pressure 84 mm[Hg] Fabiana Hahn PA Work Phone: [facility] 03-04-2024 11:14-0400 Heart rate 92 /min Fabiananohemy Hahn PA Work Phone: [facility] 03-04-2024 11:14-0400 Respiratory rate 16 /min Fabiananohemy Hahn PA Work Phone: [facility] 03-04-2024 11:14-0400 SaO2% (BldA) [Mass fraction] 91 % Fabiana Hahn PA Work Phone: [facility] 03-04-2024 11:14-0400 Systolic blood pressure 138 mm[Hg] Fabiana Hahn PA Work Phone: [facility] 02-06-2024 10:35-0400 Body height 180.3 cm Fabiana Hahn PA Work Phone: [facility] 02-06-2024 10:35-0400 Body mass index (BMI) [Ratio] 20.92 kg/m2 Fabiana Hahn PA Work Phone: [facility] 02-06-2024 10:35-0400 Body weight 68.04 kg Fabiana Hahn PA Work Phone: [facility] 02-06-2024 10:35-0400 Diastolic blood pressure 72 mm[Hg] Fabiana Hahn PA Work Phone: [facility] 02-06-2024 10:35-0400 Heart rate 102 /min Fabiana Hahn PA Work Phone: [facility] 02-06-2024 10:35-0400 Respiratory rate 16 /min Fabiana Hahn PA Work Phone: [facility] 02-06-2024 10:35-0400 SaO2% (BldA) [Mass fraction] 93 % Fabiana Hahn PA Work Phone: [facility] 02-06-2024 10:35-0400 Systolic blood pressure 112 mm[Hg] Fabiana Hahn PA Work Phone: [facility] 01-10-2024 11:22-0400 Body height 180.3 cm Radhaamarilis Emery PERCOLATOR OPERATOR Work Phone: [facility] 01-10-2024 11:22-0400 Body mass index (BMI) [Ratio] 21.62 kg/m2 Radha Emery PERCOLATOR OPERATOR Work Phone: [facility] 01-10-2024 11:22-0400 Body weight 70.31 kg Radha Emery PERCOLATOR OPERATOR Work Phone: [facility] 01-10-2024 11:22-0400 Diastolic blood pressure 80 mm[Hg] Radha Emery PERCOLATOR OPERATOR Work Phone: [facility] 01-10-2024 11:22-0400 Heart rate 86 /min Radha Emery PERCOLATOR OPERATOR Work Phone: [facility] 01-10-2024 11:22-0400 Respiratory rate 18 /min Radha Emery PERCOLATOR OPERATOR Work Phone: [facility] 01-10-2024 11:22-0400 SaO2% (BldA) [Mass fraction] 92 % Radha Emery PERCOLATOR OPERATOR Work Phone: [facility] 01-10-2024 11:22-0400 Systolic blood pressure 128 mm[Hg] Radha Emery PERCOLATOR OPERATOR Work Phone: [facility] 09-25-2023 12:30-0400 Diastolic blood pressure 82 mm[Hg] MD Katrina Bermudez Work Phone: [facility] 09-25-2023 12:30-0400 Heart rate 100 /min MD Katrina Bermudez Work Phone: [facility] 09-25-2023 12:30-0400 Respiratory rate 16 /min MD Katrina Bermudez Work Phone: [facility] 09-25-2023 12:30-0400 SaO2% (BldA) [Mass fraction] 98 % MD Katrina Bermudez Work Phone: [facility] 09-25-2023 12:30-0400 Systolic blood pressure 146 mm[Hg] MD Katrina Bermudez Work Phone: [facility] 09-25-2023 10:35-0400 Body height 182.88 cm MD Katrina Bermudez Work Phone: [facility] 09-25-2023 10:35-0400 Body weight 77.11 kg MD Katrina Bermudez Work Phone: [facility] 08-24-2023 13:45-0400 Diastolic blood pressure 74 mm[Hg] MD Katrina Bermudez Work Phone: [facility] 08-24-2023 13:45-0400 Heart rate 100 /min MD Katrina Bermudez Work Phone: [facility] 08-24-2023 13:45-0400 Respiratory rate 20 /min MD Katrina Bermudez Work Phone: [facility] 08-24-2023 13:45-0400 SaO2% (BldA) [Mass fraction] 94 % MD Katrina Bermudez Work Phone: [facility] 08-24-2023 13:45-0400 Systolic blood pressure 124 mm[Hg] MD Katrina [facility]ermudez [facility] [facility] 08-24-2023 11:04-0400 Body height 180.34 cm MD Katrina Bermudez Work Phone: [facility] 08-24-2023 11:04-0400 Body weight 72.57 kg MD Katrina Bermudez Work Phone: [facility] 07-25-2023 13:57-0400 Body height 180.[address] [facility] 07-25-2023 13:57-0400 Body mass index (BMI) [Ratio] 23 kg/m2 [facility] 07-25-2023 13:57-0400 Body weight 74.[address] [facility] 05-31-2017 14:32-0500 Body Temperature 98.2 [degF] Room [facility] Work Phone: 05-31-2017 14:32-0500 BP Diastolic 76 mm[Hg] Room [facility] Work Phone: 05-31-2017 14:32-0500 BP Systolic 122 mm[Hg] Room [facility] Work Phone: 05-31-2017 14:32-0500 Pulse (Heart Rate) 108 /min Room [facility] Work Phone: 04-01-2017 16:32-0500 BP Diastolic 70 mm[Hg] Keisha Gastelum [facility] Work Phone: 04-01-2017 16:32-0500 BP Systolic 123 mm[Hg] Keisha Gastelum [facility] Work Phone: 04-01-2017 16:32-0500 Pulse (Heart Rate) 129 /min Keisha Gastelum [facility] Work Phone: 04-01-2017 16:32-0500 Pulse Oximetry 92 % Keisha Gastelum [facility] Work Phone: 04-01-2017 16:32-0500 Respiratory Rate 24 /min Keisha Gastelum [facility] Work Phone: 04-01-2017 16:21-0500 Body Temperature 98.8 [degF] Keisha Gastelum [facility] Work Phone: 04-01-2017 03:46-0500 BMI (Body Mass Index) 18.36 kg/m2 Keisha Gastelum [facility] Work Phone: 04-01-2017 03:46-0500 Weight 61.4 kg Keisha Gastelum [facility] Work Phone: 03-31-2017 10:32-0500 Height 182.9 cm Keisha Gastelum [facility] Work Phone: Encounters Encounter Date Encounter Type Care Provider Facility Start: 01-22-2025 End: 01-22-2025 Bamboo flowsheet Katrina Bermudez MD Work Phone: [facility] Start: 01-22-2025 End: 01-22-2025 Bamboo flowsheet Katrina Bermudez MD Work Phone: [facility] Start: 01-22-2025 End: 01-22-2025 Office outpatient visit 25 minutes Katrina Bermudez MD Work Phone: [facility] Comment on above: Chronic obstructive pulmonary disease with acute exacerbation (HCC) (Primary Dx); Encounter for immunization; Heavy smoker (more than 20 cigarettes per day); Multiple sclerosis (HCC); Acquired hypothyroidism ; Age-related osteoporosis without current pathological fracture ; Slow transit constipation Start: 01-22-2025 End: 01-22-2025 ambulatory BELEM GRANADOS Not Available Start: 01-21-2025 End: 01-21-2025 Bamboo flowsheet [employer] ANESTHESIA ASSOCIATE-LINING PARTS SEWER Work Phone: [facility] Start: 01-21-2025 End: 01-21-2025 Bamboo Better Placeheet [employer] ANESTHESIA ASSOCIATE-LINING PARTS SEWER Work Phone: [facility] Start: 01-21-2025 End: 01-21-2025 Orders Only Mis Jordan MD Work Phone: [facility] External Department Unsolicited Start: 01-21-2025 End: 01-21-2025 Office outpatient visit 25 minutes [employer] ANESTHESIA ASSOCIATE-LINING PARTS SEWER Work Phone: [facility] Comment on above: Multiple sclerosis ( HCC) (Primary Dx); Gait abnormality; Weakness Start: 01-21-2025 End: 01-21-2025 ambulatory BELEM GRANADOS Not Available Start: 01-12-2025 End: 01-12-2025 ambulatory GAVIN FREITAS Not Available Start: 12-17-2024 End: 12-17-2024 Bamboo flowsheet Olive Nice MD Work Phone: [facility] Start: 12-17-2024 End: 12-17-2024 Bamboo flowsheet Olive Nice MD [facility] Start: 12-17-2024 End: 12-17-2024 Office outpatient visit 25 minutes Olive Nice MD [facility] Comment on above: Jessica's disease (Primary Dx); Vitamin D deficiency; Encounter for dietary consultation Start: 12-17-2024 End: 12-17-2024 ambulatory OLIVE NICE Not Available Start: 10-22-2024 End: 10-22-2024 Bamboo flowsheet Gavin Freitas PERCOLATOR OPERATOR Work Phone: [facility] Start: 10-22-2024 End: 10-22-2024 B[employer]ong[employer] flowsheet Gavin Freitas PERCOLATOR OPERATOR Work Phone: [facility] Start: 10-22-2024 End: 10-22-2024 Patient encounter procedure Gavin Freitas PERCOLATOR OPERATOR Work Phone: [facility] Comment on above: Medicare annual well ness visit, subsequent (Primary Dx); Routine general medical examination at a health care facility; Generalized anxiety disorder ; Multiple sclerosis (HCC); Vitamin D deficiency; Centrilobular emphysema (HCC); Chronic pain syndrome; Fatigue, unspecified type; Moderate episode of recurrent major depressive disorder (HCC); Acquired hypothyroidism ; Age-related osteoporosis without current pathological fracture ; Non-seasonal allergic rhinitis, unspecified trigger; Upper back pain on left side; Neck pain on left side; Peripheral vascular disease, unspecified; Prostate cancer screening; Pulmonary nodules; Neuropathy Start: 10-22-2024 End: 10-22-2024 Patient encounter status Gavin Freitas PERCOLATOR OPERATOR Work Phone: [facility] Healthcare Start: 10-22-2024 End: 10-22-2024 ambulatory GAVIN FREITAS Not Available Start: 09-26-2024 End: 09-30-2024 Refill Agnes Arrington DO Work Phone: [facility] Comment on above: Chronic obstructive pulmonary disease with acute exacerbation (CMS/[facility]) Start: 08-28-2024 ambulatory ALEXANDRA E MELANY [facility]ili ty:[facility] Start: 08-25-2024 End: 08-25-2024 Refill Gavin Freitas NP Work Phone: [facility] Comment on above: Slow transit constip ation; Multiple sclerosis ([facility]) Start: 08-19-2024 ambulatory ALEXANDRA E MELANY Facili ty:[facility] Start: 07-29-2024 ambulatory ALEXANDRA E MELANY [facility] Start: 07-15-2024 End: 07-15-2024 Office outpatient visit 25 minutes Katrina Bermudez MD Work Phone: [facility] Comment on above: Incontinence of fece s, unspecified fecal incontinence type (Primary Dx); Tobacco abuse; MS (multiple sclerosis) ([facility]); Moderate episode of recurrent major depressive disorder ([facility]) Start: 07-15-2024 End: 07-15-2024 ambulatory KATRINA BERMUDEZ Not Available Start: 06-30-2024 End: 06-30-2024 ambulatory ALEXANDRA Nohemy MELANY Facility[facility] Start: 06-30-2024 End: 06-30-2024 Lab Drop off ALEXANDRA Nohemy MELANY [facility] Start: 06-30-2024 End: 06-30-2024 ambulatory ALEXANDRA Nohemy MELANY Facility:[facility] Start: 06-30-2024 End: 06-30-2024 Patient encounter procedure ALEXANDRA Nohemy MELANY [facility] Start: 06-25-2024 ambulatory ALEXANDRA MELANY Facility :[facility] [place] Start: 06-24-2024 End: 06-24-2024 Patient encounter procedure [facility] Nurse [facility] Comment on above: Neurogenic bladder ( Primary Dx) Start: 06-24-2024 End: 06-24-2024 ambulatory AMI LOWE Not Available Start: 06-23-2024 End: 06-23-2024 ambulatory Lia Singh WORKFLOW DEVELOPER Work Phone: [facility] Start: 06-09-2024 End: 06-09-2024 Telephone encounter Katrina Bermudez MD Work Phone: [facility] Start: 06-08-2024 End: 06-08-2024 Orders Only Katrina Bermudez MD Work Phone: [facility] Comment on above: Acute cystitis witho ut hematuria (Primary Dx) Start: 06-06-2024 End: 06-06-2024 Bamboo flowsheet Katrina Bermudez MD Work Phone: [facility] Start: 06-06-2024 End: 06-06-2024 Bamboo flowsheet Katrina Bermudez MD Work Phone: [facility] Start: 06-06-2024 End: 06-06-2024 Office outpatient visit 15 minutes Katrina Bermudez MD Work Phone: [facility] Comment on above: Slow transit constip ation (Primary Dx); Multiple sclerosis (CMS/HCC); Tobacco abuse; Acquired hypothyroidism (CMS/HCC) Start: 06-06-2024 End: 06-06-2024 ambulatory KATRINA BERMUDEZ Not Available Start: 06-05-2024 End: 06-05-2024 ambulatory AMI LOWNohemy Not Available Start: 06-03-2024 End: 06-03-2024 ambulatory KATRINA BERMUDEZ Not Available Start: 05-29-2024 End: 05-29-2024 Bamboo flowsheet Ami Lowe PA Work Phone: [facility] Start: 05-29-2024 End: 05-29-2024 Bamboo flowsheet Ami Lowe PA Work Phone: [facility] Start: 05-29-2024 End: 05-29-2024 Office outpatient visit 15 minutes Ami Lowe PA Work Phone: [facility] Comment on above: Gait abnormality (Pr imary Dx); Multiple sclerosis (CMS/HCC); Depression, unspecified depression type (CMS/HCC); Neurogenic bladder; Memory loss Start: 05-29-2024 End: 05-29-2024 ambulatory AMI BLACK Not Available Start: 05-20-2024 End: 05-20-2024 Bamboo flowsheet Katrina Bermudez MD Work Phone: [facility] Start: 05-20-2024 End: 05-20-2024 Bamboo flowsheet Katrina Bermudez MD Work Phone: [facility] Start: 05-20-2024 End: 05-20-2024 Office outpatient visit 25 minutes Katrina Bermudez MD Work Phone: [facility] Comment on above: Generalized anxiety disorder (CMS/HCC) (Primary Dx); Chronic obstructive pulmonary disease with acute exacerbation (CMS/HCC); Acquired hypothyroidism (CMS/HCC); Heavy smoker (more than 20 cigarettes per day); Multiple sclerosis (CMS/HCC); Age-related osteoporosis without current pathological fracture (CMS/HCC); Panic attacks (CMS/HCC); Moderate episode of recurrent major depressive disorder (CMS/HCC); Chronic sinusitis of both maxillary sinuses; Deviated septum; Abdominal bloating; Wheezing; Tobacco abuse; Other psychoactive substance use, unspecified with withdrawal, unspecified (CMS/HCC); Centrilobular emphysema (CMS/HCC) Start: 05-20-2024 End: 05-20-2024 ambulatory KATRINA BERMUDEZ Not Available Start: 05-12-2024 End: 05-12-2024 Bamboo flowsheet Olive Nice MD Work Phone: [facility] Start: 05-12-2024 End: 05-12-2024 Bamboo flowsheet Olive Nice MD Work Phone: [facility] Start: 05-12-2024 End: 05-12-2024 ambulatory OLIVE NICE Not Available Start: 05-12-2024 End: 05-12-2024 Office outpatient visit 25 minutes Olive Nice MD Work Phone: [facility] Comment on above: Jessica's disease (CMS/HCC) (Primary Dx); Vitamin D deficiency; Encounter for dietary consultation Start: 04-18-2024 End: 04-18-2024 Bamboo flowsheet Agnes Arrington DO Work Phone: [facility] Start: 04-18-2024 End: 04-18-2024 Bamboo flowsheet Agnes Arrington DO Work Phone: [facility] Start: 04-18-2024 End: 04-18-2024 Office outpatient visit 25 minutes Agnes Arrington DO Work Phone: [facility] Comment on above: Chronic obstructive pulmonary disease with acute exacerbation (CMS/HCC) (Primary Dx); Cigarette smoker; Chronic pain syndrome Start: 04-18-2024 End: 04-18-2024 ambulatory AGNES ARRINGTON Not Available Start: 03-27-2024 End: 03-27-2024 ambulatory AGNES Benji ARRINGTON Not Available Start: 03-23-2024 End: 03-23-2024 Dyllan Nice MD Work Phone: [facility] Comment on above: Acquired hypothyroid ism (CMS/HCC) (Primary Dx) Start: 03-04-2024 End: 03-04-2024 Bamboo flowsheet Fabiana HURST Work Phone: [facility] [address] [facility] Start: 03-04-2024 End: 03-04-2024 Bamboo flowsheet Fabiana HURST Work Phone: [facility] [address] [facility] Start: 03-04-2024 End: 03-04-2024 Office outpatient visit 25 minutes Fabiana HURST Work Phone: [facility] [address] [facility] Comment on above: Multiple sclerosis ( CMS/HCC) (Primary Dx) Start: 03-04-2024 End: 03-04-2024 ambulatory FABIANA HAHN Not Available Start: 03-03-2024 End: 03-03-2024 Orders Only Radha Emery NP Work Phone: [facility] Comment on above: Age-related osteopor osis with current pathological fracture, initial encounter (CMS/HCC) (Primary Dx) Start: 02-19-2024 End: 02-19-2024 Clinisync Result Encounter Generic External Data Provider [facility] External Department Unsolicited Start: 02-19-2024 End: 02-19-2024 Clinisync Result Encounter Generic External Data Provider [facility] External Department Unsolicited Start: 02-06-2024 End: 02-06-2024 Bamboo flowsheet Fabiana HURST Work Phone: [facility] [address] [facility] Start: 02-06-2024 End: 02-06-2024 Bamboo flowsheet Fabiana Hahn PA Work Phone: [facility] [address] [facility] Start: 02-06-2024 End: 02-06-2024 Office outpatient visit 25 minutes Fabiana Hahn PA Work Phone: [facility] [address] Comment on above: Multiple sclerosis ( CMS/HCC) (Primary Dx); Gait abnormality; Depression, unspecified depression type (CMS/HCC); Memory loss Start: 02-06-2024 End: 02-06-2024 ambulatory FABIANA SELMA Not Available Start: 01-21-2024 End: 01-21-2024 Telephone encounter Katrina Bermudez MD Work Phone: [facility] Start: 01-10-2024 End: 01-10-2024 Bamboo flowsheet Radha Emery PERCOLATOR OPERATOR Work Phone: [facility] Start: 01-10-2024 End: 01-10-2024 Bamboo flowsheet Radha Emery PERCOLATOR OPERATOR Work Phone: [facility] Start: 01-10-2024 End: 01-10-2024 Office outpatient visit 25 minutes Radha Emery PERCOLATOR OPERATOR Work Phone: [facility] Comment on above: Vitamin D deficiency (Primary Dx); Moderate episode of recurrent major depressive disorder (HCC) (CMS/HCC); Multiple sclerosis (CMS/HCC); Anxiety disorder, unspecified type; Slow transit constipation; Heavy smoker (more than 20 cigarettes per day) Start: 09-25-2023 Non-patient / Non-visit MD Danae Bermudez Work Phone: [facility] G[facility]ology Work Phone: Start: 09-25-2023 End: 09-25-2023 Admission to same day surgery center MD Katrina Bermudez Work Phone: [facility] Work Phone: Start: 09-25-2023 End: 09-25-2023 ambulatory MD Katrina Bermudez Work Phone: [facility] Work Phone: Start: 08-24-2023 Non-patient / Non-visit MD Danae Bermudez Work Phone: [facility] Gastroenterology Work Phone: Start: 08-24-2023 End: 08-24-2023 Admission to same day surgery center MD Katrina Bermudez Work Phone: [facility] Work Phone: Start: 08-24-2023 End: 08-24-2023 ambulatory MD Katrina Bermudez Work Phone: [facility] Work Phone: Start: 07-25-2023 End: 07-25-2023 ambulatory [facility] Work Phone: Start: 07-25-2023 End: 07-25-2023 Patient encounter procedure [facility] Gastro[facility]ology Work Phone: Start: 06-21-2023 Telephone encounter Allen Mckenzie TA [facility] Comment on [...] transit constip ation Start: 06-20-2023 Telephone encounter Katrina rae MD Work Phone: [facility] Start: 06-15-2023 Bamboo flowsheet Allen Brink BLENDING COORDINATOR [facility] Start: 06-15-2023 Bamboo flowsheet Allen Brink BLENDING COORDINATOR [facility] Start: 06-13-2023 Bamboo flowsheet Sourav Ruiz nce BLENDING COORDINATOR [facility] Start: 06-13-2023 Bamboo flowsheet Sourav Ruiz nce BLENDING COORDINATOR [facility] Start: 09-19-2022 End: 09-20-[address] KATRINA BERMUDEZ Facility:[facility] Start: 06-30-2022 End: 07-01-[address] KATRINA BERMUDEZ Facility:[facility] Start: 04-21-2022 End: 04-22-[address] KATRINA BERMUDEZ Facility:[facility] Start: 01-26-2022 End: 01-27-[address] KATRINA BERMUDEZ Facility:[facility] Start: 07-03-2017 End: 07-04-2017 Ambulatory PROVIDER NOT IN SYSTEM [facility] Start: 07-03-2017 End: 07-03-2017 Ambulatory Provider Not In System [facility] Start: 05-31-2017 End: 05-31-2017 Ambulatory RUDOLPH BOB [facility] Start: 05-31-2017 Ambulatory RudolphPeter Work Phone: [facility] Start: 05-30-2017 End: 05-30-2017 Ambulatory MIS JORDAN [facility] Start: 05-30-2017 End: 05-30-2017 Ambulatory RUDOLPH DAVIDE [facility] Start: 05-30-2017 Ambulatory Rudolph Redmond Work Phone: [facility] Start: 04-01-2017 End: 04-01-2017 Evaluation and management of inpatient RUDOLPH DAVIDE [facility] Start: 03-31-2017 Emergency department patient visit KEISHA CRAFT SDROSAURA [facility] Start: 03-31-2017 End: 04-01-2017 Evaluation and management of inpatient Keisha Gastelum Work Phone: [facility] ICU Step Down Start: 11-10-2016 End: 11-10-2016 Ambulatory RUDOLPH DAVIDE REDMOND [facility] Start: 10-19-2014 End: 10-19-2014 Telephone encounter Katrina Ramirez MD Work Phone: [facility] Procedures Date Procedure Procedure Detail Performing Clinician Start: 01-21-2025 Creatinine blood Mis Jordan MD Work Phone: Start: 06-24-2024 Urnls dip stick/tablet rgnt non-auto w/o micrscp Gavinamarilis Freitas PERCOLATOR OPERATOR Work Phone: Start: 02-19-2024 [facility] Generic External Data Provider Start: 09-25-2023 End: 09-25-2023 Colonoscopy MD Katrina Bermudez Work Phone: Start: 08-24-2023 Esophagogastroduodenoscopy MD Katrina Bermudez Work Phone: Cholecystectomy ALEXANDRA LUCERO Tooth extraction, complete mouth ALEXANDRA MOSLEY Plan of Treatment Date Care Activity Detail Author Start: 09-24-2033 Screening for malignant neoplasm of colon [facility] Healthcare Start: 10-22-2025 Medicare Annual Wellness (AWV) Medicare Annual Wellness (AWV) [facility] Start: 07-20-2025 End: 07-20-2025 Patient encounter procedure 07/20/2025 4:20 PM EDT [facility] [address] [address] [facility] [place] [phone] Katrina Bermudez MD [address] [place], [place] [id number] [facility] Start: 06-24-2025 End: 06-24-2025 Patient encounter procedure 06/24/2025 2:40 PM EST Office Visit [facility] [address] [place] [phone] Olive Nice MD [address] [place] [address] [facility] Start: 06-17-2025 End: 06-17-2025 Patient encounter procedure 06/17/2025 11:00 AM EST Office Visit [facility] [place] [facility] [address] [place] [address] Olive Nice MD [address] [place] [address] [facility] [place] [facility] Start: 05-13-2025 End: 05-13-2025 Patient encounter procedure 05/13/2025 3:45 PM EST Office Visit [facility] [address] [place] [address] Agnes Arrington, DO [address] [place] [address] [facility] Start: 04-22-2025 End: 04-22-2025 Patient encounter procedure 04/22/2025 4:00 PM EST Office Visit [facility] [address] [facility] [address] [place] [phone] Belem Granados [facility] [address] [facility] [place] [address] [facility] Start: 02-11-2025 End: 02-11-2025 Patient encounter procedure 02/11/2025 9:30 AM EDT Office Visit [facility] [place] [facility] [address] [place] [address] [place] [phone] Mis Jordan MD [address] [facility] [address] [place] [address] [facility] [place] [facility] Start: 01-29-2025 End: 01-29-2025 Professional / ancillary services management [facility] Start: 01-28-2025 End: 01-28-2025 ambulatory 01/28/2025 11:30 AM EDT Evaluation [facility] [address] [place] [place] [address] Zohra De Leon PT [facility] Start: 01-22-2025 End: 01-22-2025 Patient encounter procedure [facility] Comment on above: Arrived Start: 01-21-2025 End: 01-21-2026 Creatinine [Mass/volume] in Serum or Plasma Creatinine, Serum Lab Routine Multiple sclerosis (HCC) Expected: 01/21/2025 (Approximate), Expires: 01/21/2026 [facility] Comment on above: Expected: 01/21/2025 (Approximate), Expi res: 01/21/2026 Start: 01-21-2025 End: 01-21-2026 MR Brain WO and W contrast IV MR brain w and wo contrast routine Imaging Routine Multiple sclerosis (HCC) Expected: 01/21/2025, Expires: 01/21/2026 [facility] Comment on above: Expected: 01/21/2025, Expires: Start: 01-21-2025 End: 01-21-2026 MR Cervical spine WO and W contrast IV MR cervical spine w and wo contrast Imaging Routine Multiple sclerosis (HCC) Expected: 01/21/2025, Expires: 01/21/2026 [facility] Comment on above: Expected: 01/21/2025, Expires: Start: 01-21-2025 End: 01-21-2026 XR Knee - right 1 or 2 Views XR knee 1 or 2 views right Imaging Routine Multiple sclerosis (HCC) Expected: 01/21/2025, Expires: 01/21/2026 [facility] Work Phone: Comment on above: Expected: 01/21/2025, Expires: Start: 01-21-2025 End: 01-21-2025 Patient encounter procedure 01/21/2025 9:30 AM EDT [facility] [address] [place] [address] [place] [address] Belem Granados, ANESTHESIA ASSOCIATE-LINING PARTS SEWER [address] [facility] [place] [address] Arrived [facility] [place] [facility] Comment on above: Arrived Start: 01-20-2025 End: 01-20-2025 Patient encounter procedure 01/20/2025 11:20 AM EDT Office Visit [facility] [address] [place] [address] Sneha Bates, ELIJAH [address] [place] [address] [facility] Start: 01-16-2025 End: 10-22-2025 DXA Skeletal system Views for bone density DEXA bone density Imaging Routine Age-related osteoporosis without current pathological fracture Expected: 01/16/2025, Expires: 10/22/2025 [facility] Comment on above: Expected: 01/16/2025, Expires: Start: 01-05-2025 Influenza vaccination [facility] Start: 12-17-2024 End: 12-17-2025 Thyrotropin [Units/volume] in Serum or Plasma TSH Lab Routine Jessica's disease Expected: 12/17/2024 (Approximate), Expires: 12/17/2025 [facility] Comment on above: Expected: 12/17/2024 (Approximate), Expi res: 12/17/2025 Start: 12-17-2024 End: 12-17-2025 Thyroxine (T4) free [Mass/volume] in Serum or Plasma T4, free Lab Routine Jessica's disease Expected: 12/17/2024 (Approximate), Expires: 12/17/2025 [facility] Comment on above: Expected: 12/17/2024 (Approximate), Expi res: 12/17/2025 Start: 12-17-2024 End: 12-17-2025 Triiodothyronine (T3) Free [Mass/volume] in Serum or Plasma T3, free Lab Routine Jessica's disease Expected: 12/17/2024 (Approximate), Expires: 12/17/2025 [facility] Work Phone: Comment on above: Expected: 12/17/2024 (Approximate), Expi res: 12/17/2025 Start: 12-17-2024 End: 12-17-2024 Patient encounter procedure 12/17/2024 11:20 AM EDT Office Visit [facility] [address] [place] [phone] Olive Nice MD [address] [place] [address] Arrived [facility] Comment on above: Arrived Start: 11-13-2024 End: 11-13-2024 Patient encounter procedure MIREYA MCCLAIN Start: 11-12-2024 End: 11-12-2024 Patient encounter procedure 11/12/2024 10:00 AM EDT Office Visit [facility] [address] [place] [phone] Olive Nice MD [address] [place] [address] [facility] Start: 11-03-2024 Influenza vaccination Influenza Vaccine (#1) [facility] Comment on above: Postponed from 01/06/2024 (Supply/Drug S hortage) Start: 10-29-2024 End: 10-29-2024 Patient encounter procedure 10/29/2024 10:15 AM EDT [facility] [address] [place] [address] Agnes Arrington, DO [address] [place] [address] [facility] Start: 10-22-2024 End: 10-22-2025 25-hydroxyvitamin D3 [Mass/volume] in Serum or Plasma Vitamin D 25 hydroxy Lab Routine Vitamin D deficiency Moderate episode of recurrent major depressive disorder (HCC) Age-related osteoporosis without current pathological fracture Expected: 10/22/2024 (Approximate), Expires: 10/22/2025 [facility] Comment on above: Expected: 10/22/2024 (Approximate), Expi res: 10/22/2025 Start: 10-22-2024 End: 10-22-2025 CBC W Auto Differential panel - Blood CBC and differential Lab Routine Routine general medical examination at a health care facility Multiple sclerosis (HCC) Fatigue, unspecified type Peripheral vascular disease, unspecified Expected: 10/22/2024 (Approximate), Expires: 10/22/2025 [facility] Work Phone: Comment on above: Expected: 10/22/2024 (Approximate), Expi res: 10/22/2025 Start: 10-22-2024 End: 10-22-2025 Comprehensive metabolic 2000 panel - Serum or Plasma Comprehensive metabolic panel Lab Routine Routine general medical examination at a health care facility Multiple sclerosis (HCC) Fatigue, unspecified type Peripheral vascular disease, unspecified Expected: 10/22/2024 (Approximate), Expires: 10/22/2025 [facility] Comment on above: Expected: 10/22/2024 (Approximate), Expi res: 10/22/2025 Start: 10-22-2024 End: 10-22-2025 Lipid 1996 panel - Serum or Plasma Lipid panel Lab Routine Routine general medical examination at a [facility] care facility Multiple sclerosis (HCC) Peripheral vascular disease, unspecified Expected: 10/22/2024 (Approximate), Expires: 10/22/2025 [facility] Comment on above: Expected: 10/22/2024 (Approximate), Expi res: 10/22/2025 Start: 10-22-2024 End: 10-22-2025 Prostate specific Ag [Mass/volume] in Serum or Plasma PSA Lab Routine Prostate cancer screening Expected: 10/22/2024 (Approximate), Expires: 10/22/2025 [facility] Comment on above: Expected: 10/22/2024 (Approximate), Expi res: 10/22/2025 Start: 10-22-2024 End: 10-22-2024 Patient encounter procedure [facility] Comment on above: Arrived Start: 09-09-2024 Medicare Annual Wellness (AWV) Medicare Annual Wellness (AWV) [facility] Start: 07-15-2024 End: 07-15-2024 Patient encounter procedure 07/15/2024 10:20 AM EDT Office Visit [facility] [address] [facility] [place] [phone] Katrina Bermudez MD [address] [facility] [place] [address] [facility] Start: 06-06-2024 End: 06-06-2025 Thyrotropin [Units/volume] in Serum or Plasma TSH Lab Routine Acquired hypothyroidism (CMS/HCC) Expected: 06/06/2024 (Approximate), Expires: 06/06/2025 [facility] Work Phone: Comment on above: Expected: 06/06/2024 (Approximate), Expi res: 06/06/2025 Start: 06-06-2024 End: 06-06-2025 Thyroxine (T4) free [Mass/volume] in Serum or Plasma T4, free Lab Routine Acquired hypothyroidism (CMS/HCC) Expected: 06/06/2024 (Approximate), Expires: 06/06/2025 [facility] Comment on above: Expected: 06/06/2024 (Approximate), Expi res: 06/06/2025 Start: 06-06-2024 End: 06-06-2025 Triiodothyronine (T3) Free [Mass/volume] in Serum or Plasma T3, free Lab Routine Acquired hypothyroidism (CMS/HCC) Expected: 06/06/2024 (Approximate), Expires: 06/06/2025 [facility] Comment on above: Expected: 06/06/2024 (Approximate), Expi res: 06/06/2025 Start: 06-06-2024 End: 06-06-2024 Patient encounter procedure 06/06/2024 10:40 AM EST Office Visit [facility] [address] [facility] [place] [phone] Katrina Bermudez MD [address] [facility] [place] [address] Arrived [facility] Comment on above: Arrived Start: 05-30-2024 End: 05-30-2024 Professional / ancillary services management [facility] Start: 05-29-2024 End: 05-29-2024 Patient encounter procedure [facility] Comment on above: Arrived Start: 05-20-2024 End: 05-20-2025 CT Abdomen and Pelvis WO contrast CT abdomen pelvis wo IV contrast Imaging Routine Abdominal bloating Expected: 05/20/2024, Expires: 05/20/2025 [facility] Comment on above: Expected: 05/20/2024, Expires: Start: 05-20-2024 End: 05-20-2025 CT Maxillofacial region WO and W contrast IV CT SINUS WO IV CONTRAST Imaging Routine Chronic sinusitis of both maxillary sinuses Deviated septum Expected: 05/20/2024, Expires: 05/20/2025 [facility] Work Phone: Comment on above: Expected: 05/20/2024, Expires: Start: 05-20-2024 End: 05-20-2024 Patient encounter procedure [facility] Comment on above: Arrived Start: 05-12-2024 End: 05-12-2025 Thyrotropin [Units/volume] in Serum or Plasma TSH Lab Routine 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) Expected: 05/12/2024 (Approximate), Expires: 05/12/2025 [facility] Comment on above: Expected: 05/12/2024 (Approximate), Expi res: 05/12/2025 Start: 05-12-2024 End: 05-12-2025 Thyroxine (T4) free [Mass/volume] in Serum or Plasma T4, free Lab Routine Jessica's disease (CMS/HCC) Expected: 05/12/2024 (Approximate), Expires: 05/12/2025 [facility] Comment on above: Expected: 05/12/2024 (Approximate), Expi res: 05/12/2025 Start: 05-12-2024 End: 05-12-2025 Triiodothyronine (T3) Free [Mass/volume] in Serum or Plasma T3, free Lab Routine Jessica's disease (CMS/HCC) Expected: 05/12/2024 (Approximate), Expires: 05/12/2025 [facility] Work Phone: Comment on above: Expected: 05/12/2024 (Approximate), Expi res: 05/12/2025 Start: 05-12-2024 End: 05-12-2024 Patient encounter procedure 05/12/2024 10:20 AM EST Office Visit [facility] [address] [place] [phone] Olive Nice MD [address] [place] [address] [facility] Start: 04-24-2024 End: 04-24-2024 Patient encounter procedure 04/24/2024 9:00 AM EST Office Visit [facility] [address] [place] [phone] Olive Nice MD [address] [place], [place] [id number] [facility] Start: 04-18-2024 End: 04-18-2024 Patient encounter procedure [facility] Comment on above: Arrived Start: 03-21-2024 End: 03-21-2024 Patient encounter procedure 03/21/2024 11:00 AM EST Office Visit [facility] [address] [place] [phone] Agnes Arrington, [address] [place] [address] [facility] Start: 03-04-2024 End: 03-04-2024 Patient encounter procedure [facility] Comment on above: Arrived Start: 02-06-2024 End: 02-05-2025 Creatinine [Mass/volume] in Serum or Plasma Creatinine, Serum Lab Routine Multiple sclerosis (CMS/HCC) Expected: 02/06/2024 (Approximate), Expires: 02/05/2025 [facility] Comment on above: Expected: 02/06/2024 (Approximate), Expi res: 02/05/2025 Start: 02-06-2024 End: 02-05-2025 MR Cervical spine WO and W contrast IV MR cervical spine w and wo contrast Imaging Routine Multiple sclerosis ([facility]/HCC) Expected: 02/06/2024 (Approximate), Expires: 02/05/2025 [facility] Work Phone: Comment on above: Expected: 02/06/2024 (Approximate), Expi res: 02/05/2025 Start: 02-06-2024 End: 02-05-2025 MR Thoracic spine WO and W contrast IV MR thoracic spine w and wo contrast Imaging Routine Multiple sclerosis (CMS/HCC) Expected: 02/06/2024 (Approximate), Expires: 02/05/2025 [facility] Comment on above: Expected: 02/06/2024 (Approximate), Expi res: 02/05/2025 Start: 02-06-2024 End: 02-06-2024 Patient encounter procedure [facility] Comment on above: Arrived Start: 01-10-2024 End: 01-09-2025 25-hydroxyvitamin D3 [Mass/volume] in Serum or Plasma Vitamin D 25 hydroxy Lab Routine Vitamin D deficiency Expected: 01/10/2024 (Approximate), Expires: 01/09/2025 [facility] Work Phone: Comment on above: Expected: 01/10/2024 (Approximate), Expi res: 01/09/2025 Start: 01-10-2024 End: 01-10-2024 Patient encounter procedure 01/10/2024 11:30 AM EDT [facility] [address] [place] [phone] Radha Emery NP [address] [place], [place] [phone] [facility] Comment on above: Arrived Start: 01-06-2024 Influenza vaccination Influenza Vaccine (#1) [facility] Start: 01-04-2024 Medicare Annual Wellness (AWV) Medicare Annual Wellness (AWV) [facility] Start: 09-25-2023 [facility] Start: 08-30-2023 Screening for malignant neoplasm of colon [facility] Start: 08-24-2023 [facility] Start: 07-13-2023 End: 07-13-2023 Patient encounter procedure 07/13/2023 10:00 AM EST Office Visit [facility] [address] [facility] [place] [phone] Agnes Arrington, DO [address] [place] [address] [facility] Start: 07-04-2023 End: 07-04-2023 Patient encounter procedure 07/04/2023 10:30 AM EST Office Visit [facility] [address] [place] [phone] Radha Emery, ELIJAH [address] [place], [place] [phone] [facility] Start: 06-22-2023 End: 06-22-2023 ambulatory 06/22/2023 11:30 AM EST Treatment [facility] [address] [facility] [address] [place] [phone] Allen Landaverde PTA [facility] Start: 06-15-2023 End: 06-15-2023 ambulatory [facility] Comment on above: Arrived Start: 06-13-2023 End: 06-13-2023 ambulatory 06/13/2023 11:00 AM EST Treatment [facility] [address] [facility] [address] [place] [phone] Sourav Rojas, BLENDING COORDINATOR Arrived [facility] Comment on above: Arrived Start: 01-05-2021 Influenza vaccination INFLUENZA (Season Ended) [facility] Start: 08-30-2017 Ambulatory 08/30/2017 Infusion/Injection Infusion Therapy Rudolph Redmond MD [address] [place] [address] [phone] [facility] Start: 08-29-2017 Ambulatory 08/29/2017 Infusion/Injection Infusion Therapy Rudolph Redmond MD [address] [place] [address] [phone] [facility] Start: 08-28-2017 Ambulatory 08/28/2017 Infusion/Injection Infusion Therapy Rudolph Redmond MD [address] [place] [address] [phone] [facility] Start: 06-01-2017 Ambulatory 06/01/2017 Infusion/Injection Infusion Therapy Rudolph Redmond MD [address] [place] [address] [phone] [facility] Start: 05-31-2017 Ambulatory 05/31/2017 Infusion/Injection Infusion Therapy Rudolph Redmond MD [address] [place] [address] [phone] [facility] Start: 01-05-2017 Influenza vaccination SEQUENTIAL INFLUENZA VACCINE (#1) [facility] Work Phone: Start: 2013 PROSTATE CANCER SCREENING DISCUSSION PROSTATE CANCER SCREENING DISCUSSION [facility] Start: 2008 Screening for malignant neoplasm of colon [facility] Start: 2008 SHINGRIX VACCINE (1 of 2) SHINGRIX VACCINE (1 of 2) [facility] Start: 12-21-2003 DIABETES SCREEN DIABETES SCREEN [facility] Start: 1993 LIPID SCREEN LIPID SCREEN [facility] Start: 1977 Urine microalbumin profile DTAP,TDAP,TD (1 - Tdap) [facility] Start: 1976 HEPATITIS C SCREENING HEPATITIS C SCREENING [facility] Start: 1976 HIV SCREENING HIV SCREENING [facility] Start: 1970 Adult depression screening assessment DEPRESSION SCREENING [facility] Start: 1958 Screening for malignant neoplasm of colon [facility] Start: 1958 Screening for malignant neoplasm of lung Lung Cancer Screening Shared Decision Making [facility] Start: 1958 HEPATITIS C SCREENING HEPATITIS C SCREENING [facility] Work Phone: Start: 1958 Low-dose CT Lung Cancer Screen Low-dose CT Lung Cancer Screen [facility] Work Phone: Start: 1960 Screening colonoscopy COLONOSCOPY [facility] Work Phone: Start: 1958 Tetanus vaccination TETANUS EVERY 10 YR [facility] Work Phone: End: 04-01-2017 Bacteria aerobode culture Urine Aerobic Culture Routine Once for 1 Occurrences starting 04/01/2017 until 04/01/2017 [facility] Work Phone: Bacteria aerobode culture Urine Aerobic Culture Routine 04/01/2017 2:30 AM EST [facility] Work Phone: Bacteria culture [facility] Work Phone: Bacteria identified in Sputum by Aerobe culture Sputum Aerobic Culture Routine 04/01/2017 11:02 AM EST [facility] Work Phone: Elastase.pancreatic [Mass/mass] in Stool [facility] Patient Education [facility] Work Phone: [facility] Immunizations Immunization Date Immunization Notes Care Provider Fa cility 01-22-2025 Influenza, High-dose Seasonal, Quadrivalent, Preservative Free Katrina Bermudez MD Work Phone: [facility] 04-25-2023 influenza, injectabl e, quadrivalent, preservative free Sourav Rojas [facility] Work Phone: 04-25-2023 influenza virus vacc ine, unspecified formulation Radha Emery PERCOLATOR OPERATOR Work Phone: [facility] 03-20-2022 COVID-19 mRNA Bivale nt Booster (Mil[place]) MD Katrina Bermudez Work Phone: [facility] 03-20-2022 Moderna SARS-CoV-2 50mcg/0.5mL Booster Sourav Rojas BLENDING COORDINATOR [facility] 12-19-2021 Pneumococcal Conjuga te PCV 20 Sourav Rojas BLENDING COORDINATOR [facility] 05-16-2021 influenza virus vacc ine, unspecified formulation ALEXANDRA MOSLEY [facility] 05-16-2021 influenza, injectabl e, quadrivalent, preservative free Sourav Rojas [facility] 04-20-2021 COVID-19 mRNA-1273 (Moderna) MD Katrina Bermudez Work Phone: [facility] 04-20-2021 SARS-CoV-2 mRNA-1273 (6m-5y) vaccine ALEXANDRA MOSLEY [facility] 08-05-2020 COVID-19 mRNA-1273 (Moderna) MD Katrina Bermudez Work Phone: [facility] 08-05-2020 SARS-CoV-2 mRNA-1273 (6m-5y) vaccine ALEXANDRA MELANY [facility] 07-08-2020 COVID-19 mRNA-1273 (Moderna) MD Katrina Bermudez Work Phone: [facility] 07-08-2020 SARS-CoV-2 mRNA-1273 (6m-5y) vaccine ALEXANDRA MOSLEY [facility] 02-25-2020 influenza, injectabl e, quadrivalent, preservative free Sourav Rojas [facility] 10-20-2019 pneumococcal polysaccharide vaccine, 23 valent Sourav Rojas [facility] Payers Date Payer Category Payer Self-pay [id number] 2023 Medicaid [id number] 2023 Medicaid [id number] 2022 Medicare HUMANA MEDICARE ADVANTAGE HU[employer]NA MEDICARE [id number] 2022-Present [address] [address] [place] [address] [id number] 2022 Medicare (Managed Care) HUMANA M EDICARE ADVANTAGE [id number] 2014 Medicare UHC MEDICARE MYC ARE UHC MEDICARE [id number] 2014- Medicare [id number]. [id number] 2011 Medicare [id number] 2.16.840.1.281037.3.249.13 1959 Medicare [id number] 1958 Unknown [id number] 2.16.840.1.024812.3.579.2. 593 1958 Unknown [id number] 2.16.840.1.698722.3.579.2. 593 1958 Unknown [id number] 2.16.840.1.424412.3.579.2. 593 1958 Unknown [id number] 2.16.840.1.545594.3.579.2. 593 1958 Unknown [id number] 2.16.840.1.201503.3.579.2. 727 1958 Unknown [id number] 2.16.840.1.569015.3.579.2. 727 1958 Unknown [id number] 2.16.840.1.944142.3.579.2. 727 1958 Unknown [id number] 2.16.840.1.824838.3.579.2. 1958 Unknown [id number] 2.16.840.1.940290.3.579.2. 1958 Unknown [id number] 2.16.840.1.358569.3.579.2. 1258 1958 Unknown [id number] 2.16.840.1.584973.3.579.2. 1258 1958 Unknown [id number] 2.840.1.347070.3.579.2. 1258 1958 Unknown [id number] 2.840.1.067993.3.579.2. 1258 1958 Unknown [id number] 2.840.1.404562.3.579.2. 1258 1958 Unknown [id number] 2.840.1.161181.3.579.2. 1258 1958 Unknown [id number] 2.840.1.058091.3.579.2. 1258 1958 Unknown [id number] 2.840.1.651983.3.579.2. 1258 1958 Unknown [id number] 2.840.1.855173.3.579.2. 1258 1958 Unknown [id number] 2..840.1.017469.3.579.2. 1258 1958 Unknown [id number] 2.840.1.311977.3.579.2. 1258 1958 Unknown [id number] 2.16.840.1.403371.3.579.2. 1258 1958 Unknown [id number] 2.840.1.234250.3.579.2. 1259 1958 Unknown [id number] 2.16.840.1.120349.3.579.2. 1258 1958 Unknown [id number] 2.16.840.1.546101.3.579.2. 1258 1958 Unknown [id number] 2.16.840.1.325042.3.579.2. 1258 1958 Unknown [id number] 2.16.840.1.025963.3.579.2. 1258 1958 Unknown [id number] 2.16.840.1.902094.3.579.2. 1258 1958 Unknown [id number] 2.16.840.1.783915.3.579.2. 1258 1958 Unknown [id number] 2.16840.1.478207.3.579.2. 1258 Medicare [id number] 2.840.1.924391.3.249.13 Medicaid Medicaid [id number] Unknown Regular Insurance [id number] Unknown [id number] 2..840.1.302946.3.579.2. 531 Social History Date Type Detail Facility Start: 05-30-2017 End: 07-15-2024 Tobacco smoking status [facility] Current every day smoker [facility] End: 08-14-2024 History of tobacco use Cigarette Smoker [facility] Phone: Start: 05-30-2017 End: 11-22-2023 Cigarettes smoked current (pack per day) - Reported [facility] Start: 1960 Sex Assigned At Not on file [employer] Phone: Start: 10-07-2014 Tobacco smoking status VAIS Current some day smoker [facility] Start: 10-07-2014 Alcohol intake Current non-drinker of alcohol (finding) [facility] Start: 10-17-2022 End: 01-22-2025 Tobacco use and exposure Smokeless tobacco non-user [...] Heterosexual (finding) [facility] Start: 07-25-2023 End: 08-14-2024 Tobacco smoking status NHIS Smoker (finding) [facility] Start: 1960 Sex Assigned At Male [facility] Start: 01-10-2024 End: 01-25-2025 Alcoholic beverage intake [facility]-drinker (finding) [facility] How often to you hav [...] only when i was younger [facility] Start: 05-20-2024 Tobacco use and exposure Former smokeless tobacco user [facility] Start: 05-20-2024 Tobacco Comment Im trying to quit [facility] Start: 06-30-2024 Tobacco smoking status Light tobacco smoker (finding) [facility] How often do you nee d to have someone help you when you read instructions, pamphlets, or other written material from your doctor or pharmacy [SILS] Rarely [facility] Start: 09-18-2024 End: 01-22-2025 Tobacco smoking status NHIS Ex-smoker [facility] Work Phone: Start: 09-18-2024 Tobacco Comment Last cigarette 08/14/24 [facility] Goals Date Patient Goal Desired Activity /State Personal health goal Functional Status Date Assessment Result Facility 10-22-2024 Generalized anxiety disorder 7 item (JACOB-7) [facility] 06-30-2024 Functional Status N/A [facility] Clinical Notes 10-20-2014 to 01-22-2025 Katrina Bermudez MD - 01/22/2025 10:20 AM Parish Bermudez MD - 01/22/2025 10:20 AM Parish Bermudez MD - 01/22/2025 10:20 AM Parish Bermudez MD - 01/22/2025 10:20 AM EDT Note Date & Type Note Facility 01-22-2025 History of Present illness Narrative Associated Problem(s): Chronic obstructive pulmonary disease with acute exacerbation (HCC) Stachandan advised on the importnace of tob cessation Associated Problem(s): Heavy smoker (more than 20 cigarettes per day) Associated Problem(s): Multiple sclerosis (HCC) managed by nerology fall risk Associated Problem(s): Hypothyroidism Stable on levothyroxine Associated Problem(s): Osteoporosis Fall risk on fosamax Associated Problem(s): Slow transit constipation Add [email or web address] Images from the original note were not included. Subjective ?Quick Links Last Note in Specialty Snapshot Edit RFV/CC Edit Screenings Current Meds Patient ID: Maximiliano Carranza is a 64 y.o. male who presents for Follow-up. HPI History of Present Illness The patient presents for a follow-up visit. He reports intermittent knee discomfort, which he attributes to his multiple sclerosis (MS). His new neurologist, Dr. Clint Connor, has ordered MRIs of the brain and spine to monitor any progression of the disease and has referred him to physical therapy. An x-ray of the knee was taken. He suspects the presence of arthritis in his knee and ankle, as well as on the side where he previously had a compound fracture. He experiences pain upon waking, which eases after some walking. His MS primarily affects his right side. He recalls a recent incident where he stumbled and possibly stubbed his toe due to difficulty lifting his feet high enough. However, he notes an improvement in his condition today. He manages his pain with regular Tylenol, which he finds effective. He has previously received cortisone injections in his knee, which provided relief. His allergies are currently under control. His bowel movements are regular, aided by a daily capful of MiraLAX and a nightly stool softener. Occasionally, he may skip a day, but this is usually followed by a bowel movement the next day. He notes that attempting to have a bowel movement every day results in diarrhea, so he prefers to maintain his current routine. Social History: Tobacco: He reports not smoking. PAST SURGICAL HISTORY: Compound fracture on the side with suspected arthritis. ?Quick Review Review Full History Edit History Meds - alendronate (Fosamax) 70 MG tablet ARIPiprazole (Abilify) 15 MG tablet Worwmzn-Uocwnbpyndb-Eexhqolgus (Breztri Aerosphere) 160-9-4.8 MCG/ACT aerosol cholecalciferol (Vitamin D-3) 25 MCG (1000 UT) capsule Dalfampridine ER (Ampyra) 10 MG tablet sustained-release 12 hour docusate sodium (Colace) 100 MG capsule escitalopram (Lexapro) 20 MG tablet fluticasone (Flonase) 50 MCG/ACT nasal spray gabapentin (Neurontin) 600 MG tablet levothyroxine (Synthroid, Levoxyl) 175 MCG tablet liothyronine (Cytomel) 5 MCG tablet lubiprostone (Amitiza) 24 MCG capsule montelukast (Singulair) 10 MG tablet Multiple Vitamin (Multi-Vitamin) tablet sildenafil (Viagra) 50 MG tablet cyproheptadine (Periactin) 4 MG tablet --- PMH - Abnormal finding on thyroid function test Acute exacerbation of chronic obstructive pulmonary disease (HCC) Anxiety Arthritis Arthritis BPH with obstruction/lower urinary tract symptoms COPD (chronic obstructive pulmonary disease) (HCC) COPD mixed type (HCC) DDD (degenerative disc disease), lumbar Depression Difficulty walking History of being hospitalized Hypothyroidism Marijuana use Memory loss Movement disorder Multiple sclerosis (HCC) Neuropathy Osteoporosis Peripheral vascular disease, unspecified Prostate cancer screening Restless leg syndrome Stroke (HCC) Stroke (HCC) Tobacco user Vitamin D deficiency Vitamin D deficiency, unspecified Weakness of limb Objective ?Quick Links Add Vitals Timeline (Adult) Labs Imaging Results Review Trend Vitals ?? Avoid pulling in long tables of results. Comment on relevant results to support your medical decision making. BP 124/68 (BP Location: Right arm, Patient Position: Sitting, BP Cuff Size: Adult) Pulse 68 Resp 18 Ht 5' 8.5 Wt 175 lb 12.8 oz SpO2 91% BMI 26.34 kg/m Physical Exam Constitutional: Appearance: He is normal weight. HENT: Head: Normocephalic and atraumatic. Nose: Nose normal. No congestion. Mouth/Throat: Mouth: Mucous membranes are moist. Eyes: Extraocular Movements: Extraocular movements intact. Pupils: Pupils are equal, round, and reactive to light. Cardiovascular: Rate and Rhythm: Normal rate and regular rhythm. Pulmonary: Effort: Pulmonary effort is normal. No respiratory distress. Breath sounds: Normal breath sounds. No wheezing. Musculoskeletal: General: No swelling or deformity. Cervical back: Normal range of motion and neck supple. Right lower leg: No edema. Left lower leg: No edema. Comments: Ambulates with right sided limp . No knee crepitus Skin: General: Skin is warm and dry. Findings: No rash. Neurological: General: No focal deficit present. Mental Status: He is alert and oriented to person, place, and time. Cranial Nerves: No cranial nerve deficit. Gait: Gait normal. Psychiatric: Mood and Affect: Mood normal. Behavior: Behavior normal. Physical Exam Respiratory: Clear to auscultation, no wheezing, rales or rhonchi Musculoskeletal: Examination of the knee showed no acute distress ?Quick Links Full Problem List Allergy Back Pain Cardiology Chronic Pain COPD GI Thyroid Assessment & Plan Encounter for immunization Orders: Influenza, high-dose seasonal, quadrivalent, PF (KAV771) (Fluzone High Dose [place] 0.7mL dose) Chronic obstructive pulmonary disease with acute exacerbation (HCC) Stale advised on the importnace of tob cessation Heavy smoker (more than 20 cigarettes per day) Multiple sclerosis (HCC) managed by nerology fall risk Acquired hypothyroidism Stable on levothyroxine Age-related osteoporosis without current pathological fracture Fall risk on fosamax Slow transit constipation Add amitiza Assessment & Plan 1. Knee pain: - The knee pain is likely due to muscle weakness from multiple sclerosis (MS), which increases joint pressure and wear and tear. Arthritis is suspected as a contributing factor. - A cortisone injection in the knee was discussed as a potential treatment option, but it was decided to wait for the x-ray results before proceeding. - Physical therapy is recommended to strengthen muscles and support the joints. He can continue using Tylenol for pain management. 2. Ankle pain: - The ankle pain is also likely related to arthritis and MS. - Physical therapy is recommended to help strengthen the muscles around the ankle. He can continue using Tylenol for pain management. 3. Multiple sclerosis (MS): - The patient reports that his MS is acting up, affecting his right side. - He is currently under the care of a neurologist,, who has ordered MRIs of the brain and spine to check for disease progression. He is also undergoing physical therapy. 4. Constipation: - He reports taking a capful of MiraLAX daily and a stool softener at night, which has improved his bowel movements. - He is advised to continue this regimen. 5. Health maintenance: - He will receive his influenza vaccine today. Follow-up: A follow-up visit is scheduled in 6 months, or sooner if any issues arise. documented in this encounter [facility] 01-21-2025 History of Present illness Narrative Images from the original note were not included. Visit Summary: Maximiliano Carranza, a male with multiple sclerosis diagnosed in 2009, presented with worsening walking ability and right knee pain. He reported Ampyra was no longer effective for mobility. His 2023 brain MRI showed stable plaque. Management included ordering new brain and cervical spine MRIs, Initiation of Mavenclad therapy, ordering creatinine level and right knee X-ray, and referring to physical therapy. Follow-up was scheduled in 3 months. Subjective Maximiliano Carranza is a 64 y.o. male who presents for Multiple Sclerosis (MIREYA transfer) History of Present Illness The patient has concerns about his gait/ambulation. He walks with a cane, one point. He takes Ampyra but feels it is not working. He is not on MS therapy and states that he has not been. Other than walking, he has no other concerns for today. MRI brain done in 2023. Chief Complaint Worsening walking, right knee pain History of Present Illness Maximiliano Carranza, a patient with a history of multiple sclerosis (MS) diagnosed in 2009, presents for follow-up of his condition. His chief complaints are worsening walking ability and right knee pain. Mr. Carranza reports that his walking has been deteriorating, and he feels that his current medication, Ampyra, is not as effective as it used to be for his mobility. He also mentions that his right knee is really bothering him The patient has not been on any MS-specific medications other than Ampyra since stopping his previous regimen, and it's unclear when this cessation occurred. The patient's last brain MRI was in 2023, which showed stable plaque. He has not had any physical therapy this year. Mr. Carranza denies experiencing any recent dizziness. Medical History - Multiple Sclerosis (MS) diagnosed in 2009 Medications and Supplements - Ampyra - Not working as well for walking Review of Systems Musculoskeletal: Positive for worsening walking ability and right knee pain. Neurological: Negative for dizziness. Review of Systems Constitutional: Positive for fatigue. Negative for chills and fever. HENT: Negative for tinnitus. Eyes: Negative for photophobia. Respiratory: Negative for shortness of breath. Cardiovascular: Negative for chest pain. Gastrointestinal: Negative for nausea and vomiting. Genitourinary: Positive for frequency and urgency. Musculoskeletal: Negative for back pain, gait problem and neck pain. Neurological: Negative for dizziness, tremors, weakness, light-headedness, numbness and headaches. Psychiatric/Behavioral: Negative. Neurological Exam Mental Status Awake, alert and oriented to person, place and time. Oriented to person, place and time. Recent and remote memory are intact. Speech is normal. Language is fluent with no aphasia. Attention and concentration are normal. Cranial Nerves CN II: Visual acuity is normal. Visual joshi full to confrontation. CN III, IV, : Extraocular movements intact bilaterally. Normal lids and orbits bilaterally. Pupils equal round and reactive to light bilaterally. CN V: Facial sensation is normal. CN VII: Full and symmetric facial movement. CN VIII: Hearing is normal. CN XII: Tongue midline without atrophy or fasciculations. Motor Normal muscle bulk throughout. Normal muscle tone. Right Left Wrist flexion 5 5 Wrist extension 5 5 Right Left Deltoid 5 5 Biceps 5 5 Triceps 5 5 Wrist flexor 5 5 Wrist extensor 5 5 Glutei 5- 5- Iliopsoas 5- 5- Quadriceps 4 4 Hamstring 4+ 4+ Gastrocnemius 5 5 Anterior tibialis 5 5 Posterior tibialis 5 5 Sensory Light touch is normal in upper and lower extremities. Pinprick is normal in upper and lower extremities. Vibration is normal in upper and lower extremities. Reflexes Right Left Brachioradialis 2+ 2+ Biceps 2+ 2+ Patellar 2+ 2+ Achilles 2+ 2+ Right Plantar: downgoing Left Plantar: downgoing Right pathological reflexes: Pinky's absent. Ankle clonus absent. Left pathological reflexes: Pinky's absent. Ankle clonus absent. Coordination [id number], rapid alternating movements and inms-oa-mlrm normal bilaterally without dysmetria. Gait Casual gait: Hesitant gait. Use of cane. Procedures Objective Blood pressure 128/86, resp. rate 18, weight 174 lb, SpO2 98%. Physical Exam Results Laboratory, Imaging, and Diagnostic Test Results - MRI brain (2023): Stable plaque Assessment & Plan ICD-10-CM 1. Multiple sclerosis (HCC) G35 XR knee 1 or 2 views right MR brain w and wo contrast routine MR cervical spine w and wo contrast Creatinine, Serum Creatinine, Serum Ambulatory referral to Physical Therapy 2. Gait abnormality R26.9 Ambulatory referral to Physical Therapy 3. Weakness R53.1 Ambulatory referral to Physical Therapy Maximiliano Carranza, male patient with multiple sclerosis (MS) diagnosed in 2009, presenting with worsening walking ability and right knee pain. Multiple Sclerosis Assessment: Patient was diagnosed with MS in 2009 and is currently only taking Ampyra for walking assistance. He reports that the medication is not working as well as before. The last MRI of the brain in 2023 showed stable plaque, but no recent imaging has been performed. The patient stopped all other MS medications, which may have contributed to disease progression. There is concern for worsening symptoms, particularly in walking ability. Plan: - Order MRI of brain and cervical spine to assess for disease progression - Initiate Mavenclad therapy - Order creatinine level prior to MRI - Refer to physical therapy for muscle strengthening - Schedule follow-up appointment in 3 months Right Knee Pain Assessment: Patient reports right knee pain, which may be contributing to his worsening walking ability. The etiology of the knee pain is unclear and requires further evaluation. Plan: - Order X-ray of right knee This clinical note was created utilizing [employer] documentation system. All information has been thoroughly reviewed, corrected as necessary, and authenticated by the provider to ensure accuracy and completeness. On occasion, [employer] documentation system erroneously drops words or replaces a spoken word with a similar sounding word. Please notify with any questions or concerns regarding this clinical note. Total time 45 minutes spent reviewing records, performing medically appropriate exam, counseling , education, ordering medication, tests, and/or procedures, documenting health information into the health record, communicating results to the patient, and coordinating care. documented in this encounter [facility] 12-17-2024 History of Present illness Narrative Valerie Carranza is a 63 y.o. male No ref. provider found presents with chief complaint of Follow-up and Thyroid Problem (LAB) HPI: Interim history: 12/2024 Followup visit 12/17/2024 for labs on 10/2024 TSH 08/06, free T4 1 (0.8-1.8), free T3 2.7 (2.3-4.4), He is currently on 175, plus Cytomel 5 mcg two in the morning and two afternoon. had MS Interim history: 05/2024 Followup visit 05/12/2024 for labs. TSH 0.01, free T4 1.6 (0.8-1.8), free T3 5.3 (2.3-4.4), He is currently on 200 +50 plus Cytomel 5 mcg, two in the morning and two afternoon. had MS Interim history: 10/2023 Followup visit 10/18/2023 for labs. TSH 1.59, free T4 1.1 (0.8-1.8), free T3 3 (2.3-4.4), He is currently on 200 +50 plus Cytomel 5 mcg, two in the morning and two afternoon. had MS Interim history: 06/2023 Followup visit 06/20/2023 for labs. TSH 24, free T4 0.9 (0.8-1.8), free T3 2.8 (2.3-4.4), He is currently on 200 plus Cytomel 5 mcg, two in the morning and two afternoon. had MS Interim history: 02/2023. Followup visit 02/21/2023 for labs. TSH 30, free T4 0.7 (0.8-1.8), free T3 3.5 (2.3-4.7), TPO positive, actually 1, and TG antibody 23, positive. He is currently on 175 plus Cytomel 5 mcg, two in the morning and two afternoon. HPI: 10/2022 New patient, came for uncontrolled hypothyroidism since long time. He has it for almost 15 years. Labs over the last two years, either uncorrected or overcorrected. Back in June 2020, TSH 7.4; in July 2019, 11; in January 2021, 0.16; March 2022, 0.21; in May 2022, 43; in September 2022, 14.6 and free T4 1 (0.8-1.8). He used to be on 175 since long time, on maintenance dose. Over the last two years, increasing up to 300 currently. He has different abdomen shape and he thinks that is related to obesity but I told him he might need to see GI doctor to check ultrasound of liver. He has multiple sclerosis. SUBJECTIVE: MEDICATIONS: Current Outpatient Medications Medication Instructions alendronate (FOSAMAX) 35 mg, Oral, Daily, 1 tablet 30 minutes before the first food, beverage or medicine of the day with plain water Orally ARIPiprazole (ABILIFY) 15 mg, Oral, Daily Cyphqym-Wqcsybukqxq-Blxdmvasgu (Breztri Aerosphere) 160-9-4.8 MCG/ACT aerosol 2 puffs, Inhalation, 2 times daily cholecalciferol (Vitamin D-3) 25 MCG (1000 UT) capsule 1 capsule, Daily ciprofloxacin (Cipro) 500 MG tablet TAKE 1 TABLET BY MOUTH EVERY MORNING AND 1 TABLET EVERY NIGHT AT BEDTIME FOR 3 DAYS cyproheptadine (Periactin) 4 MG tablet Dalfampridine ER (AMPYRA) 10 mg, Oral, 2 times daily docusate sodium (Colace) 100 MG capsule 1 capsule, Daily PRN escitalopram (LEXAPRO) 20 mg, Oral, Daily, TAKE 1 TABLET EVERY DAY fluticasone (Flonase) 50 MCG/ACT nasal spray USE 1-2 SPRAYS IN EACH NOSTRIL DAILY. SHAKE GENTLY. BEFORE 1ST USE, PRIME PUMP. AFTER USE, CLEAN TIP AND REPLACE CAP gabapentin (NEURONTIN) 1,200 mg, Oral, 2 times daily levothyroxine (SYNTHROID, LEVOXYL) 175 mcg, Oral, Daily liothyronine (Cytomel) 5 MCG tablet TAKE 2 TABLETS IN THE MORNING AND TAKE 2 TABLETS IN THE EVENING lubiprostone (AMITIZA) 24 mcg, Oral, 2 times daily with meals montelukast (SINGULAIR) 10 mg, Oral, Nightly Multiple Vitamin (Multi-Vitamin) tablet 1 tablet, Daily RT sildenafil (Viagra) 50 MG tablet 1 tablet, Daily PRN tiZANidine (ZANAFLEX) 2 mg, Oral, Every 6 hours PRN ALLERGIES: Allergies Allergen Reactions Glatiramer Other Reaction(s): Syncope Glatiramer Acetate Dizziness Marijuana (Cannabis Sativa) GI intolerance Penicillin G Hives and Rash Penicillin G Benzathine Rash Penicillins Hives and Rash Past Medical History: Diagnosis Date Abnormal finding on thyroid function test 10/20/2024 Acute exacerbation of chronic obstructive pulmonary disease (HCC) 10/20/2024 Anxiety Arthritis Arthritis 10/20/2024 BPH with obstruction/lower urinary tract symptoms 10/20/2024 COPD (chronic obstructive pulmonary disease) ([facility]) COPD mixed type ([facility]) 10/20/2024 DDD (degenerative disc disease), lumbar Depression Difficulty walking History of being hospitalized 2018 Pneumonia Hypothyroidism Marijuana use Memory loss Movement disorder Multiple sclerosis (HCC) Neuropathy Osteoporosis Peripheral vascular disease, unspecified 10/20/2024 Noted by LAMONT VAUGHN NP last documented on [id number] Prostate cancer screening 10/20/2024 Restless leg syndrome Stroke (HCC) Stroke (HCC) 09/14/2023 Tobacco user 10/20/2024 Vitamin D deficiency Vitamin D deficiency, unspecified Weakness of limb Past Surgical History: Procedure Laterality Date CHOLECYSTECTOMY COLONOSCOPY CT ANGIOGRAM CHEST 06/28/[address] ANGIOGRAM HEART CORONARY 08/30/2021 CT ANGIOGRAM TAVR 08/30/2021 FRACTURE SURGERY OTHER SURGICAL HISTORY Left Compound fracture left heel TONSILLECTOMY REVIEW OF SYMPTOMS: 14 POINT OF SYSTEM REVIEWED AND NEGATIVE OBJECTIVE: Lab Results Component Value Date TSH 0.07 (L) 06/06/2024 TSH 8.60 (H) 07/04/2023 Lab Results Component Value Date T4FREE 1.1 06/06/2024 T4FREE 1.0 09/26/2022 Lab Results Component Value Date FREET3 3.3 06/06/2024 Visit Vitals Pulse 95 Resp 18 Ht 5' 8.5 Wt 174 lb SpO2 (!) 89% BMI 26.07 kg/m Smoking Status Former BSA 1.95 m Physical Exam Constitutional: Appearance: Normal appearance. He is normal weight. HENT: Head: Normocephalic and atraumatic. Right Ear: External ear normal. Nose: Nose normal. Mouth/Throat: Pharynx: Oropharynx is clear. Eyes: Extraocular Movements: Extraocular movements intact. Pupils: Pupils are equal, round, and reactive to light. Cardiovascular: Rate and Rhythm: Normal rate and regular rhythm. Pulmonary: Effort: Pulmonary effort is normal. Abdominal: General: Abdomen is flat. Palpations: Abdomen is soft. Musculoskeletal: General: Normal range of motion. Skin: General: Skin is warm. Neurological: General: No focal deficit present. Mental Status: He is alert. Psychiatric: Mood and Affect: Mood normal. Behavior: Behavior normal. ASSESSMENT AND PLAN: Assessment/Plan Diagnoses and all orders for this visit: Jessica's disease - T3, free; Future - T4, free; Future - TSH; Future We will continue with his current regime levothyroxine 175 mcg daily, Cytomel 5 mcg 2 tablets in the morning 2 tablets after noon. Vitamin D deficiency Encounter for dietary consultation Diet and exercise reviewed with the patient Follow up in about 6 months (around 06/19/2025). documented in this encounter [facility] 10-22-2024 History of Present illness Narrative Images from the original note were not included. Valerie Carranza is a 63 y.o. male presents with chief complaint of Medicare Annual Wellness Visit Subsequent, Fatigue (About a week and half ago. ), and Pain (Shoulder, arm, joints all on left side about week and half ago. ) HPI: History of Present Illness The patient presents for evaluation of fatigue, left-sided neck pain, hypothyroidism, depression, and health maintenance. He reports a persistent desire to sleep over the past week, accompanied by pain in the left side of his neck, shoulder, joint, and entire arm. He does not recall any specific incident that could have caused this discomfort and does not sleep on the affected side. He also reports no unusual twisting or falls. He experiences morning stiffness, which tends to improve as the day progresses. His sleep pattern is characterized by excessive sleepiness, with a constant feeling of insufficient rest. He is under the care of Dr. Nice, who has recommended thyroid function tests due to suspected thyroid dysfunction as a potential cause of his fatigue. He is currently on levothyroxine 175 mcg daily. Outpatient orders have been placed for thyroid function by Dr. Nice. He has brought the orders with him to this appointment. He has been following up with neurology and pulmonology. He has not undergone any recent CT scans. He quit smoking on 08/14/2024. He has gained weight, increasing from 145 to 168 pounds, but reports a normal appetite. He is under the care of an cigar head pegger and does not require dental services. He reports no leg swelling. He does not monitor his blood pressure at home. He was previously on Lexapro for depression but has discontinued its use. He reports that his anxiety is well-managed. He has consulted with urology but has not undergone any tests due to bowel issues, which he attributes to his MS. He is on Fosamax. SOCIAL HISTORY The patient quit smoking on 08/14/2024. HPI Over the past 2 weeks, how often have you been bothered by any of the following problems? Little interest or pleasure in doing things: (Patient-Rptd) (P) Nearly every day Feeling down, depressed, or hopeless: (Patient-Rptd) (P) Nearly every day Patient Health Questionnaire-2 Score: (Patient-Rptd) (P) 6 Over the past 2 weeks, how often have you been bothered by any of the following problems? Trouble falling or staying asleep, or sleeping too much: (Patient-Rptd) (P) More than half the days Feeling tired or having little energy: (Patient-Rptd) (P) More than half the days Poor appetite or overeating: (Patient-Rptd) (P) More than half the days Feeling bad about yourself - or that you are a failure or have let yourself or your family down: (Patient-Rptd) (P) Nearly every day Trouble concentrating on things, such as reading the newspaper or watching television: (Patient-Rptd) (P) Nearly every day Moving or speaking so slowly that other people could have noticed? Or the opposite - being so fidgety or restless that you have been moving around a lot more than usual.: (Patient-Rptd) (P) More than half the days Thoughts that you would be better off or hurting yourself in some way: (Patient-Rptd) (P) Not at all Patient Health Questionnaire-9 Score: (Patient-Rptd) (P) 20 Peguero Fall Risk History of Falling, Immediate or Within 3 Months: (Patient-Rptd) (P) No Secondary Diagnosis: (Patient-Rptd) (P) No Ambulatory Aid: (Patient-Rptd) (P) Crutches/cane/walker Intravenous Therapy/Heparin Lock: (Patient-Rptd) (P) No Gait/Transferring: (Patient-Rptd) (P) Weak Mental Status: (Patient-Rptd) (P) Oriented to own ability Peguero Fall Risk Score: (Patient-Rptd) (P) 25 Health Risk Assessment Form Do you need help eating, bathing, using the toilet, dressing, or getting around your home?: (Patient-Rptd) (P) No Can you prepare your own meals?: (Patient-Rptd) (P) Yes Can you do your own housework without help?: (Patient-Rptd) (P) No Can you shop for groceries or clothes without help?: (Patient-Rptd) (P) No Do you exercise for about 20 minutes 3 or more days a week?: (Patient-Rptd) (P) No How confident are you that you can control and manage most of your health problems?: (Patient-Rptd) (P) Somewhat confident Can you mange your money, credit cards and accounts, pay bills and taxes?: (Patient-Rptd) (P) Yes Cognitive Screening Three Word Registration: Village, Kitchen, Baby Clock Drawing: Normal Clock - 2 Three Word Recall: All 3 words correct - 3 Total Score (0-5 Points): 3 Pain Assessment Pain Score: (Patient-Rptd) (P) 8 SUBJECTIVE: MEDICATIONS: Current Outpatient Medications Medication Instructions alendronate (FOSAMAX) 35 mg, Oral, Daily, 1 tablet 30 minutes before the first food, beverage or medicine of the day with plain water Orally ARIPiprazole (ABILIFY) 15 mg, Oral, Daily Bpdydxd-Wryqpxqaqev-Bszfpeyrrz (Breztri Aerosphere) 160-9-4.8 MCG/ACT aerosol 2 puffs, Inhalation, 2 times daily cholecalciferol (Vitamin D-3) 25 MCG (1000 UT) capsule 1 capsule, Daily cyproheptadine (Periactin) 4 MG tablet Dalfampridine ER (AMPYRA) 10 mg, Oral, 2 times daily docusate sodium (Colace) 100 MG capsule 1 capsule, Daily PRN escitalopram (LEXAPRO) 20 mg, Oral, Daily, TAKE 1 TABLET EVERY DAY fluticasone (Flonase) 50 MCG/ACT nasal spray USE 1-2 SPRAYS IN EACH NOSTRIL DAILY. SHAKE GENTLY. BEFORE 1ST USE, PRIME PUMP. AFTER USE, CLEAN TIP AND REPLACE CAP gabapentin (NEURONTIN) 1,200 mg, Oral, 2 times daily levothyroxine (SYNTHROID, LEVOXYL) 175 mcg, Oral, Daily liothyronine (Cytomel) 5 MCG tablet TAKE 2 TABLETS IN THE MORNING AND TAKE 2 TABLETS IN THE EVENING lubiprostone (AMITIZA) 24 mcg, Oral, 2 times daily with meals montelukast (SINGULAIR) 10 mg, Oral, Nightly Multiple Vitamin (Multi-Vitamin) tablet 1 tablet, Daily RT sildenafil (Viagra) 50 MG tablet 1 tablet, Daily PRN REVIEW OF SYMPTOMS: Review of Systems Constitutional: Positive for fatigue. HENT: Negative. Respiratory: Negative. Cardiovascular: Negative. Gastrointestinal: Positive for abdominal distention. Genitourinary: Negative. Musculoskeletal: Positive for arthralgias and myalgias. Left sided neck pain, upper left back pain, left shoulder pain. Skin: Negative. Neurological: Negative. Psychiatric/Behavioral: Negative. OBJECTIVE: Visit Vitals BP 130/80 Pulse 88 Temp 97 F (Tympanic) Ht 5' 11 Wt 168 lb 9.6 oz SpO2 94% BMI 23.51 kg/m Smoking Status Former BSA 1.96 m Physical Exam Vitals and nursing note reviewed. Constitutional: Appearance: Normal appearance. HENT: Head: Normocephalic and atraumatic. Nose: Nose normal. Mouth/Throat: Mouth: Mucous membranes are moist. Cardiovascular: Rate and Rhythm: Normal rate and regular rhythm. Pulses: Normal pulses. Heart sounds: Normal heart sounds. Pulmonary: Effort: Pulmonary effort is normal. No respiratory distress. Breath sounds: Normal breath sounds. No stridor. No wheezing, rhonchi or rales. Abdominal: General: Bowel sounds are normal. There is distension. Palpations: Abdomen is soft. There is no mass. Tenderness: There is no abdominal tenderness. Hernia: No hernia is present. Musculoskeletal: General: Normal range of motion. Left shoulder: No tenderness or bony tenderness. Normal range of motion. Normal pulse. Cervical back: Tenderness present. No bony tenderness. Thoracic back: Tenderness present. No bony tenderness. Normal range of motion. Back: Right lower leg: No edema. Left lower leg: No edema. Skin: General: Skin is warm and dry. Neurological: General: No focal deficit present. Mental Status: He is alert and oriented to person, place, and time. Psychiatric: Mood and Affect: Mood normal. Behavior: Behavior normal. ASSESSMENT AND PLAN: Assessment/Plan Problem List Items Addressed This Visit Generalized anxiety disorder Stable, stopped taking Lexapro. Centrilobular emphysema (HCC) Stable, follows with pulmonology Chronic pain syndrome Stable Hypothyroidism Follows with Dr. Nice. Thyroid levels will be checked today with orders from Dr. Nice Moderate episode of recurrent major depressive disorder (HCC) Relevant Orders Vitamin D 25 hydroxy; Future On Abilify. Stopped taking Lexapro. Does not want to restart Lexapro at this time. Multiple sclerosis (HCC) Follows with Neurology Relevant Orders CBC and differential; Future Comprehensive metabolic panel; Future Lipid panel; Future Neuropathy Stable on gabapentin Non-seasonal allergic rhinitis Stable on Singulair Osteoporosis Relevant Orders Vitamin D 25 hydroxy; Future DEXA bone density; Future On Fosamax. Last Dexa scan was 01/2023 Vitamin D deficiency Relevant Orders Vitamin D 25 hydroxy; Future Pulmonary nodules Stable, follows with pulmonology. No follow up CT's needed per pulmonology Other Visit Diagnoses Medicare annual wellness visit, subsequent - Primary Healthy diet and keep active. Annual eye and dental exam. Vaccines and cancer screens reviewed for completeness. Screen labs as needed. Assessed needs for tools in the home for independence. Living will and durable power of managing attorney reviewed Routine general medical examination at a health care facility Relevant Orders CBC and differential; Future Comprehensive metabolic panel; Future Lipid panel; Future Healthy diet and keep active. Annual eye and dental exam. screen labs, cancer screens and vaccines reviewed an updated as needed. Fatigue, unspecified type Relevant Orders CBC and differential; Future Comprehensive metabolic panel; Future Upper back pain on left side Relevant Medications tiZANidine (Zanaflex) 4 MG tablet Take 0.5 tablets (2 mg) by mouth every 6 (six) hours if needed for muscle spasms for up to 15 days Neck pain on left side Relevant Medications tiZANidine (Zanaflex) 4 MG tablet Peripheral vascular disease, unspecified Relevant Orders CBC and differential; Future Comprehensive metabolic panel; Future Lipid panel; Future Prostate cancer screening Relevant Orders PSA; Future Assessment & Plan 1. Fatigue. - The etiology of the fatigue could be multifactorial, potentially linked to thyroid dysfunction or elevated/decreased vitamin D levels. - Comprehensive panel of blood tests will be conducted to assess thyroid function, vitamin D levels, electrolytes, kidney function, liver function, lipid profile, complete blood count, and PSA level. - Discussion about the potential causes of fatigue including thyroid dysfunction and vitamin D levels. - Blood work ordered to evaluate the underlying causes of fatigue. 2. Left-sided neck pain. - Pain appears to be muscular in nature, particularly on the left side, and may be exacerbated by arm movement. - Discussion about the muscular nature of the pain and potential exacerbation by arm movement. - Low dose of tizanidine initiated to manage the pain, with advice to take sparingly due to potential drowsiness and dizziness. 3. Hypothyroidism. - Current medication includes levothyroxine 175 mcg daily. - Thyroid function tests will be included in the blood work to ensure appropriate management of the condition. - Review of thyroid medication and previous thyroid function test results. - Blood work ordered by Dr. Nice to assess thyroid function. 4. Depression. - Depression screening score was slightly elevated today. - Previous medication included Lexapro, which has been discontinued. - Discussion about the elevated depression screening score and previous use of Lexapro. - Patient will inform if there is a need to resume any medication for depression. 5. Health maintenance. - Cognitive screening results were satisfactory. - Blood pressure readings were initially high but normalized upon repeat measurement. - Discussion about cognitive screening results and blood pressure readings. - DEXA scan ordered to be conducted every 2 years while on medication, with the next scan due after 01/2025. - Congrats on smoking cessation!! Follow-up - Follow up in 3 months. documented in this encounter [facility] 07-15-2024 History of Present illness Narrative Images from the original note were not included. Valerie Carranza is a 63 y.o. male presents with chief complaint of Follow-up HPI: HPI History of Present Illness The patient presents for evaluation of bowel issues, depression, and smoking cessation. He has been experiencing bowel issues, which he attributes to his multiple sclerosis (MS) diagnosis. These issues have been present since 2009, even prior to his official MS diagnosis. He reports that these bowel issues often confine him to his home. His neurologist, Dr. Arreaga, has not provided any specific recommendations regarding his bowel management. He has found relief with the use of stool softeners and MiraLAX, although excessive use of MiraLAX results in frequent bowel movements throughout the day. He has attempted to reduce the dosage of MiraLAX, but this has not been effective. He has not taken any MiraLAX recently and reports no constipation. He expresses concern about the potential need for another colonoscopy. He has undergone two colonoscopies in the past, the first of which was unsuccessful due to inadequate bowel preparation. He was referred to [place] for further testing, but the distance is too great for him to travel by car. He consistently uses Depends for incontinence management but reports occasional leakage. He typically skips breakfast and experiences significant fatigue. He is currently on Lexapro for stress management and does not believe additional medication is necessary. He has been using Chantix for smoking cessation for approximately 6 months, but it has not been effective in reducing his cigarette consumption. He reports that his insurance covers the cost of Chantix. SOCIAL HISTORY The patient admits to smoking 10 cigarettes a day. MEDICATIONS Current: Escitalopram, Chantix, MiraLAX SUBJECTIVE: MEDICATIONS: Current Outpatient Medications Medication Instructions albuterol HFA 90 mcg/act inhaler 2 puffs, Every 4 hours PRN alendronate (FOSAMAX) 35 mg, Oral, Daily, 1 tablet 30 minutes before the first food, beverage or medicine of the day with plain water Orally ARIPiprazole (ABILIFY) 15 mg, Oral, Daily Eyxazuj-Paojtflblvd-Zcceavyxda (Breztri Aerosphere) 160-9-4.8 MCG/ACT aerosol 2 puffs, Inhalation, 2 times daily cholecalciferol (Vitamin D-3) 25 MCG (1000 UT) capsule 1 capsule, Daily Dalfampridine ER (AMPYRA) 10 mg, Oral, 2 times daily docusate sodium (Colace) 100 MG capsule 1 capsule, Daily PRN escitalopram (Lexapro) 10 MG tablet TAKE 1 TABLET EVERY DAY fluticasone (Flonase) 50 MCG/ACT nasal spray 1-2 sprays, Each Nostril, Daily, Shake gently. Before first use, prime pump. After use, clean tip and replace cap. gabapentin (NEURONTIN) 1,200 mg, Oral, 2 times daily levothyroxine (SYNTHROID, LEVOXYL) 175 mcg, Oral, Daily liothyronine (Cytomel) 5 MCG tablet TAKE 2 TABLETS IN THE MORNING AND TAKE 2 TABLETS IN THE EVENING lubiprostone (AMITIZA) 24 mcg, Oral, 2 times daily with meals Montelukast Sodium (SINGULAIR PO) 10 mg, Daily Multiple Vitamin (Multi-Vitamin) tablet 1 tablet, Daily RT sildenafil (Viagra) 50 MG tablet 1 tablet, Daily PRN varenicline (CHANTIX) 1 mg, Oral, 2 times daily, Take with full glass of water. Varenicline Tartrate, Starter, (Chantix Starting Month ) 0.5 MG X 11 & 1 MG X 42 tablet therapy pack Take 0.5 mg by mouth Daily for 3 days, THEN 0.5 mg 2 (two) times a day for 4 days, THEN 1 mg 2 (two) times a day for 21 days. ALLERGIES: Allergies Allergen Reactions Glatiramer Glatiramer Acetate Dizziness Marijuana (Cannabis Sativa) GI intolerance Penicillin G Hives and Rash Penicillins Hives and Rash SURGICAL HISTORY: Past Surgical History: Procedure Laterality Date CHOLECYSTECTOMY COLONOSCOPY CT ANGIOGRAM CHEST 06/28/[address] ANGIOGRAM HEART CORONARY 08/30/2021 CT ANGIOGRAM TAVR 08/30/2021 FRACTURE SURGERY OTHER SURGICAL HISTORY Left Compound fracture left heel TONSILLECTOMY FAMILY HISTORY: Family History Problem Relation Name Age of Onset Atrial fibrillation Mother Heart disease Father Rony Hdz Alcohol abuse Father Rony Hdz Drug abuse Father Rony Hdz Heart failure Father Rony Hdz Hypertension Other Heart disease Other SOCIAL HISTORY: Social History Tobacco Use Smoking status: Every Day Current packs/day: 1.50 Average packs/day: 1.5 packs/day for 40.0 years (60.0 ttl pk-yrs) Types: Cigarettes Smokeless tobacco: Never Tobacco comments: Im trying to quit Vaping Use Vaping status: Some Days Substance Use Topics Alcohol use: Not Currently Comment: no Alcohol use at all now, only when i was younger Drug use: Never Depression: At risk (10/09/2023) PHQ-2 PHQ-2 Score: 6 REVIEW OF SYMPTOMS: Review of Systems OBJECTIVE: Visit Vitals BP 126/72 (BP Location: Left arm, Patient Position: Sitting, BP Cuff Size: Adult) Pulse 69 Resp 18 Ht 5' 11 Wt 150 lb 9.6 oz SpO2 94% BMI 21.00 kg/m Smoking Status Every Day BSA 1.85 m Physical Exam Constitutional: Appearance: He is normal weight. HENT: Head: Normocephalic and atraumatic. Nose: Nose normal. No congestion. Mouth/Throat: Mouth: Mucous membranes are moist. Eyes: Extraocular Movements: Extraocular movements intact. Pupils: Pupils are equal, round, and reactive to light. Cardiovascular: Rate and Rhythm: Normal rate and regular rhythm. Pulmonary: Effort: Pulmonary effort is normal. No respiratory distress. Breath sounds: Normal breath sounds. No wheezing. Musculoskeletal: General: No swelling or deformity. Cervical back: Normal range of motion and neck supple. Right lower leg: No edema. Left lower leg: No edema. Skin: General: Skin is warm and dry. Findings: No rash. Neurological: General: No focal deficit present. Mental Status: He is alert and oriented to person, place, and time. Cranial Nerves: No cranial nerve deficit. Gait: Gait normal. Psychiatric: Mood and Affect: Mood normal. Behavior: Behavior normal. ASSESSMENT AND PLAN: Assessment/Plan Problem List Items Addressed This Visit Moderate episode of recurrent major depressive disorder (CMS/HCC) Relevant Medications escitalopram (Lexapro) 20 MG tablet MS (multiple sclerosis) (CMS/[facility]) Other Visit Diagnoses Incontinence of feces, unspecified fecal incontinence type - Primary Relevant Medications nicotine (Nicoderm CQ) 21 MG/24HR patch nicotine (Nicoderm CQ) 14 MG/24HR patch nicotine (Nicoderm CQ) 7 MG/24HR patch Tobacco abuse Assessment & Plan 1. Bowel issues. His bowel issues are likely related to his multiple sclerosis (MS) diagnosis. He has been managing his symptoms with stool softeners and MiraLAX, but excessive use of MiraLAX leads to frequent bowel movements. He has not taken MiraLAX recently and reports no constipation. A referral to a bead wire taper in [place] was discussed, but he expressed concerns about undergoing another colonoscopy. A referral to Dr. Russ in [place] was suggested as an alternative. 2. Depression. He is currently on a low dose of escitalopram (Lexapro) 10 mg. The dosage will be increased to 20 mg to better manage his symptoms. 3. Smoking cessation. He has been on Chantix for about 6 months, which has helped him reduce his cigarette intake to 10 per day, but he has not been able to quit completely. A prescription for a nicotine patch has been provided to use in conjunction with Chantix. He is advised to discard his cigarettes on the same day he starts using the nicotine patch. Follow-up The patient will follow up in 3 months. PROCEDURE The patient has undergone two colonoscopies in the past. documented in this encounter [facility] 07-01-2024 Note Urology Office/Clini c Note Chief Complaint referral urinary hesitancy HPI Staff 63yr old male pt referred Gavin Freitas NP for urinary hesitancy. Could not provide urine sample at this time. Pt states he has to massage his bladder to start his stream. Also has to sit down to urinate due to weak stream. Pt has a history of incomplete bladder emptying. IPSS - 33, random scan - 152mL no PSAs on clinisync. Urine cx 06/05/24 - 10-49k Enterococcus, tx'd w Cipro x 3d. Also received Levaquin x 5d in September 2023. Review of Systems PHQ Score Initial Depression Screen Score: 2 SCORE No fever, chills, malaise, myalgia. No dysuria, pain w/ ejaculation, pain w/ BM. No blood in urine, ejaculate, or stool. No discharge, odor, or change in color of urine. No perineal pain/pressure, scrotal pain, or suprapubic pain. Physical Exam Vitals & Measurements HR: 75(Peripheral) RR: 18 BP: 139/77 HT: 71 in HT: 180 cm WT: 64.5 kg WT: 142.198 lb BMI: 19.91 General: nontoxic, NAD Mouth: moist mucosa Lungs: normal respiratory effort Cardio: regular rate, good distal perfusion Abdomen: nondistended Skin: No rashes or suspicious lesions Assessment/Plan UA completed in office today shows no microhematuria or signs of infection. 1. BPH with obstruction/lower urinary tract symptoms (N40.1: Benign prostatic hyperplasia with lower urinary tract symptoms) IPSS 33 QOL 6. Has tried meds previously but isn't sure what or when. Not sure if he's ever seen Urology before. Has to sit and press on his bladder externally to void. Has been this way for years. Slowly worsening. -Return for Urocuff. Depending on results, may need Cystoscopy +/- full Urodynamics. Ordered: E&M of New Patient Moderate 45-59 Min 30457 2. Multiple sclerosis (G35: Multiple sclerosis) Pt does have MS which we discussed can cause issues with bladder health/LUTS as well. Ordered: E&M of New Patient Moderate 45-59 Min 82956 3. Prostate cancer screening (Z12.5: Encounter for screening for malignant neoplasm of prostate) Normal CLARK by PCP per pt so pt deferred me repeating today. No PSAs. Will draw IO today. Review results w pt at next ov. Ordered: E&M of New Patient Moderate 45-59 Min 88369 4. Tobacco use (Z72.0: Tobacco use) 40+ yrs. Cessation encouraged. Denies gross hematuria. Ordered: E&M of New Patient Moderate 45-59 Min 11096 Other obstructive and reflux uropathy (N13.8: Other obstructive and reflux uropathy) Orders: 62815 Measure Post Void residual urine and/or bladder capacity by US- non-imaging Body Mass Index (BMI) documented 3008F Current tobacco smoker 1034F Depression Screening Negative 3352F Influenza immunization status assessed 1030F Medication list documented in medical record 1159F Most recent diastolic blood pressure <80 mm Hg 3078F Patient screen for fall risk: no falls in last year or 1 fall with no injury in last year 1101F Review of all meds by a prescribing practitioner or clinical pharmacist documented in EHR 1160F Systolic BP 130-139 mm Hg (Most Recent) 3075F Follow-up With When Contact Information [facility] Additional Instructions: For procedure as scheduled. Patient Education Steps to Quit Smoking Benign Prostatic Hyperplasia Problem List/Past Medical History Ongoing Acute exacerbation of chronic obstructive airways disease (COPD) Arthritis BPH with obstruction/lower urinary tract symptoms COPD mixed type Multiple sclerosis Osteoporosis (brittle and fragile bones) Prostate cancer screening Thyroid function tests abnormal Historical No qualifying data Procedure/Surgical History Cholecystectomy, Tooth extraction, complete mouth. Medications alendronate 35 mg Tab, Oral ARIPiprazole 15 mg oral tablet with sensor, Oral Breztri Aerosphere, See Instructions dalfampridine 10 mg oral tablet, extended release, Oral docusate, 100 mg escitalopram 10 mg Tab, Oral gabapentin 600 mg oral tablet, extended release, Oral levothyroxine 175 mcg (0.175 mg) oral capsule, Oral liothyronine, 5 mcg lubiprostone 24 mcg Cap, Oral magnesium oxide, 400 mg montelukast, 10 mg Allergies glatiramer (Syncope) penicillin G benzathine (Eruption) Social History Alcohol Past. Beer. 1-2 times per year., 06/27/2024 Substance Abuse Never., 06/27/2024 Tobacco 5-9 cigarettes (between 1/4 to 1/2 pack)/day in last 30 days Tobacco Use:. Never Smokeless Tobacco Use:. Cigarettes, 06/30/2024 Immunizations Vaccine Date Status influenza virus vaccine, inactivated 04/25/2023 Recorded SARS-CoV-2 (COVID-19) [id number] 03/20/2022 Recorded pneumococcal 20-valent conjugate vaccine 12/19/2021 Recorded influenza virus vaccine, inactivated 05/16/2021 Recorded SARS-CoV-2 mRNA-1273 (6m-5y) vaccine 04/20/2021 Given SARS-CoV-2 mRNA-1273 (6m-5y) vaccine 08/05/2020 Given SARS-CoV-2 mRNA-1273 (6m-5y) vaccine 07/08/2020 Given pneumococcal (more content not included)... [facility] Comment on above: Result Comment: Elec tronically Signed By: ALEXANDRA MOSLEY PA-C\.br\Date and Time Signed: 07/01/24 11:53 EST 06-30-2024 Hospital Discharge instructions Patient Education 06/30/2024 11:22:08 Steps to Quit Smoking Steps to Quit Smoking Smoking tobacco is the leading cause of preventable . It can affect almost every organ in the body. Smoking puts you and those around you at risk for developing many serious chronic diseases. Quitting smoking can be very challenging. Do not get discouraged if you are not successful the first time. Some people need to make many attempts to quit before they achieve long-term success. Do your best to stick to your quit plan, and talk with your health care provider if you have any questions or concerns. How do I get ready to quit? When you decide to quit smoking, create a plan to help you succeed. Before you quit: Pick a date to quit. Set a date within the next 2 weeks to give you time to prepare. Write down the reasons why you are quitting. Keep this list in places where you will see it often. Tell your family, friends, and co-workers that you are quitting. Support from people you are close to can make quitting easier. Talk with your health care provider about your options for quitting smoking. Find out what treatment options are covered by your health insurance. Identify people, places, things, and activities that make you want to smoke (triggers). Avoid them. What first steps can I take to quit smoking? Throw away all cigarettes at home, at work, and in your car. Throw away smoking accessories, such as ashtrays and lighters. Clean your car. Make sure to empty the ashtray. Clean your home, including curtains and carpets. What strategies can I use to quit smoking? Talk with your health care provider about combining strategies, such as taking medicines while you are also receiving in-person counseling. Using these two strategies together makes you more likely to succeed in quitting than if you used either strategy on its own. If you are or , talk with your health care provider about finding counseling or other support strategies to quit smoking. Do not take medicine to help you quit smoking unless your health care provider tells you to. Quit right away Quit smoking completely, instead of gradually reducing how much you smoke over a period of time. Stopping smoking right away may be more successful than gradually quitting. Attend in-person counseling to help you build problem-solving skills. You are more likely to succeed in quitting if you attend counseling sessions regularly. Even short sessions of 10 minutes can be effective. Take medicine You may take medicines to help you quit smoking. Some medicines require a prescription. You can also purchase [id number] medicines. Medicines may have nicotine in them to replace the nicotine in cigarettes. Medicines may: Help to stop cravings. Help to relieve withdrawal symptoms. Your health care provider may recommend: Nicotine patches, gum, or lozenges. Nicotine inhalers or sprays. Non-nicotine medicine that you take by mouth. Find resources Find resources and support systems that can help you quit smoking and remain smoke-free after you quit. These resources are most helpful when you use them often. They include: Online chats with a counselor. Telephone quitlines. Printed self-help materials. Support groups or group counseling. Text messaging programs. Mobile phone apps or applications. Use apps that can help you stick to your quit plan by providing reminders, tips, and encouragement. Examples of free services include Quit Guide from the CDC and smokefree.gov What can I do to make it easier to quit? Reach out to your family and friends for support and encouragement. Call telephone quitlines, such as 5-279-RCBJ-NOW, reach out to support groups, or work with a counselor for support. Ask people who smoke to avoid smoking around you. Avoid places that trigger you to smoke, such as bars, parties, or smoke-break areas at work. Spend time with people who do not smoke. Lessen the stress in your life. Stress can be a smoking trigger for some people. To lessen stress, try: ?Exercising regularly. ?Doing deep-breathing exercises. ?Doing yoga. ?Meditating. What benefits will I see if I quit smoking? Over time, you should start to see positive results, such as: Improved sense of smell and taste. Decreased coughing and sore throat. Slower heart rate. Lower blood pressure. Clearer and healthier skin. The ability to breathe more easily. Fewer sick days. Summary Quitting smoking can be very challenging. Do not get discouraged if you are not successful the first time. Some people need to make many attempts to quit before they achieve long-term success. When you decide to quit smoking, create a plan to help you succeed. Quit smoking right away, not slowly over a period of time. Find resources and support systems that can help you quit smoking and remain smoke-free after you quit. This information is not intended to replace advice given to you by your health care provider. Make sure you discuss any questions you have with your health care provider. Document Revised: 04/14/2022 Document Reviewed: 04/14/2022 [employer] Patient Education 2023 [place]. 06/30/2024 10:56:17 Benign Prostatic Hyperplasia Benign Prostatic Hyperplasia Benign prostatic hyperplasia (BPH) is an enlarged prostate gland that is caused by the normal aging process. The prostate may get bigger as a man gets older. The condition is not caused by cancer. The prostate is a walnut-sized gland that is involved in the production of semen. It is located in front of the rectum and below the bladder. The bladder stores urine. The urethra carries stored urine out of the body. An enlarged prostate can press on the urethra. This can make it harder to pass urine. The buildup of urine in the bladder can cause infection. Back pressure and infection may progress to bladder damage and kidney (renal) failure. What are the causes? This condition is part of the normal aging process. However, not all men develop problems from this condition. If the prostate enlarges away from the urethra, urine flow will not be blocked. If it enlarges toward the urethra and compresses it, there will be problems passing urine. What increases the risk? This condition is more likely to develop in men older than 50 years. What are the signs or symptoms? Symptoms of this condition include: Getting up often during the night to urinate. Needing to urinate frequently during the day. Difficulty starting urine flow. Decrease in size and strength of your urine stream. Leaking (dribbling) after urinating. Inability to pass urine. This needs immediate treatment. Inability to completely empty your bladder. Pain when you pass urine. This is more common if there is also an infection. Urinary tract infection (UTI). How is this diagnosed? This condition is diagnosed based on your medical history, a physical exam, and your symptoms. Tests will also be done, such as: A post-void bladder scan. This measures any amount of urine that may remain in your bladder after you finish urinating. A digital rectal exam. In a rectal exam, your health care provider checks your prostate by putting a lubricated, gloved finger into your rectum to feel the back of your prostate gland. This exam detects the size of your gland and any abnormal lumps or growths. An exam of your urine (urinalysis). A prostate specific antigen (PSA) screening. This is a blood test used to screen for prostate cancer. An ultrasound. This test uses sound waves to electronically produce a picture of your prostate gland. Your health care provider may refer you to a specialist in kidney and prostate diseases (urologist). How is this treated? Once symptoms begin, your health care provider will monitor your condition (active surveillance or watchful waiting). Treatment for this condition will depend on the severity of your condition. Treatment may include: Observation and yearly exams. This may be the only treatment needed if your condition and symptoms are mild. Medicines to relieve your symptoms, including: ?Medicines to shrink the prostate. ?Medicines to relax the muscle of the prostate. Surgery in severe cases. Surgery may include: ?Prostatectomy. In this procedure, the prostate tissue is removed completely through an open incision or with a laparoscope or robotics. ?Transurethral resection of the prostate (TURP). In this procedure, a tool is inserted through the opening at the tip of the penis (urethra). It is used to cut away tissue of the inner core of the prostate. The pieces are removed through the same opening of the penis. This removes the blockage. ?Transurethral incision (TUIP). In this procedure, small cuts are made in the prostate. This lessens the prostate's pressure on the urethra. ?Transurethral microwave thermotherapy (TUMT). This procedure uses microwaves to create heat. The heat destroys and removes a small amount of prostate tissue. ?Transurethral needle ablation (TUNA). This procedure uses radio frequencies to destroy and remove a small amount of prostate tissue. ?Interstitial laser coagulation (ILC). This procedure uses a laser to destroy and remove a small amount of prostate tissue. ?Transurethral electrovaporization (TUVP). This procedure uses electrodes to destroy and remove a small amount of prostate tissue. ?Prostatic urethral lift. This procedure inserts an implant to push the lobes of the prostate away from the urethra. Follow these instructions at home: Take tzzw-eyr-lfijxnd and prescription medicines only as told by your health care provider. Monitor your symptoms for any changes. Contact your health care provider with any changes. Avoid drinking large amounts of liquid before going to bed or out in public. Avoid or reduce how much caffeine or alcohol you drink. Give yourself time when you urinate. Keep all follow-up visits. This is important. Contact a health care provider if: You have unexplained back pain. Your symptoms do not get better with treatment. You develop side effects from the medicine you are taking. Your urine becomes very dark or has a bad smell. Your lower abdomen becomes distended and you have trouble passing urine. Get help right away if: You have a fever or chills. You suddenly cannot urinate. You feel light-headed or very dizzy, or you faint. There are large amounts of blood or clots in your urine. Your urinary problems become hard to manage. You develop moderate to severe low back or flank pain. The flank is the side of your body between the ribs and the hip. These symptoms may be an emergency. Get help right away. Call 911. Do not wait to see if the symptoms will go away. Do not drive yourself to the hospital. Summary Benign prostatic hyperplasia (BPH) is an enlarged prostate that is caused by the normal aging process. It is not caused by cancer. An enlarged prostate can press on the urethra. This can make it hard to pass urine. This condition is more likely to develop in men older than 50 years. Get help right away if you suddenly cannot urinate. This information is not intended to replace advice given to you by your health care provider. Make sure you discuss any questions you have with your health care provider. Document Revised: 11/09/2021 Document Reviewed: 11/09/2021 [employer] Patient Education 2023 [employer]. Follow Up Care 06/26/2024 09:50:06 With:[facility] Delfino Address: When: Unknown Comments:For procedure as scheduled. [facility] Johny 06-30-2024 Note Patient Education Pulmonary Medicine Steps to Quit Smoking Smoking tobacco is the leading cause of preventable . It can affect almost every organ in the body. Smoking puts you and those around you at risk for developing many serious chronic diseases. Quitting smoking can be very challenging. Do not get discouraged if you are not successful the first time. Some people need to make many attempts to quit before they achieve long-term success. Do your best to stick to your quit plan, and talk with your health care provider if you have any questions or concerns. How do I get ready to quit? When you decide to quit smoking, create a plan to help you succeed. Before you quit: ??? Pick a date to quit. Set a date within the next 2 weeks to give you time to prepare. ??? Write down the reasons why you are quitting. Keep this list in places where you will see it often. ??? Tell your family, friends, and co-workers that you are quitting. Support from people you are close to can make quitting easier. ??? Talk with your health care provider about your options for quitting smoking. ??? Find out what treatment options are covered by your health insurance. ??? Identify people, places, things, and activities that make you want to smoke (triggers). Avoid them. What first steps can I take to quit smoking? Throw away all cigarettes at home, at work, and in your car. ??? Throw away smoking accessories, such as ashtrays and lighters. ??? Clean your car. Make sure to empty the ashtray. ??? Clean your home, including curtains and carpets. What strategies can I use to quit smoking? Talk with your health care provider about combining strategies, such as taking medicines while you are also receiving in-person counseling. Using these two strategies together makes you more likely to succeed in quitting than if you used either strategy on its own. If you are or , talk with your health care provider about finding counseling or other support strategies to quit smoking. Do not take medicine to help you quit smoking unless your health care provider tells you to. Quit right away ??? Quit smoking completely, instead of gradually reducing how much you smoke over a period of time. Stopping smoking right away may be more successful than gradually quitting. ??? Attend in-person counseling to help you build problem-solving skills. You are more likely to succeed in quitting if you attend counseling sessions regularly. Even short sessions of 10 minutes can be effective. Take medicine You may take medicines to help you quit smoking. Some medicines require a prescription. You can also purchase nfhq-oer-szkttry medicines. Medicines may have nicotine in them to replace the nicotine in cigarettes. Medicines may: ??? Help to stop cravings. ??? Help to relieve withdrawal symptoms. Your health care provider may recommend: ??? Nicotine patches, gum, or lozenges. ??? Nicotine inhalers or sprays. ??? Non-nicotine medicine that you take by mouth. Find resources Find resources and support systems that can help you quit smoking and remain smoke-free after you quit. These resources are most helpful when you use them often. They include: ??? Online chats with a counselor. ??? Telephone quitlines. ??? Printed self-help materials. ??? Support groups or group counseling. ??? Text messaging programs. ??? Mobile phone apps or applications. Use apps that can help you stick to your quit plan by providing reminders, tips, and encouragement. Examples of free services include Quit Guide from the CDC and smokefree.gov What can I do to make it easier to quit? Reach out to your family and friends for support and encouragement. Call telephone quitlines, such as 9-505-XPKV-NOW, reach out to support groups, or work with a counselor for support. ??? Ask people who smoke to avoid smoking around you. ??? Avoid places that trigger you to smoke, such as bars, parties, or smoke-break areas at work. ??? Spend time with people who do not smoke. ??? Lessen the stress in your life. Stress can be a smoking trigger for some people. To lessen stress, try: ? Exercising regularly. ? Doing deep-breathing exercises. ? Doing yoga. ? Meditating. What benefits will I see if I quit smoking? Over time, you should start to see positive results, such as: ??? Improved sense of smell and taste. ??? Decreased coughing and sore throat. ??? Slower heart rate. ??? Lower blood pressure. ??? Clearer and healthier skin. ??? The ability to breathe more easily. ??? Fewer sick days. Summary ??? Quitting smoking can be very challenging. Do not get discouraged if you are not successful the first time. Some people need to make many attempts to quit before they achieve long-term success. ??? When you decide to quit smoking, create a plan to help you succeed. ??? Quit smoking right away, not s (more content not included)... [facility] 06-24-2024 History of Present illness Narrative Pt presents today for urine sample. Had a uti and finished antibiotic rechecking his urine documented in this encounter [facility] 06-23-2024 History of Present illness Narrative <June 23, 2024, 10:03 - MARTY Angel> Chart reviewed. Called and spoke to pt for CCM monitoring. Pt did take atb for UTI, but was not aware it was for infection. Pt reports regardless of how full his bladder feels, he has to massage bladder to initiate stream, and often feels unable to fully empty bladder. Will advise PCP of this concern. Pt's bowels are moving more regularly since starting laxative, taking miralax and amitiza daily. Pt not taking full dose of miralax due to previously having diarrhea with full dose. He now has some days without BM. Enc pt to gradually increase miralax (without exceeding full daily dose) until bowels are moving daily. Pt continues to have difficulty quitting smoking, smoking about 1/2 ppd. Enc pt to try nicotine-free cigarettes as recommended by provider. Pt reports his son is doing better and this has greatly reduced his own stress level. Pt reports slight improvement in mobility since starting ampyra, denies falls. No other concerns at this time. I would advise him to follow up with Urology for this issue. I will place a referral order for Urology in [place]. I would recommend coming in for a nurse visit to do another urine dip to make sure his UTI is doing better from the antibiotics he was recently on. documented in this encounter [facility] 06-09-2024 Telephone encounter Note Pt states katrina jordan took labs and tsh was low, labs in chart. Please advise. [facility] 06-09-2024 Miscellaneous Notes Pt states katrina jordan took labs and tsh was low, labs in chart. Please advise. documented in this encounter [facility] 06-09-2024 Telephone encounter Note This was received as a voicemail Hi, this is Valerie Carranza. I need to talk to a nurse or someone that can explain something to me about my prescriptions. My phone number [phone]. Thank you. [facility] 06-09-2024 Miscellaneous Notes This was received as a voicemail Hi, this is Valerie Carranza. I need to talk to a nurse or someone that can explain something to me about my prescriptions. My phone number [phone]. Thank you. documented in this encounter [facility] 06-06-2024 History of Present illness Narrative Images from the original note were not included. Valerie Carranza is a 63 y.o. male presents with chief complaint of UTI and Bowel Issues HPI: Presents to the office for urinary urgency and issues with his bowels. Reports he has a bowel movement every 3-4 days and when he does have a bowel movement it is soft but he has to strain to get it out. Some days he will have one bowel movement and other days he will have multiple bowel movements and then go 3-4 days without one. Reports the urgency to have a bowel movement comes on fast some days that he has some accidents. He does take Miralax daily and has Colace at home for PRN use. Denies any abd pain, nausea, vomiting, blood in the stool, burning with urination. Reports having urinary urgency and urinary incontinence. States he knows he has to use the restroom but it comes on so quickly that sometimes he has accidents. SUBJECTIVE: MEDICATIONS: Current Outpatient Medications Medication Instructions albuterol HFA 90 mcg/act inhaler 2 puffs, Every 4 hours PRN alendronate (FOSAMAX) 35 mg, Oral, Daily, 1 tablet 30 minutes before the first food, beverage or medicine of the day with plain water Orally ARIPiprazole (ABILIFY) 15 mg, Oral, Daily Mxgkkxe-Oemvtmsdtez-Mnnsaqshqa (Breztri Aerosphere) 160-9-4.8 MCG/ACT aerosol 2 puffs, Inhalation, 2 times daily cholecalciferol (Vitamin D-3) 25 MCG (1000 UT) capsule 1 capsule, Daily Dalfampridine ER (AMPYRA) 10 mg, Oral, 2 times daily docusate sodium (Colace) 100 MG capsule 1 capsule, Daily PRN escitalopram (Lexapro) 10 MG tablet TAKE 1 TABLET EVERY DAY fluticasone (Flonase) 50 MCG/ACT nasal spray 1-2 sprays, Each Nostril, Daily, Shake gently. Before first use, prime pump. After use, clean tip and replace cap. gabapentin (NEURONTIN) 1,200 mg, Oral, 2 times daily levothyroxine (Synthroid, Levoxyl) 200 MCG tablet liothyronine (Cytomel) 5 MCG tablet Take two (2) tablets by mouth in the morning and two (2) tablets by mouth in the afternoon. Montelukast Sodium (SINGULAIR PO) 10 mg, Daily Multiple Vitamin (Multi-Vitamin) tablet 1 tablet, Daily RT sildenafil (Viagra) 50 MG tablet 1 tablet, Daily PRN varenicline (Chantix) 1 MG tablet Varenicline Tartrate, Starter, (Chantix Starting Month ) 0.5 MG X 11 & 1 MG X 42 tablet therapy pack Take 0.5 mg by mouth Daily for 3 days, THEN 0.5 mg 2 (two) times a day for 4 days, THEN 1 mg 2 (two) times a day for 21 days. ALLERGIES: Allergies Allergen Reactions Glatiramer Glatiramer Acetate Dizziness Marijuana (Cannabis Sativa) GI intolerance Penicillin G Hives and Rash Penicillins Hives and Rash SURGICAL HISTORY: Past Surgical History: Procedure Laterality Date CHOLECYSTECTOMY COLONOSCOPY CT ANGIOGRAM CHEST 06/28/[address] ANGIOGRAM HEART CORONARY 08/30/2021 CT ANGIOGRAM TAVR 08/30/2021 FRACTURE SURGERY OTHER SURGICAL HISTORY Left Compound fracture left heel TONSILLECTOMY FAMILY HISTORY: Family History Problem Relation Name Age of Onset Atrial fibrillation Mother Heart disease Father Rony Hdz Alcohol abuse Father Rony Hdz Drug abuse Father Rony Hdz Heart failure Father Rony Hdz Hypertension Other Heart disease Other SOCIAL HISTORY: Social History Tobacco Use Smoking status: Every Day Current packs/day: 1.50 Average packs/day: 1.5 packs/day for 40.0 years (60.0 ttl pk-yrs) Types: Cigarettes Smokeless tobacco: Former Tobacco comments: Im trying to quit Vaping Use Vaping status: Some Days Substance Use Topics Alcohol use: Not Currently Comment: no Alcohol use at all now, only when i was younger Drug use: Never Depression: At risk (10/09/2023) PHQ-2 PHQ-2 Score: 6 REVIEW OF SYMPTOMS: Review of Systems Constitutional: Negative. HENT: Negative. Respiratory: Negative. Cardiovascular: Negative. Gastrointestinal: Positive for abdominal distention and constipation. Negative for abdominal pain, blood in stool, nausea and vomiting. Genitourinary: Positive for urgency. Negative for difficulty urinating, dysuria, flank pain and hematuria. Skin: Negative. Neurological: Negative. Psychiatric/Behavioral: Negative. OBJECTIVE: Visit Vitals BP 122/78 (BP Location: Right arm, Patient Position: Sitting, BP Cuff Size: Adult) Pulse 97 Resp 16 Ht 5' 11 Wt 146 lb 9.6 oz SpO2 93% BMI 20.45 kg/m Smoking Status Every Day BSA 1.82 m Physical Exam Vitals and nursing note reviewed. Constitutional: Appearance: Normal appearance. Cardiovascular: Rate and Rhythm: Normal rate and regular rhythm. Heart sounds: Normal heart sounds. Pulmonary: Breath sounds: Normal breath sounds. Abdominal: General: Bowel sounds are normal. Palpations: Abdomen is soft. Tenderness: There is no abdominal tenderness. Skin: General: Skin is warm and dry. Neurological: General: No focal deficit present. Mental Status: He is alert and oriented to person, place, and time. ASSESSMENT AND PLAN: Assessment/Plan Problem List Items Addressed This Visit Nervous Multiple sclerosis (CMS/HCC) Overview Patient with history of MS diagnosed with MS in 2007. He has trialed Gilenya, Copaxone, Avonex, Tecfidera and Tysabri in the past but had continued exacerbations. He has done well with decrease in exacerbations with Vumerity but developed side effects and was switched to Aubagio on 08/15/2022. He took Aubagio for about a week and developed potential side effect and stopped taking the medication. He has chronic symptoms of continued memory loss. Dizziness continues but is not worse. He has affected gait and neurogenic bladder. He ambulates with a cane and denies recent falls. He has weakness and depression, which may affect his memory. He has been experiencing some intermittent tinnitus. MRI brain 07/2019 revealed an increase in number of white matter lesions when compared to 2018 without evidence of active demyelination. MRI brain 01/2021 revealed moderate stable lesions with nothing active. Cervical and thoracic spine MRI 01/2021 revealed stable lesions. Labwork by PCP 12/29/21 was reviewed including CMP and TSH. MRI of the brain 01/26/22 was stable. MRI of the brain 09/19/22 remains stable. Overall, MRIs have remained stable since 2020 and he has been off of DMT since 09/2022. Cervical and thoracic spine MRIs 01/23/2023 revealed stable T2 prolongation focus within the left hemicord of C4-C5 and no evidence of demyelinating process in the thoracic spine. He has not experienced any new or worsening symptoms. Relevant Medications lubiprostone (Amitiza) 24 MCG capsule Digestive Slow transit constipation - Primary Relevant Medications lubiprostone (Amitiza) 24 MCG capsule If Amitiza does not help with bowels, we will refer to Gastroenterology. Endocrine/Metabolic Hypothyroidism (CMS/HCC) Relevant Orders TSH T3, free T4, free Labs overdue, done in the office at this visit Other Visit Diagnoses Tobacco abuse Relevant Medications varenicline (Chantix) 1 MG tablet Will refer to Gastroenterology if Amitiza does not help with bowels. TSH, T3, and T4 completed today. Follow up as needed documented in this encounter [facility] 05-20-2024 History of Present illness Narrative Images from the original note were not included. Valerie Carranza is a 63 y.o. male presents with chief complaint of Follow-up (Patient presents today for 4 month follow up. ) HPI: HPI History of Present Illness The patient presents for a routine visit. He reports persistent rhinorrhea, which is not influenced by seasonal changes. He also experiences sinus pressure. He has a history of nasal fracture, resulting in unilateral nasal obstruction, and he suspects this may be contributing to his current symptoms. He has not utilized any nasal sprays for symptom management. Previous attempts at allergy medication have proven ineffective. His last course of antibiotics was administered some time ago. He recently consulted with an police specialist due to elevated thyroid levels. His medication dosage was subsequently reduced by 50 mcg, leaving him on a regimen of 200 mcg twice daily. He reports a normal appetite but expresses concern over unintentional weight loss. He does not experience early satiety or abdominal pain. He is scheduled for a follow-up visit with the police specialist in either 10/2024 or 11/2024. He has been prescribed an inhaler for pulmonary use, which he uses regularly. He does not report any feelings of congestion or significant coughing. He continues to smoke, albeit at a reduced rate of half a pack per day, and is currently on Chantix as part of his smoking cessation efforts. He lives alone and identifies as a stress smoker. He previously found stress relief in playing the [employer], but his MS has rendered him unable to continue this activity. He has a history of MS affecting his spine and stomach. He reports improved bowel habits following dilation, although he still experiences some difficulty due to his MS. He recently underwent a colonoscopy. He does not report any bloating. He has not had a bowel movement today but feels one is imminent. He is no longer taking Prilosec. SOCIAL HISTORY The patient admits to smoking half a pack a day and is currently on Chantix to quit smoking. MEDICATIONS Current: Flonase, Chantix Discontinued: Prilosec SUBJECTIVE: MEDICATIONS: Current Outpatient Medications Medication Instructions albuterol HFA 90 mcg/act inhaler 2 puffs, Every 4 hours PRN alendronate (FOSAMAX) 35 mg, Oral, Daily, 1 tablet 30 minutes before the first food, beverage or medicine of the day with plain water Orally ARIPiprazole (ABILIFY) 15 mg, Oral, Daily Mllflyk-Rnjvtuilawo-Pyccbvizld (Breztri Aerosphere) 160-9-4.8 MCG/ACT aerosol 2 puffs, Inhalation, 2 times daily cholecalciferol (Vitamin D-3) 25 MCG (1000 UT) capsule 1 capsule, Daily Dalfampridine ER (AMPYRA) 10 mg, Oral, 2 times daily docusate sodium (Colace) 100 MG capsule 1 capsule, Daily PRN escitalopram (Lexapro) 10 MG tablet TAKE 1 TABLET EVERY DAY gabapentin (NEURONTIN) 1,200 mg, Oral, 2 times daily levothyroxine (Synthroid, Levoxyl) 200 MCG tablet levothyroxine (Synthroid, Levoxyl) 50 MCG tablet TAKE 1 TABLET EVERY MORNING ON AN EMPTY STOMACH liothyronine (Cytomel) 5 MCG tablet Take two (2) tablets by mouth in the morning and two (2) tablets by mouth in the afternoon. Montelukast Sodium (SINGULAIR PO) 10 mg, Daily Multiple Vitamin (Multi-Vitamin) tablet 1 tablet, Daily RT omeprazole (PRILOSEC) 40 mg, Daily before breakfast sildenafil (Viagra) 50 MG tablet 1 tablet, Daily PRN varenicline (Chantix) 1 MG tablet Varenicline Tartrate, Starter, (Chantix Starting Month ) 0.5 MG X 11 & 1 MG X 42 tablet therapy pack Take 0.5 mg by mouth Daily for 3 days, THEN 0.5 mg 2 (two) times a day for 4 days, THEN 1 mg 2 (two) times a day for 21 days. ALLERGIES: Allergies Allergen Reactions Glatiramer Glatiramer Acetate Dizziness Marijuana (Cannabis Sativa) GI intolerance Penicillin G Hives and Rash Penicillins Hives and Rash SURGICAL HISTORY: Past Surgical History: Procedure Laterality Date CHOLECYSTECTOMY COLONOSCOPY CT ANGIOGRAM CHEST 06/28/[address] ANGIOGRAM HEART CORONARY 08/30/2021 CT ANGIOGRAM TAVR 08/30/2021 FRACTURE SURGERY OTHER SURGICAL HISTORY Left Compound fracture left heel TONSILLECTOMY FAMILY HISTORY: Family History Problem Relation Name Age of Onset Atrial fibrillation Mother Heart disease Father Rony Hdz Alcohol abuse Father Rony Hdz Drug abuse Father Rony Hdz Heart failure Father Rony Hdz Hypertension Other Heart disease Other SOCIAL HISTORY: Social History Tobacco Use Smoking status: Every Day Current packs/day: 1.50 Average packs/day: 1.5 packs/day for 40.0 years (60.0 ttl pk-yrs) Types: Cigarettes Smokeless tobacco: Former Tobacco comments: Im trying to quit Vaping Use Vaping status: Some Days Substance Use Topics Alcohol use: Not Currently Comment: no Alcohol use at all now, only when i was younger Drug use: Never Depression: At risk (10/09/2023) PHQ-2 PHQ-2 Score: 6 REVIEW OF SYMPTOMS: Review of Systems Respiratory: Negative. Cardiovascular: Negative. OBJECTIVE: Visit Vitals BP 116/66 (BP Location: Right arm, Patient Position: Sitting, BP Cuff Size: Adult) Pulse 89 Resp 18 Ht 5' 11 Wt 146 lb 9.6 oz SpO2 93% BMI 20.45 kg/m Smoking Status Every Day BSA 1.82 m Physical Exam Constitutional: Appearance: He is normal weight. HENT: Head: Normocephalic and atraumatic. Nose: Nose normal. No congestion. Mouth/Throat: Mouth: Mucous membranes are moist. Eyes: Extraocular Movements: Extraocular movements intact. Pupils: Pupils are equal, round, and reactive to light. Cardiovascular: Rate and Rhythm: Normal rate and regular rhythm. Pulmonary: Effort: Pulmonary effort is normal. No respiratory distress. Breath sounds: Normal breath sounds. No wheezing. Musculoskeletal: General: No swelling or deformity. Cervical back: Normal range of motion and neck supple. Right lower leg: No edema. Left lower leg: No edema. Skin: General: Skin is warm and dry. Findings: No rash. Neurological: General: No focal deficit present. Mental Status: He is alert and oriented to person, place, and time. Cranial Nerves: No cranial nerve deficit. Gait: Gait normal. Psychiatric: Mood and Affect: Mood normal. Behavior: Behavior normal. ASSESSMENT AND PLAN: Assessment/Plan Problem List Items Addressed This Visit Generalized anxiety disorder (CMS/HCC) - Primary stable Centrilobular emphysema (CMS/HCC) Discussed importance of tob cessation Chronic obstructive pulmonary disease with acute exacerbation (CMS/HCC) Cont wit gregg Heavy smoker (more than 20 cigarettes per day) Hypothyroidism (CMS/HCC) levothyroxine Moderate episode of recurrent major depressive disorder (CMS/HCC) lexapro Multiple sclerosis (CMS/HCC) Overview Patient with history of MS diagnosed with MS in 2007. He has trialed Gilenya, Copaxone, Avonex, Tecfidera and Tysabri in the past but had continued exacerbations. He has done well with decrease in exacerbations with Vumerity but developed side effects and was switched to Aubagio on 08/15/2022. He took Aubagio for about a week and developed potential side effect and stopped taking the medication. He has chronic symptoms of continued memory loss. Dizziness continues but is not worse. He has affected gait and neurogenic bladder. He ambulates with a cane and denies recent falls. He has weakness and depression, which may affect his memory. He has been experiencing some intermittent tinnitus. MRI brain 07/2019 revealed an increase in number of white matter lesions when compared to 2018 without evidence of active demyelination. MRI brain 01/2021 revealed moderate stable lesions with nothing active. Cervical and thoracic spine MRI 01/2021 revealed stable lesions. Labwork by PCP 12/29/21 was reviewed including CMP and TSH. MRI of the brain 01/26/22 was stable. MRI of the brain 09/19/22 remains stable. Overall, MRIs have remained stable since 2020 and he has been off of DMT since 09/2022. Cervical and thoracic spine MRIs 01/23/2023 revealed stable T2 prolongation focus within the left hemicord of C4-C5 and no evidence of demyelinating process in the thoracic spine. He has not experienced any new or worsening symptoms. Osteoporosis (CMS/HCC) Panic attacks (CMS/HCC) Other Visit Diagnoses Chronic sinusitis of both maxillary sinuses Relevant Medications fluticasone (Flonase) 50 MCG/ACT nasal spray Other Relevant Orders CT SINUS WO IV CONTRAST Deviated septum Relevant Medications fluticasone (Flonase) 50 MCG/ACT nasal spray Other Relevant Orders CT SINUS WO IV CONTRAST Abdominal bloating Relevant Orders CT abdomen pelvis wo IV contrast Wheezing Relevant Orders XR chest 2 views (Completed) Tobacco abuse Other psychoactive substance use, unspecified with withdrawal, unspecified ([facility]) Assessment & Plan 1. Rhinorrhea. He reports persistent rhinorrhea regardless of weather conditions and suspects it may be related to a past nasal fracture. A CT scan of the sinuses will be ordered to evaluate for potential sinus issues and a deviated septum. Flonase nasal spray will be prescribed to reduce nasal passage swelling. If the insurance company requires it, antibiotics may be prescribed before the CT scan. 2. Elevated thyroid levels. His thyroid levels were recently adjusted by his police specialist, reducing the dosage by 50 mcg. He is currently on 200 mcg of his thyroid medication twice a day. Elevated thyroid levels may be contributing to his weight loss. He will continue to monitor his thyroid levels with his police specialist, with the next appointment scheduled for October or November 2024. 3. Weight loss. He reports unintentional weight loss despite maintaining his usual eating habits. Elevated thyroid levels may be contributing to this. A CT scan of the abdomen will be ordered to rule out other potential causes. 4. Smoking cessation. He is currently smoking half a pack a day and is using Chantix to quit. He is advised to contact the [place] [facility] for additional support and consider using non-nicotine cigarettes made from green tea to help break the nicotine addiction. He is encouraged to find alternative activities to manage stress, such as listening to music or calling a friend. 5. Wheezing. He reports occasional wheezing and uses an inhaler regularly. His lungs are congested upon examination. A chest x-ray will be ordered to further evaluate the wheezing. 6. Multiple sclerosis. He reports that his MS has been stable recently. No new symptoms or exacerbations were noted. Follow-up The patient will follow up in 2 months. PROCEDURE The patient recently underwent a colonoscopy. documented in this encounter [facility] 05-12-2024 History of Present illness Narrative Valerie Carranza is a 63 y.o. male No ref. provider found presents with chief complaint of Thyroid Problem and Follow-up (LAB) HPI: Interim history: 05/2024 Followup visit 05/12/2024 for labs. TSH 0.01, free T4 1.6 (0.8-1.8), free T3 5.3 (2.3-4.4), He is currently on 200 +50 plus Cytomel 5 mcg, two in the morning and two afternoon. had MS Interim history: 10/2023 Followup visit 10/18/2023 for labs. TSH 1.59, free T4 1.1 (0.8-1.8), free T3 3 (2.3-4.4), He is currently on 200 +50 plus Cytomel 5 mcg, two in the morning and two afternoon. had MS Interim history: 06/2023 Followup visit 06/20/2023 for labs. TSH 24, free T4 0.9 (0.8-1.8), free T3 2.8 (2.3-4.4), He is currently on 200 plus Cytomel 5 mcg, two in the morning and two afternoon. had MS Interim history: 02/2023. Followup visit 02/21/2023 for labs. TSH 30, free T4 0.7 (0.8-1.8), free T3 3.5 (2.3-4.7), TPO positive, actually 1, and TG antibody 23, positive. He is currently on 175 plus Cytomel 5 mcg, two in the morning and two afternoon. HPI: 10/2022 New patient, came for uncontrolled hypothyroidism since long time. He has it for almost 15 years. Labs over the last two years, either uncorrected or overcorrected. Back in June 2020, TSH 7.4; in July 2019, 11; in January 2021, 0.16; March 2022, 0.21; in May 2022, 43; in September 2022, 14.6 and free T4 1 (0.8-1.8). He used to be on 175 since long time, on maintenance dose. Over the last two years, increasing up to 300 currently. He has different abdomen shape and he thinks that is related to obesity but I told him he might need to see GI doctor to check ultrasound of liver. He has multiple sclerosis. SUBJECTIVE: MEDICATIONS: Current Outpatient Medications Medication Instructions albuterol HFA 90 mcg/act inhaler 2 puffs, Every 4 hours PRN alendronate (FOSAMAX) 35 mg, Oral, Daily, 1 tablet 30 minutes before the first food, beverage or medicine of the day with plain water Orally ARIPiprazole (ABILIFY) 15 mg, Oral, Daily Bbxnvwj-Ycfvyfecfon-Xzqnchwirm (Breztri Aerosphere) 160-9-4.8 MCG/ACT aerosol 2 puffs, Inhalation, 2 times daily cholecalciferol (Vitamin D-3) 25 MCG (1000 UT) capsule 1 capsule, Daily Dalfampridine ER (AMPYRA) 10 mg, Oral, 2 times daily docusate sodium (Colace) 100 MG capsule 1 capsule, Daily PRN escitalopram (Lexapro) 10 MG tablet TAKE 1 TABLET EVERY DAY gabapentin (NEURONTIN) 1,200 mg, Oral, 2 times daily levothyroxine (Synthroid, Levoxyl) 200 MCG tablet levothyroxine (Synthroid, Levoxyl) 50 MCG tablet TAKE 1 TABLET EVERY MORNING ON AN EMPTY STOMACH liothyronine (Cytomel) 5 MCG tablet Take two (2) tablets by mouth in the morning and two (2) tablets by mouth in the afternoon. Montelukast Sodium (SINGULAIR PO) 10 mg, Daily Multiple Vitamin (Multi-Vitamin) tablet 1 tablet, Daily RT omeprazole (PRILOSEC) 40 mg, Daily before breakfast sildenafil (Viagra) 50 MG tablet 1 tablet, Daily PRN varenicline (Chantix) 1 MG tablet Varenicline Tartrate, Starter, (Chantix Starting Month ) 0.5 MG X 11 & 1 MG X 42 tablet therapy pack Take 0.5 mg by mouth Daily for 3 days, THEN 0.5 mg 2 (two) times a day for 4 days, THEN 1 mg 2 (two) times a day for 21 days. ALLERGIES: Allergies Allergen Reactions Glatiramer Glatiramer Acetate Dizziness Marijuana (Cannabis Sativa) GI intolerance Penicillin G Hives and Rash Penicillins Hives and Rash Past Medical History: Diagnosis Date Anxiety Arthritis COPD (chronic obstructive pulmonary disease) ([facility]) DDD (degenerative disc disease), lumbar Depression (CMS/HCC) History of being hospitalized 2018 Pneumonia Hypothyroidism (CMS/HCC) Marijuana use Multiple sclerosis (CMS/HCC) Neuropathy Osteoporosis (CMS/HCC) Restless leg syndrome Stroke (CMS/HCC) Stroke (CMS/HCC) 09/14/2023 Vitamin D deficiency, unspecified Past Surgical History: Procedure Laterality Date CHOLECYSTECTOMY COLONOSCOPY CT ANGIOGRAM CHEST 06/28/[address] ANGIOGRAM HEART CORONARY 08/30/2021 CT ANGIOGRAM TAVR 08/30/2021 FRACTURE SURGERY OTHER SURGICAL HISTORY Left Compound fracture left heel TONSILLECTOMY REVIEW OF SYMPTOMS: 14 POINT OF SYSTEM REVIEWED AND NEGATIVE OBJECTIVE: Lab Results Component Value Date TSH 8.60 (H) 07/04/2023 Lab Results Component Value Date T4FREE 1.0 09/26/2022 No results found for: FREET3 Visit Vitals BP 130/66 Pulse 101 Resp 20 Ht 5' 11 Wt 147 lb BMI 20.50 kg/m Smoking Status Every Day BSA 1.83 m Physical Exam Constitutional: Appearance: Normal appearance. He is normal weight. HENT: Head: Normocephalic and atraumatic. Right Ear: External ear normal. Nose: Nose normal. Mouth/Throat: Pharynx: Oropharynx is clear. Eyes: Extraocular Movements: Extraocular movements intact. Pupils: Pupils are equal, round, and reactive to light. Cardiovascular: Rate and Rhythm: Normal rate and regular rhythm. Pulmonary: Effort: Pulmonary effort is normal. Abdominal: General: Abdomen is flat. Palpations: Abdomen is soft. Musculoskeletal: General: Normal range of motion. Skin: General: Skin is warm. Neurological: General: No focal deficit present. Mental Status: He is alert. Psychiatric: Mood and Affect: Mood normal. Behavior: Behavior normal. ASSESSMENT AND PLAN: Assessment/Plan Diagnoses and all orders for this visit: Jessica's disease (CMS/HCC) - T3, free; Future - T4, free; Future - TSH; Future Alb on 03/2024 for over-correction TSH 0.01 free T3 mildly high, I will cut levothyroxine to 200 mcg daily only, continue with Cytomel 5 mcg 2 tablets twice a day. Vitamin D deficiency Encounter for dietary consultation Diet and exercise reviewed with the patient Follow up in about 6 months (around 11/09/2024). documented in this encounter [facility] 04-18-2024 History of Present illness Narrative Images from the original note were not included. Valerie Carranza presents today for follow up on COPD and his CT scan of his chest. He was last seen 4 months ago. He did have a CT scan of his chest performed prior to today's office visit. He is accompanied by family at today's visit. He does continue with Breztri twice daily. He does use albuterol on an as-needed basis. He denies any ER visits or exacerbations of his breathing since his last office visit. He denies any current complaints increasing shortness breath at rest with exertion. He denies any chest pain, palpitations, fevers, chills, sweats, or recent unintentional weight changes. He does continue to smoke, but is working on [employer]. He has started using Chantix about ago. He denies any other complaints at this time. Allergies: Allergies Allergen Reactions Glatiramer Glatiramer Acetate Dizziness Marijuana (Cannabis Sativa) GI intolerance Penicillin G Hives and Rash Penicillins Hives and Rash Medications: Current Outpatient Medications: albuterol HFA 90 mcg/act inhaler, Inhale 2 puffs every 4 (four) hours if needed for wheezing, Disp: , Rfl: alendronate (Fosamax) 35 MG tablet, Take 1 tablet (35 mg) by mouth Daily 1 tablet 30 minutes before the first food, beverage or medicine of the day with plain water Orally, Disp: 90 tablet, Rfl: 3 ARIPiprazole (Abilify) 15 MG tablet, TAKE 1 TABLET EVERY DAY, Disp: 90 tablet, Rfl: 10 Hiuxyvt-Cvirbhvtyen-Wjvpnlxipw (Breztri Aerosphere) 160-9-4.8 MCG/ACT aerosol, Inhale 2 puffs in the morning and 2 puffs before bedtime., Disp: 32.1 g, Rfl: 3 cholecalciferol (Vitamin D-3) 25 MCG (1000 UT) capsule, Take 1 capsule by mouth Daily, Disp: , Rfl: Dalfampridine ER (Ampyra) 10 MG tablet sustained-release 12 hour, Take 10 mg by mouth in the morning and 10 mg before bedtime., Disp: 60 tablet, Rfl: 2 docusate sodium (Colace) 100 MG capsule, Take 1 capsule by mouth Daily as needed for constipation, Disp: , Rfl: escitalopram (Lexapro) 10 MG tablet, TAKE 1 TABLET EVERY DAY, Disp: 90 tablet, Rfl: 3 gabapentin (Neurontin) 600 MG tablet, TAKE 2 TABLETS TWICE A DAY (Patient taking differently: Take 600 mg by mouth in the morning and 600 mg before bedtime.), Disp: 360 tablet, Rfl: 10 levothyroxine (Synthroid, Levoxyl) 200 MCG tablet, , Disp: , Rfl: levothyroxine (Synthroid, Levoxyl) 50 MCG tablet, TAKE 1 TABLET EVERY MORNING ON AN EMPTY STOMACH, Disp: 90 tablet, Rfl: 3 liothyronine (Cytomel) 5 MCG tablet, Take two (2) tablets by mouth in the morning and two (2) tablets by mouth in the afternoon., Disp: , Rfl: Montelukast Sodium (SINGULAIR PO), Take 10 mg by mouth Daily, Disp: , Rfl: Multiple Vitamin (Multi-Vitamin) tablet, Take 1 tablet by mouth in the morning., Disp: , Rfl: omeprazole (PriLOSEC) [address] capsule, Take 40 mg by mouth in the morning. Take before meals. Do not crush or chew.., Disp: , Rfl: sildenafil (Viagra) 50 MG tablet, Take 1 tablet by mouth Daily as needed for erectile dysfunction, Disp: , Rfl: varenicline (Chantix) 1 MG tablet, , Disp: , Rfl: calcium carbonate-vitamin D 600-200 MG-UNIT tablet, 1 tablet with a meal Orally twice daily. Recommended keysha 500mg with vit d 300iu (Patient not taking: Reported on 04/18/2024), Disp: , Rfl: Varenicline Tartrate, Starter, (Chantix Starting Month ) 0.5 MG X 11 & 1 MG X 42 tablet therapy pack, Take 0.5 mg by mouth Daily for 3 days, THEN 0.5 mg 2 (two) times a day for 4 days, THEN 1 mg 2 (two) times a day for 21 days., Disp: 53 each, Rfl: 0 Past Medical History: Past Medical History: Diagnosis Date Anxiety Arthritis COPD (chronic obstructive pulmonary disease) ([facility]/HCC) DDD (degenerative disc disease), lumbar Depression ([facility]/HCC) History of being hospitalized 2018 Pneumonia Hypothyroidism ([facility]) Marijuana use Multiple sclerosis ([facility]) Neuropathy Osteoporosis ([facility]) Restless leg syndrome Stroke ([facility]) Stroke ([facility]) 09/14/2023 Vitamin D deficiency, unspecified Social History: Social History Tobacco Use Smoking status: Every Day Current packs/day: 1.50 Average packs/day: 1.5 packs/day for 40.0 years (60.0 ttl pk-yrs) Types: Cigarettes Smokeless tobacco: Never Tobacco comments: Smokes 11-20 cigarettes per day. Substance Use Topics Alcohol use: Not Currently Comment: no Alcohol use at all now, only when i was younger Vitals: BP 132/84 (BP Location: Left arm, Patient Position: Sitting) Pulse 103 Ht 5' 11 Wt 146 lb 3.2 oz SpO2 91% BMI 20.39 kg/m Exam: Heart: regular rate Lungs: clear to auscultation bilaterally, no wheezes/rales/rhonchi, no resp distress Extremities: no edema noted, no visible rashes Neuro: alert, oriented x3 Imaging Reviewed: Images and report of CT chest from March 2024 reviewed- - stable emphysematous changes and bibasilar scarring lungs, no mention of pulmonary nodules Assessment/Plan: Diagnoses and all orders for this visit: Chronic obstructive pulmonary disease with acute exacerbation ([facility]) Cigarette smoker COPD -- his breathing is currently well controlled with use of Breztri twice daily. He denies any refills at this time. He will continue with this regularly as well as albuterol on as needed basis. Tobacco use -- he does continue to smoke. He states he is working on cutting back. He is down to half pack per day. We did have a 4 minute discussion regarding the importance of smoking cessation. He is currently using Chantix to help him quit. Abnormal CT chest -- he did have a follow-up CT scan of his chest performed prior to today's office visit. This did demonstrate stable bibasilar scarring in the lungs. His last scan was done in September. Given the stability and lack of nodules no further radiographic studies are warranted unless the patient has change in symptoms Follow up in about 6 months (around 10/17/2024) for COPD. Agnes Arrington DO documented in this encounter [facility] 02-06-2024 History of Present illness Narrative Subjective Valerie Carranza is a 63 y.o. year old [...] triceps, wrist extensors, wrist extensors, wrist flexor, medical office asst strength 5/5. LUE Strength deltoid, biceps, triceps, wrist extensors, wrist extensors, wrist flexor, medical office asst strength 5/5. RLE Strength illopsoas, quadriceps, tibialis [...] all orders for this visit: Multiple sclerosis (CMS/HCC) Gait abnormality Paresthesia Dizziness Neurogenic bladder Insomnia, unspecified type Weakness Depression, unspecified depression type (CMS/HCC) Patient with history of MS diagnosed with [...] evaluated by neuropsychology. MOCA today is . ___ Blood work 11/28/2023: CBC revealed wbc 7.3, [...] or worsening symptoms documented in this encounter [facility] 01-21-2024 Telephone encounter Note Gigi Stokes from [facility], called this morning and left a vm at 9:05 am 01/21/24 She said the Starter Pack for generic Chantix should not be to take 0.5mg in the morning and 0.5 mg before bed. It should be: 0.5 mg daily for days 1-3 0.5 mg twice daily for days 4-7 Then they move up to the 1 mg twice daily. She said you can send in a new rx with the new directions or if you have questions, you can call Divya at: [phone] [facility] 01-21-2024 Miscellaneous Notes Gigi Stokes from [facility], called this morning and left a vm at 9:05 am 01/21/24 She said the Starter Pack for generic Chantix should not be to take 0.5mg in the morning and 0.5 mg before bed. It should be: 0.5 mg daily for days 1-3 0.5 mg twice daily for days 4-7 Then they move up to the 1 mg twice daily. She said you can send in a new rx with the new directions or if you have questions, you can call Divya at: [phone] documented in this encounter [facility] 01-10-2024 History of Present illness Narrative Images from the original note were not included. Valerie Carranza is a 63 y.o. male presents with chief complaint of Follow-up HPI: Patient here for follow up for Constipation, he states this has been better, states his mood has not changed much but states he does feel good today. SUBJECTIVE: MEDICATIONS: ALLERGIES Current Outpatient Medications Medication Instructions albuterol HFA 90 mcg/act inhaler 2 puffs, Inhalation, Every 4 hours PRN alendronate (FOSAMAX) 70 mg, Oral, Daily, 1 tablet 30 minutes before the first food, beverage or medicine of the day with plain water Orally
ARIPiprazole (ABILIFY) 15 mg, Oral, Daily Gcomqrj-Sdavyqmkubi-Cbzifhydap (Breztri Aerosphere) 160-9-4.8 MCG/ACT aerosol 2 puffs, Inhalation, 2 times daily calcium carbonate-vitamin D 600-200 MG-UNIT tablet 1 tablet with a meal Orally twice daily. Recommended keysha 500mg with vit d 300iu cholecalciferol (Vitamin D-3) 250 MCG (07444 UT) capsule Oral CYPROHEPTADINE HCL PO 4 mg, Oral, Nightly, TAKE 1/2 TO 1 TABLET AT BEDTIME docusate sodium (COLACE) 100 mg, Oral, Every morning escitalopram (Lexapro) 10 MG tablet TAKE 1 TABLET EVERY DAY gabapentin (NEURONTIN) 1,200 mg, Oral, 2 times daily levothyroxine (Synthroid, Levoxyl) 200 MCG tablet levothyroxine (Synthroid, Levoxyl) 50 MCG tablet Oral, Daily before breakfast liothyronine (Cytomel) 5 MCG tablet Take two (2) tablets by mouth in the morning and two (2) tablets by mouth in the afternoon. mirtazapine (Remeron) 45 MG tablet TAKE 1 TABLET AT BEDTIME Montelukast Sodium (SINGULAIR PO) 10 mg, Oral, Daily Multiple Vitamin (Multi-Vitamin) tablet 1 tablet, Oral, Daily RT omeprazole (PRILOSEC) 40 mg, Oral, Daily before breakfast, Do not crush or chew. polyethylene glycol (PEG) 3350 (MIRALAX) 17 g, Oral, Daily Allergies Allergen Reactions Glatiramer Glatiramer Acetate Dizziness Marijuana (Cannabis Sativa) GI intolerance Penicillin G Hives and Rash Penicillins Hives and Rash PAST MEDICAL HISTORY: SOCIAL HISTORY SURGICAL HISTORY: Past Medical History: Diagnosis Date Anxiety Arthritis DDD (degenerative disc disease), lumbar Depression (CMS/HCC) History of being hospitalized 2018 Pneumonia Hypothyroidism (CMS/HCC) Marijuana use Multiple sclerosis (CMS/HCC) Restless leg syndrome Stroke (CMS/HCC) Social History Tobacco Use Smoking status: Every Day Current packs/day: 1.50 Average packs/day: 1.5 packs/day for 40.0 years (60.0 ttl pk-yrs) Types: Cigarettes Smokeless tobacco: Never Tobacco comments: Smokes 11-20 cigarettes per day. Vaping Use Vaping status: Some Days Substance Use Topics Alcohol use: Not Currently Comment: no Alcohol use at all now, only when i was younger Drug use: Never Past Surgical History: Procedure Laterality Date CHOLECYSTECTOMY COLONOSCOPY CT ANGIOGRAM CHEST 06/28/[address] ANGIOGRAM HEART CORONARY 08/30/2021 CT ANGIOGRAM TAVR 08/30/2021 FRACTURE SURGERY OTHER SURGICAL HISTORY Left Compound fracture left heel TONSILLECTOMY REVIEW OF SYMPTOMS: Review of Systems Constitutional: Negative. HENT: Negative. Eyes: Negative. Respiratory: Negative. Cardiovascular: Negative. Gastrointestinal: Negative. Genitourinary: Negative. Musculoskeletal: Negative. Skin: Negative. Neurological: Negative. Psychiatric/Behavioral: Positive for sleep disturbance. All other systems reviewed and are negative. Hematological: Negative. Endocrine: Negative. Allergic/Immunologic: Negative. OBJECTIVE: Vitals: 01/10/24 1122 BP: 128/80 Pulse: 86 Resp: 18 SpO2: 92% Physical Exam Vitals and nursing note reviewed. Constitutional: Appearance: Normal appearance. HENT: Head: Normocephalic and atraumatic. Eyes: Conjunctiva/sclera: Conjunctivae normal. Cardiovascular: Rate and Rhythm: Normal rate and regular rhythm. Pulmonary: Effort: Pulmonary effort is normal. Breath sounds: Normal breath sounds. Abdominal: Palpations: Abdomen is soft. Comments: distended Musculoskeletal: General: Normal range of motion. Cervical back: Normal range of motion and neck supple. Skin: General: Skin is warm and dry. Neurological: Mental Status: He is alert and oriented to person, place, and time. Comments: Leg weakness Psychiatric: Mood and Affect: Mood normal. ASSESSMENT AND PLAN: Assessment/Plan Diagnoses and all orders for this visit: Vitamin D deficiency - Vitamin D 25 hydroxy; Future Check levels. Off his supplements now Moderate episode of recurrent major depressive disorder (HCC) (CMS/HCC) Improved and is content with current treatment Multiple sclerosis (CMS/HCC) Anxiety disorder, unspecified type Slow transit constipation Improved with med changes and the magnesium helps Heavy smoker (more than 20 cigarettes per day) - Varenicline Tartrate, Starter, (Chantix Starting Month ) 0.5 MG X 11 & 1 MG X 42 tablet therapy pack; Take 0.5 mg by mouth in the morning and 0.5 mg before bedtime. - varenicline (Chantix) 1 MG tablet; Take 1 tablet (1 mg) by mouth in the morning and 1 tablet (1 mg) before bedtime. Take with full glass of water.. Work on his habits and is willing to try the chantix now No follow-ups on file. documented in this encounter [facility] 09-25-2023 Procedure note [facility] 08-24-2023 Procedure note [facility] 06-20-2023 Telephone encounter Note Patient is seeing Dr. Malone for his thyroid. He is taking his medication- maybe something in his body is not absorbing the medication. Dr. Malone wants him referred to a GI. Can you refer? Thank you. [facility] 06-20-2023 Miscellaneous Notes Patient is seeing Dr. Malone for his thyroid. He is taking his medication- maybe something in his body is not absorbing the medication. Dr. Malone wants him referred to a GI. Can you refer? Thank you. documented in this encounter [facility] 10-12-2021 Note PROCEDURE: [employer] VCT 64. With IV contrast, axial 5 [...] signed by Arvin Berumen on 10/12/2021 [id number] [facility] Custodian Manager 10-20-2014 Miscellaneous Notes Patient will remain on [...] to discuss further. documented in this encounter [facility] Evaluation + Plan note Future Appointments Appointment Date:07/18/2024 10:00:00 AM Scheduled Provider: Location:[facility] Appointment Type:URO Nurse Visit Appointment Date:07/24/2024 09:40:00 AM Scheduled Provider:ALEXANDRA MOSLEY PA-C Location:[facility] Appointment Type:URO Office Visit [facility] Evaluation note Diagnosis Slow transit constipation documented in this encounter [facility] HealthcareEvaluation note* Diagnosis Onset Date Resolution Status Constipation acute Encounter for screening colonoscopy [facility] Work Phone: Evaluation note* Diagnosis Multiple sclerosis (CMS/HCC)- Primary Multiple sclerosis Gait abnormality Abnormality of gait Depression, unspecified depression type (CMS/HCC) Memory loss documented in this encounter [facility]* Diagnosis Age-related osteoporosis with current pathological fracture, initial encounter (CMS/HCC)- Primary documented in this encounter [facility]* Diagnosis Multiple sclerosis (CMS/HCC)- Primary Multiple sclerosis documented in this encounter [facility]* Diagnosis Acquired hypothyroidism (CMS/HCC)- Primary Unspecified hypothyroidism documented in this encounter [facility]* Diagnosis Chronic obstructive pulmonary disease with acute exacerbation (CMS/HCC)- Primary Cigarette smoker Tobacco use disorder Chronic pain syndrome documented in this encounter [facility]* Diagnosis Vitamin D deficiency- Primary Moderate episode of recurrent major depressive disorder (HCC) ([facility]/HCC) Multiple sclerosis ([facility]) Multiple sclerosis Anxiety disorder, unspecified type Slow transit constipation Heavy smoker (more than 20 cigarettes per day) Tobacco use disorder documented in this encounter [facility]* Diagnosis 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 Vitamin D deficiency Encounter for dietary consultation documented in this encounter [facility]* Diagnosis Generalized anxiety disorder ([facility]/HCC)- Primary Generalized anxiety disorder Chronic obstructive pulmonary disease with acute exacerbation ([facility]) Acquired hypothyroidism ([facility]) Unspecified hypothyroidism Heavy smoker (more than 20 cigarettes per day) Tobacco use disorder Multiple sclerosis ([facility]) Multiple sclerosis Age-related osteoporosis without current pathological fracture ([facility]) Panic attacks ([facility]) Panic disorder without agoraphobia Moderate episode of recurrent major depressive disorder ([facility]) Chronic sinusitis of both maxillary sinuses Deviated septum Deviated nasal septum Abdominal bloating Flatulence, eructation, and gas pain Wheezing Tobacco abuse Tobacco use disorder Other psychoactive substance use, unspecified with withdrawal, unspecified ([facility]) Centrilobular emphysema ([facility]) Wheezing documented in this encounter [facility]* Diagnosis Gait abnormality- Primary Abnormality of gait Multiple sclerosis ([facility]) Multiple sclerosis Depression, unspecified depression type ([facility]) Neurogenic bladder Neurogenic bladder, NOS Memory loss documented in this encounter [facility]* Diagnosis Slow transit constipation- Primary Multiple sclerosis ([facility]/HCC) Multiple sclerosis Tobacco abuse Tobacco use disorder Acquired hypothyroidism ([facility]) Unspecified hypothyroidism documented in this encounter [facility]* Diagnosis Acute cystitis without hematuria- Primary documented in this encounter [facility]* Diagnosis Jessica's disease ([facility])- Primary Chronic lymphocytic thyroiditis documented in this encounter [facility]* Diagnosis Urinary hesitancy- Primary documented in this encounter [facility]* Diagnosis Neurogenic bladder- Primary Neurogenic bladder, NOS documented in this encounter [facility]* Diagnosis Incontinence of feces, unspecified fecal incontinence type- Primary Tobacco abuse Tobacco use disorder MS (multiple sclerosis) (CMS/HCC) Multiple sclerosis Moderate episode of recurrent major depressive disorder (CMS/HCC) documented in this encounter [facility]* Diagnosis Slow transit constipation Multiple sclerosis (CMS/HCC) Multiple sclerosis documented in this encounter [facility]* Diagnosis Chronic obstructive pulmonary disease with acute exacerbation (CMS/HCC) documented in this encounter [facility]* Diagnosis Medicare annual wellness visit, subsequent- Primary Routine general medical examination at a health care facility Generalized anxiety disorder Generalized anxiety disorder Multiple sclerosis (HCC) Multiple sclerosis Vitamin D deficiency Centrilobular emphysema (HCC) Chronic pain syndrome Fatigue, unspecified type Moderate episode of recurrent major depressive disorder (HCC) Acquired hypothyroidism Unspecified hypothyroidism Age-related osteoporosis without current pathological fracture Non-seasonal allergic rhinitis, unspecified trigger Upper back pain on left side Neck pain on left side Peripheral vascular disease, unspecified Prostate cancer screening Special screening for malignant neoplasm of prostate Pulmonary nodules Other diseases of lung, not elsewhere classified Neuropathy Mononeuritis of unspecified site documented in this encounter [facility]* Diagnosis Jessica's disease- Primary Chronic lymphocytic thyroiditis Vitamin D deficiency Encounter for dietary consultation documented in this encounter [facility]* Diagnosis Multiple sclerosis (HCC)- Primary Multiple sclerosis Gait abnormality Abnormality of gait Weakness Other malaise and fatigue documented in this encounter [facility]* Diagnosis Chronic obstructive pulmonary disease with acute exacerbation (HCC)- Primary Encounter for immunization Heavy smoker (more than 20 cigarettes per day) Tobacco use disorder Multiple sclerosis (HCC) Multiple sclerosis Acquired hypothyroidism Unspecified hypothyroidism Age-related osteoporosis without current pathological fracture Slow transit constipation documented in this encounter [facility] note Author Timur Luz [facility] August 24, 2023 12:53pm Note Date/Time August 24, 2023 12: 53pm [facility] [address] [place] [address] Gastroenterology H&P Signed Patient: Valerie Carranza MR#: [id number] : 1960 Acct:[id number] Age/Sex: 62 / M Adm Date: 4 Loc: Room: Type: [facility] Attending Dr: Timur Luz MD Copies to: MD Katrina Weiss MD~ Date of Service: 08/24/2023 HISTORY [...] M.D. Documented By: Timur Luz MD 08/24/23 125 Signed By: <Electronically signed by Timur Luz MD> 08/24/23 1253 [facility] Work Phone: History and physical note Author Timur Luz [facility] September 25, 2023 11:27am Note Date/Time September 25, 2023 11:27 am [facility] [address] [place] [address] Gastroenterology H&P Signed Patient: Valerie Carranza MR#: [id number] : 1960 Acct:[id number] Age/Sex: 62 / M Adm Date: 4 Loc: Room: Type: [facility] Attending Dr: Timur Luz MD Copies to: MD Katrina Weiss MD~ Date of Service: 09/25/2023 HISTORY [...] By: <Electronically signed by Timur Luz MD> 09/25/231126 [facility] Work Phone: Hospital course Narrative No data available for this section [facility] Discharge instructions No data available for this section [facility] Progress note No data available for this section [facility] Assessments Diagnosis Multiple sclerosis (HCC) Multiple sclerosis Diagnosis Multiple sclerosis (HCC) - P rimary Multiple sclerosis Diagnosis Multiple sclerosis (HCC) - P rimary Multiple sclerosis Diagnosis Pneumonia due to infectious organism, unspecified laterality, unspecified part of lung - Primary Sepsis, due to unspecified o rganism ([facility]) Hospital Course * Bebo Yadav MD - 04/01/2017 3:18 PM EST Formatting of this note may be different from the original. DISCHARGE SUMMARY Patient: Valerie Carranza Account: [id number] Admitted: 03/31/2017 Discharge Date/Time: No discharge date for patient encounter. Clinical Summary Perpetual Assessment: Sepsis, community acquired pneumonia, multiloculated complicated pleural effusion 56 year old male with multiple sclerosis, chronic pain, tobacco abuse who [place] [facility] [place] with 1 day history of [...] Surg service in not available currently at [facility] and patient is agreeable to transfer to [...] Care Provider: Rudolph Redmond MD, , Address: [address] [place] [id number] Follow Up: No follow-up provider specified. Additional Information Patient instructions, including activity, were given to the patient/family at discharge. Please seethe After Visit Summary in the medical record for details. Time spent on discharge: > 30 minutes Completed by: Bebo Yadav on 04/01/17, 4:23 PM in this encounter Summary Purpose Family History No Family History Records Found Relationship Condition Age at Onset Recorded Date/T floyd natural son Diabetes mellitus Unknown father Congestive heart failure Unknown Not Specified Hypertension Unknown Advance Directives No Advanced Directives Records Found Advance Directive Response Recorded Date/ Time Advance [...] (CMS/HCC) Procedures MR thoracic spine w and Fabiana Steele PA [address] [place] [address] Referral ID Status Reason Start Date Expiration Date V isits Requested Visits Authorized [id number] Pending Review 02/06/2024 08/04/2024 1 1 Specialty Diagnoses / Procedures Referred By Contac t Referred To Contact Diagnoses Multiple sclerosis ([facility]) Procedures MR cervical spine w and Fabiana Steele PA [address] [place] [address] Referral ID Status Reason Start Date Expiration Date V isits Requested Visits Authorized [id number] Pending Review 02/06/2024 08/04/2024 1 1 Additional Source Comments Bebo Yadav MD - 03/31/2017 3:01 PM EST H&P Notes (unrecognized sect ion and content) Formatting of this note may be different from the original. HISTORY AND PHYSICAL Patient Name: Valerie Carranza Admit Date: [id number] MR #: [id number] : 1960 Physicians: Rudolph Redmond MD (Family); [...] right sided pneumonia 3. Dysphagia- Will consult DIE CUTTER APPRENTICE for swallow evaluation 4. Tobacco- Current 1.5ppd smoker. Advised cessation. Patient requesting nicotine patch. 5. Multiple sclerosis (follows Dr Jordan), chronic pain (on chronic opioids) History of Present Illness: Valerie Carranza is a 56 y.o. male presenting [...] BP 116/75 Pulse (!) 133 Temp 100.1 F (37.8 C ) (Oral) Resp (!) 20 Ht 6' Wt [...] different from the original. Consult Note Name: Valerie Carranza Date/Time of Admission: 03/31/2017 10:33 AM CSN: [id number] Attending Provider: Bebo Yadav MD Room/Bed: S279/A : 1960 Age: 56 y.o. REASON FOR CONSULT pneumonia HPI I was asked by Dr. Bebo Yadav MD to see Valerie Carranza in consultation. History was obtained from patient patient's family chart review nursing Dr. Valerie Carranza is a 56 y.o. male who [...] Q30 Min ipratropium-albuterol 3 mL Inhalation Q6H ON LICENSE OF [facility] levoFLOXacin 750 mg Intravenous Q24H levothyroxine 150 mcg Oral at bedtime meropenem 1,000 mg Intravenous Q8H mirtazapine 45 mg Oral Nightly morphine 15 mg Oral Q12H ESAU nicotine 1 patch Transdermal Daily ALLERGIES Allergies Allergen Reactions Copaxone [Glatiramer (Copolymer 1)] Penicillins Rash PHYSICAL EXAM VITAL SIGNS: BP (!) 112/92 Pulse (!) 133 Temp 99.1 F (37.3 C ) (Oral) Resp (!) 23 Ht 6' Wt [...] 1.8 -- LFTs Recent Labs 03/31/17 1038 03/31/17232904/01/1718 AST 7 8 15 ALT 14 11* 12* ALKPHOS 122 100 98 No results for input(s): AMYLASE, LIPASE in the last 72 hours. Arterial Blood Gasses No results for input(s): PH in the last 72 hours. Invalid input(s): PCO2, PO2, U1TCTZVBAYBT, INSPIREDO2 Cardiac Enzymes Recent Labs 03/31/17 1541 [...] the opportunity to participate in care of Valerie Carranza. Electronically signed: Archie Stewart MD, PhD, [facility] 04/01/2017 2:05 PM Formatting of this [...] understanding Transfers Sit to Stand: Contact guard Churn Driller Helper: 1 person, Gait belt, Other (Comment) (IV [...] ambulation Prior Level of Function Level of [place]: Independent with ADLs and functional transfers, Needs [...] Date: 03/31/2017 Time: 2:59 PM Patient Name: Valerie Carranza Date of : 1960 Sex: Male Discharge Plan Shared UM/CC and RN Living Arrangements: Spouse/significant other Support Systems: Spouse/significant other Functional Status: Independent Type of Residence: Private residence Prior to Admission Home Care Services: No Current Home Equipment: Walker, Cane Insurance Coverage for Prescriptions: Yes Discharge Readiness Expected Discharge Date: 04/02/17 [facility] Disposition D/C Disposition: Home Met with patient. No discharge needs identified in this encounter Plan of Care - Chelsea Umana, SHARAD - 04/01/2017 1:16 PM ESTPlan of Care - Constanza Houser RN - 04/01/2017 8:09 AM ESTPlan of Care - Chelsea Umana RN - 03/31/2017 3:17 PM EST Miscellaneous [...] note may be different from the original. [facility] ED Physician Note: NAME: Valerie Ju Carranza 56 y.o. CSN: [id number] PCP: Rudolph Redmond MD Clinical Impression: SNOMED [...] - - - 03/31/17 1512 116/72 98.2 F (36.8 C ) Oral (!) 130 (!) 19 94 % - - 03/31/17 1405 116/75 100.1 F (37.8 C ) Oral (!) 133 (!) 20 95 % [...] - - - 03/31/17 1032 120/76 98.6 F (37 C ) Oral (!) 135 (!) 24 94 % [...] Procedure Abnormality Status --------- ------ CBC Auto Differential[[id number]] Abnormal Final result Please view results for [...] No free air collections underneath the hemidiaphragms. JAR/jw Workstation ID: [id number] CT Pulmonary Arteries Preliminary Result 1. No [...] lymph nodes are favored to be reactive. [facility]/hb Workstation ID: [id number] Procedures: ECG 12 Lead Date/Time: 03/31/2017 3:23 PM Performed by: KEISHA GASTELUM Authorized by: KEISHA GASTELUM Rhythm: sinus rhythm and sinus tachycardia BPM: 136 Conduction: conduction normal ST Segments: ST segments normal T Waves: T waves normal normal OR interval normal QRS interval normal QT interval Clinical impression: sinus tachycardia Keisha Gastelum MD [facility] Emergency Department (Please note that portions of [...] DATE CREATED AUTHOR 10/26/2017 [facility] DATE CREATED AUTHOR AUTHOR'S ORGANIZ ATION 10/13/2021 [facility] DATE CREATED AUTHOR AUTHOR'S ORGANIZ ATION 09/20/2022 [facility] DATE CREATED AUTHOR AUTHOR'S ORGANIZ ATION 07/02/2024 [facility] DATE CREATED AUTHOR AUTHOR'S ORGANIZ ATION 08/02/2024 [facility] DATE CREATED AUTHOR AUTHOR'S ORGANIZ ATION 08/24/2024 [facility] DATE CREATED AUTHOR AUTHOR'S ORGANIZ ATION 10/20/2024 [facility] DATE CREATED AUTHOR AUTHOR'S ORGANIZ ATION 01/26/2025 [facility] EPIC Source Comments (unrecognize d section and content) In the event this informatio n is protected by the Federal Confidentiality of Alcohol and Drug Abuse Patient Records regulations: The Federal rules restrict any use of the information to criminally investigate or prosecute any alcohol or drug abuse patient.[facility] Care Teams (unrecognized sec tion and content) Tree Loader Meat Relationship Specialty Start Date End Date Katrina Bermudez MD [address] [place] [address] PCP - [employer] 05/07/22 Katrina Bermudez MD [address] [facility] [place] [address] PCP - General Family Medicine 09/26/22 Macey Vargas NP [address] [facility] [place] [address] Nurse Practitioner Family Medicine 09/26/22 Tree Loader Meat Relationship Specialty Start Date End Date Katrina Bermudez MD [address] [facility] [place] [address] PCP - [employer] 05/07/22 Katrina Bermudez MD [address] [facility] [place] [address] PCP - General Family Medicine 09/26/22 Macey Vargas NP [address] [place] [address] Nurse Practitioner Family Medicine 09/26/22 Tree Loader Meat Relationship Specialty Start Date End Date Katrina Bermudez MD [address] [place] [address] PCP - [employer] 05/07/22 Katrina Bermudez MD [address] [place] [address] PCP - General Family Medicine 09/26/22 Macey Vargas NP [address] [place] [address] Nurse Practitioner Family Medicine 09/26/22 Team Status: Active Member Role Status Mariaa Bermudez MD Primary Care Provider Active Team Status: Inactive Member Role Status Mariaa Luz MD Attending Provider Active Start: July 25, 2023 End: July 25, 2023 Katrina Bermudez MD Primary Care Provider Active Sta [...] Team Status: Inactive Member Role Status Dates Katrina Bermudez MD Primary Care Provider Active Sta rt: September 25, 2023 End: September 25, 2023 Timur Luz MD Attending Provider Active Start: September 25, 2023 End: September 25, 2023 Team Status: Active Member Role Status Dates Katrina Bermudez MD Primary Care Provider Active Sta rt: September 25, 2023 Timur Luz MD Attending Provider, Other Provider Act chacha Start: September 25, 2023 Tree Loader Meat Relationship Specialty Start Date End Date Katrina Bermudez MD [address] [facility] [place] [address] PCP - [employer] 05/07/22 Katrina Bermudez MD [address] [facility] [place] [address] PCP - General Family Medicine 09/26/22 Macey Vargas NP [address] [facility], [place] [address] Nurse Practitioner Family Medicine 09/26/22 Tree Loader Meat Relationship Specialty Start Date End Date Katrina Bermudez MD [address] [facility], [place] [address] PCP - [employer] 05/07/22 Katrina Bermudez MD [address] [facility] [place] [address] PCP - General Family Medicine 09/26/22 Macey Vargas NP [address] [facility] [place] [address] Nurse Practitioner Family Medicine 09/26/22 Tree Loader Meat Relationship Specialty Start Date End Date Katrina Bermudez MD [address] [facility] [place] [address] PCP - [employer] 05/07/22 Katrina Bermudez MD [address] [place] [address] PCP - General Family Medicine 09/26/22 Macey Vargas, PERCOLATOR OPERATOR [address] [place] [address] Nurse Practitioner Family Medicine 09/26/22 Tree Loader Meat Relationship Specialty Start Date End Date Katrina Bermudez MD [address] [place] [address] PCP - [employer] 05/07/22 Katrina Bermudez MD [address] [place] [address] PCP - General Family Medicine 09/26/22 Macey Vargas, PERCOLATOR OPERATOR [address] [place] [address] Nurse Practitioner Family Medicine 09/26/22 Tree Loader Meat Relationship Specialty Start Date End Date Katrina Bermudez MD [address] [place] [address] PCP - [employer] 05/07/22 Katrina Bermudez MD [address] [place] [address] PCP - General Family Medicine 09/26/22 Macey Vargas, ELIJAH [address] [place] [address] Nurse Practitioner Family Medicine 09/26/22 Tree Loader Meat Relationship Specialty Start Date End Date Katrina Bermudez MD [address] [place] [address] PCP - [employer] 05/07/22 Katrina Bermudez MD [address] [place] [address] PCP - General Family Medicine 09/26/22 Macey Vargas, PERCOLATOR OPERATOR [address] [place] [address] Nurse Practitioner Family Medicine 09/26/22 Tree Loader Meat Relationship Specialty Start Date End Date Katrina Bermudez MD [address] [place] [address] PCP - [employer] 05/07/22 Katrina Bermudez MD [address] [place] [address] PCP - General Family Medicine 09/26/22 Macey Vargsa, PERCOLATOR OPERATOR [address] [place] [address] Nurse Practitioner Family Medicine 09/26/22 Tree Loader Meat Relationship Specialty Start Date End Date Katrina Bermudez MD [address] [place] [address] PCP - [employer] 05/07/22 Katrina Bermudez MD [address] [place] [address] PCP - General Family Medicine 09/26/22 Macey Vargas PERCOLATOR OPERATOR [address] [place] [address] Nurse Practitioner Family Medicine 09/26/22 Tree Loader Meat Relationship Specialty Start Date End Date Katrina Bermudez MD [address] [facility] [place] [address] PCP - [employer] 05/07/22 Katrina Bermudez MD [address] [facility] [place] [address] PCP - General Family Medicine 09/26/22 Macey Vargas NP [address] [facility] [place] [address] Nurse Practitioner Family Medicine 09/26/22 Tree Loader Meat Relationship Specialty Start Date End Date Katrina Bermudez MD [address] [facility] [place] [address] PCP - [employer] 05/07/22 Katrina Bermudez MD [address] [facility] [place] [address] PCP - General Family Medicine 09/26/22 Macey Vargas NP [address] [facility] [place] [address] Nurse Practitioner Family Medicine 09/26/22 Tree Loader Meat Relationship Specialty Start Date End Date Katrina Bermudez MD [address] [facility] [place] [address] PCP - Hum[employer] 05/07/22 Katrina Bermudez MD [address] [facility] [place] [address] PCP - General Family Medicine 09/26/22 Macey Vargas, ELIJAH [address] [place] [address] Nurse Practitioner Family Medicine 09/26/22 Tree Loader Meat Relationship Specialty Start Date End Date Katrina Bermudez MD [address] [place] [address] PCP - [employer] 05/07/22 Katrina Bermudez MD [address] [place] [address] PCP - General Family Medicine 09/26/22 Macey Vargas NP [address] [place] [address] Nurse Practitioner Family Medicine 09/26/22 Tree Loader Meat Relationship Specialty Start Date End Date Katrina Bermudez MD [address] [place] [address] PCP - [employer] 05/07/22 Katrina Bermudez MD [address] [place] [address] PCP - General Family Medicine 09/26/22 Macey Vargas NP [address] [place] [address] Nurse Practitioner Family Medicine 09/26/22 Tree Loader Meat Relationship Specialty Start Date End Date Katrina Bermudez MD [address] [place] [address] PCP - [employer] 05/07/22 Katrina Bermudez MD [address] [place] [address] PCP - General Family Medicine 09/26/22 Macey Vargas NP [address] [facility] [place] [address] Nurse Practitioner Family Medicine 09/26/22 Emma Arreaga MD [address] [place] [address] Referring Physician Neurology 05/29/24 Tree Loader Meat Relationship Specialty Start Date End Date Katrina Bermudez MD [address] [place] [address] PCP - [employer] 05/07/22 Katrina Bermudez MD [address] [facility] [place] [address] PCP - General Family Medicine 09/26/22 Macey Vargas NP [address] [place] [address] Nurse Practitioner Family Medicine 09/26/22 Emma Arreaga MD [address] [facility] [place] [address] Referring Physician Neurology 05/29/24 Tree Loader Meat Relationship Specialty Start Date End Date Katrina Bermudez MD [address] [facility] [place] [address] PCP - [employer] 05/07/22 Katrina Bermudez MD [address] [facility] [place] [address] PCP - General Family Medicine 09/26/22 Macey Vargas NP [address] [place] [address] Nurse Practitioner Family Medicine 09/26/22 Emma Arreaga MD [address] [place] [address] Referring Physician Neurology 05/29/24 Tree Loader Meat Relationship Specialty Start Date End Date Katrina Bermudez MD [address] [place] [address] PCP - Humana 05/07/22 Katrina Bermudez MD [address] [place] [address] PCP - General Family Medicine 09/26/22 Macey Vargas NP [address] [place] [address] Nurse Practitioner Family Medicine 09/26/22 Emma Arreaga MD [address] [place] [address] Referring Physician Neurology 05/29/24 Tree Loader [employer] Relationship Specialty Start Date End Date Katrina Bermudez MD [address] [place] [address] PCP - Humana 05/07/22 Katrina Bermudez MD [address] [place] [address] PCP - General Family Medicine 09/26/22 Macey Vargas NP [address] [place] [address] Nurse Practitioner Family Medicine 09/26/22 Emma Arreaga MD [address] [place] [address] Referring Physician Neurology 05/29/24 Tree Loader Meat Relationship Specialty Start Date End Date Katrina Bermudez MD [address] [place] [address] PCP - Humana 05/07/22 Katrina Bermudez MD [address] [facility] [place] [address] PCP - General Family Medicine 09/26/22 Macey Vargas NP [address] [facility] [place] [address] Nurse Practitioner Family Medicine 09/26/22 Emma Arreaga MD [address] [place] [address] Referring Physician Neurology 05/29/24 Tree Loader Meat Relationship Specialty Start Date End Date Katrina Bermudez MD [address] [facility] [place] [address] PCP - Humana 05/07/22 Katrina Bermudez MD [address] [facility] [place] [address] PCP - General Family Medicine 09/26/22 Macey Vargas NP [address] [facility] [place] [address] Nurse Practitioner Family Medicine 09/26/22 Emma Arreaga MD [address] [place] [address] Referring Physician Neurology 05/29/24 Tree Loader Meat Relationship Specialty Start Date End Date Katrina Bermudez MD [address] [place] [address] PCP - Humana 05/07/22 Katrina Bermudez MD [address] [place] [address] PCP - General Family Medicine 09/26/22 Macey Vargas, PERCOLATOR OPERATOR [address] [place] [address] Nurse Practitioner Family Medicine 09/26/22 Emma Arreaga MD [address] [place] [address] Referring Physician Neurology 05/29/24 Tree Loader Meat Relationship Specialty Start Date End Date Katrina Bermudez MD [address] [place] [address] PCP - Humana 05/07/22 Katrina Bermudez MD [address] [place] [address] PCP - General Family Medicine 09/26/22 Macey Vargas NP [address] [place] [address] Nurse Practitioner Family Medicine 09/26/22 Emma Arreaga MD [address] [place] [address] Referring Physician Neurology 05/29/24 Tree Loader Meat Relationship Specialty Start Date End Date Katrina Bermudez MD [address] [place] [address] PCP - Humana 05/07/22 Katrina Bermudez MD [address] [place] [address] PCP - General Family Medicine 09/26/22 Macey Vargas NP [address] [place] [address] Nurse Practitioner Family Medicine 09/26/22 Emma Arreaga MD [address] [place] [address] Referring Physician Neurology 05/29/24 Tree Loader Meat Relationship Specialty Start Date End Date Katrina Bermudez MD [address] [place] [address] PCP - Humana 05/07/22 Katrina Bermudez MD [address] [place] [address] PCP - General Family Medicine 09/26/22 Macey Vargas PERCOLATOR OPERATOR [address] [place] [address] Nurse Practitioner Family Medicine 09/26/22 Emma Arreaga MD [address] [place] [address] Referring Physician Neurology 05/29/24 Tree Loader Meat Relationship Specialty Start Date End Date Katrina Bermudez MD [address] [place] [address] PCP - Humana 05/07/22 Katrina Bermudez MD [address] [place] [address] PCP - General Family Medicine 09/26/22 Macey Vargas PERCOLATOR OPERATOR [address] [place] [address] Nurse Practitioner Family Medicine 09/26/22 Emma Arreaga MD [address] [place] [address] Referring Physician Neurology 05/29/24 Tree Loader Meat Relationship Specialty Start Date End Date Katrina Bermudez MD [address] [place] [address] PCP - Humana 05/07/22 Katrina Bermudez MD [address] [place] [address] PCP - General Family Medicine 09/26/22 Macey Vargas, PERCOLATOR OPERATOR [address] [place] [address] Nurse Practitioner Family Medicine 09/26/22 Emma Arreaga MD [address] [place] [address] Referring Physician Neurology 05/29/24 Tree Loader Meat Relationship Specialty Start Date End Date Katrina Bermudez MD [address] [place] [address] PCP - Humana 05/07/22 Katrina Bermudez MD [address] [place] [address] PCP - General Family Medicine 09/26/22 Macey Vargas NP [address] [facility] [place] [address] Nurse Practitioner Family Medicine 09/26/22 Emma Arreaag MD [address] [facility] [place] [address] Referring Physician Neurology 05/29/24 Tree Loader Meat Relationship Specialty Start Date End Date Katrina Bermudez MD [address] [facility] [place] [address] PCP - Humana 05/07/22 Katrina Bermudez MD [address] [facility] [place] [address] PCP - General Family Medicine 09/26/22 Macey Vargas NP [address] [facility] [place] [address] Nurse Practitioner Family Medicine 09/26/22 Emma Arreaga MD [address] [facility] [place] [address] Referring Physician Neurology 05/29/24 Tree Loader Meat Relationship Specialty Start Date End Date Katrina Bermudez MD [address] [facility] [place] [address] PCP - Humana 05/07/21 Katrina Bermudez MD [address] [facility] [place] [address] PCP - General Family Medicine 09/26/22 Macey Vargas NP [address] [place] [address] Nurse Practitioner Family Medicine 09/26/22 Emma Arreaga MD [address] [place] [address] Referring Physician Neurology 05/29/24 Tree Loader Meat Relationship Specialty Start Date End Date Katrina Bermudez MD [address] [facility] [place] [address] PCP - Humana 05/07/21 Katrina Bermudez MD [address] [place] [address] PCP - General Family Medicine 09/26/22 Macey Vargas NP [address] [facility] [place] [address] Nurse Practitioner Family Medicine 09/26/22 Emma Arreaga MD [address] [place] [address] Referring Physician Neurology 05/29/24 Tree Loader Meat Relationship Specialty Start Date End Date Katrina Bermudez MD [address] [facility] [place] [address] PCP - Humana 05/07/21 Katrina Bermudez MD [address] [place] [place] [address] PCP - General Family Medicine 09/26/22 Maecy Vargas NP [address] [facility] [place] [address] Nurse Practitioner Family Medicine 09/26/22 Emma Arreaga MD [address] [facility] [place] [address] Referring Physician Neurology 05/29/24 Tree Loader Meat Relationship Specialty Start Date End Date Katrina Bermudez MD [address] [facility] [place] [address] PCP - Humana 05/07/21 Katrina Bermudez MD [address] [facility] [place] [address] PCP - General Family Medicine 09/26/22 Macey Vargas NP [address] [facility] [place] [address] Nurse Practitioner Family Medicine 09/26/22 Emma Arreaga MD [address] [facility] [place] [address] Referring Physician Neurology 05/29/24 Reason for Visit (unrecogniz ed section and [...] therapy given. Reason Comments Multiple Sclerosis Headache Reason Comments Multiple Sclerosis Reason Comments COPD 4 month follow up Abnormal CT chest 4 month follow up wi th CT chest Reason Comments Follow-up Reason Comments Thyroid Problem Follow-up LAB Reason Comments Follow-up Patient presents tod ay for 4 month follow up. Reason Comments Headache Memory Loss Multiple Sclerosis Reason Comments UTI Bowel Issues Reason Comments Medicare Annual Wellness Visit Subsequen t Fatigue About a week and joseph f ago. Pain Shoulder, arm, joint s all on left side about week and half ago. Reason Comments Follow-up Thyroid Problem LAB Reason Comments Multiple Sclerosis MIREYA transfer Goals (unrecognized section and content) Goals may be documented in a n alternate section No data available for this section No data available for this section FOR RECORDS PERTAINING TO PATIENTS WHO [...] BE BASED ON THE PRIMARY CLINICAL RECORDS. [facility] [employer] [facility]. provides no warranty or guarantee of the accuracy or completeness of information in this document.
== END 2025-01-27 17:15 | disposition left against medical advice (07) ==
LOC: ER 01-28 08:32
PROVIDERS: Emergency Provider Emergency Medicine; PCP Family Medicine
DX: Z53.21 Procedure and treatment not carried out due to patient leaving prior to being seen by health care provider (principal); M79.89 Other specified soft tissue disorders
CPT/HCPCS: 93971; 99284